=== PATIENT | male | born 1950 | race Caucasian/White ===

== ENCOUNTER → 2018-02-15 11:35 | Outpatient (CLI) | payer OTHER, SELFPAY ==
[2018-02-15 13:37] LABS: Add Manual Diff / Slide Review NO; Basophils Percent Auto 0.6 % (0-2); Eosinophils Percent Auto 1.5 % (2-4); Hematocrit 45.2 % (41-53); Hemoglobin 15.5 g/dL (13.5-17.5); Lymphocytes Percent Auto 31.8 % (25-40); Mean Corpuscular HGB Conc 34.4 % (30-36); Mean Corpuscular Hemoglobin 31.6 PG (26-34); Mean Corpuscular Volume 91.9 fL (80-100); Monocytes Percent Auto 5.5 % (3-14); Neutrophils Absolute Auto 3300 /uL (3000-5900); Neutrophils Percent Auto 60.6 % (50-75); Platelet Count 216 X10^3/uL (150-400); Red Blood Cell Count 4.91 X10^6/uL (4.5-5.9); Red Cell Distribution Width 13.2 % (11.6-14.8); White Blood Cell Count 5.5 X10^3/uL (4.5-11.0)
[2018-02-15 14:01] LABS: Alanine Aminotransferase 32 IU/L (21-72); Albumin 4.6 g/dL (3.5-5.0); Albumin Globulin Ratio 1.4 (1.0-2.8); Alkaline Phosphatase 48 U/L (38-126); Aspartate Aminotransferase 23 IU/L (17-59); Bilirubin Total 0.9 mg/dL (0.2-1.3); Blood Urea Nitrogen 18 mg/dL (9-20); Calcium 9.8 mg/dL (8.4-10.2); Carbon Dioxide 30 mmol/L (22-32); Chloride 104 mmol/L (98-107); Cholesterol 157 mg/dL (140-199); Estimated Glomerular Filt Rate > 60.0 mL/min (>60); Globulin 3.2 g/dL (1.7-4.1); Glucose 117 mg/dL (80-110); HDL Cholesterol 47 mg/dL (40-60); HEMOLYSIS < 15 (0-50); LDL Cholesterol Calculated 98 mg/dL (<100); Potassium 5.3 mmol/L (3.4-5.1); Sodium 145 mmol/L (137-145); Total Protein 7.8 g/dL (6.3-8.2); Triglycerides 61 mg/dL (35-150)
== END ==
PROVIDERS: Family Provider Family Medicine; PCP Family Medicine; Visit Provider Family Medicine
DX: I10 Essential (primary) hypertension (principal); E78.5 Hyperlipidemia, unspecified; N40.0 Benign prostatic hyperplasia without lower urinary tract symptoms
CPT/HCPCS: 36415; 80053; 80061; 84153; 85025

== ENCOUNTER → 2018-08-02 09:55 | Outpatient (CLI) | payer OTHER, SELFPAY ==
--- NOTE | 2018-08-02 09:58 | DI.RAD.S_ITS ---
PROCEDURE: XR THORACIC SPINE 3V INDICATIONS: pain TECHNIQUE: 3 views of the thoracic spine were acquired. COMPARISON: [facility], CT, IVP (ABD & PEL WWO CONTRAST), 03/04/2017, 9:22. FINDINGS: Bones: No fractures or dislocations. No suspicious bony lesions. Chronic T12 fracture with no further height loss. Diffuse endplate spurring and sclerosis. Soft tissues: No paravertebral stripe thickening. IMPRESSION: Diffuse thoracic disc degeneration and unchanged T12 fracture. Dictated by: Marlon Lam M.D. on 08/02/2018 at 12:53 Approved by: Marlon Lam M.D. on 08/02/2018 at 12:59
== END ==
PROVIDERS: Family Provider Family Medicine; PCP Family Medicine; Visit Provider Family Medicine
DX: M51.34 Other intervertebral disc degeneration, thoracic region (principal); S22.089D Unspecified fracture of T11-T12 vertebra, subsequent encounter for fracture with routine healing; N42.9 Disorder of prostate, unspecified
CPT/HCPCS: 36415; 72072; 84153

== ENCOUNTER → 2018-08-14 14:22 | Outpatient (CLI) | payer OTHER, SELFPAY ==
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
== END ==
PROVIDERS: Family Provider Family Medicine; PCP Family Medicine; Visit Provider Family Medicine
DX: M54.6 Pain in thoracic spine (principal)
CPT/HCPCS: 72146

== ENCOUNTER → 2018-12-27 11:31 | Outpatient (CLI) | payer OTHER, SELFPAY ==
[2018-12-27 12:03] LABS: Add Manual Diff / Slide Review NO; Basophils Absolute Auto 0 /uL (0-100); Basophils Percent Auto 0.8 % (0-2); Eosinophils Absolute Auto 100 /uL (0-450); Eosinophils Percent Auto 1.9 % (2-4); Hematocrit 42.4 % (41-53); Hemoglobin 14.7 g/dL (13.5-17.5); Lymphocytes Absolute Auto 1200 /uL (1100-4500); Lymphocytes Percent Auto 29.4 % (25-40); Mean Corpuscular HGB Conc 34.7 % (30-36); Mean Corpuscular Hemoglobin 31.7 PG (26-34); Mean Corpuscular Volume 91.2 fL (80-100); Monocytes Absolute Auto 200 /uL (0-900); Monocytes Percent Auto 5.7 % (3-14); Neutrophils Absolute Auto 2600 /uL (1500-7000); Neutrophils Percent Auto 62.2 % (50-75); Platelet Count 200 X10^3/uL (150-400); Red Blood Cell Count 4.65 X10^6/uL (4.5-5.9); Red Cell Distribution Width 13.6 % (11.6-14.8); White Blood Cell Count 4.2 X10^3/uL (4.5-11.0)
[2018-12-27 12:18] LABS: Alanine Aminotransferase 22 IU/L (21-72); Albumin 4.6 g/dL (3.5-5.0); Albumin Globulin Ratio 1.4 (1.0-2.8); Alkaline Phosphatase 48 U/L (38-126); Aspartate Aminotransferase 23 IU/L (17-59); BUN Creatinine Ratio 26.7 (6-22); Bilirubin Total 0.7 mg/dL (0.2-1.3); Blood Urea Nitrogen 16 mg/dL (9-20); Calcium 9.5 mg/dL (8.4-10.2); Carbon Dioxide 28 mmol/L (22-32); Chloride 105 mmol/L (98-107); Cholesterol 157 mg/dL (140-199); Estimated Glomerular Filt Rate > 60.0 mL/min (>60); Globulin 3.4 g/dL (1.7-4.1); Glucose 130 mg/dL (80-110); HDL Cholesterol 50 mg/dL (40-60); HEMOLYSIS < 15 (0-50); LDL Cholesterol Calculated 98 mg/dL (<100); Potassium 4.9 mmol/L (3.4-5.1); Sodium 141 mmol/L (137-145); Triglycerides 47 mg/dL (35-150)
[2018-12-27 12:19] LABS: C-Reactive Protein Quant < 0.5 mg/dL (<1.0)
[2018-12-27 12:39] LABS: Erythrocyte Sedimentation Rate 16 MM/HR (0-15)
[2018-12-27 12:46] LABS: Prostate Specific Antigen Scrn 1.72 ng/mL (0.1-4.0)
[2018-12-27 13:47] LABS: Thyroid Stimulating Hormone 1.91 uIU/mL (0.47-4.68)
== END ==
PROVIDERS: Family Provider Family Medicine; PCP Family Medicine; Visit Provider Family Medicine
DX: R41.3 Other amnesia (principal); I10 Essential (primary) hypertension; F41.9 Anxiety disorder, unspecified; Z12.5 Encounter for screening for malignant neoplasm of prostate
CPT/HCPCS: 36415; 80053; 80061; 84443; 85025; 85651; 86140; G0103

== ENCOUNTER → 2019-01-10 08:04 | Outpatient (CLI) | payer OTHER, SELFPAY ==
--- NOTE | 2019-01-10 08:05 | DI.MRI.S_ITS ---
PROCEDURE: MR HEAD/BRAIN WO CON INDICATIONS: Memory impairment TECHNIQUE: Noncontrast axial T1 spin echo, axial T2 fast spin echo, sagittal and axial FLAIR, coronal T2 fast spin echo, axial gradient echo, axial diffusion and ADC through the brain. COMPARISON: [facility], MR, BRAIN WITHOUT CONTRAST, 03/11/2015, 15:06. FINDINGS: Image quality: Excellent. CSF Spaces: Basal cisterns are patent. No extra-axial fluid collections. Ventricles are normal in size and shape. Brain: No intracranial masses or hemorrhage. Bolaños/white matter interface is normal. Brainstem appears normal. Diffusion-weighted images demonstrate no acute ischemic insult. No chronic ischemic insults. Normal intravascular flow voids are present. Skull and face: Calvarium has normal marrow signal. Orbits appear normal. Sinuses: Sinuses and mastoids are clear. IMPRESSION: Minimal microvascular atherosclerotic change in the deep white matter of each hemisphere but no source of memory impairment is identified. Dictated by: Ridge Subramanian M.D. on 01/10/2019 at 9:59 Approved by: Ridge Subramanian M.D. on 01/10/2019 at 10:01
== END ==
PROVIDERS: PCP Family Medicine; Visit Provider Family Medicine
DX: R41.3 Other amnesia (principal)
CPT/HCPCS: 70551

== ENCOUNTER → 2019-04-09 10:42 | Outpatient (CLI) | payer OTHER, SELFPAY ==
[2019-04-09 13:15] LABS: Thyroid Stimulating Hormone 2.09 uIU/mL (0.47-4.68)
[2019-04-09 13:39] LABS: Folate > 20.0 ng/mL (2.76-20.0)
[2019-04-14 12:12] LABS: Vit B12 Binding Capacity unsat 605 pg/mL (650-1340)
== END ==
PROVIDERS: PCP Family Medicine; Visit Provider Psychiatry & Neurology Neurology
DX: R41.89 Other symptoms and signs involving cognitive functions and awareness (principal)
CPT/HCPCS: 36415; 82608; 82746; 84443

== ENCOUNTER → 2020-01-23 10:13 | Outpatient (CLI) | payer OTHER, SELFPAY ==
[2020-01-23 10:44] LABS: Add Manual Diff / Slide Review NO; Basophils Absolute Auto 0 /uL (0-100); Basophils Percent Auto 0.6 % (0-2); Eosinophils Absolute Auto 200 /uL (0-450); Eosinophils Percent Auto 3.1 % (2-4); Hematocrit 43.9 % (41-53); Hemoglobin 15.1 g/dL (13.5-17.5); Lymphocytes Absolute Auto 1800 /uL (1100-4500); Lymphocytes Percent Auto 31.7 % (25-40); Mean Corpuscular HGB Conc 34.4 % (30-36); Mean Corpuscular Hemoglobin 31.5 PG (26-34); Mean Corpuscular Volume 91.7 fL (80-100); Monocytes Absolute Auto 300 /uL (0-900); Monocytes Percent Auto 6.1 % (3-14); Neutrophils Absolute Auto 3200 /uL (1500-7000); Neutrophils Percent Auto 58.5 % (50-75); Platelet Count 207 X10^3/uL (150-400); Red Blood Cell Count 4.79 X10^6/uL (4.5-5.9); Red Cell Distribution Width 13.5 % (11.6-14.8); White Blood Cell Count 5.6 X10^3/uL (4.5-11.0)
[2020-01-23 10:53] LABS: Hemoglobin A1C% w Est Avg Glu 5.8 % (4.0-6.0)
[2020-01-23 10:56] LABS: Alanine Aminotransferase 25 IU/L (<50); Albumin 4.6 g/dL (3.5-5.0); Albumin Globulin Ratio 1.3 (1.0-2.8); Alkaline Phosphatase 54 U/L (38-126); Aspartate Aminotransferase 25 IU/L (17-59); BUN Creatinine Ratio 31.6 (6-22); Bilirubin Total 0.4 mg/dL (0.2-1.3); Blood Urea Nitrogen 18 mg/dL (9-20); Calcium 9.7 mg/dL (8.4-10.2); Carbon Dioxide 27 mmol/L (22-32); Chloride 109 mmol/L (98-107); Cholesterol 168 mg/dL (140-199); Estimated Glomerular Filt Rate > 60.0 mL/min (>60); Globulin 3.5 g/dL (1.7-4.1); Glucose 119 mg/dL (80-110); HDL Cholesterol 41 mg/dL (40-60); HEMOLYSIS < 15 (0-50); LDL Cholesterol Calculated 110 mg/dL (<100); Potassium 4.3 mmol/L (3.4-5.1); Sodium 142 mmol/L (137-145); Total Protein 8.1 g/dL (6.3-8.2); Triglycerides 87 mg/dL (35-150)
[2020-01-23 11:26] LABS: Thyroid Stimulating Hormone 2.33 uIU/mL (0.47-4.68)
== END ==
PROVIDERS: PCP Family Medicine; Referring Provider Family Medicine; Visit Provider Family Medicine
DX: I10 Essential (primary) hypertension (principal); Z12.5 Encounter for screening for malignant neoplasm of prostate
CPT/HCPCS: 36415; 80053; 80061; 83036; 84443; 85025; G0103

== ENCOUNTER → 2020-08-20 11:56 | Outpatient (CLI) | payer OTHER, SELFPAY | PROVIDERS: PCP Family Medicine; Visit Provider Physician Assistant | DX: R82.90 Unspecified abnormal findings in urine (principal); R31.9 Hematuria, unspecified | CPT/HCPCS: 87086 ==

== ENCOUNTER → 2020-08-20 12:05 | Outpatient (CLI) | payer OTHER, SELFPAY ==
[2020-08-20 12:47] LABS: Add Manual Diff / Slide Review NO; Basophils Absolute Auto 0 /uL (0-100); Basophils Percent Auto 0.5 % (0-2); Eosinophils Absolute Auto 100 /uL (0-450); Eosinophils Percent Auto 2.4 % (2-4); Hematocrit 45.5 % (41-53); Hemoglobin 15.4 g/dL (13.5-17.5); Lymphocytes Absolute Auto 1900 /uL (1100-4500); Lymphocytes Percent Auto 36.1 % (25-40); Mean Corpuscular HGB Conc 33.9 % (30-36); Mean Corpuscular Hemoglobin 31.1 PG (26-34); Mean Corpuscular Volume 91.5 fL (80-100); Monocytes Absolute Auto 300 /uL (0-900); Monocytes Percent Auto 5.2 % (3-14); Neutrophils Absolute Auto 3000 /uL (1500-7000); Neutrophils Percent Auto 55.8 % (50-75); Platelet Count 205 X10^3/uL (150-400); Red Blood Cell Count 4.97 X10^6/uL (4.5-5.9); Red Cell Distribution Width 13.8 % (11.6-14.8); White Blood Cell Count 5.3 X10^3/uL (4.5-11.0)
[2020-08-20 13:03] LABS: Alanine Aminotransferase 24 IU/L (<50); Albumin 4.7 g/dL (3.5-5.0); Albumin Globulin Ratio 1.3 (1.0-2.8); Alkaline Phosphatase 55 U/L (38-126); Aspartate Aminotransferase 27 IU/L (17-59); BUN Creatinine Ratio 22.4 (6-22); Bilirubin Total 0.7 mg/dL (0.2-1.3); Blood Urea Nitrogen 15 mg/dL (9-20); Calcium 9.7 mg/dL (8.4-10.2); Carbon Dioxide 30 mmol/L (22-32); Chloride 105 mmol/L (98-107); Estimated Glomerular Filt Rate > 60.0 mL/min (>60); Globulin 3.6 g/dL (1.7-4.1); Glucose 123 mg/dL (80-110); HEMOLYSIS < 15 (0-50); Potassium 4.4 mmol/L (3.4-5.1); Sodium 139 mmol/L (137-145); Total Protein 8.3 g/dL (6.3-8.2)
== END ==
PROVIDERS: PCP Family Medicine; Referring Provider Physician Assistant; Visit Provider Physician Assistant
DX: R31.9 Hematuria, unspecified (principal); R82.90 Unspecified abnormal findings in urine
CPT/HCPCS: 36415; 80053; 84153; 85025; 87086

== ENCOUNTER → 2020-09-04 09:44 | Outpatient (CLI) | payer OTHER, SELFPAY ==
[2020-09-04 09:53] LABS: Bacteria Urine None Seen; RBC Urine None Seen (0-5/HPF); WBC Urine None Seen (0-5/HPF)
[2020-09-04 10:15] LABS: Appearance Urine UA CLEAR; Bilirubin Urine UA NEGATIVE (NEGATIVE); Color Urine UA YELLOW; Glucose Urine UA NEGATIVE (Negative); Ketones Urine UA NEGATIVE (NEGATIVE); Leukocyte Esterase Urine UA NEGATIVE (NEGATIVE); Nitrite Urine UA NEGATIVE (Negative); Occult Blood Urine UA NEGATIVE (Negative); Protein Urine UA NEGATIVE (Negative); Specific Gravity Urine UA 1.015 (1.000-1.035); Urobilinogen Urine UA 0.2 E.U./dL (0.2)
[2020-09-04 10:52] LABS: Culture Indicated Urine Cult Not Indicated; Urine Comments Microscopic Normal
== END ==
PROVIDERS: PCP Family Medicine; Referring Provider Family Medicine; Visit Provider Family Medicine
DX: R31.0 Gross hematuria (principal)
CPT/HCPCS: 81001

== ENCOUNTER → 2020-09-12 08:46 | Outpatient (CLI) | payer OTHER, SELFPAY ==
[2020-09-12 09:58] LABS: COVID19 -Nasal RAPID Negative (Negative)
== END ==
PROVIDERS: PCP Family Medicine; Visit Provider Surgery
DX: Z20.822 Contact with and (suspected) exposure to COVID-19 (principal)
CPT/HCPCS: 87635; C9803

== ENCOUNTER 2020-09-15 06:37 | Day surgery (SDC) | payer OTHER, SELFPAY ==
--- NOTE | 2020-09-15 | PATH_ITS ---
[facility] Accession Number: [id number] . 01 Material submitted: . sigmoid colon - SIGMOID COLON POLYP . 02 Diagnosis: Sigmoid Colon Polyp: Serrated lesion, cannot completely exclude sessile serrated adenoma due to tangential tissue orientation. MRV 09/17/2020 1524 Local . 02 Electronically signed: . Leonela Miller MD, Pathologist NPI- [id number] . 01 Gross description: . SIGMOID COLON POLYP: Received in formalin is 1 fragment(s) of huffman, soft tissue measuring 0.1 x 0.1 x 0.1 cm submitted entirely in 1 cassette(s) /MIRNA 09/16/20202000 Local . 02 Pathologist provided ICD-10: K63.5, R19.4 . 02 CPT . 662343 Performed at: 01 [facility] [address] [id number] MD Price Tamez MD Phone: [phone] Performed at: 02 [facility] [address] [place], [place] [id number] MD Dorita Wallace MD Phone: [phone]
[2020-09-15 07:13] VITALS: BP 151/82; PULSE 74; RESP 12; TEMP 36.4; O2SAT 99; BMI 25.8
[2020-09-15] MEDS: LACTATED RINGERS 1,000 ML 200 ML IV (07:25)
--- NOTE | 2020-09-15 07:46 | PM.PREOP ---
Pre-operative Note Interval Note History & Physical reviewed/Exam performed by Physician: Yes Changes to H&P: No
[2020-09-15] MEDS: MIDAZOLAM 5 MG/5 ML VIAL IV (07:53)
[2020-09-15] MEDS: fentaNYL 250 MCG/5 ML INJ IV (07:53)
--- NOTE | 2020-09-15 08:18 | PM.OP.ENDO ---
Operative Date/Time/Diagnoses Date of procedure: 09/15/20 Time of procedure: 08:18 Pre-op diagnosis: change in bowel habits Post-op diagnosis: same Procedure & Clinicians Study performed: colonoscopy Polypectomy Same procedure as scheduled: Yes Indications: 69-year-old man changes in bowel habits recently here for colonoscopy Surgeon: Otis Field Procedure Notes Procedure in detail: Medications: Conscious sedation using 4mg IV midazolam and 100mcg IV of fentanyl The history and physical was performed/updated and the patient is ASA class is 2. The procedure was discussed in detail with the patient. Potential risks complications including infection, bleeding, missed diagnosis, perforation, need for surgery, and were explained. Their questions were answered and informed consent was obtained. Patient was brought to the procedure room and placed standard monitoring equipment. The patient's vital signs were monitored continuously throughout the entire procedure. Prior to starting time-out was performed. The patient was placed in the left lateral recumbent position. Procedural sedation was administered. Examination began with a thorough inspection of the perianal area there was no evidence of fissures, fistulae, external hemorrhoids or cutaneous malignancy. The colonoscopy scope was then placed into the anal canal and was advanced to the cecum, which was identified by the ileocecal valve, the appendiceal orifice and the confluence of the taenia. The scope was then slowly withdrawn examining colon thoroughly in all directions, irrigating it of any residual stool. 3 mm polyp the sigmoid colon at 30 cm from the anal verge removed with Jumbo biopsy forceps The patient tolerated the procedure well. They will be discharged once criteria are met. The prep was of good/excellent quality. The withdrawl time was 7 minutes. The sedation time was 24 minutes. Specimen(s): other (Sigmoid colon) Complications: none Impression: Colonic polyp Post-procedure Recommendations: Colonscopy in 5 years Disposition: same day surgery
[2020-09-15 08:19] VITALS: BP 126/71; PULSE 70; RESP 12; TEMP 36.8; O2SAT 98
[2020-09-15 08:25] VITALS: BP 122/74; PULSE 76; RESP 14; O2SAT 98
[2020-09-15 08:30] VITALS: BP 116/80; PULSE 72; RESP 14; O2SAT 99
[2020-09-15 08:35] VITALS: BP 134/74; PULSE 64; RESP 12; TEMP 36.8; O2SAT 99
[2020-09-15 08:37] VITALS: BP 134/73; PULSE 62; RESP 12; TEMP 36.6; O2SAT 99
== END 2020-09-15 08:50 | disposition home or self-care (01) ==
PROVIDERS: PCP Family Medicine; Referring Provider Family Medicine; Visit Provider Surgery
PROC: 0DJD8ZZ Inspection of Lower Intestinal Tract, Via Natural or Artificial Opening Endoscopic (ICD-10-PCS; CPT 45378; principal; 2020-09-15 07:45)
DX: R19.4 Change in bowel habit (principal); I10 Essential (primary) hypertension; F41.9 Anxiety disorder, unspecified; D12.5 Benign neoplasm of sigmoid colon
CPT/HCPCS: 45380; 99152; J2250; J3010

== ENCOUNTER → 2020-10-09 08:59 | Outpatient (CLI) | payer OTHER, SELFPAY ==
[2020-10-15 04:36] LABS: Percent Free Testosterone 2.15 % (1.50-4.20); Testosterone Free 12.81 ng/dL (5.00-21.00); Testosterone Total 595.9 ng/dL (264.0-916.0)
== END ==
PROVIDERS: PCP Family Medicine; Referring Provider Family Medicine; Visit Provider Family Medicine
DX: R68.82 Decreased libido (principal)
CPT/HCPCS: 36415; 84402; 84403

== ENCOUNTER → 2021-10-05 10:25 | Outpatient (CLI) | payer OTHER, SELFPAY ==
[2021-10-05 12:45] LABS: Add Manual Diff / Slide Review NO; Basophils Absolute Auto 0 /uL (0-100); Basophils Percent Auto 0.9 % (0-2); Eosinophils Absolute Auto 100 /uL (0-450); Eosinophils Percent Auto 2.6 % (2-4); Hematocrit 42.5 % (41-53); Hemoglobin 14.6 g/dL (13.5-17.5); Lymphocytes Absolute Auto 1600 /uL (1100-4500); Lymphocytes Percent Auto 30.7 % (25-40); Mean Corpuscular HGB Conc 34.4 % (30-36); Mean Corpuscular Hemoglobin 31.3 PG (26-34); Mean Corpuscular Volume 90.8 fL (80-100); Monocytes Absolute Auto 300 /uL (0-900); Monocytes Percent Auto 5.6 % (3-14); Neutrophils Absolute Auto 3100 /uL (1500-7000); Neutrophils Percent Auto 60.2 % (50-75); Platelet Count 211 X10^3/uL (150-400); Red Blood Cell Count 4.68 X10^6/uL (4.5-5.9); Red Cell Distribution Width 13.5 % (11.6-14.8); White Blood Cell Count 5.1 X10^3/uL (4.5-11.0)
[2021-10-05 13:06] LABS: Alanine Aminotransferase 20 IU/L (<50); Albumin 4.6 g/dL (3.5-5.0); Albumin Globulin Ratio 1.2 (1.0-2.8); Alkaline Phosphatase 48 U/L (38-126); Aspartate Aminotransferase 25 IU/L (17-59); BUN Creatinine Ratio 21.3 (6-22); Bilirubin Total 0.6 mg/dL (0.2-1.3); Blood Urea Nitrogen 16 mg/dL (9-20); Calcium 9.4 mg/dL (8.4-10.2); Carbon Dioxide 32 mmol/L (22-32); Chloride 104 mmol/L (98-107); Cholesterol 187 mg/dL (140-199); Estimated Glomerular Filt Rate > 60.0 mL/min (>60); Globulin 3.8 g/dL (1.7-4.1); Glucose 114 mg/dL (80-110); HDL Cholesterol 56 mg/dL (40-60); HEMOLYSIS < 15 (0-50); LDL Cholesterol Calculated 118 mg/dL (<100); Potassium 4.5 mmol/L (3.4-5.1); Sodium 141 mmol/L (137-145); Total Protein 8.4 g/dL (6.3-8.2); Triglycerides 66 mg/dL (35-150)
[2021-10-10 16:42] LABS: Testosterone Free 9.05 ng/dL (5.00-21.00); Testosterone Total 603.1 ng/dL (264.0-916.0)
== END ==
PROVIDERS: PCP Family Medicine; Referring Provider Family Medicine; Visit Provider Family Medicine
DX: Z00.00 Encounter for general adult medical examination without abnormal findings (principal); E78.2 Mixed hyperlipidemia; R31.0 Gross hematuria; R73.9 Hyperglycemia, unspecified; I10 Essential (primary) hypertension; R68.82 Decreased libido
CPT/HCPCS: 36415; 80053; 80061; 84402; 84403; 85025

== ENCOUNTER → 2023-03-23 09:22 | Outpatient (CLI) | payer OTHER, SELFPAY ==
[2023-03-23 11:02] LABS: Add Manual Diff / Slide Review NO; Basophils Absolute Auto 0 /uL (0-100); Basophils Percent Auto 0.4 % (0-2); Eosinophils Absolute Auto 100 /uL (0-450); Eosinophils Percent Auto 2.3 % (2-4); Hematocrit 44.9 % (41-53); Hemoglobin 15.4 g/dL (13.5-17.5); Lymphocytes Absolute Auto 1800 /uL (1100-4500); Mean Corpuscular HGB Conc 34.3 % (30-36); Mean Corpuscular Hemoglobin 31.7 PG (26-34); Mean Corpuscular Volume 92.4 fL (80-100); Monocytes Absolute Auto 300 /uL (0-900); Monocytes Percent Auto 5.4 % (3-14); Neutrophils Absolute Auto 3000 /uL (1500-7000); Neutrophils Percent Auto 56.9 % (50-75); Platelet Count 230 X10^3/uL (150-400); Red Blood Cell Count 4.85 X10^6/uL (4.5-5.9); Red Cell Distribution Width 13.8 % (11.6-14.8); White Blood Cell Count 5.2 X10^3/uL (4.5-11.0)
[2023-03-23 11:24] LABS: Alanine Aminotransferase 26 IU/L (<50); Albumin 4.7 g/dL (3.5-5.0); Albumin Globulin Ratio 1.2 (1.0-2.8); Alkaline Phosphatase 44 U/L (38-126); Aspartate Aminotransferase 27 IU/L (17-59); BUN Creatinine Ratio 22.2 (6-22); Bilirubin Total 0.7 mg/dL (0.2-1.3); Blood Urea Nitrogen 14 mg/dL (9-20); Calcium 9.5 mg/dL (8.4-10.2); Carbon Dioxide 27 mmol/L (22-32); Chloride 105 mmol/L (98-107); Cholesterol 194 mg/dL (140-199); Estimated Glomerular Filt Rate > 60 mL/min (>60); Globulin 3.9 g/dL (1.7-4.1); Glucose 127 mg/dL (80-110); HDL Cholesterol 45 mg/dL (40-60); HEMOLYSIS < 15 (0-50); LDL Cholesterol Calculated 131 mg/dL (<100); Potassium 4.6 mmol/L (3.4-5.1); Sodium 141 mmol/L (137-145); Total Protein 8.6 g/dL (6.3-8.2); Triglycerides 91 mg/dL (35-150)
[2023-03-23 11:52] LABS: Microalbumin Urine Random 17.8 mg/dL (0-1.6)
[2023-03-23 11:54] LABS: Creatinine Urine Random 76.6 mg/dL; Microalbumi Creatinin Ratio Ur 232.3 ug/mg CR (<30)
== END ==
PROVIDERS: PCP Family Medicine; Referring Provider Family Medicine; Visit Provider Family Medicine
DX: E78.5 Hyperlipidemia, unspecified (principal); I10 Essential (primary) hypertension; R41.3 Other amnesia; R73.9 Hyperglycemia, unspecified; Z00.00 Encounter for general adult medical examination without abnormal findings
CPT/HCPCS: 36415; 80053; 80061; 82043; 82570; 84443; 85025

== ENCOUNTER → 2023-03-29 13:46 | Outpatient (CLI) | payer OTHER, SELFPAY ==
[2023-03-31 17:30] LABS: Albumin 4.2 g/dL (2.9-4.4); Alpha-1 Globulin, Ur 3.1 % (.); Alpha-1-Globulin 0.2 g/dL (0.0-0.4); Alpha-2-Globulin 0.7 g/dL (0.4-1.0); Beta Globulin, Ur 17.7 % (.); Gamma Globulin 1.4 g/dL (0.4-1.8); Gamma Globulin, Ur 7.9 % (.); Globulin Total 3.4 g/dL (2.2-3.9); M-Spike % 3.8 % (Not Observed); Protein, Total 7.6 g/dL (6.0-8.5); Urine Total Protein 29.9 mg/dL (Not Estab.)
== END ==
PROVIDERS: PCP Family Medicine; Referring Provider Family Medicine; Visit Provider Family Medicine
DX: R73.9 Hyperglycemia, unspecified (principal); R80.9 Proteinuria, unspecified
CPT/HCPCS: 36415; 84155; 84156; 84165; 84166

== ENCOUNTER → 2023-04-14 15:19 | Outpatient (CLI) | payer OTHER, SELFPAY ==
--- NOTE | 2023-04-14 15:20 | DI.RAD.S_ITS ---
PROCEDURE: XR HIP W PEL IF DONE LT 2V INDICATIONS: Left hip pain TECHNIQUE: AP pelvis with lateral view(s) of the left hip(s). COMPARISON: None. FINDINGS: Bones: No fractures or dislocations. Pelvic ring appears intact. No suspicious bony lesions. Moderate left hip osteoarthritis with osseous hypertrophy and joint space narrowing. Soft tissues: The visualized bowel gas pattern is normal. No suspicious soft tissue calcifications. IMPRESSION: Moderate left hip osteoarthritis. Dictated by: Irena Maurer MD, PhD on 04/14/2023 at 16:02 Approved by: Irena Maurer MD, PhD on 04/14/2023 at 16:02
== END ==
PROVIDERS: PCP Family Medicine; Referring Provider Nurse Practitioner Family; Visit Provider Nurse Practitioner Family
DX: M16.12 Unilateral primary osteoarthritis, left hip (principal); M25.552 Pain in left hip
CPT/HCPCS: 73502

== ENCOUNTER 2023-06-22 10:53 | Inpatient (IN) | payer OTHER, SELFPAY ==
[2023-06-22 11:07] VITALS: BP 137/90; PULSE 91; RESP 18; TEMP 36.1; O2SAT 97; BMI 25.8
[2023-06-22] MEDS: ONDANSETRON 4 MG/2 ML INJ IV ×2 (11:22→16:52)
[2023-06-22 11:40] LABS: Add Manual Diff / Slide Review NO; Basophils Absolute Auto 0 /uL (0-100); Basophils Percent Auto 0.2 % (0-2); Eosinophils Absolute Auto 0 /uL (0-450); Eosinophils Percent Auto 0.1 % (2-4); Hematocrit 48.1 % (41-53); Hemoglobin 17.2 g/dL (13.5-17.5); Lymphocytes Absolute Auto 1100 /uL (1100-4500); Lymphocytes Percent Auto 7.6 % (25-40); Mean Corpuscular HGB Conc 35.6 % (30-36); Mean Corpuscular Hemoglobin 32.2 PG (26-34); Mean Corpuscular Volume 90.3 fL (80-100); Monocytes Absolute Auto 600 /uL (0-900); Monocytes Percent Auto 3.7 % (3-14); Neutrophils Absolute Auto 13200 /uL (1500-7000); Neutrophils Percent Auto 88.4 % (50-75); Platelet Count 292 X10^3/uL (150-400); Red Blood Cell Count 5.33 X10^6/uL (4.5-5.9); Red Cell Distribution Width 13.4 % (11.6-14.8); White Blood Cell Count 14.9 X10^3/uL (4.5-11.0)
[2023-06-22 11:44] LABS: Alanine Aminotransferase 32 IU/L (<50); Albumin 5.1 g/dL (3.5-5.0); Albumin Globulin Ratio 1.1 (1.0-2.8); Alkaline Phosphatase 75 U/L (38-126); Aspartate Aminotransferase 31 IU/L (17-59); Bilirubin Total 1.2 mg/dL (0.2-1.3); Blood Urea Nitrogen 18 mg/dL (9-20); Calcium 11.4 mg/dL (8.4-10.2); Carbon Dioxide 27 mmol/L (22-32); Chloride 101 mmol/L (98-107); Estimated Glomerular Filt Rate > 60 mL/min (>60); Globulin 4.6 g/dL (1.7-4.1); Glucose 232 mg/dL (80-110); HEMOLYSIS 20 (0-50); Lipase 41 U/L (23-300); Potassium 4.2 mmol/L (3.4-5.1); Sodium 140 mmol/L (137-145); Total Protein 9.7 g/dL (6.3-8.2)
--- NOTE | 2023-06-22 11:58 | PC.NURSE ---
Pt came to ED today because he woke up and felt diaphoretic and pain in his lower abd. Pt denies any cp, sob, n/v, or fevers. Pt is a&ox4. ANSWERING SERVICE OPERATOR intact.
--- NOTE | 2023-06-22 12:05 | ED_ITS ---
HPI - Abdominal Pain General Chief Complaint: Abdominal Pain Stated Complaint: vomiting, constipation, abd pain Time Seen by Provider: 06/22/23 12:03 Source: patient Mode of arrival: Wheelchair History of Present Illness HPI narrative: 72-year-old male with history of hyperglycemia, prior abdominal surgeries, hypertension presents with his in the chief complaint of abdominal discomfort, bloating and multiple episodes of vomiting today. He states he went to bed in his normal state of health and over the course of the night has developed increasing generalized abdominal pain. He is tried to have a bowel movement but states he has not in the past few days which is not normal for him. He states he is had trouble passing gas. He denies urinary complaints such as dysuria, frequency or urgency. He denies any fever or chills nor chest pain or shortness of breath. He denies any medication change but states maybe he had some bad food a few days ago. 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Route 05/10/23 .COMPLEX #15 tabs Allergies Allergy/AdvReac Type Severity Reaction Status Date / Time No Known Drug Allergies Allergy Unknown Verified 06/22/23 11:11 Review of Systems Review of Systems Narrative: GENERAL: Denies chills, fatigue, malaise, fever, sweats. HEENT: Denies sinus pain, ear pain, sore throat, difficulty swallowing, dizziness. RESPIRATORY: Denies dyspnea, cough, wheezing, hemoptysis, sputum. CARDIOVASCULAR: Denies chest pain, palpitations, orthopnea, edema, GASTROINTESTINAL: See HPI : Denies dysuria, frequency, incontinence, hematuria, urinary retention. MUSCULOSKELETAL: denies weakness, joint pain, or bony pain SKIN: Denies rash, skin lesions, or other NEUROLOGIC: Denies weakness, headache, numbness, change in speech, confusion, seizures, incoordination. PSYCHIATRIC: No concerning psychosocial issues. 12 point review of systems is negative except for those stated above Patient History Medical History Short-term memory loss Hyperglycemia Libido, decreased Change in stool caliber Substance abuse (~1974) Chronic back pain (~1999) Chicken pox (~1955) Hepatitis C (~1994) Cancer (~2008) Low back pain Hyperlipidemia Dry eyes Memory impairment Essential hypertension (10/08/15) Anxiety (10/08/15) Surgical History Anesthesia Pseudomyxoma peritonei (~08/02/08) Family History Father Diabetes mellitus History of heart disease Mental health problem Hypertension Mother Sepsis Hypertension Sister Cancer Hypertension Sister Diabetes mellitus Hypertension Grandfather History of heart disease Grandmother History of heart disease Social History marital status: unmarried,living together household members: significant other occupational status: employed Smoking Status: Former smoker alcohol intake: never Smoking Status: Former smoker Substance Use Type: marijuana Exam Narrative Exam Narrative: GENERAL: [72] year old patient appears stated age. Well-developed patient, in mild distress. HEAD: Atraumatic. Normocephalic. EYES: Pupils equal round and reactive. Extraocular motions intact. No scleral icterus. No injection or drainage. ENT: Nose without bleeding, purulent drainage. Throat without erythema, tonsillar hypertrophy or exudate. Airway patent. NECK: Trachea midline. Non tender CARDIOVASCULAR: Regular rate and rhythm without murmurs, gallops, or rubs. RESPIRATORY: Clear to auscultation. Breath sounds equal bilaterally. No wheezes, rales, or rhonchi. GASTROINTESTINAL: Abdomen soft, non-tender, nondistended. EXTREMITIES: No edema or joint tenderness. BACK: Nontender without deformity or crepitance. No flank tenderness. NEURO: AOx3. SKIN: No rash or erythema of visible areas Initial Vital Signs Initial Vital Signs: Vital Signs Temperature 97.0 F L 06/22/23 11:07 Pulse Rate 91 H 06/22/23 11:07 Respiratory Rate 18 06/22/23 11:07 Blood Pressure 137/90 06/22/23 11:07 Pulse Oximetry 97 06/22/23 11:07 Oxygen Delivery Method Room Air 06/22/23 11:07 Course Orders Ordered: ED Orders 06/22/23 11:11 EKG-12 Lead Stat 06/22/23 11:15 Complete Blood Count AUTO DIFF Stat Comprehensive Metabolic Panel Stat Lactate (Lactic Acid) Stat Lipase Stat 06/22/23 12:10 CT abdomen pelvis w con Stat Diazepam (Diazepam 10 Mg/2 Ml Syringe) 2.5 mg IV Q6HR PRN PRN Reason: Anxiety Hydromorphone HCl (Hydromorphone 0.5 Mg Inj) 0.5 mg IV Q2H PRN PRN Reason: Pain, Severe (7-10) Sodium Chloride (Normal Saline 0.9%) 1,000 mls @ 100 mls/hr IV CONT ELROY Last Admin: 06/22/23 14:44 Dose: 100 mls/hr Documented By: HCW Naloxone HCl (Naloxone 0.4 Mg/Ml Vial) 0.2 mg IV Q2MIN PRN PRN Reason: Opiate Reversal Ondansetron HCl (Ondansetron 4 Mg/2 Ml Inj) 4 mg IV Q4HR PRN PRN Reason: Nausea And Vomiting Discontinued Medications Sodium Chloride (Normal Saline 0.9%) 1,000 mls @ 1,000 mls/hr IV BOLUS ONE Stop: 06/22/23 13:09 Last Infusion: 06/22/23 13:04 Dose: Infused Documented By: Admin: 06/22/23 12:29 Dose: 1,000 mls/hr Documented By: MPO Ondansetron HCl (Ondansetron 4 Mg Odt) 4 mg PO NOW PRN PRN Reason: Nausea And Vomiting Ondansetron HCl (Ondansetron 4 Mg/2 Ml Inj) 4 mg IV NOW PRN PRN Reason: Nausea And Vomiting Last Admin: 06/22/23 11:22 Dose: 4 mg Documented By: ROSALINDA Pantoprazole Sodium (Pantoprazole 40 Mg Vial) 40 mg IV NOW ONE Stop: 06/22/23 12:11 Last Admin: 06/22/23 12:30 Dose: 40 mg Documented By: MPO Consultations Consultation #1: discussed with Dr. Tobin, agrees with admission, requests NG, admission to hospitalist Consultation #2: hospitalist happy to accept Vital Signs Vital signs: Vital Signs - 8 hr 06/22/23 11:07 Temperature 97.0 F L Pulse Rate 91 H Respiratory Rate 18 Blood Pressure 137/90 Pulse Oximetry 97 Oxygen Delivery Method Room Air MDM - Abdominal Pain Lab Data 06/22/23 11:15 06/22/23 11:15 Labs: Lab Results 06/22/23 Range/Units 11:15 WBC 14.9 H (4.5-11.0) X10^3/uL RBC 5.33 (4.5-5.9) X10^6/uL Hgb 17.2 (13.5-17.5) g/dL Hct 48.1 (41-53) % MCV 90.3 (80-100) fL MCH 32.2 (26-34) PG MCHC 35.6 (30-36) % RDW 13.4 (11.6-14.8) % Plt Count 292 (150-400) X10^3/uL Neut % (Auto) 88.4 H (50-75) % Lymph % (Auto) 7.6 L (25-40) % Clay % (Auto) 3.7 (3-14) % Eos % (Auto) 0.1 L (2-4) % Baso % (Auto) 0.2 (0-2) % Neut # (Auto) 15788 H (6275-1971) /uL Lymph # (Auto) 1100 (4839-7654) /uL Clay # (Auto) 600 (0-900) /uL Eos # (Auto) 0 (0-450) /uL Baso # (Auto) 0 (0-100) /uL Sodium 140 (137-145) mmol/L Potassium 4.2 (3.4-5.1) mmol/L Chloride 101 (98-107) mmol/L Carbon Dioxide 27 (22-32) mmol/L BUN 18 (9-20) mg/dL Creatinine 0.90 (0.66-1.25) mg/dL Estimated GFR > 60 (>60) mL/min BUN/Creatinine Ratio 20.0 (6-22) Glucose 232 H (80-110) mg/dL Lactate 2.2 H (0.7-2.1) mmol/L Calcium 11.4 H (8.4-10.2) mg/dL Total Bilirubin 1.2 (0.2-1.3) mg/dL AST 31 (17-59) IU/L ALT 32 (<50) IU/L Alkaline Phosphatase 75 (38-126) U/L Total Protein 9.7 H (6.3-8.2) g/dL Albumin 5.1 H (3.5-5.0) g/dL Globulin 4.6 H (1.7-4.1) g/dL Albumin/Globulin Ratio 1.1 (1.0-2.8) Lipase 41 (23-300) U/L MDM Narrative Medical decision making narrative: [72] year old patient presents with abdominal pain with vomiting and decreased bowel movements Multiple etiologies for patient's symptoms considered including, but not limited to: [Obstruction versus other] Prior Charts reviewed in our EMR Primary Historian: patient Labs reviewed and interpreted by myself: leukocytosis with mild shift Imaging reviewed: evidence of SBO Consultations: discussed with Gen Surg (see above) and hospitalist (see above) patient requires hospitalization for further evaluation and treatment Discharge Plan Departure Patient Disposition: Admitted As Inpatient Clinical Impression: Partial small bowel obstruction Admit Date/Time: 06/22/23 13:10 Admit Provider: Caio Adhikari
--- NOTE | 2023-06-22 12:10 | DI.CT.S_ITS ---
PROCEDURE: CT ABDOMEN PELVIS W CON INDICATIONS: pain, no BM, no flatus, vomiting TECHNIQUE: After the administration of intravenous contrast, axial sections acquired from the lung bases to the pubic symphysis. Coronal and sagittal reformats were performed. For radiation dose reduction, the following was used: automated exposure control, adjustment of mA and/or kV according to patient size. COMPARISON: [facility], CT, ABDOMEN/PELVIS WITH CONTRAST, 08/11/2012, 11:11. FINDINGS: Image quality: Excellent. Lung bases: Unremarkable. Heart: No significant findings. ABDOMEN: Liver: Unremarkable. Gallbladder: Not seen Biliary ducts: Unremarkable. Pancreas: Unremarkable. Spleen: Unremarkable. Adrenal Glands: Unremarkable. Kidneys and Ureters: Left parapelvic renal cysts. No hydronephrosis. Stomach and Bowel: There is moderate distension of the stomach. There are multiple moderately distended loops of small bowel within the abdomen and pelvis. There is thickening of multiple small bowel loops, predominantly within the left hemiabdomen. Distal ileum is decompressed. Colon is decompressed. Peritoneum: No abnormal intraperitoneal fluid. No free air. Ventral Wall: No hernias. Abdominal Nodes: No retroperitoneal or mesenteric adenopathy by size criteria. Vessels: Aorta and inferior vena cava are normal in size. PELVIS: Pelvic Organs: Unremarkable. Bladder: Unremarkable. Pelvic Nodes: No enlarged lymph nodes. Miscellaneous: No hernias are seen. Bones: There is a mild chronic T12 compression fracture. IMPRESSION: 1. Small bowel thickening, consistent with ischemia, infection, or inflammation. 2. Small-bowel obstruction. Dictated by: Donnie Carreon M.D. on 06/22/2023 at 12:33 Approved by: Donnie Carreon M.D. on 06/22/2023 at 12:37
[2023-06-22] MEDS: SODIUM CHLORIDE 0.9% 1,000 ML 1000 ML IV (12:29)
[2023-06-22] MEDS: PANTOPRAZOLE 40 MG VIAL IV (12:30)
[2023-06-22 13:02] LABS: Lactate (Lactic Acid) 2.2 mmol/L (0.7-2.1)
[2023-06-22 14:08] VITALS: BMI 24.7
--- NOTE | 2023-06-22 14:27 | PC.NURSE ---
talked to Rizwan, she said to set NG to low intermittent suction.
[2023-06-22 14:31] VITALS: BP 172/85; PULSE 88; RESP 20; TEMP 36.4; O2SAT 94
[2023-06-22 14:36] LABS: Reflexed Lactate in 2 Hours Y
[2023-06-22] MEDS: SODIUM CHLORIDE 0.9% 1,000 ML 100 ML IV (14:44)
[2023-06-22 14:45] LABS: Lactate 2HR (Lactic Acid Rflx) 1.5 mmol/L (0.7-2.1)
--- NOTE | 2023-06-22 15:20 | P.HP_ITS ---
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 Over the last couple of days he had not had a significant bowel movement and has not been passing gas. He noticed his abdomen was quite hard and distended. He denies any chest pain, shortness of breath, fever, chills. In the emergency room, CT scan showed a small bowel obstruction along with small bowel thickening. Surgery was consulted, recommended NG tube placement and admission to medicine. NT tube was placed and patient currently does feel a bit improved with resolution of nausea after ondansetron and NG placement. Labs do show mild leukocytosis, at 14.9, Hg of 17.2, calcium of 11.4 consistent with dehydration. He was started on NS, and will continue on this for now. [facility] Medical History Short-term memory loss Hyperglycemia Libido, decreased Change in stool caliber Substance abuse (~1974) Chronic back pain (~1999) Chicken pox (~1955) Hepatitis C (~1994) Cancer (~2008) Low back pain Hyperlipidemia Dry eyes Memory impairment Essential hypertension (10/08/15) Anxiety (10/08/15) Surgical History Anesthesia Pseudomyxoma peritonei (~08/02/08) Family History Father Diabetes mellitus History of heart disease Mental health problem Hypertension Mother Sepsis Hypertension Sister Cancer Hypertension Sister Diabetes mellitus Hypertension Grandfather History of heart disease Grandmother History of heart disease Social History marital status: unmarried,living together household members: significant other occupational status: employed Smoking Status: Former smoker alcohol intake: never Meds Home Medications and Allergies Home Medications Medication Instructions Recorded Confirmed Type blood sugar diagnostic ([employer] TechnologiesTouch #10 ea 10/27/20 06/22/23 Rx Ultra Blue Test Strip) amlodipine 5 mg tablet See Rx Instructions .Route 03/10/23 06/22/23 Rx .COMPLEX #270 tabs lisinopril 5 mg tablet 5 mg PO DAILY #90 tabs 03/10/23 06/22/23 Rx citalopram 20 mg tablet See Rx Instructions .Route 04/20/23 06/22/23 Rx .COMPLEX #180 tabs simvastatin 20 mg tablet See Rx Instructions .Route 04/20/23 06/22/23 Rx .COMPLEX #90 tabs lorazepam 0.5 mg tablet See Rx Instructions .Route 05/10/23 06/22/23 Rx .COMPLEX #15 tabs latanoprost 0.005 % eye drops 1 drp EYE-LEFT ONCE PM 06/22/23 06/22/23 History Allergies Allergy/AdvReac Type Severity Reaction Status Date / Time No Known Drug Allergies Allergy Unknown Verified 06/22/23 11:11 Review of Systems Review of Systems Narrative: All other systems reviewed with the patient and are negative unless otherwise stated. Exam Vital Signs (past 8 hours): - 06/22/23 11:07 06/22/23 14:31 Temperature 97.0 F L 97.5 F L Pulse Rate 91 H 88 Respiratory Rate 18 20 Blood Pressure 137/90 172/85 H Pulse Oximetry 97 94 Oxygen Delivery Method Room Air Oxygen Flow Rate 0 Oxygen Delivery Method Room Air Oxygen Flow Rate 0 Narrative Exam Narrative: General:? Patient is well developed and well nourished, slightly lethargic but alert and oriented with NG tube in place HEENT:? Normocephalic, atraumatic, extraocular muscles intact, oral pharynx is clear and mucous membranes are dry. Neck: supple and symmetric, trachea is midline, no cervical adenopathy. Negative for JVD Chest:? Normal AP diameter and contour without kyphoscoliosis, no tachypnea, equal chest rise bilaterally. Lungs:? CTA b/l no wheezing rhonchi or rales. Cardio:?RRR no m/r/g. Abdomen: soft, epigastric distension without tenderness. Musculoskeletal:? Muscle strength and tone are equal within normal limits, no deformity. Extremities: No edema or joint effusions. No cyanosis or clubbing. Skin:? Pale,? Warm to touch,dry and intact without rashes, ulcerations or petechiae.? Neuro:? Alert and orientated x3,? sensation to touch intact in all extremities, no gross deficits noted of cranial nerves. Psych:? Patient has a well-kept appearance, appropriate affect, mental status attitude thought context and judgment are appropriate for age. Objective Labs 06/22/23 11:15 06/22/23 11:15 Labs: Laboratory Results - last 24 hr 06/22/23 06/22/23 11:15 13:29 WBC 14.9 H RBC 5.33 Hgb 17.2 Hct 48.1 MCV 90.3 MCH 32.2 MCHC 35.6 RDW 13.4 Plt Count 292 Neut % (Auto) 88.4 H Lymph % (Auto) 7.6 L Pierce % (Auto) 3.7 Eos % (Auto) 0.1 L Baso % (Auto) 0.2 Neut # (Auto) 92632 H Lymph # (Auto) 1100 Pierce # (Auto) 600 Eos # (Auto) 0 Baso # (Auto) 0 Sodium 140 Potassium 4.2 Chloride 101 Carbon Dioxide 27 BUN 18 Creatinine 0.90 Estimated GFR > 60 BUN/Creatinine Ratio 20.0 Glucose 232 H Lactate 2.2 H 1.5 Calcium 11.4 H Total Bilirubin 1.2 AST 31 ALT 32 Alkaline Phosphatase 75 Total Protein 9.7 H Albumin 5.1 H Globulin 4.6 H Albumin/Globulin Ratio 1.1 Lipase 41 Assessment & Plan Assessment & Plan narrative: 1. Small bowel obstruction due to adhesions - NPO/IVF, continue NG tube - appreciate general surgery consultation - CT scan with small bowel thickening but no obvious ischemia yet, continue to monitor abdominal exams with NG placement. 2. HTN, chronic - will hold home medications for now, work on pain and nausea control as HTN likely reactive. - if persistently hypertensive and still obstructed can start IV enalapril to replace home lisinopril. Use with caution given bowel thickening and risk for sepsis if ischemic. 3. Hypercalcemia - likely due to dehydration given Hg of 17, high calcium and albumin level. continue to reassess with IV fluid administration and BMP tomorrow AM. - if no improvement send for PTH level. He is not on a thiazide. 4. Elevated glucose - - suspect related to stress response - will monitor for now with BMPs, if still elevated tomorrow check A1c and follow fingersticks. 5. Anxiety - continue home lorazepam as needed for anxiety with 0.5 mg IV q6 prn. DVT: SCDs in case of need for possible surgery Code: Full, surrogate is patient's girlfriend Nona Dispo: Admitted inpatient as his stay is expected to exceed two midnights. I have utilized all available immediate resources to obtain, update, or review the patient's current medications. Additional history was obtained via discussion with ER provider to formulate the above history and asssessment and plan. I have personally reviewed presenting labs, documentation of outpatient providers, and imaging. Quality VTE Deep Vein Thrombosis/Pulmonary Embolism Present on Admission: No
[2023-06-22] MEDS: HYDROMORPHONE 0.5 MG INJ IV (16:52)
--- NOTE | 2023-06-22 17:23 | P.CONS_ITS ---
History of Present Illness Consult details Date Patient Seen: 06/22/23 Time Patient Seen: 17:23 Chief complaint: vomiting, constipation, abd pain Narrative: Duy Stephens is a 72-year-old man who presented to the emergency department with abdominal pain nausea and vomiting starting last night. He has not had a bowel movement or passed any flatulence. A CT scan demonstrated a small-bowel obstruction. He had some sort of open abdominal surgery for pseudomyxoma peritonei coming from the appendix in approximately 2011 in [facility]. He has never had a bowel obstruction before. Meds Home Medications and Allergies Home Medications Medication Instructions Recorded Confirmed Type blood sugar diagnostic ([employer]Touch #10 ea 10/27/20 06/22/23 Rx Ultra Blue Test Strip) amlodipine 5 mg tablet See Rx Instructions .Route 03/10/23 06/22/23 Rx .COMPLEX #270 tabs lisinopril 5 mg tablet 5 mg PO DAILY #90 tabs 03/10/23 06/22/23 Rx citalopram 20 mg tablet See Rx Instructions .Route 04/20/23 06/22/23 Rx .COMPLEX #180 tabs simvastatin 20 mg tablet See Rx Instructions .Route 04/20/23 06/22/23 Rx .COMPLEX #90 tabs lorazepam 0.5 mg tablet See Rx Instructions .Route 05/10/23 06/22/23 Rx .COMPLEX #15 tabs latanoprost 0.005 % eye drops 1 drp EYE-LEFT ONCE PM 06/22/23 06/22/23 History Allergies Allergy/AdvReac Type Severity Reaction Status Date / Time No Known Drug Allergies Allergy Unknown Verified 06/22/23 11:11 Exam Vital Signs (past 8 hours): - 06/22/23 11:07 06/22/23 14:31 Temperature 97.0 F L 97.5 F L Pulse Rate 91 H 88 Respiratory Rate 18 20 Blood Pressure 137/90 172/85 H Pulse Oximetry 97 94 Oxygen Delivery Method Room Air Oxygen Flow Rate 0 Oxygen Delivery Method Room Air Oxygen Flow Rate 0 Narrative Exam Narrative: Abdomen is soft, minimally tender without peritonitis Midline laparotomy scar Objective Labs 06/22/23 11:15 06/22/23 11:15 Labs: Laboratory Results - last 24 hr 06/22/23 06/22/23 11:15 13:29 WBC 14.9 H RBC 5.33 Hgb 17.2 Hct 48.1 MCV 90.3 MCH 32.2 MCHC 35.6 RDW 13.4 Plt Count 292 Neut % (Auto) 88.4 H Lymph % (Auto) 7.6 L [place] % (Auto) 3.7 Eos % (Auto) 0.1 L Baso % (Auto) 0.2 Neut # (Auto) 06934 H Lymph # (Auto) 1100 [place] # (Auto) 600 Eos # (Auto) 0 Baso # (Auto) 0 Sodium 140 Potassium 4.2 Chloride 101 Carbon Dioxide 27 BUN 18 Creatinine 0.90 Estimated GFR > 60 BUN/Creatinine Ratio 20.0 Glucose 232 H Lactate 2.2 H 1.5 Calcium 11.4 H Total Bilirubin 1.2 AST 31 ALT 32 Alkaline Phosphatase 75 Total Protein 9.7 H Albumin 5.1 H Globulin 4.6 H Albumin/Globulin Ratio 1.1 Lipase 41 PFSH Medical History Short-term memory loss Hyperglycemia Libido, decreased Change in stool caliber Substance abuse (~1974) Chronic back pain (~1999) Chicken pox (~1955) Hepatitis C (~1994) Cancer (~2008) Low back pain Hyperlipidemia Dry eyes Memory impairment Essential hypertension (10/08/15) Anxiety (10/08/15) Surgical History Anesthesia Pseudomyxoma peritonei (~08/02/08) Family History Father Diabetes mellitus History of heart disease Mental health problem Hypertension Mother Sepsis Hypertension Sister Cancer Hypertension Sister Diabetes mellitus Hypertension Grandfather History of heart disease Grandmother History of heart disease Social History marital status: unmarried,living together household members: significant other occupational status: employed Tobacco & Substance Use Smoking Status: Former smoker alcohol intake: never Assessment & Plan Assessment and plan (1) Partial small bowel obstruction: Status: Acute Plan I recommend NG tube decompression for small bowel obstruction. If there is no progress after few days we would proceed with a Gastrografin challenge. If the Gastrografin challenge fails to resolve the obstruction he would need surgery.
[2023-06-22 18:05] VITALS: O2SAT 96
--- NOTE | 2023-06-22 18:23 | PC.NURSE ---
pt ambulated in hallways with PCT. NG was on low intermittent suction, but provider asked to bump it up a little since it is not suctioning much.
[2023-06-22 18:34] VITALS: BP 171/82; PULSE 92; TEMP 36.8; O2SAT 94
[2023-06-22 20:48] VITALS: BP 178/90; PULSE 91; RESP 17; TEMP 36.4; O2SAT 96
[2023-06-22 22:00] VITALS: O2SAT 96
[2023-06-23] VITALS (12 sets, daily range): BP systolic 151–170; BP diastolic 79–90; PULSE 79–109; RESP 14–20; TEMP 36.3–37; O2SAT 92–96
--- NOTE | 2023-06-23 | DI.RAD.S_ITS ---
PROCEDURE: XR GASTROGRAFIN CHALLENGE COMPARISON: None. INDICATIONS: small bowel obstruction FINDINGS: 4 hours following Gastrografin administration, Gastrografin is seen within the distended small bowel. No intraluminal contrast seen within the large bowel. IMPRESSION: No interval passage of intraluminal contrast into the large bowel. Dictated by: Rodney Coyne M.D. on 06/23/2023 at 17:52 Approved by: Rodney Coyne M.D. on 06/23/2023 at 17:53
[2023-06-23] MEDS: SODIUM CHLORIDE 0.9% 1,000 ML 100 ML IV ×2 (02:57→19:01)
[2023-06-23] MEDS: diazePAM 10 MG/2 ML SYRINGE 2.5 MG IV ×2 (03:10→23:40)
[2023-06-23 05:19] LABS: Add Manual Diff / Slide Review NO; Basophils Absolute Auto 0 /uL (0-100); Basophils Percent Auto 0.5 % (0-2); Eosinophils Absolute Auto 100 /uL (0-450); Eosinophils Percent Auto 0.9 % (2-4); Hematocrit 43.2 % (41-53); Lymphocytes Absolute Auto 1300 /uL (1100-4500); Lymphocytes Percent Auto 18.1 % (25-40); Mean Corpuscular HGB Conc 34.6 % (30-36); Mean Corpuscular Hemoglobin 31.5 PG (26-34); Mean Corpuscular Volume 91.1 fL (80-100); Monocytes Absolute Auto 700 /uL (0-900); Monocytes Percent Auto 9.6 % (3-14); Neutrophils Absolute Auto 5000 /uL (1500-7000); Neutrophils Percent Auto 70.9 % (50-75); Platelet Count 239 X10^3/uL (150-400); Red Blood Cell Count 4.75 X10^6/uL (4.5-5.9); Red Cell Distribution Width 13.2 % (11.6-14.8)
[2023-06-23 05:31] LABS: Alanine Aminotransferase 23 IU/L (<50); Albumin 4.1 g/dL (3.5-5.0); Albumin Globulin Ratio 1.2 (1.0-2.8); Alkaline Phosphatase 52 U/L (38-126); Aspartate Aminotransferase 23 IU/L (17-59); BUN Creatinine Ratio 30.2 (6-22); Bilirubin Total 1.4 mg/dL (0.2-1.3); Blood Urea Nitrogen 19 mg/dL (9-20); Calcium 9.5 mg/dL (8.4-10.2); Carbon Dioxide 25 mmol/L (22-32); Chloride 109 mmol/L (98-107); Estimated Glomerular Filt Rate > 60 mL/min (>60); Globulin 3.4 g/dL (1.7-4.1); Glucose 152 mg/dL (80-110); HEMOLYSIS < 15 (0-50); Magnesium 2.1 mg/dL (1.6-2.3); Sodium 141 mmol/L (137-145); Total Protein 7.5 g/dL (6.3-8.2)
--- NOTE | 2023-06-23 07:21 | P.PN_ITS ---
Subjective Subjective Interval history: Had 2 small farts today. But otherwise not passing much gas. NG with 750cc out thus far. Will do gastrografin today per gen surg. Exam Vital Signs (past 8 hours): - 06/23/23 01:16 06/23/23 02:00 06/23/23 06:00 Temperature 97.4 F L Pulse Rate 89 Respiratory Rate 18 Blood Pressure 162/79 H Pulse Oximetry 96 96 96 Oxygen Delivery Method Room Air Room Air Oxygen Flow Rate 0 06/23/23 06:00 Temperature 97.6 F Pulse Rate 88 Respiratory Rate 14 Blood Pressure 166/90 H Pulse Oximetry 96 Oxygen Delivery Method Oxygen Flow Rate 0 Oxygen Delivery Method Room Air Oxygen Flow Rate 0 Narrative Exam Narrative: General:? Patient is well developed and well nourished, alert and oriented with NG tube in place HEENT:? Normocephalic, atraumatic, extraocular muscles intact, oral pharynx is clear and mucous membranes are dry. Neck: supple and symmetric, trachea is midline, no cervical adenopathy. Negative for JVD Chest:? Normal AP diameter and contour without kyphoscoliosis, no tachypnea, equal chest rise bilaterally. Lungs:? CTA b/l no wheezing rhonchi or rales. Cardio:?RRR no m/r/g. Abdomen: soft, distention improved, mild tenderness. Musculoskeletal:? Muscle strength and tone are equal within normal limits, no deformity. Extremities: No edema or joint effusions. No cyanosis or clubbing. Skin:? Pale,? Warm to touch,dry and intact without rashes, ulcerations or petechiae.? Neuro:? Alert and orientated x3,? sensation to touch intact in all extremities, no gross deficits noted of cranial nerves. Psych:? Patient has a well-kept appearance, appropriate affect, mental status attitude thought context and judgment are appropriate for age. Objective Labs 06/23/23 05:09 06/23/23 05:09 Labs: Laboratory Results - last 24 hr 06/22/23 06/22/23 06/23/23 11:15 13:29 05:09 WBC 14.9 H 7.0 D RBC 5.33 4.75 Hgb 17.2 15.0 Hct 48.1 43.2 MCV 90.3 91.1 MCH 32.2 31.5 MCHC 35.6 34.6 RDW 13.4 13.2 Plt Count 292 239 Neut % (Auto) 88.4 H 70.9 Lymph % (Auto) 7.6 L 18.1 L Stewart % (Auto) 3.7 9.6 Eos % (Auto) 0.1 L 0.9 L Baso % (Auto) 0.2 0.5 Neut # (Auto) 71230 H 5000 Lymph # (Auto) 1100 1300 Stewart # (Auto) 600 700 Eos # (Auto) 0 100 Baso # (Auto) 0 0 Sodium 140 141 Potassium 4.2 4.0 Chloride 101 109 H Carbon Dioxide 27 25 BUN 18 19 Creatinine 0.90 0.63 L Estimated GFR > 60 > 60 BUN/Creatinine Ratio 20.0 30.2 H Glucose 232 H 152 H Lactate 2.2 H 1.5 Calcium 11.4 H 9.5 Magnesium 2.1 Total Bilirubin 1.2 1.4 H AST 31 23 ALT 32 23 Alkaline Phosphatase 75 52 Total Protein 9.7 H 7.5 Albumin 5.1 H 4.1 Globulin 4.6 H 3.4 Albumin/Globulin Ratio 1.1 1.2 Lipase 41 PFSH Medical History Short-term memory loss Hyperglycemia Libido, decreased Change in stool caliber Substance abuse (~1974) Chronic back pain (~1999) Chicken pox (~1955) Hepatitis C (~1994) Cancer (~2008) Low back pain Hyperlipidemia Dry eyes Memory impairment Essential hypertension (10/08/15) Anxiety (10/08/15) Surgical History Anesthesia Pseudomyxoma peritonei (~08/02/08) Family History Father Diabetes mellitus History of heart disease Mental health problem Hypertension Mother Sepsis Hypertension Sister Cancer Hypertension Sister Diabetes mellitus Hypertension Grandfather History of heart disease Grandmother History of heart disease Social History marital status: unmarried,living together household members: significant other occupational status: employed Smoking Status: Former smoker alcohol intake: never Assessment & Plan Assessment & Plan narrative: 1. Small bowel obstruction due to adhesions - NPO/IVF, continue NG tube - appreciate general surgery consultation - CT scan with small bowel thickening but no obvious ischemia yet, continue to monitor abdominal exams with NG placement. - per gen surg, continue NG for now, doing gastrografin and if not improving will need surgery 2. HTN, chronic - will hold home medications for now, work on pain and nausea control as HTN likely reactive. - if persistently hypertensive and still obstructed can start IV enalapril to replace home lisinopril. Use with caution given bowel thickening and risk for sepsis if ischemic. 3. Hypercalcemia, resolved - likely due to dehydration given Hg of 17, high calcium and albumin level - now normal following IVF 4. Elevated glucose - suspect related to stress response - check A1c 5. Anxiety - continue home lorazepam as needed for anxiety with 0.5 mg IV q6 prn. DVT: SCDs in case of need for possible surgery Code: Full, surrogate is patient's girlfriend Nona Dispo: Pending improvement in SBO. May need surgery. 1-2 days. Quality VTE Deep Vein Thrombosis/Pulmonary Embolism Present on Admission: No
[2023-06-23] MEDS: ONDANSETRON 4 MG/2 ML INJ IV ×3 (11:18→18:58)
[2023-06-23] MEDS: ACETAMINOPHEN IV 1,000 MG/100 ML VIAL 400 MG IV (12:16)
--- NOTE | 2023-06-23 14:25 | CM.DANOTE ---
Initial DCP Assessment Note Pt is a 72 yo female, resident of [place], arrives w/SBO, NG tube placed PCP: Tip Blackman Payer: Barry HOFFMAN Reviewed chart, met w/patient, introduced self and role. Patient reports being independent in all aspects, drives. 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 Patient lives w/friend Nona who can assist patient as needed upon discharge. No barriers identified at this time to patient's safe discharge home w/family to assist; close outpatient f/u recommended. CM team will plan to follow closely in case any DC needs or concerns arise. PRINCESS Yu Discharge Planning/Care Management CM Discharge Assessment Start: 06/23/23 14:22 Freq: Status: Active Protocol: Document 06/23/23 14:22 SOFIA (Rec: 06/23/23 14:24 SOFIA [id number]) Discharge Planning Assessment Assigned Water Meter Reader PRINCESS Ham DPOA/Assigned Designee Name Nona Belcherj carlos Contact Information [phone] Advance Directives? No History Provided By Patient,Medical Record Prior Living Arrangements House Household Members significant other Type of transporation used prior to Drives own vehicle admit Independent with ADL's Yes Is patient alert and oriented? Yes Barriers to Discharge No Comment Home w/[place] Discharge Plan Home Transportation Arrangement Friend Referrals Initiated None needed
[2023-06-23 14:43] LABS: Hemoglobin A1C% w Est Avg Glu 5.6 % (4.0-6.0)
[2023-06-23] MEDS: HYDROMORPHONE 0.5 MG INJ IV ×2 (14:52→20:09)
--- NOTE | 2023-06-23 14:52 | PC.NURSE ---
after drinking contrast pt reports feeling nausea and increase abd pain, abd distended.
--- NOTE | 2023-06-23 16:55 | PC.NURSE ---
suction back on, infectious waste technician said ok to turn back on.
--- NOTE | 2023-06-23 18:59 | PM.PN.1 ---
Subjective Subjective Date Patient Seen: 06/23/23 Interval history: Gastrografin challenge initiated today. So far no contrast in the colon. Exam Vital Signs (past 8 hours): - 06/23/23 12:00 06/23/23 12:16 06/23/23 15:00 Temperature 98.4 F Pulse Rate 84 Respiratory Rate 20 Blood Pressure 163/80 H Pulse Oximetry 96 96 96 Oxygen Delivery Method Room Air Room Air Oxygen Flow Rate 0 06/23/23 16:00 Temperature 98.1 F Pulse Rate 82 Respiratory Rate 19 Blood Pressure 151/86 H Pulse Oximetry 92 Oxygen Delivery Method Oxygen Flow Rate 0 Oxygen Delivery Method Room Air Oxygen Flow Rate 0 Narrative Exam Narrative: Abdomen distended no peritonitis Objective Labs 06/23/23 05:09 06/23/23 05:09 Labs: Laboratory Results - last 24 hr 06/23/23 05:09 WBC 7.0 D RBC 4.75 Hgb 15.0 Hct 43.2 MCV 91.1 MCH 31.5 MCHC 34.6 RDW 13.2 Plt Count 239 Neut % (Auto) 70.9 Lymph % (Auto) 18.1 L [place] % (Auto) 9.6 Eos % (Auto) 0.9 L Baso % (Auto) 0.5 Neut # (Auto) 5000 Lymph # (Auto) 1300 [place] # (Auto) 700 Eos # (Auto) 100 Baso # (Auto) 0 Sodium 141 Potassium 4.0 Chloride 109 H Carbon Dioxide 25 BUN 19 Creatinine 0.63 L Estimated GFR > 60 BUN/Creatinine Ratio 30.2 H Glucose 152 H Hemoglobin A1c 5.6 Calcium 9.5 Magnesium 2.1 Total Bilirubin 1.4 H AST 23 ALT 23 Alkaline Phosphatase 52 Total Protein 7.5 Albumin 4.1 Globulin 3.4 Albumin/Globulin Ratio 1.2 [facility] Medical History Short-term memory loss Hyperglycemia Libido, decreased Change in stool caliber Substance abuse (~1974) Chronic back pain (~1999) Chicken pox (~1955) Hepatitis C (~1994) Cancer (~2008) Low back pain Hyperlipidemia Dry eyes Memory impairment Essential hypertension (10/08/15) Anxiety (10/08/15) Surgical History Anesthesia Pseudomyxoma peritonei (~08/02/08) Family History Father Diabetes mellitus History of heart disease Mental health problem Hypertension Mother Sepsis Hypertension Sister Cancer Hypertension Sister Diabetes mellitus Hypertension Grandfather History of heart disease Grandmother History of heart disease Social History marital status: unmarried,living together household members: significant other occupational status: employed Smoking Status: Former smoker alcohol intake: never Assessment & Plan Assessment and plan (1) Small bowel obstruction: Status: Acute Plan If no passage of contrast he will need surgery. Ok to wait longer as long as he does not have peritonitis or tachycardia. Quality VTE Deep Vein Thrombosis/Pulmonary Embolism Present on Admission: No
[2023-06-24] VITALS (7 sets, daily range): BP systolic 155–183; BP diastolic 73–84; PULSE 72–91; RESP 17–20; TEMP 36.6–36.8; O2SAT 93–98
[2023-06-24] MEDS: SODIUM CHLORIDE 0.9% 1,000 ML 100 ML IV (05:05)
[2023-06-24 06:32] LABS: Add Manual Diff / Slide Review NO; Basophils Absolute Auto 0 /uL (0-100); Basophils Percent Auto 0.2 % (0-2); Eosinophils Absolute Auto 0 /uL (0-450); Hematocrit 41.4 % (41-53); Hemoglobin 14.4 g/dL (13.5-17.5); Lymphocytes Absolute Auto 1000 /uL (1100-4500); Lymphocytes Percent Auto 10.9 % (25-40); Mean Corpuscular HGB Conc 34.7 % (30-36); Mean Corpuscular Hemoglobin 31.8 PG (26-34); Mean Corpuscular Volume 91.6 fL (80-100); Monocytes Absolute Auto 600 /uL (0-900); Monocytes Percent Auto 7.2 % (3-14); Neutrophils Absolute Auto 7400 /uL (1500-7000); Neutrophils Percent Auto 81.7 % (50-75); Platelet Count 219 X10^3/uL (150-400); Red Blood Cell Count 4.52 X10^6/uL (4.5-5.9); Red Cell Distribution Width 13.2 % (11.6-14.8); White Blood Cell Count 9.1 X10^3/uL (4.5-11.0)
[2023-06-24 06:49] LABS: Alanine Aminotransferase 21 IU/L (<50); Albumin 4.1 g/dL (3.5-5.0); Albumin Globulin Ratio 1.1 (1.0-2.8); Alkaline Phosphatase 52 U/L (38-126); Aspartate Aminotransferase 22 IU/L (17-59); BUN Creatinine Ratio 35.5 (6-22); Bilirubin Total 1.8 mg/dL (0.2-1.3); Blood Urea Nitrogen 22 mg/dL (9-20); Calcium 9.4 mg/dL (8.4-10.2); Carbon Dioxide 30 mmol/L (22-32); Chloride 107 mmol/L (98-107); Estimated Glomerular Filt Rate > 60 mL/min (>60); Globulin 3.6 g/dL (1.7-4.1); Glucose 155 mg/dL (80-110); HEMOLYSIS < 15 (0-50); Magnesium 2.3 mg/dL (1.6-2.3); Sodium 145 mmol/L (137-145); Total Protein 7.7 g/dL (6.3-8.2)
--- NOTE | 2023-06-24 07:14 | PM.PN.1 ---
Subjective Subjective Interval history: Patient now passing gas and had small BM. NG tube out and advancing diet to liquids. Exam Vital Signs (past 8 hours): - 06/24/23 00:00 06/24/23 03:00 06/24/23 04:00 Temperature 97.9 F 97.9 F Pulse Rate 91 H 89 Respiratory Rate 20 17 Blood Pressure 168/83 H 168/82 H Pulse Oximetry 93 93 93 Oxygen Delivery Method Room Air Oxygen Flow Rate 0 0 Oxygen Delivery Method Room Air Oxygen Flow Rate 0 Narrative Exam Narrative: General:? Patient is well developed and well nourished HEENT:? Normocephalic, atraumatic, extraocular muscles intact, oral pharynx is clear and mucous membranes are dry. Neck: supple and symmetric, trachea is midline, no cervical adenopathy. Negative for JVD Chest:? Normal AP diameter and contour without kyphoscoliosis, no tachypnea, equal chest rise bilaterally. Lungs:? CTA b/l no wheezing rhonchi or rales. Cardio:?RRR no m/r/g. Abdomen: soft, distention improved, no tenderness. Musculoskeletal:? Muscle strength and tone are equal within normal limits, no deformity. Extremities: No edema or joint effusions. No cyanosis or clubbing. Skin:? Pale,? Warm to touch,dry and intact without rashes, ulcerations or petechiae.? Neuro:? Alert and orientated x3,? sensation to touch intact in all extremities, no gross deficits noted of cranial nerves. Psych:? Patient has a well-kept appearance, appropriate affect, mental status attitude thought context and judgment are appropriate for age. Objective Labs 06/24/23 06:15 06/24/23 06:15 Labs: Laboratory Results - last 24 hr 06/23/23 06/24/23 05:09 06:15 WBC 9.1 RBC 4.52 Hgb 14.4 Hct 41.4 MCV 91.6 MCH 31.8 MCHC 34.7 RDW 13.2 Plt Count 219 Neut % (Auto) 81.7 H Lymph % (Auto) 10.9 L Russell % (Auto) 7.2 Eos % (Auto) 0.0 L Baso % (Auto) 0.2 Neut # (Auto) 7400 H Lymph # (Auto) 1000 L Russell # (Auto) 600 Eos # (Auto) 0 Baso # (Auto) 0 Sodium 145 Potassium 4.0 Chloride 107 Carbon Dioxide 30 BUN 22 H Creatinine 0.62 L Estimated GFR > 60 BUN/Creatinine Ratio 35.5 H Glucose 155 H Hemoglobin A1c 5.6 Calcium 9.4 Magnesium 2.3 Total Bilirubin 1.8 H AST 22 ALT 21 Alkaline Phosphatase 52 Total Protein 7.7 Albumin 4.1 Globulin 3.6 Albumin/Globulin Ratio 1.1 PFSH Medical History Short-term memory loss Hyperglycemia Libido, decreased Change in stool caliber Substance abuse (~1974) Chronic back pain (~1999) Chicken pox (~1955) Hepatitis C (~1994) Cancer (~2008) Low back pain Hyperlipidemia Dry eyes Memory impairment Essential hypertension (10/08/15) Anxiety (10/08/15) Surgical History Anesthesia Pseudomyxoma peritonei (~08/02/08) Family History Father Diabetes mellitus History of heart disease Mental health problem Hypertension Mother Sepsis Hypertension Sister Cancer Hypertension Sister Diabetes mellitus Hypertension Grandfather History of heart disease Grandmother History of heart disease Social History marital status: unmarried,living together household members: significant other occupational status: employed Smoking Status: Former smoker alcohol intake: never Assessment & Plan Assessment & Plan narrative: 1. Small bowel obstruction due to adhesions, resolving - NPO/IVF, continue NG tube - appreciate general surgery consultation - CT scan with small bowel thickening but no obvious ischemia yet, continue to monitor abdominal exams with NG placement. - initial gastrografin showed no passage of contrast to colon, but then repeat XR has contrast past obstruction - SBO now resolving, patient passing gas and had small BM - advance diet to liquids, then advance as tolerated 2. HTN, chronic - restart home amlodipine and lisinopril 3. Hypercalcemia, resolved - likely due to dehydration given Hg of 17, high calcium and albumin level - now normal following IVF 4. Elevated glucose - suspect related to stress response - A1c normal 5. Anxiety - restart home ativan PRN 6. Depression - restart home celexa DVT: lovenox Code: Full, surrogate is patient's girlfriend Nona Dispo: Likely home on 06/25. Quality VTE Deep Vein Thrombosis/Pulmonary Embolism Present on Admission: No
--- NOTE | 2023-06-24 07:55 | DI.RAD.S_ITS ---
PROCEDURE: XR ABDOMEN 1V INDICATIONS: f/u gastrografin sbo TECHNIQUE: One view of the abdomen acquired. COMPARISON: [facility], CR, XR GASTROGRAFIN CHALLENGE, 06/23/2023, 15:29. FINDINGS: Surgical changes and devices: Nasogastric tube is present. Bowel: There is persistent appearance of partial small bowel obstruction, although slightly less prominent. Contrast is present within the colon. Contrast is identified to the level of the rectum. Soft tissues: No suspicious abdominal calcifications. Visualized solid organ contours appear normal in size. Bones: No suspicious bony lesions. IMPRESSION: Persistent appearance of partial small-bowel obstruction, slightly less prominent. Dictated by: Lluvia Taveras M.D. on 06/24/2023 at 14:50 Approved by: Lluvia Taveras M.D. on 06/24/2023 at 14:56
--- NOTE | 2023-06-24 08:00 | PC.NURSE ---
Addendum entered by Honey Navarro R.N. 06/24/23 10:06: in earlier this morning and patients NG tube taken out by this RN. He is allowed to have sips of fluids and he is tolerating this well. Patient also tolerated NG tube being removed. He is resting now. Original Note: Patient is alert and oriented x3 today, he is forgetful at times. Resting in bed, NG tube to LIS with some bile contents in container. BT are hypoactive x3 and active in L.upper quadrant. Per report from sports broadcaster RN, patient had an xs bm. He will be getting an abdominal xray this morning. He is resting in bed comfortably.
--- NOTE | 2023-06-24 09:02 | P.PN_ITS ---
Subjective Subjective Date Patient Seen: 06/24/23 Time Patient Seen: 09:02 Interval history: Passing flatus. Small bowel movement overnight. Abdominal x-ray this a.m. shows passage of Gastrografin into the colon. Exam Vital Signs (past 8 hours): - 06/24/23 03:00 06/24/23 04:00 06/24/23 07:47 Temperature 97.9 F Pulse Rate 89 Respiratory Rate 17 Blood Pressure 168/82 H Pulse Oximetry 93 93 Oxygen Delivery Method Room Air Room Air Oxygen Flow Rate 0 06/24/23 08:00 Temperature 98.2 F Pulse Rate 85 Respiratory Rate 19 Blood Pressure 183/81 H Pulse Oximetry 95 Oxygen Delivery Method Oxygen Flow Rate 0 Oxygen Delivery Method Room Air Oxygen Flow Rate 0 Narrative Exam Narrative: General adult man alert oriented no acute distress Abdomen soft minimally distended compressible Objective Labs 06/24/23 06:15 06/24/23 06:15 Labs: Laboratory Results - last 24 hr 06/23/23 06/24/23 05:09 06:15 WBC 9.1 RBC 4.52 Hgb 14.4 Hct 41.4 MCV 91.6 MCH 31.8 MCHC 34.7 RDW 13.2 Plt Count 219 Neut % (Auto) 81.7 H Lymph % (Auto) 10.9 L [place] % (Auto) 7.2 Eos % (Auto) 0.0 L Baso % (Auto) 0.2 Neut # (Auto) 7400 H Lymph # (Auto) 1000 L [place] # (Auto) 600 Eos # (Auto) 0 Baso # (Auto) 0 Sodium 145 Potassium 4.0 Chloride 107 Carbon Dioxide 30 BUN 22 H Creatinine 0.62 L Estimated GFR > 60 BUN/Creatinine Ratio 35.5 H Glucose 155 H Hemoglobin A1c 5.6 Calcium 9.4 Magnesium 2.3 Total Bilirubin 1.8 H AST 22 ALT 21 Alkaline Phosphatase 52 Total Protein 7.7 Albumin 4.1 Globulin 3.6 Albumin/Globulin Ratio 1.1 PFSH Medical History Short-term memory loss Hyperglycemia Libido, decreased Change in stool caliber Substance abuse (~1974) Chronic back pain (~1999) Chicken pox (~1955) Hepatitis C (~1994) Cancer (~2008) Low back pain Hyperlipidemia Dry eyes Memory impairment Essential hypertension (10/08/15) Anxiety (10/08/15) Surgical History Anesthesia Pseudomyxoma peritonei (~08/02/08) Family History Father Diabetes mellitus History of heart disease Mental health problem Hypertension Mother Sepsis Hypertension Sister Cancer Hypertension Sister Diabetes mellitus Hypertension Grandfather History of heart disease Grandmother History of heart disease Social History marital status: unmarried,living together household members: significant other occupational status: employed Smoking Status: Former smoker alcohol intake: never Assessment & Plan Assessment & Plan narrative: Resolving small-bowel obstruction -removed nasogastric tube -trial of sips clears if tolerates advance diet to clears Quality VTE Deep Vein Thrombosis/Pulmonary Embolism Present on Admission: No
[2023-06-24] MEDS: CITALOPRAM 10 MG TABLET 40 MG PO (14:05)
[2023-06-24] MEDS: AMLODIPINE 5 MG TABLET 15 MG PO (14:05)
[2023-06-24] MEDS: lisinopriL 5 MG TABLET PO (14:05)
[2023-06-24] MEDS: ENOXAPARIN 40 MG/0.4 ML SYRINGE SUBCUT (14:06)
--- NOTE | 2023-06-24 15:32 | CM.DPC ---
DCP Continued HOME CARE CONSULTANT reviewed EMR. Per provider, patient had a small BM overnight. Per provider note, likely d/c tomorrow if can tolerate advance diet. No needs from CM team identified. Per surgery note, NG tube removed. Plan: home with spouse when medically stable. No needs identified at this time. CM team will follow as needed. PRINCESS Brothers
[2023-06-25] VITALS (9 sets, daily range): BP systolic 153–168; BP diastolic 68–89; PULSE 70–89; RESP 16–18; TEMP 36–36.6; O2SAT 95–98
[2023-06-25 06:06] LABS: Add Manual Diff / Slide Review NO; Basophils Absolute Auto 0 /uL (0-100); Basophils Percent Auto 0.2 % (0-2); Eosinophils Absolute Auto 0 /uL (0-450); Eosinophils Percent Auto 0.6 % (2-4); Hematocrit 41.3 % (41-53); Hemoglobin 14.6 g/dL (13.5-17.5); Lymphocytes Absolute Auto 1100 /uL (1100-4500); Lymphocytes Percent Auto 20.5 % (25-40); Mean Corpuscular HGB Conc 35.3 % (30-36); Mean Corpuscular Hemoglobin 31.9 PG (26-34); Mean Corpuscular Volume 90.2 fL (80-100); Monocytes Absolute Auto 500 /uL (0-900); Monocytes Percent Auto 9.7 % (3-14); Neutrophils Absolute Auto 3800 /uL (1500-7000); Platelet Count 213 X10^3/uL (150-400); Red Blood Cell Count 4.58 X10^6/uL (4.5-5.9); White Blood Cell Count 5.6 X10^3/uL (4.5-11.0)
[2023-06-25 06:17] LABS: Alanine Aminotransferase 23 IU/L (<50); Albumin Globulin Ratio 1.1 (1.0-2.8); Alkaline Phosphatase 49 U/L (38-126); Aspartate Aminotransferase 25 IU/L (17-59); BUN Creatinine Ratio 34.7 (6-22); Bilirubin Total 1.7 mg/dL (0.2-1.3); Blood Urea Nitrogen 17 mg/dL (9-20); Calcium 9.4 mg/dL (8.4-10.2); Carbon Dioxide 31 mmol/L (22-32); Chloride 100 mmol/L (98-107); Estimated Glomerular Filt Rate > 60 mL/min (>60); Globulin 3.5 g/dL (1.7-4.1); Glucose 147 mg/dL (80-110); HEMOLYSIS < 15 (0-50); Magnesium 2.2 mg/dL (1.6-2.3); Potassium 3.5 mmol/L (3.4-5.1); Sodium 139 mmol/L (137-145); Total Protein 7.5 g/dL (6.3-8.2)
--- NOTE | 2023-06-25 06:24 | PC.NURSE ---
Patient is A & O x 4, forgetful at times, c/o nausea improved after medium sized soft sausage shaped BM. No emesis. Dr Diaz notified of nausea and no IV access, awaiting order for Brian SL.
--- NOTE | 2023-06-25 07:10 | PM.PN.1 ---
Subjective Subjective Interval history: 72 year old male with hypertension comma hyperlipidemia comma anxiety comma remote history of pseudomyxoma peritonei s/p resection Who was admitted on June 22 with small bowel obstruction secondary to adhesions. NGT was placed on admission. by June 23, he did pass some gas. A gastrografin study was performed which showed contrast material down to the colon. NG tube was removed on June 24 after a small bowel movement was achieved.? His diet was advanced to clear liquids, which he tolerated well. He was subsequently advanced to full liquids. He states he is doing well this morning. No nausea or vomiting. He has had several bowel movements, with each 1 increasing in size. He reports they are all formed. He would like to advance his diet and have some diet Pepsi. Exam Vital Signs (past 8 hours): - 06/24/23 12:00 06/24/23 15:00 06/24/23 16:00 Temperature 97.9 F 97.9 F Pulse Rate 81 72 Respiratory Rate 19 20 Blood Pressure 172/84 H 155/73 H Pulse Oximetry 97 98 Oxygen Delivery Method Room Air Oxygen Flow Rate 0 0 Oxygen Delivery Method Room Air Oxygen Flow Rate 0 Narrative Exam Narrative: GEN: Very pleasant middle-aged male, Alert and oriented x 3, NAD HEENT:NC, Face symmetric CHEST: Respiratory excursions symmetric, CTAB CV: RRR, no M/R/G ABD: Soft, NT/ND, BT present in all 4 quadrants, no organomegaly or masses, old vertical midline surgical scar, with 3 areas of darker purple scarring at site of old MAREK drains EXTR: warm, well perfused, no C/C/E SKIN: warm and dry, no rash NEURO: Alert and oriented x 3, nonfocal Objective Labs 06/25/23 05:50 06/25/23 05:50 Labs: Laboratory Results - last 24 hr 06/24/23 06:15 WBC 9.1 RBC 4.52 Hgb 14.4 Hct 41.4 MCV 91.6 MCH 31.8 MCHC 34.7 RDW 13.2 Plt Count 219 Neut % (Auto) 81.7 H Lymph % (Auto) 10.9 L [place] % (Auto) 7.2 Eos % (Auto) 0.0 L Baso % (Auto) 0.2 Neut # (Auto) 7400 H Lymph # (Auto) 1000 L [place] # (Auto) 600 Eos # (Auto) 0 Baso # (Auto) 0 Sodium 145 Potassium 4.0 Chloride 107 Carbon Dioxide 30 BUN 22 H Creatinine 0.62 L Estimated GFR > 60 BUN/Creatinine Ratio 35.5 H Glucose 155 H Calcium 9.4 Magnesium 2.3 Total Bilirubin 1.8 H AST 22 ALT 21 Alkaline Phosphatase 52 Total Protein 7.7 Albumin 4.1 Globulin 3.6 Albumin/Globulin Ratio 1.1 PFSH Medical History Short-term memory loss Hyperglycemia Libido, decreased Change in stool caliber Substance abuse (~1974) Chronic back pain (~1999) Chicken pox (~1955) Hepatitis C (~1994) Cancer (~2008) Low back pain Hyperlipidemia Dry eyes Memory impairment Essential hypertension (10/08/15) Anxiety (10/08/15) Surgical History Anesthesia Pseudomyxoma peritonei (~08/02/08) Family History Father Diabetes mellitus History of heart disease Mental health problem Hypertension Mother Sepsis Hypertension Sister Cancer Hypertension Sister Diabetes mellitus Hypertension Grandfather History of heart disease Grandmother History of heart disease Social History marital status: unmarried,living together household members: significant other occupational status: employed Smoking Status: Former smoker alcohol intake: never Assessment & Plan Assessment & Plan narrative: 1. SBO, partial, resolving Patient is doing quite well this morning. Will advance diet to regular. Encouraged him to take small amounts of diet cola and to let it lose some combination prior to drinking. He agrees. Anticipate he will be able to discharge tomorrow. Discussed the case with Dr. Tobin today. 2. HTN Blood pressures are moderately elevated. He is back on his usual doses of lisinopril and amlodipine. Will monitor. 3. HLD Holding home dose of his statin for now. 4. Depression Continue citalopram. 5. Hyperglycemia Likely stress induced. Hemoglobin A1c was within normal limits. Code status Full Prophy Continue Lovenox. Dispo Home w/spouse at d/c, likely tomorrow Quality VTE Deep Vein Thrombosis/Pulmonary Embolism Present on Admission: No
[2023-06-25] MEDS: ONDANSETRON 4 MG ODT SL (07:52)
[2023-06-25] MEDS: lisinopriL 5 MG TABLET PO (08:21)
[2023-06-25] MEDS: CITALOPRAM 10 MG TABLET 40 MG PO (08:21)
[2023-06-25] MEDS: AMLODIPINE 5 MG TABLET 15 MG PO (08:21)
[2023-06-25] MEDS: LORazepam 0.5 MG TABLET PO (08:22)
[2023-06-25] MEDS: ENOXAPARIN 40 MG/0.4 ML SYRINGE SUBCUT (08:23)
[2023-06-25] MEDS: POTASSIUM CHLORIDE 20 MEQ/15 ML UDC 40 MEQ PO (08:32)
--- NOTE | 2023-06-25 12:07 | P.PN_ITS ---
Subjective Subjective Date Patient Seen: 06/25/23 Time Patient Seen: 12:07 Interval history: NG tube has been removed. Having some bowel movements and passing some flatus. Still with minimal appetite. Exam Vital Signs (past 8 hours): - 06/25/23 05:04 06/25/23 07:54 06/25/23 08:32 Temperature 97.4 F L 97.4 F L Pulse Rate 76 88 Respiratory Rate 18 18 Blood Pressure 164/76 H 153/88 H Pulse Oximetry 96 97 97 Oxygen Delivery Method Room Air 06/25/23 11:46 Temperature Pulse Rate Respiratory Rate Blood Pressure Pulse Oximetry 96 Oxygen Delivery Method Room Air Oxygen Delivery Method Room Air Oxygen Flow Rate 0 Const General: No acute distress Objective Labs 06/25/23 05:50 06/25/23 05:50 Labs: Laboratory Results - last 24 hr 06/25/23 05:50 WBC 5.6 RBC 4.58 Hgb 14.6 Hct 41.3 MCV 90.2 MCH 31.9 MCHC 35.3 RDW 13.0 Plt Count 213 Neut % (Auto) 69.0 Lymph % (Auto) 20.5 L [place] % (Auto) 9.7 Eos % (Auto) 0.6 L Baso % (Auto) 0.2 Neut # (Auto) 3800 Lymph # (Auto) 1100 [place] # (Auto) 500 Eos # (Auto) 0 Baso # (Auto) 0 Sodium 139 Potassium 3.5 Chloride 100 Carbon Dioxide 31 BUN 17 Creatinine 0.49 L Estimated GFR > 60 BUN/Creatinine Ratio 34.7 H Glucose 147 H Calcium 9.4 Magnesium 2.2 Total Bilirubin 1.7 H AST 25 ALT 23 Alkaline Phosphatase 49 Total Protein 7.5 Albumin 4.0 Globulin 3.5 Albumin/Globulin Ratio 1.1 [facility] Medical History Short-term memory loss Hyperglycemia Libido, decreased Change in stool caliber Substance abuse (~1974) Chronic back pain (~1999) Chicken pox (~1955) Hepatitis C (~1994) Cancer (~2008) Low back pain Hyperlipidemia Dry eyes Memory impairment Essential hypertension (10/08/15) Anxiety (10/08/15) Surgical History Anesthesia Pseudomyxoma peritonei (~08/02/08) Family History Father Diabetes mellitus History of heart disease Mental health problem Hypertension Mother Sepsis Hypertension Sister Cancer Hypertension Sister Diabetes mellitus Hypertension Grandfather History of heart disease Grandmother History of heart disease Social History marital status: unmarried,living together household members: significant other occupational status: employed Smoking Status: Former smoker alcohol intake: never Assessment & Plan Assessment and plan (1) Small bowel obstruction: Status: Acute Plan Goal obstruction seems to be resolving. We will advance to regular diet today. Quality VTE Deep Vein Thrombosis/Pulmonary Embolism Present on Admission: No
--- NOTE | 2023-06-25 13:03 | PC.NURSE ---
Day shift: Pt drinking diet Pepsi and had emesis after (approx same amount out as in (the Pepsi). Dr Serra aware.
[2023-06-25] MEDS: LATANOPROST 0.005% OPHTH 2.5 ML 1 DROPS EYE-LEFT (21:43)
[2023-06-26] VITALS (9 sets, daily range): BP systolic 148–177; BP diastolic 79–91; PULSE 64–84; RESP 16–20; TEMP 36.2–37.6; O2SAT 94–98
[2023-06-26] MEDS: ONDANSETRON 4 MG ODT SL ×2 (00:39→08:17)
--- NOTE | 2023-06-26 06:45 | PC.NURSE ---
Patient A & O x 3, does not know month/day. Patient denies abdominal pain, c/o nausea and vomiting. Zofran SL given x 1 with improvement. BMs x 4 all small, soft, and brown. BT x 4 active. BP elevated - see flow sheet.
[2023-06-26 07:49] LABS: Alanine Aminotransferase 52 IU/L (<50); Albumin Globulin Ratio 1.1 (1.0-2.8); Alkaline Phosphatase 57 U/L (38-126); Aspartate Aminotransferase 35 IU/L (17-59); BUN Creatinine Ratio 31.5 (6-22); Bilirubin Total 1.6 mg/dL (0.2-1.3); Blood Urea Nitrogen 17 mg/dL (9-20); Calcium 9.5 mg/dL (8.4-10.2); Carbon Dioxide 32 mmol/L (22-32); Chloride 98 mmol/L (98-107); Estimated Glomerular Filt Rate > 60 mL/min (>60); Globulin 3.6 g/dL (1.7-4.1); Glucose 138 mg/dL (80-110); HEMOLYSIS < 15 (0-50); Potassium 3.6 mmol/L (3.4-5.1); Sodium 138 mmol/L (137-145); Total Protein 7.6 g/dL (6.3-8.2)
[2023-06-26] MEDS: CITALOPRAM 10 MG TABLET 40 MG PO (08:16)
[2023-06-26] MEDS: AMLODIPINE 5 MG TABLET 15 MG PO (08:16)
[2023-06-26] MEDS: LORazepam 0.5 MG TABLET PO ×2 (08:17→11:26)
[2023-06-26] MEDS: lisinopriL 5 MG TABLET PO (08:17)
[2023-06-26] MEDS: ENOXAPARIN 40 MG/0.4 ML SYRINGE SUBCUT (08:19)
--- NOTE | 2023-06-26 11:51 | CM.DPC ---
DCP continued ONLINE MARKETING DIRECTOR reviewed EMR. Per Change RN in rounds, patient did not dc yesterday due to vomiting. POC remains to continue to advance diet as tolerated and d/c home when medically stable. Plan: home with spouse when medically stable. No CM needs identified at this time. CM team will continue to follow as needed. PRINCESS Brothers
--- NOTE | 2023-06-26 12:30 | DI.RAD.S_ITS ---
PROCEDURE: XR CHEST 1V INDICATIONS: NG placement verification TECHNIQUE: One view of the chest was acquired. COMPARISON: [facility], , CHEST 2 VIEW, 06/07/2008, 11:47. FINDINGS: Surgical changes and devices: Enteric tube with side port projecting over the gastric mobile Lungs and pleura: Lungs are clear. No pleural effusions or pneumothorax. Mediastinum: Mediastinal contours appear normal. Heart size is normal. Bones and chest wall: No suspicious bony lesions. Overlying soft tissues appear unremarkable. IMPRESSION: Appropriate positioning of enteric tube. No acute cardiopulmonary abnormality is seen. Dictated by: Duy Price M.D. on 06/26/2023 at 12:07 Approved by: Duy Price M.D. on 06/26/2023 at 12:10
--- NOTE | 2023-06-26 12:56 | DI.CT.S_ITS ---
PROCEDURE: CT ABDOMEN PELVIS W CON INDICATIONS: small bowel obstruction TECHNIQUE: After the administration of oral and intravenous contrast, axial sections were acquired from the lung bases to the pubic symphysis. Coronal and sagittal reformats were performed. For radiation dose reduction, the following was used: automated exposure control, adjustment of mA and/or kV according to patient size. COMPARISON:[facility], CT, CT ABDOMEN PELVIS W CON, 06/22/2023, 12:21. FINDINGS: Image quality: Excellent. Lung bases: Unremarkable. Heart: No significant findings. ABDOMEN: Liver: No solid mass. Gallbladder: Not identified. Biliary ducts: No biliary dilation. Pancreas: No ductal dilation. Spleen: Size is within normal limits. Adrenal Glands: No adrenal nodules. Kidneys and Ureters: No hydronephrosis. No solid mass. No complex renal cystic lesion which requires follow up. Stomach and Bowel: Multiple fluid-filled dilated loops of small bowel with probable transition point seen near the anterior abdominal wall at the level of L4. The distal bowel is decompressed with contrast seen within the colon. Stomach is dilated with fluid. Enteric tube within the stomach. Peritoneum: No abnormal intraperitoneal fluid. No free air. Ventral Wall: No hernia. Abdominal Nodes: No retroperitoneal or mesenteric adenopathy by size criteria. Vessels: Aorta and inferior vena cava are normal in size. PELVIS: Pelvic Organs: Unremarkable. Bladder: Unremarkable. Pelvic Nodes: No enlarged lymph nodes. Miscellaneous: No inguinal hernias are seen. Bones: Unremarkable. Unchanged wedge compression of T12. IMPRESSION: Small-bowel bowel obstruction with transition point along the anterior abdomen near the midline incision. Fluid-filled stomach with enteric tube. Dictated by: Duy Price M.D. on 06/26/2023 at 13:04 Approved by: Duy Price M.D. on 06/26/2023 at 13:12
--- NOTE | 2023-06-26 13:44 | PM.PN.1 ---
Subjective Subjective Date Patient Seen: 06/26/23 Time Patient Seen: 13:44 Interval history: Duy has had more nausea and vomiting since this morning. He reports that he continues to have bowel movments. NG tube was replaced today. Exam Vital Signs (past 8 hours): - 06/26/23 08:00 06/26/23 08:17 06/26/23 11:03 Temperature 97.3 F L Pulse Rate 72 64 Respiratory Rate 16 Blood Pressure 167/86 H 150/86 H Pulse Oximetry 98 98 Oxygen Delivery Method Room Air 06/26/23 12:00 Temperature Pulse Rate Respiratory Rate Blood Pressure Pulse Oximetry 98 Oxygen Delivery Method Oxygen Delivery Method Room Air Oxygen Flow Rate 0 Narrative Exam Narrative: soft, distended Objective Labs 06/25/23 05:50 06/26/23 07:20 Labs: Laboratory Results - last 24 hr 06/26/23 07:20 Sodium 138 Potassium 3.6 Chloride 98 Carbon Dioxide 32 BUN 17 Creatinine 0.54 L Estimated GFR > 60 BUN/Creatinine Ratio 31.5 H Glucose 138 H Calcium 9.5 Total Bilirubin 1.6 H AST 35 ALT 52 H Alkaline Phosphatase 57 Total Protein 7.6 Albumin 4.0 Globulin 3.6 Albumin/Globulin Ratio 1.1 PFSH Medical History Short-term memory loss Hyperglycemia Libido, decreased Change in stool caliber Substance abuse (~1974) Chronic back pain (~1999) Chicken pox (~1955) Hepatitis C (~1994) Cancer (~2008) Low back pain Hyperlipidemia Dry eyes Memory impairment Essential hypertension (10/08/15) Anxiety (10/08/15) Surgical History Anesthesia Pseudomyxoma peritonei (~08/02/08) Family History Father Diabetes mellitus History of heart disease Mental health problem Hypertension Mother Sepsis Hypertension Sister Cancer Hypertension Sister Diabetes mellitus Hypertension Grandfather History of heart disease Grandmother History of heart disease Social History marital status: unmarried,living together household members: significant other occupational status: employed Smoking Status: Former smoker alcohol intake: never Assessment & Plan Assessment and plan (1) Small bowel obstruction: Status: Acute Plan Will repeat CT scan today. If he still appears obstructed tomorrow will need to go to the OR for exploratory laparotomy. Quality VTE Deep Vein Thrombosis/Pulmonary Embolism Present on Admission: No
--- NOTE | 2023-06-26 16:14 | PM.PN.1 ---
Subjective Subjective Interval history: Patient vomited x3 today so NG replaced and output 800cc of dark bile. Plan is to go to OR tomorrow for ex lap. Exam Vital Signs (past 8 hours): - 06/26/23 08:17 06/26/23 11:03 06/26/23 12:00 Temperature 97.3 F L Pulse Rate 72 64 Respiratory Rate 16 Blood Pressure 167/86 H 150/86 H Pulse Oximetry 98 98 Oxygen Delivery Method Room Air Oxygen Flow Rate 0 Narrative Exam Narrative: GEN: Very pleasant middle-aged male, Alert and oriented x 3, NAD HEENT:NC, Face symmetric CHEST: Respiratory excursions symmetric, CTAB CV: RRR, no M/R/G ABD: Soft, distended, BT present in all 4 quadrants, no organomegaly or masses, old vertical midline surgical scar, with 3 areas of darker purple scarring at site of old MAREK drains EXTR: warm, well perfused, no C/C/E SKIN: warm and dry, no rash NEURO: Alert and oriented x 3, nonfocal Objective Labs 06/25/23 05:50 06/26/23 07:20 Labs: Laboratory Results - last 24 hr 06/26/23 07:20 Sodium 138 Potassium 3.6 Chloride 98 Carbon Dioxide 32 BUN 17 Creatinine 0.54 L Estimated GFR > 60 BUN/Creatinine Ratio 31.5 H Glucose 138 H Calcium 9.5 Total Bilirubin 1.6 H AST 35 ALT 52 H Alkaline Phosphatase 57 Total Protein 7.6 Albumin 4.0 Globulin 3.6 Albumin/Globulin Ratio 1.1 PFSH Medical History Short-term memory loss Hyperglycemia Libido, decreased Change in stool caliber Substance abuse (~1974) Chronic back pain (~1999) Chicken pox (~1955) Hepatitis C (~1994) Cancer (~2008) Low back pain Hyperlipidemia Dry eyes Memory impairment Essential hypertension (10/08/15) Anxiety (10/08/15) Surgical History Anesthesia Pseudomyxoma peritonei (~08/02/08) Family History Father Diabetes mellitus History of heart disease Mental health problem Hypertension Mother Sepsis Hypertension Sister Cancer Hypertension Sister Diabetes mellitus Hypertension Grandfather History of heart disease Grandmother History of heart disease Social History marital status: unmarried,living together household members: significant other occupational status: employed Smoking Status: Former smoker alcohol intake: never Assessment & Plan Assessment & Plan narrative: 1. SBO Initially was improving so NG removed and patient had small BM. However then after eating began to worsen and vomited multiple times so NG replaced. CT shows SBO with transition point of anterior abdomen at side of midline incision. Plan for OR on 06/27 for ex-lap. 2. HTN Blood pressures are moderately elevated. He is back on his usual doses of lisinopril and amlodipine. Will monitor. 3. HLD Holding home dose of his statin for now. 4. Depression Continue citalopram. 5. Hyperglycemia Likely stress induced. Hemoglobin A1c was within normal limits. Code status Full Prophy hold Lovenox for surgery Dispo Pending surgery on 06/27. Quality VTE Deep Vein Thrombosis/Pulmonary Embolism Present on Admission: No
[2023-06-26] MEDS: SODIUM CHLORIDE 0.9% 1,000 ML 100 ML IV (16:49)
--- NOTE | 2023-06-26 18:01 | PC.NURSE ---
Addendum entered by Ingrid Jaffe R.N. 06/26/23 18:54: Notified MD Mcgill that bile output from NG tube looks like coffee ground emesis. MD stated he would let MD Tobin know and determine next steps. NG tube at 65cm - marked with sharpie. Original Note: Day shift: Pt reported 3 emesis this AM. This RN saw 2 of them - looks like bile. Notified MD Mcgill who called MD Tobin. Ordered NG to low intermittent suction + NPO. NG tube had 650mL bile out this shift. Likely OR for ex-lap tomorrow. No IV access when this RN came on shift this AM. New IV in L FA prior to CT with contrast. Pt now on NS at 100mL/hour - spoke with MD Mcgill after NPO orders. Pt denies pain. No nausea since NG tube placed. Will continue to monitor.
[2023-06-26 19:37] LABS: Hemoglobin 15.2 g/dL (13.5-17.5)
[2023-06-26] MEDS: PANTOPRAZOLE 40 MG VIAL IV (20:08)
[2023-06-26] MEDS: LATANOPROST 0.005% OPHTH 2.5 ML 1 DROPS EYE-LEFT (20:09)
[2023-06-27] VITALS (15 sets, daily range): BP systolic 139–181; BP diastolic 75–106; PULSE 67–129; RESP 12–25; TEMP 36.2–37.1; O2SAT 92–100; BMI 25.8
--- NOTE | 2023-06-27 | PATH_ITS ---
[facility] Accession Number: [id number] No. of containers..01 Tissue . 01 Material submitted: . small bowel - SMALL BOWEL . 01 Diagnosis: Small Bowel, Segmental Resection: 1. Small bowel segment with serosal fibrous adhesions. Negative for active inflammation, granulomas, dysplasia and malignancy. 2. Skin with scar. MR 07/06/2023 1628 Local . 01 Electronically signed: . Dorita Wallace MD, Pathologist NPI- [id number] . 01 Gross description: . The specimen is received in formalin labeled with the patient's name, , and small bowel, consists of two fragments of tissue. The first is an unoriented portion of bowel measuring 19.6 cm in length by 2.4 cm in diameter. The serosa is huffman to brown with multiple short black sutures on a puckered area possibly consistent with area of previous defect measuring 1.7 cm in length by 0.2 cm in diameter, and located 2.8 cm from the nearest staple line which is inked blue. A roughened firm nodule measuring 3.2 x 2.5 x 2.0 cm is identified located 4.1 cm from the opposite staple line which is inked black, and the roughened area of serosa is inked orange. The mesenteric margin is inked green. Opening the specimen reveals the lumen to contain a small amount of brown fluid with no distinct lesions grossly identified. The mucosa adjacent to the sutures is slightly erythematous while the remaining mucosa is huffman and velvety with normal appearing folds. Sectioning reveals multiple small ill-defined pale huffman areas ranging from 0.2 to 0.3 cm identified within the wall of the orange-inked roughened nodule area and grossly approach the orange-inked surface. The pale huffman areas are confined to the wall with no gross extension toward the mucosa. The sutures are consistent with a previous partial thickness defect. No additional lesions are identified. Palpation of the attached mesentery reveals 11 huffman lymph node candidates ranging from 0.2 to 0.7 cm in greatest dimension. . The second fragment of tissue is an unoriented ellipse of skin measuring 10.2 x 1.2 cm and 2.5 cm thick. The cutaneous surface is huffman and wrinkled with a possible centrally puckered area consistent with scar. However, no discrete lesions are identified. The margins are inked blue, and the specimen is serially sectioned to reveal an unremarkable yellow to huffman soft cut surface. . [employer] sections are submitted as follows: A1: Rep bowel margins en face. A2: Area of sutured defect. A3-A5: [place] [place] Tender orange-inked serosa with white areas. A6: Unremarkable mucosa. A7: Four intact lymph node candidates. A8: Four intact lymph node candidates. A9: Three intact lymph node candidates. A10-A11: Rep fragments of skin. ([id number]) /MRV 06/28/2023 [facility] Local . 01 Pathologist provided ICD-10: K56.609 . 01 CPT . 490972 Specimen Comment: A courtesy copy of this report has been sent to [phone] Performed at: 01 [facility] [address] [place] [address], [place], [place] [id number] MD Priec Tamez MD Phone: [phone]
[2023-06-27] MEDS: SODIUM CHLORIDE 0.9% 1,000 ML 100 ML IV ×2 (02:48→12:51)
--- NOTE | 2023-06-27 06:34 | PC.NURSE ---
Patient A & O x 3, very forgetful, denies any pain or nausea. BT x 4 hypoactive. NGT to LIS with dark brown coffee ground drainage, 950cc for this 12 hr shift. Patient NPO for surgery.
[2023-06-27 06:58] LABS: Add Manual Diff / Slide Review NO; Basophils Absolute Auto 0 /uL (0-100); Basophils Percent Auto 0.3 % (0-2); Eosinophils Absolute Auto 100 /uL (0-450); Eosinophils Percent Auto 1.8 % (2-4); Hematocrit 40.6 % (41-53); Hemoglobin 14.2 g/dL (13.5-17.5); Lymphocytes Absolute Auto 2000 /uL (1100-4500); Lymphocytes Percent Auto 33.9 % (25-40); Mean Corpuscular Hemoglobin 31.4 PG (26-34); Mean Corpuscular Volume 89.8 fL (80-100); Monocytes Absolute Auto 600 /uL (0-900); Monocytes Percent Auto 10.4 % (3-14); Neutrophils Absolute Auto 3100 /uL (1500-7000); Neutrophils Percent Auto 53.6 % (50-75); Platelet Count 229 X10^3/uL (150-400); Red Blood Cell Count 4.52 X10^6/uL (4.5-5.9); Red Cell Distribution Width 12.8 % (11.6-14.8); White Blood Cell Count 5.8 X10^3/uL (4.5-11.0)
[2023-06-27 07:27] LABS: BUN Creatinine Ratio 24.6 (6-22); Blood Urea Nitrogen 17 mg/dL (9-20); Calcium 8.8 mg/dL (8.4-10.2); Carbon Dioxide 30 mmol/L (22-32); Chloride 105 mmol/L (98-107); Estimated Glomerular Filt Rate > 60 mL/min (>60); Glucose 103 mg/dL (80-110); HEMOLYSIS < 15 (0-50); Potassium 3.4 mmol/L (3.4-5.1); Sodium 139 mmol/L (137-145)
--- NOTE | 2023-06-27 10:05 | PM.PN.1 ---
Subjective Subjective Date Patient Seen: 06/27/23 Interval history: No significant increase in flatus or bowel movements. Repeat CT was performed last night and seems to show persistent small-bowel obstruction near the anterior abdominal wall Exam Vital Signs (past 8 hours): - 06/27/23 04:00 06/27/23 04:20 06/27/23 08:00 Temperature 97.2 F L 97.5 F L Pulse Rate 76 70 Respiratory Rate 20 16 Blood Pressure 152/81 H 155/75 H Pulse Oximetry 95 96 96 Oxygen Delivery Method Room Air Oxygen Flow Rate 0 0 Oxygen Delivery Method Room Air Oxygen Flow Rate 0 Narrative Exam Narrative: Abdomen is soft, minimally tender and moderately distended Objective Labs 06/27/23 06:40 06/27/23 06:40 Labs: Laboratory Results - last 24 hr 06/26/23 06/27/23 19:30 06:40 WBC 5.8 RBC 4.52 Hgb 15.2 14.2 Hct 40.6 L MCV 89.8 MCH 31.4 MCHC 35.0 RDW 12.8 Plt Count 229 Neut % (Auto) 53.6 Lymph % (Auto) 33.9 [place] % (Auto) 10.4 Eos % (Auto) 1.8 L Baso % (Auto) 0.3 Neut # (Auto) 3100 Lymph # (Auto) 2000 [place] # (Auto) 600 Eos # (Auto) 100 Baso # (Auto) 0 Sodium 139 Potassium 3.4 Chloride 105 Carbon Dioxide 30 BUN 17 Creatinine 0.69 Estimated GFR > 60 BUN/Creatinine Ratio 24.6 H Glucose 103 Calcium 8.8 PFSH Medical History Short-term memory loss Hyperglycemia Libido, decreased Change in stool caliber Substance abuse (~1974) Chronic back pain (~1999) Chicken pox (~1955) Hepatitis C (~1994) Cancer (~2008) Low back pain Hyperlipidemia Dry eyes Memory impairment Essential hypertension (10/08/15) Anxiety (10/08/15) Surgical History Anesthesia Pseudomyxoma peritonei (~08/02/08) Family History Father Diabetes mellitus History of heart disease Mental health problem Hypertension Mother Sepsis Hypertension Sister Cancer Hypertension Sister Diabetes mellitus Hypertension Grandfather History of heart disease Grandmother History of heart disease Social History marital status: unmarried,living together household members: significant other occupational status: employed Smoking Status: Former smoker alcohol intake: never Assessment & Plan Assessment and plan (1) Small bowel obstruction: Status: Acute Plan We will plan to proceed with exploratory laparotomy and lysis of adhesions for small-bowel obstruction. I reviewed the risks of surgery with Duy including the possibility of needing a small-bowel resection. He would like to proceed with surgery. Quality VTE Deep Vein Thrombosis/Pulmonary Embolism Present on Admission: No
[2023-06-27] MEDS: PANTOPRAZOLE 40 MG VIAL IV ×2 (10:17→21:52)
--- NOTE | 2023-06-27 12:31 | PC.NURSE ---
Patient denies pain, he is resting and waiting to go to surgery for his exploratory lap. Patient has an NG tube to LIS with bile contents in chamber. He sat on the commode to try and have a bm and is resting comfortably now.
--- NOTE | 2023-06-27 13:34 | CM.DPC ---
DCP Cont: Per MD, pt was having bowel tones and still has NGT without much progress and plan is exploratory lap in the OR either tonight or tomorrow pending PACU schedule. Plan: SW to follow closely for progress post surgical intervention to confirm safe d/c home with Sig Other when medically stable and r/o HH. PRINCESS Duarte
--- NOTE | 2023-06-27 13:47 | PM.PN.1 ---
Subjective Subjective Interval history: NG still in place. Plan for OR today. Exam Vital Signs (past 8 hours): - 06/27/23 08:00 06/27/23 08:00 Temperature 97.5 F L Pulse Rate 70 Respiratory Rate 16 Blood Pressure 155/75 H Pulse Oximetry 96 Oxygen Delivery Method Room Air Oxygen Flow Rate 0 Oxygen Delivery Method Room Air Oxygen Flow Rate 0 Narrative Exam Narrative: GEN: Very pleasant middle-aged male, Alert and oriented x 3, NAD HEENT:NC, Face symmetric CHEST: Respiratory excursions symmetric, CTAB CV: RRR, no M/R/G ABD: Soft, distended, BT present in all 4 quadrants, no organomegaly or masses, old vertical midline surgical scar, with 3 areas of darker purple scarring at site of old MAREK drains EXTR: warm, well perfused, no C/C/E SKIN: warm and dry, no rash NEURO: Alert and oriented x 3, nonfocal Objective Labs 06/27/23 06:40 06/27/23 06:40 Labs: Laboratory Results - last 24 hr 06/26/23 06/27/23 19:30 06:40 WBC 5.8 RBC 4.52 Hgb 15.2 14.2 Hct 40.6 L MCV 89.8 MCH 31.4 MCHC 35.0 RDW 12.8 Plt Count 229 Neut % (Auto) 53.6 Lymph % (Auto) 33.9 [place] % (Auto) 10.4 Eos % (Auto) 1.8 L Baso % (Auto) 0.3 Neut # (Auto) 3100 Lymph # (Auto) 2000 [place] # (Auto) 600 Eos # (Auto) 100 Baso # (Auto) 0 Sodium 139 Potassium 3.4 Chloride 105 Carbon Dioxide 30 BUN 17 Creatinine 0.69 Estimated GFR > 60 BUN/Creatinine Ratio 24.6 H Glucose 103 Calcium 8.8 PFSH Medical History Short-term memory loss Hyperglycemia Libido, decreased Change in stool caliber Substance abuse (~1974) Chronic back pain (~1999) Chicken pox (~1955) Hepatitis C (~1994) Cancer (~2008) Low back pain Hyperlipidemia Dry eyes Memory impairment Essential hypertension (10/08/15) Anxiety (10/08/15) Surgical History Anesthesia Pseudomyxoma peritonei (~08/02/08) Family History Father Diabetes mellitus History of heart disease Mental health problem Hypertension Mother Sepsis Hypertension Sister Cancer Hypertension Sister Diabetes mellitus Hypertension Grandfather History of heart disease Grandmother History of heart disease Social History marital status: unmarried,living together household members: significant other occupational status: employed Smoking Status: Former smoker alcohol intake: never Assessment & Plan Assessment & Plan narrative: 1. SBO Initially was improving so NG removed and patient had small BM. However then after eating began to worsen and vomited multiple times so NG replaced. CT shows SBO with transition point of anterior abdomen at side of midline incision. Plan for OR on 06/27 for ex-lap. 2. HTN Blood pressures are moderately elevated. He is back on his usual doses of lisinopril and amlodipine. Will monitor. 3. HLD Holding home dose of his statin for now. 4. Depression Continue citalopram. 5. Hyperglycemia Likely stress induced. Hemoglobin A1c was within normal limits. Code status Full Prophy hold Lovenox for surgery Dispo Pending surgery on 06/27. Quality VTE Deep Vein Thrombosis/Pulmonary Embolism Present on Admission: No
[2023-06-27] MEDS: POTASSIUM CHLORIDE IN WATER 10 MEQ/100 ML PIGGYBACK 100 MEQ IV (13:59)
[2023-06-27] MEDS: PIPERACILLIN/TAZO 3.375 GM in SODIUM CHLORIDE 0.9% 100 ML IV (17:35)
--- NOTE | 2023-06-27 17:48 | SUR.OPER ---
Supine on padded OR bed, head on pillow, arms secured on padded arm boards at <90 degrees abduction, legs uncrossed, safety belt at thigh, tape over blanket over lower legs.
[2023-06-27] MEDS: BUPIVACAINE 0.5% (PF) 30 ML, EPINEPHrine 0.15 MG INJ (17:54)
[2023-06-27] MEDS: ACETAMINOPHEN IV 1,000 MG/100 ML VIAL 400 MG IV (18:00)
[2023-06-27] MEDS: BUPIVACAINE LIPOSOME 266 MG/20 ML VIAL INJ (18:53)
--- NOTE | 2023-06-27 19:10 | P.OP_ITS ---
Operative Date/Time/Diagnoses Date of procedure: 06/27/23 Time of procedure: 19:10 Pre-op diagnosis: Small bowel obstruction Post-op diagnosis: same Procedure & Clinicians Procedure: Exploratory laparotomy Extensive lysis of adhesions Small-bowel resection Same procedure as scheduled: Yes Surgeon: Ronnie Tobin Anesthesia Type: General Operative Notes Procedure in detail: The patient is a 72-year-old man who presented to the hospital with a small- bowel obstruction. He had had an exploratory laparotomy and an ileocecectomy many years ago for pseudomyxoma peritonei. He underwent a Gastrografin challenge which initially seemed to pass but he continued to have intermittent obstructive symptoms for several days. He underwent a repeat CT scan which showed a persistent small-bowel obstruction and he was consented for an exploratory laparotomy. The patient was given Zosyn. The patient was brought to the operating room and placed on table in the supine position and general endotracheal anesthesia was induced. The abdomen was prepped and draped in the usual fashion and a time-out was performed. We made a 6 cm midline incision within the old surgical scar. We carefully dissected down to the fascia with cautery. Once we are at the fascia we started to very slowly and carefully divide the fascia with a 10 blade scalpel. Eventually it was clear that peritoneal cavity had been entered. There was the expected loops of small bowel adherent to the abdominal wall but these were uninjured. Gentle traction allowed these loops to be slowly and carefully dissected off the anterior abdominal wall. Lysis of adhesion ensued for about 90 minutes. Eventually the transition point was found which appeared to be a loop of small bowel that was plastered to the abdominal wall in kinked. Another segment of bowel about 10 cm proximal was freed from the abdominal wall but there was a small serosal tear. Initially this was closed with 4 interrupted 3-0 silk seromuscular sutures in a transverse fashion. Upon further inspection of the transition point a decision was made to perform a small-bowel resection because it was felt that this could continue to cause intermittent obstructive symptoms due to the acute kink in its trajectory. We therefore inco rporated the serosal tear within the small bowel resection. A proximally 12 cm of small bowel was resected. A [id number] functional end-to-end anastomosis was created using 75 mm linear cutting stapler with blue loads. The staple line was imbricated with multiple 3-0 silk Lembert sutures. The mesenteric defect was closed in running manner with a 2-0 Vicryl stitch. Bowel was dropped back into the abdomen. An additional loop of bowel was dissected off the anterior abdominal wall in the inferior portion to allow sutures to be placed that would close the fascia securely. We then closed the fascia with a running 0 PDS and multiple interrupted 0 Vicryl internal retention sutures. The wound was irrigated with saline and then the skin was closed with maria m. A sterile dressing was applied. EBL: 30 mL Specimen: Segment of small bowel involving the transition point Post-operative Condition: stable Disposition: PACU
[2023-06-27] MEDS: METOPROLOL TARTRATE 5 MG/5 ML INJ IV ×2 (19:52→21:53)
[2023-06-27] MEDS: LATANOPROST 0.005% OPHTH 2.5 ML 1 DROPS EYE-LEFT (21:52)
[2023-06-27] MEDS: LORazepam 2 MG/ML INJ 0.5 MG IV (21:53)
[2023-06-28] VITALS (7 sets, daily range): BP systolic 146–192; BP diastolic 77–99; PULSE 84–102; RESP 16–18; TEMP 36.1–36.3; O2SAT 93–97
[2023-06-28] MEDS: HYDROMORPHONE 0.5 MG INJ IV ×2 (01:15→05:38)
[2023-06-28] MEDS: METOPROLOL TARTRATE 5 MG/5 ML INJ IV (03:50)
[2023-06-28] MEDS: LORazepam 2 MG/ML INJ 0.5 MG IV (03:51)
[2023-06-28 06:19] LABS: Add Manual Diff / Slide Review NO; Basophils Absolute Auto 0 /uL (0-100); Basophils Percent Auto 0.3 % (0-2); Eosinophils Absolute Auto 0 /uL (0-450); Hematocrit 39.7 % (41-53); Lymphocytes Absolute Auto 1300 /uL (1100-4500); Lymphocytes Percent Auto 14.4 % (25-40); Mean Corpuscular HGB Conc 35.2 % (30-36); Mean Corpuscular Volume 90.7 fL (80-100); Monocytes Absolute Auto 800 /uL (0-900); Monocytes Percent Auto 8.7 % (3-14); Neutrophils Absolute Auto 6800 /uL (1500-7000); Neutrophils Percent Auto 76.6 % (50-75); Platelet Count 225 X10^3/uL (150-400); Red Blood Cell Count 4.37 X10^6/uL (4.5-5.9); Red Cell Distribution Width 12.7 % (11.6-14.8); White Blood Cell Count 8.8 X10^3/uL (4.5-11.0)
[2023-06-28 06:31] LABS: BUN Creatinine Ratio 24.1 (6-22); Blood Urea Nitrogen 13 mg/dL (9-20); Carbon Dioxide 24 mmol/L (22-32); Chloride 106 mmol/L (98-107); Estimated Glomerular Filt Rate > 60 mL/min (>60); Glucose 134 mg/dL (80-110); HEMOLYSIS < 15 (0-50); Potassium 3.6 mmol/L (3.4-5.1); Sodium 138 mmol/L (137-145)
[2023-06-28] MEDS: CITALOPRAM 10 MG TABLET 40 MG PO (10:56)
[2023-06-28] MEDS: AMLODIPINE 5 MG TABLET 15 MG PO (10:58)
[2023-06-28] MEDS: LORazepam 0.5 MG TABLET PO (10:58)
[2023-06-28] MEDS: PANTOPRAZOLE 40 MG VIAL IV (10:59)
[2023-06-28] MEDS: lisinopriL 5 MG TABLET PO (10:59)
[2023-06-28] MEDS: QUETIAPINE 25 MG TABLET 12.5 MG PO ×2 (12:10→20:38)
--- NOTE | 2023-06-28 13:23 | PM.PN.1 ---
Subjective Subjective Date Patient Seen: 06/28/23 Time Patient Seen: 13:23 Interval history: Duy has been somewhat confused today. Pain is under good control. Exam Vital Signs (past 8 hours): Oxygen Delivery Method Room Air Oxygen Flow Rate 0 Const General: No acute distress Resp Effort & Inspection: normal respiratory effort Objective Labs 06/28/23 06:03 06/28/23 06:03 Labs: Laboratory Results - last 24 hr 06/28/23 06:03 WBC 8.8 D RBC 4.37 L Hgb 14.0 Hct 39.7 L MCV 90.7 MCH 32.0 MCHC 35.2 RDW 12.7 Plt Count 225 Neut % (Auto) 76.6 H D Lymph % (Auto) 14.4 L [place] % (Auto) 8.7 Eos % (Auto) 0.0 L Baso % (Auto) 0.3 Neut # (Auto) 6800 Lymph # (Auto) 1300 [place] # (Auto) 800 Eos # (Auto) 0 Baso # (Auto) 0 Sodium 138 Potassium 3.6 Chloride 106 Carbon Dioxide 24 BUN 13 Creatinine 0.54 L Estimated GFR > 60 BUN/Creatinine Ratio 24.1 H Glucose 134 H Calcium 8.0 L PFSH Medical History Short-term memory loss Hyperglycemia Libido, decreased Change in stool caliber Substance abuse (~1974) Chronic back pain (~1999) Chicken pox (~1955) Hepatitis C (~1994) Cancer (~2008) Low back pain Hyperlipidemia Dry eyes Memory impairment Essential hypertension (10/08/15) Anxiety (10/08/15) Surgical History Anesthesia Pseudomyxoma peritonei (~08/02/08) Family History Father Diabetes mellitus History of heart disease Mental health problem Hypertension Mother Sepsis Hypertension Sister Cancer Hypertension Sister Diabetes mellitus Hypertension Grandfather History of heart disease Grandmother History of heart disease Social History marital status: unmarried,living together household members: significant other occupational status: employed Smoking Status: Former smoker alcohol intake: former Assessment & Plan Assessment and plan (1) Small bowel obstruction: Status: Acute Plan Doing well postop day 1 following exploratory laparotomy with small-bowel resection. He is unfortunately having some delirium. The window shades have been opened all the way. His is at bedside. Rhodes and NG tube have been removed. Quality VTE Deep Vein Thrombosis/Pulmonary Embolism Present on Admission: No
--- NOTE | 2023-06-28 14:22 | CM.DPC ---
DCP Cont. Reviewed EMR and team rounds for status updates. Pt presents as asleep during this [employer] visit, per his RN, he has remained very confused with a marked mental status change post-op. He is receiving some psych meds to reduce his agitation and disorientation in order for him to be able to rest. Will continue to monitor for d/c recommendations once he has mentally cleared.
[2023-06-28] MEDS: HALOPERIDOL 5 MG/ML VIAL 2 MG IV (16:12)
--- NOTE | 2023-06-28 16:48 | PC.NURSE ---
Patient has been confused and trying to get out of bed all day. He was given seroquel 12.5mg, and haldol. This has been helpful for patient as he is more calm but is still taking his gown on and stripping. New aquacel dressing put on patient and he has left this alone. His ml is with maria m and cdi. Patient had a shower and has been moved to room 206 as this room is more viewable for staff.
--- NOTE | 2023-06-28 17:30 | P.PN_ITS ---
Subjective Subjective Interval history: Patient POD 1 after lysis of adhesions and small bowel resection to relieve SBO. He is very delirious today. Dilaudid and IV ativan stopped. Seroquel and IV haldol ordered. Exam Vital Signs (past 8 hours): - 06/28/23 14:00 06/28/23 16:00 Temperature 97 F L Pulse Rate 97 H Respiratory Rate 18 Blood Pressure 184/99 H Pulse Oximetry 94 Oxygen Delivery Method Room Air Oxygen Delivery Method Room Air Oxygen Flow Rate 0 Narrative Exam Narrative: GEN: Disoriented, pale, ill-appearing HEENT:NC, Face symmetric CHEST: Respiratory excursions symmetric, CTAB CV: RRR, no M/R/G ABD: large mindline incision with stable present, non-distended EXTR: warm, well perfused, no C/C/E SKIN: warm and dry, no rash NEURO: confused, nonfocal Objective Labs 06/28/23 06:03 06/28/23 06:03 Labs: Laboratory Results - last 24 hr 06/28/23 06:03 WBC 8.8 D RBC 4.37 L Hgb 14.0 Hct 39.7 L MCV 90.7 MCH 32.0 MCHC 35.2 RDW 12.7 Plt Count 225 Neut % (Auto) 76.6 H D Lymph % (Auto) 14.4 L [place] % (Auto) 8.7 Eos % (Auto) 0.0 L Baso % (Auto) 0.3 Neut # (Auto) 6800 Lymph # (Auto) 1300 [place] # (Auto) 800 Eos # (Auto) 0 Baso # (Auto) 0 Sodium 138 Potassium 3.6 Chloride 106 Carbon Dioxide 24 BUN 13 Creatinine 0.54 L Estimated GFR > 60 BUN/Creatinine Ratio 24.1 H Glucose 134 H Calcium 8.0 L PFSH Medical History Short-term memory loss Hyperglycemia Libido, decreased Change in stool caliber Substance abuse (~1974) Chronic back pain (~1999) Chicken pox (~1955) Hepatitis C (~1994) Cancer (~2008) Low back pain Hyperlipidemia Dry eyes Memory impairment Essential hypertension (10/08/15) Anxiety (10/08/15) Surgical History Anesthesia Pseudomyxoma peritonei (~08/02/08) Family History Father Diabetes mellitus History of heart disease Mental health problem Hypertension Mother Sepsis Hypertension Sister Cancer Hypertension Sister Diabetes mellitus Hypertension Grandfather History of heart disease Grandmother History of heart disease Social History marital status: unmarried,living together household members: significant other occupational status: employed Smoking Status: Former smoker alcohol intake: former Assessment & Plan Assessment & Plan narrative: 1. SBO s/p exlap and small bowel resection POD 1 where large adhesion was found with small bowel adhered to ventral abd wall. NG out and advancing diet. 2. HTN Blood pressures are moderately elevated. He is back on his usual doses of lisinopril and amlodipine. Will monitor. 3. HLD Holding home dose of his statin for now. 4. Depression Hold celexa for now. 5. Hyperglycemia Likely stress induced. Hemoglobin A1c was within normal limits. 6. Post-op delirium Patient disoriented starting POD1 from surgery. Confused and trying to get out of bed. IV ativan and dilaudid dc'd. Seroquel and IV haldol ordered PRN. If continues to worsen may need physical restraints. Code status Full Prophy Lovenox Dispo Pending post-op course and improvement diet and delirium. Quality VTE Deep Vein Thrombosis/Pulmonary Embolism Present on Admission: No
[2023-06-28] MEDS: ENOXAPARIN 40 MG/0.4 ML SYRINGE SUBCUT (20:37)
[2023-06-28] MEDS: LATANOPROST 0.005% OPHTH 2.5 ML 1 DROPS EYE-LEFT (20:37)
[2023-06-29] VITALS (9 sets, daily range): BP systolic 164–180; BP diastolic 82–98; PULSE 72–106; RESP 17–18; TEMP 36.7; O2SAT 96–100
[2023-06-29] MEDS: OXYCODONE IR 5 MG TABLET PO ×2 (00:47→09:28)
[2023-06-29] MEDS: SODIUM CHLORIDE 0.9% 1,000 ML 100 ML IV ×2 (00:52→09:24)
[2023-06-29 07:19] LABS: Add Manual Diff / Slide Review NO; Basophils Absolute Auto 0 /uL (0-100); Basophils Percent Auto 0.1 % (0-2); Eosinophils Absolute Auto 0 /uL (0-450); Hematocrit 43.2 % (41-53); Lymphocytes Absolute Auto 1000 /uL (1100-4500); Lymphocytes Percent Auto 9.6 % (25-40); Mean Corpuscular HGB Conc 34.8 % (30-36); Monocytes Absolute Auto 900 /uL (0-900); Monocytes Percent Auto 9.1 % (3-14); Neutrophils Absolute Auto 8200 /uL (1500-7000); Neutrophils Percent Auto 81.2 % (50-75); Platelet Count 266 X10^3/uL (150-400); Red Blood Cell Count 4.69 X10^6/uL (4.5-5.9); White Blood Cell Count 10.1 X10^3/uL (4.5-11.0)
[2023-06-29 08:22] LABS: BUN Creatinine Ratio 15.4 (6-22); Blood Urea Nitrogen 25 mg/dL (9-20); Calcium 8.4 mg/dL (8.4-10.2); Carbon Dioxide 18 mmol/L (22-32); Chloride 109 mmol/L (98-107); Estimated Glomerular Filt Rate 45 mL/min (>60); Glucose 156 mg/dL (80-110); HEMOLYSIS < 15 (0-50); Potassium 3.3 mmol/L (3.4-5.1); Sodium 142 mmol/L (137-145)
[2023-06-29] MEDS: AMLODIPINE 5 MG TABLET 15 MG PO (09:24)
[2023-06-29] MEDS: ENOXAPARIN 40 MG/0.4 ML SYRINGE SUBCUT (09:24)
[2023-06-29] MEDS: ONDANSETRON 4 MG/2 ML INJ IV (09:24)
[2023-06-29] MEDS: POTASSIUM CHLORIDE 20 MEQ TAB 40 MEQ PO (09:28)
[2023-06-29] MEDS: SODIUM CHLORIDE 0.9% FLUSH 10 ML IV ×2 (09:29→21:18)
--- NOTE | 2023-06-29 11:39 | PC.NURSE ---
straight cath performed by this nurse. Informed by Primary bladder scan showed slightly over 300mL. Straight cath had 1,700mL urine output. Patient's urine started draining dark david colored and then turned bloody. Pt's cath was slightly difficult with passing by prostate. Patient was able to cough and straight cath was passed.
[2023-06-29 12:45] LABS: Appearance Urine UA CLOUDY; Bilirubin Urine UA 1+ (NEGATIVE); Color Urine UA ORANGE; Glucose Urine UA NEGATIVE (Negative); Ketones Urine UA 1+ (NEGATIVE); Leukocyte Esterase Urine UA NEGATIVE (NEGATIVE); Nitrite Urine UA POSITIVE (Negative); Occult Blood Urine UA 3+ (Negative); Protein Urine UA 1+ (Negative); Specific Gravity Urine UA 1.015 (1.000-1.035); pH Urine UA 5.5 (4.5-8.0)
[2023-06-29 12:58] LABS: RBC Urine 10-30/HPF (0-5/HPF)
[2023-06-29 12:59] LABS: Amorphous Sediment Urine 1+; Bacteria Urine Occasional (0-1); Culture Indicated Urine Specimen Cultured; Squamous Epithelial Cell Urine None Seen (0-5/HPF); WBC Urine 1-5/HPF (0-5/HPF)
--- NOTE | 2023-06-29 13:22 | CM.DPC ---
DCP Cont. Reviewed EMR and team rounds for status updates. Pt continues w/confusion, although it's improving. Pt was started on IV fluids, he's reported to have been quite nauseas at times throughout the day. at bedside visiting today, Hospitalist feels most likely 1-2 more days before d/c.
--- NOTE | 2023-06-29 14:24 | PM.PN.1 ---
Subjective Subjective Interval history: Patient less delirious today. However he still asked so when is the surgery? Surgery advancing diet to regular. Abd distended. Straight cath ordered and had 1700cc out. Rhodes ordered and flomax daily. Exam Vital Signs (past 8 hours): - 06/29/23 08:00 06/29/23 08:00 06/29/23 09:00 Temperature 98.0 F Pulse Rate 104 H Respiratory Rate 18 Blood Pressure 180/98 H Pulse Oximetry 100 100 Oxygen Delivery Method Room Air Room Air Oxygen Delivery Method Room Air Oxygen Flow Rate 0 Narrative Exam Narrative: GEN: Less disoriented but still confused some, pale, ill-appearing HEENT:NC, Face symmetric CHEST: Respiratory excursions symmetric, CTAB CV: RRR, no M/R/G ABD: large midline incision with stable present, non-distended EXTR: warm, well perfused, no C/C/E SKIN: warm and dry, no rash NEURO: mildlly confused, nonfocal Objective Labs 06/29/23 06:45 06/29/23 06:45 Labs: Laboratory Results - last 24 hr 06/29/23 06/29/23 06:45 11:30 WBC 10.1 RBC 4.69 Hgb 15.0 Hct 43.2 MCV 92.0 MCH 32.0 MCHC 34.8 RDW 13.0 Plt Count 266 Neut % (Auto) 81.2 H Lymph % (Auto) 9.6 L [place] % (Auto) 9.1 Eos % (Auto) 0.0 L Baso % (Auto) 0.1 Neut # (Auto) 8200 H Lymph # (Auto) 1000 L [place] # (Auto) 900 Eos # (Auto) 0 Baso # (Auto) 0 Sodium 142 Potassium 3.3 L Chloride 109 H Carbon Dioxide 18 L BUN 25 H Creatinine 1.62 H Estimated GFR 45 L BUN/Creatinine Ratio 15.4 Glucose 156 H Calcium 8.4 Urine Color [place] Urine Appearance Cloudy Urine pH 5.5 Ur Specific [place] 1.015 Urine Protein 1+ H Urine Glucose (UA) Negative Urine Ketones 1+ H Urine Occult Blood 3+ H Urine Nitrate Positive H Urine Bilirubin 1+ H Ur Bilirubin Confirm TNP Urine Urobilinogen 1.0 Ur Leukocyte Esterase Negative Urine RBC 10-30/hpf H Urine WBC 1-5/hpf Ur Squamous Epith Cells None seen Amorphous Sediment 1+ Urine Bacteria Occasional (0-1) Ur Culture Indicated? Specimen cultured [facility] Medical History Short-term memory loss Hyperglycemia Libido, decreased Change in stool caliber Substance abuse (~1974) Chronic back pain (~1999) Chicken pox (~1955) Hepatitis C (~1994) Cancer (~2008) Low back pain Hyperlipidemia Dry eyes Memory impairment Essential hypertension (10/08/15) Anxiety (10/08/15) Surgical History Anesthesia Pseudomyxoma peritonei (~08/02/08) Family History Father Diabetes mellitus History of heart disease Mental health problem Hypertension Mother Sepsis Hypertension Sister Cancer Hypertension Sister Diabetes mellitus Hypertension Grandfather History of heart disease Grandmother History of heart disease Social History marital status: unmarried,living together household members: significant other occupational status: employed Smoking Status: Former smoker alcohol intake: former Assessment & Plan Assessment & Plan narrative: 1. SBO s/p exlap and small bowel resection POD 2 where large adhesion was found with small bowel adhered to ventral abd wall. NG out and advancing diet. Now having BM's and diet is regular. 2. HTN Blood pressures are moderately elevated. Holding lisinopril due to THANIA, continue amlodipine. 3. HLD Holding home dose of his statin for now. 4. Depression Hold celexa for now. 5. Hyperglycemia Likely stress induced. Hemoglobin A1c was within normal limits. 6. Post-op delirium, improving Patient disoriented starting POD1 from surgery. Confused and trying to get out of bed. IV ativan and dilaudid dc'd. Seroquel and IV haldol ordered PRN. Seroquel seems to have helped. Delirium improving. 7. THANIA due to post-renal bladder retention Cr increased to 1.67. Bladder scann showed 300cc but when straight cath ordered approx 1700cc evacuated from bladder. Rhodes placed. Possibly from post-op delirium. Monitor Cr as should now improved with obstruction resolved. Flomax started. Code status Full Prophy Lovenox Dispo Pending post-op course and improvement delirium. Will order PT for 06/30. Quality VTE Deep Vein Thrombosis/Pulmonary Embolism Present on Admission: No
--- NOTE | 2023-06-29 14:53 | P.PN_ITS ---
Subjective Subjective Date Patient Seen: 06/29/23 Time Patient Seen: 14:54 Interval history: Continues to have delirium. He has tolerated a clear liquid diet but he feels full and somewhat distended today. Exam Vital Signs (past 8 hours): - 06/29/23 08:00 06/29/23 08:00 06/29/23 09:00 Temperature 98.0 F Pulse Rate 104 H Respiratory Rate 18 Blood Pressure 180/98 H Pulse Oximetry 100 100 Oxygen Delivery Method Room Air Room Air Oxygen Delivery Method Room Air Oxygen Flow Rate 0 Narrative Exam Narrative: Slightly confused Abdomen is soft and moderately distended Objective Labs 06/29/23 06:45 06/29/23 06:45 Labs: Laboratory Results - last 24 hr 06/29/23 06/29/23 06:45 11:30 WBC 10.1 RBC 4.69 Hgb 15.0 Hct 43.2 MCV 92.0 MCH 32.0 MCHC 34.8 RDW 13.0 Plt Count 266 Neut % (Auto) 81.2 H Lymph % (Auto) 9.6 L [place] % (Auto) 9.1 Eos % (Auto) 0.0 L Baso % (Auto) 0.1 Neut # (Auto) 8200 H Lymph # (Auto) 1000 L [place] # (Auto) 900 Eos # (Auto) 0 Baso # (Auto) 0 Sodium 142 Potassium 3.3 L Chloride 109 H Carbon Dioxide 18 L BUN 25 H Creatinine 1.62 H Estimated GFR 45 L BUN/Creatinine Ratio 15.4 Glucose 156 H Calcium 8.4 Urine Color [place] Urine Appearance Cloudy Urine pH 5.5 Ur Specific [place] 1.015 Urine Protein 1+ H Urine Glucose (UA) Negative Urine Ketones 1+ H Urine Occult Blood 3+ H Urine Nitrate Positive H Urine Bilirubin 1+ H Ur Bilirubin Confirm TNP Urine Urobilinogen 1.0 Ur Leukocyte Esterase Negative Urine RBC 10-30/hpf H Urine WBC 1-5/hpf Ur Squamous Epith Cells None seen Amorphous Sediment 1+ Urine Bacteria Occasional (0-1) Ur Culture Indicated? Specimen cultured [facility] Medical History Short-term memory loss Hyperglycemia Libido, decreased Change in stool caliber Substance abuse (~1974) Chronic back pain (~1999) Chicken pox (~1955) Hepatitis C (~1994) Cancer (~2008) Low back pain Hyperlipidemia Dry eyes Memory impairment Essential hypertension (10/08/15) Anxiety (10/08/15) Surgical History Anesthesia Pseudomyxoma peritonei (~08/02/08) Family History Father Diabetes mellitus History of heart disease Mental health problem Hypertension Mother Sepsis Hypertension Sister Cancer Hypertension Sister Diabetes mellitus Hypertension Grandfather History of heart disease Grandmother History of heart disease Social History marital status: unmarried,living together household members: significant other occupational status: employed Smoking Status: Former smoker alcohol intake: former Assessment & Plan Assessment and plan (1) Small bowel obstruction: Status: Acute Plan Continue clear liquid diet Quality VTE Deep Vein Thrombosis/Pulmonary Embolism Present on Admission: No
--- NOTE | 2023-06-29 15:49 | PC.NURSE ---
GI/: Passing lots of flatus, had 1 liquid stool, pt is distended. : Up several times to void. Bladder scanned for 335. See order for I/O cath. Pt was in and out cath by Niels and out put was 1700 very bloody but no clots. made aware. Pt up to void after lunch and then bladder scanned again. PVR was 711mls. Catheter placed to gravity using coude. Output was 400mls uop. Dr. Mcgill made aware.
[2023-06-29] MEDS: QUETIAPINE 25 MG TABLET 12.5 MG PO (21:15)
[2023-06-29] MEDS: TAMSULOSIN 0.4 MG CAPSULE PO (21:18)
[2023-06-30] VITALS (12 sets, daily range): BP systolic 138–171; BP diastolic 72–80; PULSE 86–96; RESP 16–19; TEMP 36.6–37.8; O2SAT 95–98
[2023-06-30] MEDS: OXYCODONE IR 5 MG TABLET PO ×4 (00:32→20:06)
[2023-06-30 06:14] LABS: Add Manual Diff / Slide Review NO; Basophils Absolute Auto 0 /uL (0-100); Basophils Percent Auto 0.1 % (0-2); Eosinophils Absolute Auto 100 /uL (0-450); Eosinophils Percent Auto 1.4 % (2-4); Hematocrit 35.3 % (41-53); Hemoglobin 12.5 g/dL (13.5-17.5); Lymphocytes Absolute Auto 1300 /uL (1100-4500); Lymphocytes Percent Auto 18.6 % (25-40); Mean Corpuscular HGB Conc 35.3 % (30-36); Mean Corpuscular Hemoglobin 31.8 PG (26-34); Mean Corpuscular Volume 90.1 fL (80-100); Monocytes Absolute Auto 600 /uL (0-900); Monocytes Percent Auto 7.7 % (3-14); Neutrophils Absolute Auto 5200 /uL (1500-7000); Neutrophils Percent Auto 72.2 % (50-75); Platelet Count 226 X10^3/uL (150-400); Red Blood Cell Count 3.92 X10^6/uL (4.5-5.9); Red Cell Distribution Width 12.9 % (11.6-14.8); White Blood Cell Count 7.2 X10^3/uL (4.5-11.0)
[2023-06-30 06:18] LABS: BUN Creatinine Ratio 17.5 (6-22); Blood Urea Nitrogen 11 mg/dL (9-20); Calcium 8.4 mg/dL (8.4-10.2); Carbon Dioxide 30 mmol/L (22-32); Chloride 105 mmol/L (98-107); Estimated Glomerular Filt Rate > 60 mL/min (>60); Glucose 146 mg/dL (80-110); HEMOLYSIS < 15 (0-50); Sodium 140 mmol/L (137-145)
[2023-06-30 06:20] LABS: Potassium 2.6 mmol/L (3.4-5.1)
[2023-06-30] MEDS: POTASSIUM CHLORIDE 20 MEQ/15 ML UDC 40 MEQ PO ×2 (06:54→13:49)
[2023-06-30] MEDS: AMLODIPINE 5 MG TABLET 15 MG PO (09:00)
[2023-06-30] MEDS: ENOXAPARIN 40 MG/0.4 ML SYRINGE SUBCUT (09:00)
[2023-06-30] MEDS: SODIUM CHLORIDE 0.9% FLUSH 10 ML IV ×2 (09:01→20:10)
--- NOTE | 2023-06-30 13:28 | PM.PN.1 ---
Subjective Subjective Date Patient Seen: 06/30/23 Time Patient Seen: 13:28 Interval history: Duy has tolerated a soft diet and he is passing some gas. Denies nausea or vomiting. His appetite remains rather minimal. He has some incisional pain. Exam Vital Signs (past 8 hours): - 06/30/23 06:00 06/30/23 09:00 06/30/23 09:00 Temperature 97.8 F Respiratory Rate 18 Blood Pressure 153/77 H Pulse Oximetry 97 98 Oxygen Delivery Method Room Air Room Air 06/30/23 10:00 Temperature Respiratory Rate Blood Pressure Pulse Oximetry 98 Oxygen Delivery Method Room Air Oxygen Delivery Method Room Air Oxygen Flow Rate 0 Narrative Exam Narrative: Abdomen is soft, slightly distended and minimally tender Objective Labs 06/30/23 05:25 06/30/23 05:25 Labs: Laboratory Results - last 24 hr 06/30/23 05:25 WBC 7.2 RBC 3.92 L Hgb 12.5 L Hct 35.3 L MCV 90.1 MCH 31.8 MCHC 35.3 RDW 12.9 Plt Count 226 Neut % (Auto) 72.2 Lymph % (Auto) 18.6 L [place] % (Auto) 7.7 Eos % (Auto) 1.4 L Baso % (Auto) 0.1 Neut # (Auto) 5200 Lymph # (Auto) 1300 [place] # (Auto) 600 Eos # (Auto) 100 Baso # (Auto) 0 Sodium 140 Potassium 2.6 L* Chloride 105 Carbon Dioxide 30 BUN 11 Creatinine 0.63 L Estimated GFR > 60 BUN/Creatinine Ratio 17.5 Glucose 146 H Calcium 8.4 PFSH Medical History Short-term memory loss Hyperglycemia Libido, decreased Change in stool caliber Substance abuse (~1974) Chronic back pain (~1999) Chicken pox (~1955) Hepatitis C (~1994) Cancer (~2008) Low back pain Hyperlipidemia Dry eyes Memory impairment Essential hypertension (10/08/15) Anxiety (10/08/15) Surgical History Anesthesia Pseudomyxoma peritonei (~08/02/08) Family History Father Diabetes mellitus History of heart disease Mental health problem Hypertension Mother Sepsis Hypertension Sister Cancer Hypertension Sister Diabetes mellitus Hypertension Grandfather History of heart disease Grandmother History of heart disease Social History marital status: unmarried,living together household members: significant other occupational status: employed Smoking Status: Former smoker alcohol intake: former Assessment & Plan Assessment and plan (1) Small bowel obstruction: Status: Acute Plan Await full return of bowel function and resolution of delirium before discharge Quality VTE Deep Vein Thrombosis/Pulmonary Embolism Present on Admission: No
--- NOTE | 2023-06-30 14:58 | PT.IIE ---
Current Diagnoses Intestinal adhesions [bands], unspecified as to partial versus complete obstruction (06/22/23) Partial intestinal obstruction, unspecified as to cause (06/22/23) Unspecified intestinal obstruction, unspecified as to partial versus complete obstruction (06/22/23) Surgery Performed Operation Date: 06/27/23 15:30 Actual Procedures p Exploratory Laparotomy GEN,Small Bowel Resection(Not Applicable) - Ronnie Tobin MD Surgical History (Last Reviewed 06/22/23 @ 15:26 by Caio Adhikari DO) Anesthesia Pseudomyxoma peritonei (~08/02/08) Medical History (Last Reviewed 06/22/23 @ 15:26 by Caio Adhikari DO) Anxiety (10/08/15) Cancer (~2008) Change in stool caliber Chicken pox (~1955) Chronic back pain (~1999) Dry eyes Essential hypertension (10/08/15) Hepatitis C (~1994) Hyperglycemia Hyperlipidemia Libido, decreased Low back pain Memory impairment Short-term memory loss Substance abuse (~1974) Physical Therapy Inpatient Evaluation/Re-Eval M1 PT/OT-IP Prior Functional Status Start: 06/30/23 08:21 Freq: NEEDED Status: Active Protocol: Document 06/30/23 14:20 MB (Rec: 06/30/23 14:58 MB [id number]) Medical Review Prior Functional Status Medical History Reviewed Yes Diet/Fluid Consistency Regular Communication Pt with confusion currently but likely communication WNLs at baseline Mobility and Gait I Activities of Daily Living and IADL's I, 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 Additional Social History Comment Pt states that he keeps a RW and cane at the house that he was given in case a client needs them as he is a caregiver M2 PT-IP Current Condition Start: 06/30/23 08:21 Freq: NEEDED Status: Active Protocol: Document 06/30/23 14:20 MB (Rec: 06/30/23 14:58 MB [id number]) Physical Therapy Current Condition Current Condition Evaluation Date 06/30/23 Treatment Diagnosis Exploratory lap and post-op delirium M3 PT-IP Subjective Start: 06/30/23 08:21 Freq: NEEDED Status: Active Protocol: Document 06/30/23 14:20 MB (Rec: 06/30/23 14:58 MB [id number]) Subjective Physical Therapy Visit Type Type Initial Evaluation Visit Start Time 14:20 Visit Stop Time 14:36 Total Visit Minutes 16 Number of AQUATICS DIRECTOR Visits 0 Physical Therapy Visit Comments Patient Comments Sure, I'll do that! Therapy Pain Assessment Pain When Pain Assessed During Mobility Pain Present Pain Present Pain Reported Location Bilateral Lower Abdomen Intensity 4 Scale Used Numeric (0 - 10) Description Acute,Dull Pain Management Techniques Re-positioning M4 PT-IP Mobility and Gait Start: 06/30/23 08:21 Freq: NEEDED Status: Active Protocol: Document 06/30/23 14:20 MB (Rec: 06/30/23 14:58 MB [id number]) PT-Bed Mobility Assessment Rolling Level of Assist Contact Guard Assistance,1 Person Assistance Supine to Sit Supine to Sit Contact Guard Assistance,1 Person Assistance,Head of Bed Elevated,Bedrails Scooting Scooting to Edge of Bed Contact Guard Assistance PT-Transfer Assessment Sit to and From Stand Sit to and from Stand Contact Guard Assistance,1 Person Assistance,Use of Upper Extremities Equipment Transfer Assistive Device Gait Belt Transfer Ability Level of Assist Contact Guard Assistance, Minimal Assistance,1 Person Assistance,Use of Upper Extremities Comments Mobility Comments PT provides CGA supporting at gait belt and then left SOCIAL SCIENCES PROFESSOR and support at gait belt for gait and pt reaching for rail in the hallway Gait Assessment Gait Gait Assistance Required: Minimum Assistance,1 Person Assist Distance (Feet) 60 Able to Maintain Weight Bearing Status Yes During Gait Assistive Devices Assistive Device Gait Belt Gait Deviations General Gait Pattern Decreased Stride Length, Decreased Feet Clearance,Wide Based Gait Factors Limiting Gait Function Factors Limiting Gait Function Pain,Poor Balance,Poor Safety Awareness Comments Gait Comments PT provides left hand hold assist and support at gait belt to assess gait as pt does not typically use an AD. Pt's gait is slow with wide IDANIA, decreased step-length and foot clearance. He occ slows gait pattern and has further decreased step-length and foot clearance. PT keeps pt occupied with talking and pt is able to provide a good history about his place, move to [place] as a kid and previous work. PT-Balance Assessment Sitting Balance and Reactions Static Sitting Balance Ability Fair Dynamic Sitting Balance Ability Fair Standing Balance and Reactions Static Standing Balance Ability Fair Dynamic Standing Balance Ability Fair Device Used L SOCIAL SCIENCES PROFESSOR M5 PT-IP Objective Assessments Start: 06/30/23 08:21 Freq: NEEDED Status: Active Protocol: Document 06/30/23 14:20 MB (Rec: 06/30/23 14:58 MB [id number]) Orientation Orientation/Cognition Level of Alertness Confusional State Orientation Name,Age,Birthday,Month,Year Language Function Ability No Deficits Noted Safety Awareness Decreased Safety Awareness Memory Description Short Term Impaired Comments Given confusion, PT asks pt more about long-term topics and pt does better with this. Tried gait without AD and with SOCIAL SCIENCES PROFESSOR also d/t confusion and pt does not typically use AD at home Gross Range of Motion Upper Extremity ROM Assessment Within Functional Limits Lower Extremity ROM Assessment Within Functional Limits Strength Upper Extremity Strength Assessment Within Functional Limits Lower Extremity Strength Assessment Within Functional Limits M6 PT-IP Treatment Start: 06/30/23 08:21 Freq: NEEDED Status: Active Protocol: Document 06/30/23 14:20 MB (Rec: 06/30/23 14:58 MB [id number]) Physical Therapy Treatment Education Education Provided Safety M7 PT-IP Assessment and Plan Start: 06/30/23 08:21 Freq: NEEDED Status: Active Protocol: Document 06/30/23 14:20 MB (Rec: 06/30/23 14:58 MB [id number]) PT Summary Assessment and Plan Potential Rehabilitation Potential Good Status of Condition at Evaluation Evolving Summary Impairments Pain,Balance,Cognition,Bed Mobility,Transfers,Gait, Activity Tolerance Progress Towards Goals Slow Progress due to Medical Issues Assessment Summary Pt is a pleasantly confused 72 y/o gentleman who underwent exploratory lap and has had some post-op complications including delirium/confusion. He is conversant and does better with long-term topics today. He presents with 4/10 abdominal discomfort and some decreased balance and wide IDANIA with gait. He will benefit from acute and post-acute PT to improve bed mobility, transfers, balance, gait and stair training ability. Goals Bed Mobility Goal Independent Transfer Goal Independent Gait Goal Independent Gait Distance 100 Other Goals Ambulation goals to be set with LRAD or no AD, whichever is best for pt as he progresses Pt will ascend and descend 7 steps with left rail with no more than superv assistance to allow safe home entry. Days to Meet Goals 5 Frequency of Treatment Frequency Of Treatment Once a Day Treatment Plan Physical Therapy Treatment Plan Bed Mobility Training,Transfer Training,Gait Training, Therapeutic Exercise,Balance Retraining,Discharge Planning Weight Bearing Status Weight Bearing Status Weight Bear as Tolerated Recommendations To Nursing Amount of Assist Needed 1 Person Assist Discharge Recommendations PT Discharge Recommendations Home vs SNF Transportation Needs at Discharge Private Vehicle
--- NOTE | 2023-06-30 17:59 | P.PN_ITS ---
Subjective Subjective Date Patient Seen: 06/29/23 Time Patient Seen: 14:54 Interval history: Continues to have delirium, though he is a bit improved today. Tolerating his diet today and reports bowel movements. Exam Vital Signs (past 8 hours): - 06/30/23 10:00 06/30/23 13:40 06/30/23 13:44 Temperature 100.0 F H 98.7 F Pulse Rate 92 H Respiratory Rate 18 Blood Pressure 145/72 H Pulse Oximetry 98 95 Oxygen Delivery Method Room Air 06/30/23 14:00 06/30/23 17:12 Temperature 98.9 F Pulse Rate 96 H Respiratory Rate 18 Blood Pressure 138/72 Pulse Oximetry 95 96 Oxygen Delivery Method Room Air Oxygen Delivery Method Room Air Oxygen Flow Rate 0 Narrative Exam Narrative: GEN: Less disoriented but still confused some, pale, mildly ill appearing HEENT:NC, Face symmetric CHEST: Respiratory excursions symmetric, CTAB CV: RRR, no M/R/G ABD: large midline incision, non-distended, soft EXTR: warm, well perfused, no C/C/E SKIN: warm and dry, no rash NEURO: mildlly confused, nonfocal Objective Labs 06/30/23 05:25 06/30/23 05:25 Labs: Laboratory Results - last 24 hr 06/30/23 05:25 WBC 7.2 RBC 3.92 L Hgb 12.5 L Hct 35.3 L MCV 90.1 MCH 31.8 MCHC 35.3 RDW 12.9 Plt Count 226 Neut % (Auto) 72.2 Lymph % (Auto) 18.6 L [place] % (Auto) 7.7 Eos % (Auto) 1.4 L Baso % (Auto) 0.1 Neut # (Auto) 5200 Lymph # (Auto) 1300 [place] # (Auto) 600 Eos # (Auto) 100 Baso # (Auto) 0 Sodium 140 Potassium 2.6 L* Chloride 105 Carbon Dioxide 30 BUN 11 Creatinine 0.63 L Estimated GFR > 60 BUN/Creatinine Ratio 17.5 Glucose 146 H Calcium 8.4 PFSH Medical History Short-term memory loss Hyperglycemia Libido, decreased Change in stool caliber Substance abuse (~1974) Chronic back pain (~1999) Chicken pox (~1955) Hepatitis C (~1994) Cancer (~2008) Low back pain Hyperlipidemia Dry eyes Memory impairment Essential hypertension (10/08/15) Anxiety (10/08/15) Surgical History Anesthesia Pseudomyxoma peritonei (~08/02/08) Family History Father Diabetes mellitus History of heart disease Mental health problem Hypertension Mother Sepsis Hypertension Sister Cancer Hypertension Sister Diabetes mellitus Hypertension Grandfather History of heart disease Grandmother History of heart disease Social History marital status: unmarried,living together household members: significant other occupational status: employed Smoking Status: Former smoker alcohol intake: former Assessment & Plan Assessment & Plan narrative: 1. SBO s/p exlap and small bowel resection now s/p surgery where large adhesion was found with small bowel adhered to ventral abd wall. NG out. Now having BM's and diet is regular. 2. HTN Blood pressures are upper limits of normal. Continue to hold lisinopril due to THANIA and relative normotension, continue amlodipine. 3. HLD Holding home dose of his statin for now. 4. Depression Hold celexa for now. 5. Hyperglycemia Likely stress induced. Hemoglobin A1c was within normal limits. 6. Post-op delirium, improving Patient disoriented starting POD1 from surgery. Confused and trying to get out of bed. IV ativan and dilaudid dc'd. Seroquel and IV haldol ordered PRN. Seroquel seems to have helped. Delirium improving. 7. THANIA due to post-renal bladder retention Cr increased to 1.67. Bladder scann showed 300cc but when straight cath ordered approx 1700cc evacuated from bladder. Rhodes placed. Possibly from opiates. now improved with obstruction resolved. Flomax started. 8.Hypokalemia K 2.6 today, repleted with oral potassium, continue to monitor. Code status Full Prophy Lovenox Dispo Pending post-op course and improvement delirium. Per PT recommendation is home vs SNF. Quality VTE Deep Vein Thrombosis/Pulmonary Embolism Present on Admission: No
[2023-06-30] MEDS: QUETIAPINE 25 MG TABLET 12.5 MG PO (20:07)
[2023-06-30] MEDS: TAMSULOSIN 0.4 MG CAPSULE PO (20:12)
[2023-06-30] MEDS: LATANOPROST 0.005% OPHTH 2.5 ML 1 DROPS EYE-LEFT (20:41)
[2023-07-01] VITALS (7 sets, daily range): BP systolic 146–161; BP diastolic 77–83; PULSE 82–93; RESP 18–20; TEMP 36.3–36.9; O2SAT 97–98
[2023-07-01 05:53] LABS: Add Manual Diff / Slide Review NO; Basophils Absolute Auto 0 /uL (0-100); Basophils Percent Auto 0.5 % (0-2); Eosinophils Absolute Auto 200 /uL (0-450); Eosinophils Percent Auto 2.3 % (2-4); Hematocrit 36.4 % (41-53); Hemoglobin 12.9 g/dL (13.5-17.5); Lymphocytes Absolute Auto 1700 /uL (1100-4500); Lymphocytes Percent Auto 25.5 % (25-40); Mean Corpuscular HGB Conc 35.3 % (30-36); Mean Corpuscular Hemoglobin 32.2 PG (26-34); Mean Corpuscular Volume 91.5 fL (80-100); Monocytes Absolute Auto 400 /uL (0-900); Monocytes Percent Auto 6.5 % (3-14); Neutrophils Absolute Auto 4300 /uL (1500-7000); Neutrophils Percent Auto 65.2 % (50-75); Platelet Count 245 X10^3/uL (150-400); Red Blood Cell Count 3.99 X10^6/uL (4.5-5.9); Red Cell Distribution Width 12.8 % (11.6-14.8); White Blood Cell Count 6.6 X10^3/uL (4.5-11.0)
[2023-07-01 06:08] LABS: BUN Creatinine Ratio 13.1 (6-22); Blood Urea Nitrogen 8 mg/dL (9-20); Calcium 8.6 mg/dL (8.4-10.2); Carbon Dioxide 32 mmol/L (22-32); Chloride 104 mmol/L (98-107); Estimated Glomerular Filt Rate > 60 mL/min (>60); Glucose 114 mg/dL (80-110); HEMOLYSIS < 15 (0-50); Potassium 3.1 mmol/L (3.4-5.1); Sodium 140 mmol/L (137-145)
[2023-07-01] MEDS: SODIUM CHLORIDE 0.9% FLUSH 10 ML IV (09:24)
[2023-07-01] MEDS: ENOXAPARIN 40 MG/0.4 ML SYRINGE SUBCUT (09:24)
[2023-07-01] MEDS: AMLODIPINE 5 MG TABLET 15 MG PO (09:24)
[2023-07-01] MEDS: ACETAMINOPHEN 325 MG TABLET 650 MG PO (09:24)
[2023-07-01] MEDS: POTASSIUM CHLORIDE 20 MEQ TAB 40 MEQ PO ×2 (09:24→17:01)
--- NOTE | 2023-07-01 10:36 | P.DS_ITS ---
History of Present Illness History of Present Illness Date Patient Seen: 07/01/23 Time Patient Seen: 10:36 Chief complaint: vomiting, constipation, abd pain Narrative: This is a 72 year old male with PMH of HTN, HLD, anxiety and prior abdominal surgery for removal of a pseudomyxoma peritonei approx 15 years ago who presented with nausea and vomiting starting early this morning. Over the last couple of days he had not had a significant bowel movement and has not been passing gas. He noticed his abdomen was quite hard and distended. He denies any chest pain, shortness of breath, fever, chills. In the emergency room, CT scan showed a small bowel obstruction along with small bowel thickening. Surgery was consulted, recommended NG tube placement and admission to medicine. NT tube was placed and patient currently does feel a bit improved with resolution of nausea after ondansetron and NG placement. Labs do show mild leukocytosis, at 14.9, Hg of 17.2, calcium of 11.4 consistent with dehydration. He was started on NS, and will continue on this for now. Discharge Providers Provider Date of admission: 06/22/23 13:10 Discharge Date: 07/01/23 Primary care physician: Tip Blackman MD Consults: 06/22/23 15:32 Consult to General Surgery Routine Comment: Consulting Provider: Ronnie Tobin Reason for consultation: small bowel obstruction Has provider been notified: Yes 06/30/23 00:00 Consult to Physical Therapy Evaluate & Treat Comment: Physician Instructions: Evaluate and Treat Discharge provider: Caio Adhikari DO Summary Hospital Course Discharge Diagnosis: 1. SBO secondary to adhesions s/p exlap and small bowel resection 2. HTN 3. HLD 4. Depression 5. Hyperglycemia, resolved 6. Post-op delirium, improving 7. THANIA due to post-renal bladder retention 8. Hypokalemia Hospital Course: This is a 72 year old male who presented with a small bowel obstruction initially. After a few days of non-resolving symptoms and persistent obstruction he was taken to the OR where a lysis of adhesions was performed along with small bowel resection. His post operative course was unremarkable from a bowel perspective, with quick resumption of bowel function and ability to tolerate a diet. His course was mainly complicated by THANIA secondary to urinary obstruction requiring carlson placement, and post operative delirium. He was started on seroquel for his delirium with improvement and he continued to improve day by day. Carlson removal was attempted prior to discharge but he was still unable to void with retention of >600 cc in his bladder. Carlson was replaced and he was discharged home on flomax. Outpatient urology referral was ordered and he should follow up with PCP and urology for further evaluation of his urinary retnetion a couple of weeks post operatively. No other changes to his home medications were recommended at discharge. Time Spent with Patient Time spent: Greater than 30 minutes Exam Vital Signs (past 8 hours): - 07/01/23 05:29 07/01/23 06:00 Temperature 97.3 F L Pulse Rate 82 Respiratory Rate 18 Blood Pressure 161/83 H Pulse Oximetry 98 98 Oxygen Delivery Method Room Air Oxygen Flow Rate 0 Oxygen Delivery Method Room Air Oxygen Flow Rate 0 Narrative Exam Narrative: GEN: Much improved confusion, no acute distress HEENT:NC, Face symmetric CHEST: Respiratory excursions symmetric, CTAB CV: RRR, no M/R/G ABD: large midline incision, non-distended, soft EXTR: warm, well perfused, no C/C/E SKIN: warm and dry, no rash NEURO: no focal deficits Objective Labs 07/01/23 05:35 07/01/23 05:35 Labs: Laboratory Results - last 24 hr 07/01/23 05:35 WBC 6.6 RBC 3.99 L Hgb 12.9 L Hct 36.4 L MCV 91.5 MCH 32.2 MCHC 35.3 RDW 12.8 Plt Count 245 Neut % (Auto) 65.2 Lymph % (Auto) 25.5 [place] % (Auto) 6.5 Eos % (Auto) 2.3 Baso % (Auto) 0.5 Neut # (Auto) 4300 Lymph # (Auto) 1700 [place] # (Auto) 400 Eos # (Auto) 200 Baso # (Auto) 0 Sodium 140 Potassium 3.1 L Chloride 104 Carbon Dioxide 32 BUN 8 L Creatinine 0.61 L Estimated GFR > 60 BUN/Creatinine Ratio 13.1 Glucose 114 H Calcium 8.6 PFSH Medical History Short-term memory loss Hyperglycemia Libido, decreased Change in stool caliber Substance abuse (~1974) Chronic back pain (~1999) Chicken pox (~1955) Hepatitis C (~1994) Cancer (~2008) Low back pain Hyperlipidemia Dry eyes Memory impairment Essential hypertension (10/08/15) Anxiety (10/08/15) Surgical History Anesthesia Pseudomyxoma peritonei (~08/02/08) Family History Father Diabetes mellitus History of heart disease Mental health problem Hypertension Mother Sepsis Hypertension Sister Cancer Hypertension Sister Diabetes mellitus Hypertension Grandfather History of heart disease Grandmother History of heart disease Social History marital status: unmarried,living together household members: significant other occupational status: employed Smoking Status: Former smoker alcohol intake: former Discharge Plan Discharge Plan Patient Disposition: Home Provider Discharge Comment: You were admitted to the hospital with small bowel obstruction, requiring surgery and bowel resection. You developed confusion after which improved and also needed a urinary catheter which was attempted to be removed but could not be. Please follow up with PCP and urologist ideally after discharge for continued management. Flomax was started. Referral to urology ordered. Discharge orders & Medications Prescriptions: New tamsulosin 0.4 mg capsule 0.4 mg PO BEDTIME 30 Days Qty: 30 0RF Continued citalopram 20 mg tablet See Rx Instructions .ROUTE .COMPLEX Qty: 180 0RF Dose Instruction: take 2 tablets by mouth once daily Rx Instructions: take 2 tablets by mouth once daily simvastatin 20 mg tablet See Rx Instructions .ROUTE .COMPLEX Qty: 90 0RF Dose Instruction: take 1 tablet by mouth at bedtime Rx Instructions: take 1 tablet by mouth at bedtime lorazepam 0.5 mg tablet See Rx Instructions .ROUTE .COMPLEX Qty: 15 5RF Rx Instructions: Take 1 tablet by mouth 3 times daily if needed lisinopril 5 mg tablet 5 mg PO DAILY Qty: 90 3RF amlodipine 5 mg tablet See Rx Instructions .ROUTE .COMPLEX Qty: 270 3RF Dose Instruction: take 3 tablets by mouth once daily Rx Instructions: take 3 tablets by mouth once daily (DME) OneTouch Ultra Blue Test Strip Strip See Rx Instructions .ROUTE .MEDSUPPLY Qty: 10 3RF Rx Instructions: As directed daily latanoprost 0.005 % drops 1 drp EYE-LEFT ONCE PM Follow up/Referrals: Tip Blackman MD [Primary Care Provider] - Other Ambulatory Orders: Referral Urology (Schedule) Timeframe: 2 Weeks Facility: [facility] - Location: [facility] Ordered By: Caio Adhikari Diet/Activity/Treatments Diet: Diet as Tolerated and Regular Activity: As tolerated, no heavy lifting Catheter: 2-way Carlson Catheter comment: Continue catheter, follow up with PCP/urology Visit Report/Discharge Packet Instructions: How to Care for Your Carlson Catheter -- Male Stand Alone Forms: Patient Portal/API, Stroke Signs & Symptoms Discharge Data Primary Care Provider: Tip Blackman Quality VTE Deep Vein Thrombosis/Pulmonary Embolism Present on Admission: No
--- NOTE | 2023-07-01 10:43 | CM.DPC ---
DCP Cont. Reviewed EMR and team rounds for status updates. Met with pt/family bedside to discuss d/c plan for today. Pt presents as slightly forgetful, but otherwise alert, oriented, and ready to go home. and niece will transport. No further DCP needs identified at this time.
--- NOTE | 2023-07-01 13:31 | PM.PNPO.1 ---
Subjective Subjective Date Patient Seen: 07/01/23 Time Patient Seen: 13:32 Interval history: No acute issues. Tolerating a diet minimal pain. Exam Vital Signs (past 8 hours): - 07/01/23 06:00 07/01/23 09:30 07/01/23 10:00 Temperature Pulse Rate Respiratory Rate Blood Pressure Pulse Oximetry 98 97 Oxygen Delivery Method Room Air Room Air Room Air Oxygen Flow Rate 07/01/23 11:00 Temperature 98 F Pulse Rate 89 Respiratory Rate 19 Blood Pressure 155/79 H Pulse Oximetry 97 Oxygen Delivery Method Oxygen Flow Rate 0 Oxygen Delivery Method Room Air Oxygen Flow Rate 0 Narrative Exam Narrative: General adult man alert oriented no acute distress Chest nonlabored respiration Abdomen soft nontender nondistended. Midline incision clean dry intact Extremities warm well perfused Objective Labs 07/01/23 05:35 07/01/23 05:35 Labs: Laboratory Results - last 24 hr 07/01/23 05:35 WBC 6.6 RBC 3.99 L Hgb 12.9 L Hct 36.4 L MCV 91.5 MCH 32.2 MCHC 35.3 RDW 12.8 Plt Count 245 Neut % (Auto) 65.2 Lymph % (Auto) 25.5 [place] % (Auto) 6.5 Eos % (Auto) 2.3 Baso % (Auto) 0.5 Neut # (Auto) 4300 Lymph # (Auto) 1700 [place] # (Auto) 400 Eos # (Auto) 200 Baso # (Auto) 0 Sodium 140 Potassium 3.1 L Chloride 104 Carbon Dioxide 32 BUN 8 L Creatinine 0.61 L Estimated GFR > 60 BUN/Creatinine Ratio 13.1 Glucose 114 H Calcium 8.6 PFSH Medical History Short-term memory loss Hyperglycemia Libido, decreased Change in stool caliber Substance abuse (~1974) Chronic back pain (~1999) Chicken pox (~1955) Hepatitis C (~1994) Cancer (~2008) Low back pain Hyperlipidemia Dry eyes Memory impairment Essential hypertension (10/08/15) Anxiety (10/08/15) Surgical History Anesthesia Pseudomyxoma peritonei (~08/02/08) Family History Father Diabetes mellitus History of heart disease Mental health problem Hypertension Mother Sepsis Hypertension Sister Cancer Hypertension Sister Diabetes mellitus Hypertension Grandfather History of heart disease Grandmother History of heart disease Social History marital status: unmarried,living together household members: significant other occupational status: employed Smoking Status: Former smoker alcohol intake: former Assessment & Plan Post-op Postoperative Procedures: Procedures Operation Date: 06/27/23 15:30 Actual Procedure Side Surgeon p Exploratory Laparotomy GEN,Small Bowel Resection Not Applicable Ronnie Tobin MD Postoperative status narrative: Appropriate for discharge home. Quality VTE Deep Vein Thrombosis/Pulmonary Embolism Present on Admission: No
--- NOTE | 2023-07-01 15:25 | PT.IPTN ---
Current Diagnoses Intestinal adhesions [bands], unspecified as to partial versus complete obstruction (06/22/23) Partial intestinal obstruction, unspecified as to cause (06/22/23) Unspecified intestinal obstruction, unspecified as to partial versus complete obstruction (06/22/23) Retention of urine, unspecified (06/22/23) Surgery Performed Operation Date: 06/27/23 15:30 Actual Procedures p Exploratory Laparotomy GEN,Small Bowel Resection(Not Applicable) - Ronnie Tobin MD Physical Therapy Treatment Note M2 PT-IP Current Condition Start: 06/30/23 08:21 Freq: NEEDED Status: Active Protocol: Document 06/30/23 14:20 MB (Rec: 06/30/23 14:58 MB [id number]) Physical Therapy Current Condition Current Condition Evaluation Date 06/30/23 Treatment Diagnosis Exploratory lap and post-op delirium M3 PT-IP Subjective Start: 06/30/23 08:21 Freq: NEEDED Status: Active Protocol: Document 07/01/23 15:47 TS (Rec: 07/01/23 15:56 TS [id number]) Subjective Physical Therapy Visit Type Type Treatment Note Visit Start Time 15:25 Visit Stop Time 15:43 Total Visit Minutes 18 Number of SUPERINTENDENT LOCAL Visits 1 Physical Therapy Visit Comments Patient Comments Pt found resting in bed, is agreeable to PT. M4 PT-IP Mobility and Gait Start: 06/30/23 08:21 Freq: NEEDED Status: Active Protocol: Document 07/01/23 15:47 TS (Rec: 07/01/23 15:56 TS [id number]) PT-Bed Mobility Assessment Supine to Sit Supine to Sit Standby Assistance Sit to Supine Sit to Supine Standby Assistance Scooting Scooting to Edge of Bed Standby Assistance Scooting Up and Down in Bed Standby Assistance PT-Transfer Assessment Sit to and From Stand Sit to and from Stand Standby Assistance,Use of Upper Extremities Equipment Transfer Assistive Device Gait Belt,Front Wheeled Walker Comments Mobility Comments Supine to sit SBA with HOB slightly elevated and BUE support. Sit to stand with FWW SBA, demonstrates good standing balance with no retrolean. He ambulated ~250' in hallway with FWW, pt slightly unsteady with slow step thru gait. He performed stairs x6 with B handrail assist step over step. Pt was left back in bed all needs met , RN notified. Gait Assessment Gait Gait Assistance Required: Standby Assistance Distance (Feet) 100 Able to Maintain Weight Bearing Status Yes During Gait Assistive Devices Assistive Device Gait Belt,Front Wheeled Walker Gait Deviations General Gait Pattern Decreased Stride Length, Decreased Feet Clearance,Wide Based Gait Factors Limiting Gait Function Factors Limiting Gait Function Pain,Poor Balance,Poor Safety Awareness Comments Gait Comments See mobility comments Stair Climbing Assessment Evaluation Level of Assist On Stairs Standby Assistance Devices Stair Climbing Assistive Devices Left Railing,Right Railing Technique/Endurance Stair Climbing Direction Ascend and Descend Stair Climbing Technique Step Over Step Number of Steps Climbed 6 Comments Stair Climbing Comments See mobility comments PT-Balance Assessment Sitting Balance and Reactions Static Sitting Balance Ability Fair Dynamic Sitting Balance Ability Fair Standing Balance and Reactions Static Standing Balance Ability Fair Dynamic Standing Balance Ability Fair Device Used FWW M5 PT-IP Objective Assessments Start: 06/30/23 08:21 Freq: NEEDED Status: Active Protocol: Document 06/30/23 14:20 MB (Rec: 06/30/23 14:58 MB [id number]) Orientation Orientation/Cognition Level of Alertness Confusional State Orientation Name,Age,Birthday,Month,Year Language Function Ability No Deficits Noted Safety Awareness Decreased Safety Awareness Memory Description Short Term Impaired Comments Given confusion, PT asks pt more about long-term topics and pt does better with this. Tried gait without AD and with NOVELTY DIPPER also d/t confusion and pt does not typically use AD at home Gross Range of Motion Upper Extremity ROM Assessment Within Functional Limits Lower Extremity ROM Assessment Within Functional Limits Strength Upper Extremity Strength Assessment Within Functional Limits Lower Extremity Strength Assessment Within Functional Limits M6 PT-IP Treatment Start: 06/30/23 08:21 Freq: NEEDED Status: Active Protocol: Document 07/01/23 15:47 TS (Rec: 07/01/23 15:56 TS [id number]) Physical Therapy Treatment Education Education Provided Safety M7 PT-IP Assessment and Plan Start: 06/30/23 08:21 Freq: NEEDED Status: Active Protocol: Document 07/01/23 15:47 TS (Rec: 07/01/23 15:56 TS [id number]) PT Summary Assessment and Plan Potential Rehabilitation Potential Good Summary Impairments Pain,Balance,Cognition,Bed Mobility,Transfers,Gait, Activity Tolerance Progress Towards Goals Progressing Toward Goals Assessment Summary Duy is making some progress with his mobility this session . He is SBA for all bed mobility and sit to stand with use of FWW. He progressed his gait to ~250'SBA with FWW. He performed stairs x6 with B handrails, had no buckling or LOB. Recommended pt continue to use an AD at home, pt reports having walking sticks and a walker at home. PT is recommending return home with assist and HHPT. Goals Bed Mobility Goal Independent Transfer Goal Independent Gait Goal Independent Gait Distance 100 Other Goals Ambulation goals to be set with LRAD or no AD, whichever is best for pt as he progresses Pt will ascend and descend 7 steps with left rail with no more than superv assistance to allow safe home entry. Days to Meet Goals 5 Frequency of Treatment Frequency Of Treatment Once a Day Treatment Plan Physical Therapy Treatment Plan Bed Mobility Training,Transfer Training,Gait Training, Therapeutic Exercise,Balance Retraining,Discharge Planning Weight Bearing Status Weight Bearing Status Weight Bear as Tolerated Recommendations To Nursing Amount of Assist Needed 1 Person Assist Discharge Recommendations PT Discharge Recommendations Home with Assistance,Home Health Transportation Needs at Discharge Private Vehicle
--- NOTE | 2023-07-01 18:00 | PC.NURSE ---
Pt discharged home at 1712, escorted off floor in wheelchair accompanied by hospital staff, significant other, and friend. Pt discharged with carlson catheter. IV removed, discharge teaching completed including new medications, follow up appointments, worsening symptoms, and care of carlson catheter. Questions answered and concerns addressed. Patient left the floor with all belongings.
== END 2023-07-01 18:06 | disposition home or self-care (01) | DRG 330 ==
LOC: ED 12:43 → AC 13:11
PROVIDERS: Family Medicine; Student in an Organized Health Care Education/Training Program; Surgery; Admitting Provider Internal Medicine; Emergency Provider Emergency Medicine; PCP Family Medicine; Referring Provider Emergency Medicine; Visit Provider Internal Medicine
PROC: 0DB80ZZ Excision of Small Intestine, Open Approach (ICD-10-PCS; CPT 49000; principal; 2023-06-27 15:30)
DX: K56.51 Intestinal adhesions [bands], with partial obstruction (principal); F05 Delirium due to known physiological condition; N17.8 Other acute kidney failure; I10 Essential (primary) hypertension; E78.5 Hyperlipidemia, unspecified; F32.A Depression, unspecified; R33.8 Other retention of urine; E87.6 Hypokalemia; R73.9 Hyperglycemia, unspecified; F41.9 Anxiety disorder, unspecified; Z83.3 Family history of diabetes mellitus; Z81.8 Family history of other mental and behavioral disorders; Z82.49 Family history of ischemic heart disease and other diseases of the circulatory system; Z87.891 Personal history of nicotine dependence; H04.129 Dry eye syndrome of unspecified lacrimal gland; Z90.49 Acquired absence of other specified parts of digestive tract; E83.52 Hypercalcemia
CPT/HCPCS: 36415; 71045; 74018; 74177; 80048; 80053; 81001; 82962; 83036; 83605; 83690; 83735; 85018; 85025; 87086; 93005; 96361; 96374; 96375; 97161; 97530; 99285; C9113; C9290; J0131; J0171; J0330; J1100; J1170; J1630; J1650; J2060; J2405; J2543; J2704; J3010; J3360; J3490; Q9967

== ENCOUNTER → 2023-07-09 18:59 | Outpatient (CLI) | payer OTHER, SELFPAY ==
[2023-07-04 11:13] VITALS: BMI 24.7
== END ==
PROVIDERS: PCP Family Medicine; Visit Provider Nurse Practitioner Family
DX: L98.9 Disorder of the skin and subcutaneous tissue, unspecified (principal)
CPT/HCPCS: 87070; 87075; 87077; 87147; 87186; 87205

== ENCOUNTER 2023-07-23 14:37 | Emergency (ER) | payer OTHER, SELFPAY ==
[2023-07-04 11:13] VITALS: BMI 24.7
[2023-07-23 14:43] VITALS: BP 142/70; PULSE 116; RESP 16; TEMP 37.2; O2SAT 97; BMI 21.9
--- NOTE | 2023-07-23 15:05 | ED_ITS ---
HPI - General Adult General Chief complaint: Urogenital-Male Stated complaint: catheter 16 days...needs out... Time Seen by Provider: 07/23/23 14:52 Source: patient Mode of arrival: Ambulatory History of Present Illness HPI narrative: Patient is a 72-year-old male. Recently underwent a small-bowel resection. After surgery developed urinary retention so Rhodes catheter was placed. He was discharged home with a catheter in place. He comes in the emergency department today stating that the catheter is causing him quite a bit of irritation. He is producing urine. He was feeling well. He does not have a follow-up with Urology as of yet. He is stating that he would like to take the catheter out. Related Data Home Medications Medication Instructions Recorded Confirmed latanoprost 0.005 % eye drops 1 drp EYE-LEFT ONCE PM 06/22/23 07/20/23 Previous Rx's Medication Instructions Recorded blood sugar diagnostic (OneTouch #10 ea 10/27/20 Ultra Blue Test Strip) amlodipine 5 mg tablet See Rx Instructions .Route 03/10/23 .COMPLEX #270 tabs lisinopril 5 mg tablet 5 mg PO DAILY #90 tabs 03/10/23 citalopram 20 mg tablet See Rx Instructions .Route 04/20/23 .COMPLEX #180 tabs simvastatin 20 mg tablet See Rx Instructions .Route 04/20/23 .COMPLEX #90 tabs lorazepam 0.5 mg tablet See Rx Instructions .Route 05/10/23 .COMPLEX #15 tabs tamsulosin 0.4 mg capsule 0.4 mg PO BEDTIME 30 days #30 caps 07/01/23 mupirocin 2 % topical ointment 1 applic topical TID #15 grams 07/09/23 doxycycline hyclate 100 mg capsule 100 mg PO BID #14 caps 07/12/23 Allergies Allergy/AdvReac Type Severity Reaction Status Date / Time No Known Drug Allergies Allergy Unknown Verified 07/20/23 11:19 Review of Systems Gastrointestinal Gastrointestinal: Reports system reviewed and no additional complaints, except as documented Genitourinary Genitourinary: Reports system reviewed and no additional complaints, except as documented Patient History Medical History Partial small bowel obstruction Short-term memory loss Hyperglycemia Libido, decreased Change in stool caliber Substance abuse (~1974) Chronic back pain (~1999) Chicken pox (~1955) Hepatitis C (~1994) Cancer (~2008) Low back pain Hyperlipidemia Dry eyes Memory impairment Essential hypertension (10/08/15) Anxiety (10/08/15) Surgical History Anesthesia Pseudomyxoma peritonei (~08/02/08) Family History Father Diabetes mellitus History of heart disease Mental health problem Hypertension Mother Sepsis Hypertension Sister Cancer Hypertension Sister Diabetes mellitus Hypertension Grandfather History of heart disease Grandmother History of heart disease Social History marital status: unmarried,living together household members: significant other occupational status: employed Smoking Status: Former smoker alcohol intake: former Smoking Status: Former smoker Substance Use Type: marijuana Exam Initial Vital Signs Initial Vital Signs: Vital Signs Temperature 98.9 F 07/23/23 14:43 Pulse Rate 116 H 07/23/23 14:43 Respiratory Rate 16 07/23/23 14:43 Blood Pressure 142/70 H 07/23/23 14:43 Pulse Oximetry 97 07/23/23 14:43 Oxygen Delivery Method Room Air 07/23/23 14:43 GI Inspection: normal to inspection and non-distended External: normal external exam Skin General: no rashes or lesions noted Course Vital Signs Vital signs: Vital Signs - 8 hr 07/23/23 14:43 Temperature 98.9 F Pulse Rate 116 H Respiratory Rate 16 Blood Pressure 142/70 H Pulse Oximetry 97 Oxygen Delivery Method Room Air Medical Decision Making [facility] Narrative Medical decision making narrative: From the surgical noted did not appear that there was any concern about a bladder injury. The catheter was placed because he would urinary retention after surgery. I discussed the risks and benefits of removing the catheter today. He understands that he potentially could start to retain urine once again which means that we would have to replace the Rhodes catheter. He understands that this potentially could lead to another visit back to the emergency department. He would still like to have the catheter removed. The catheter was removed here in the ER without issue. He was given return precautions. Discharge Plan Departure Patient Disposition: Home Clinical Impression: Encounter for Rhodes catheter removal Activity Restrictions/Additional Instructions: We discussed the risks and benefits of removing the Rhodes catheter and after this discussion you opted to have it removed. Recommend that you stay hydrated. Over the next 8 to 12 hours you should urinate. If you start to have lower abdominal discomfort, the urge to urinate but the inability to do so or fevers you need to return to the emergency department for further evaluation. Prescriptions: No Action mupirocin 2 % ointment 1 applic topical TID Qty: 15 0RF citalopram 20 mg tablet See Rx Instructions .ROUTE .COMPLEX Qty: 180 0RF Dose Instruction: take 2 tablets by mouth once daily Rx Instructions: take 2 tablets by mouth once daily simvastatin 20 mg tablet See Rx Instructions .ROUTE .COMPLEX Qty: 90 0RF Dose Instruction: take 1 tablet by mouth at bedtime Rx Instructions: take 1 tablet by mouth at bedtime lorazepam 0.5 mg tablet See Rx Instructions .ROUTE .COMPLEX Qty: 15 5RF Rx Instructions: Take 1 tablet by mouth 3 times daily if needed doxycycline hyclate 100 mg capsule 100 mg PO BID Qty: 14 0RF lisinopril 5 mg tablet 5 mg PO DAILY Qty: 90 3RF amlodipine 5 mg tablet See Rx Instructions .ROUTE .COMPLEX Qty: 270 3RF Dose Instruction: take 3 tablets by mouth once daily Rx Instructions: take 3 tablets by mouth once daily (DME) OneTouch Ultra Blue Test Strip Strip See Rx Instructions .ROUTE .MEDSUPPLY Qty: 10 3RF Rx Instructions: As directed daily latanoprost 0.005 % drops 1 drp EYE-LEFT ONCE PM tamsulosin 0.4 mg capsule 0.4 mg PO BEDTIME 30 Days Qty: 30 0RF Referrals: Tip Blackman MD [Primary Care Provider] - Stand Alone Forms: Patient Portal/API
--- NOTE | 2023-07-23 15:14 | PC.NURSE ---
carlson catheter removed per order from Dr. Riley, balloon deflated and catheter removed w/o issue. pt reported relief of symptoms. HR 89. denies pain/discomfort.
[2023-07-23 15:15] VITALS: PULSE 89
== END 2023-07-23 15:20 | disposition home or self-care (01) ==
PROVIDERS: Emergency Provider Emergency Medicine; PCP Family Medicine
DX: Z46.6 Encounter for fitting and adjustment of urinary device (principal); T83.84XA Pain due to genitourinary prosthetic devices, implants and grafts, initial encounter; R33.9 Retention of urine, unspecified
CPT/HCPCS: 51702; 99281; 99283; 99284

== ENCOUNTER 2023-07-23 22:56 | Emergency (ER) | payer OTHER, SELFPAY ==
[2023-07-04 11:13] VITALS: BMI 24.7
[2023-07-23 23:03] VITALS: BP 172/89; PULSE 108; RESP 16; TEMP 36.7; O2SAT 99; BMI 25.0
[2023-07-23] MEDS: LIDOCAINE 2% (GLYDO) 6 ML GEL TOP (23:49)
--- NOTE | 2023-07-24 00:11 | ED.MALEGU ---
HPI - Male Genitourinary General Chief complaint: Urogenital-Male Stated complaint: Urinary issues Time Seen by Provider: 07/23/23 23:07 Source: patient and family Mode of arrival: Ambulatory History of Present Illness HPI Narrative: 72-year-old male who presents with acute urinary retention after removal of Rhodes catheter earlier today in this emergency department. Patient had Rhodes catheter placed after surgery 12 days ago. Related Data Home Medications Medication Instructions Recorded Confirmed latanoprost 0.005 % eye drops 1 drp EYE-LEFT ONCE PM 06/22/23 08/17/23 Previous Rx's Medication Instructions Recorded blood sugar diagnostic (OneTouch #10 ea 10/27/20 Ultra Blue Test Strip) amlodipine 5 mg tablet See Rx Instructions .Route 03/10/23 .COMPLEX #270 tabs lisinopril 5 mg tablet 5 mg PO DAILY #90 tabs 03/10/23 citalopram 20 mg tablet See Rx Instructions .Route 04/20/23 .COMPLEX #180 tabs simvastatin 20 mg tablet See Rx Instructions .Route 04/20/23 .COMPLEX #90 tabs lorazepam 0.5 mg tablet See Rx Instructions .Route 05/10/23 .COMPLEX #15 tabs doxycycline hyclate 100 mg capsule 100 mg PO BID #14 caps 07/12/23 tamsulosin 0.4 mg capsule 0.8 mg (2 x 0.4 mg) PO DAILY #60 08/02/23 caps memantine 5 mg tablet See Rx Instructions PO .COMPLEX 08/11/23 #180 tabs Allergies Allergy/AdvReac Type Severity Reaction Status Date / Time No Known Drug Allergies Allergy Unknown Verified 08/11/23 10:24 Review of Systems Review of Systems Narrative: Negative review of systems. See HPI for pertinent positives. Patient History Medical History Nicotine abuse History of tobacco use History of hematuria Benign prostatic hyperplasia Lower urinary tract symptoms Partial small bowel obstruction Short-term memory loss Hyperglycemia Libido, decreased Change in stool caliber Substance abuse (~1974) Chronic back pain (~1999) Chicken pox (~1955) Hepatitis C (~1994) Cancer (~2008) Low back pain Hyperlipidemia Dry eyes Memory impairment Essential hypertension (10/08/15) Anxiety (10/08/15) Surgical History Anesthesia Pseudomyxoma peritonei (~08/02/08) Family History Father Diabetes mellitus History of heart disease Mental health problem Hypertension Mother Sepsis Hypertension Sister Cancer Hypertension Sister Diabetes mellitus Hypertension Grandfather History of heart disease Grandmother History of heart disease Social History marital status: unmarried,living together household members: significant other occupational status: employed Smoking Status: Former smoker alcohol intake: former Smoking Status: Former smoker Substance Use Type: does not use Exam Narrative Exam Narrative: General: Awake, alert, in no apparent distress HEENT: Normocephalic, atraumatic, pupils equal and reactive to light, oropharynx clear, oral mucosa moist Neck: Supple Cardiovascular: 2+ radial bilateral, regular rhythm/rate Pulmonary: Regular respirations, no respiratory distress Abdominal: Soft, nontender, nondistended : Normal external genitalia Back: Nontender, normal motion Skin: Warm, dry, intact, no rashes Neuro: No focal neurological deficits, moving all 4 extremities equally, normal speech Psych: Normal mood, normal affect Initial Vital Signs Initial Vital Signs: Vital Signs Temperature 98.1 F 07/23/23 23:03 Pulse Rate 108 H 07/23/23 23:03 Respiratory Rate 16 07/23/23 23:03 Blood Pressure 172/89 H 07/23/23 23:03 Pulse Oximetry 99 07/23/23 23:03 Oxygen Delivery Method Room Air 07/23/23 23:03 Course Orders Ordered: Discontinued Medications Lidocaine HCl (Lidocaine 2% (Glydo) 6 Ml Gel) 6 ml TOP NOW ONE Stop: 07/23/23 23:20 Last Admin: 07/23/23 23:49 Dose: 6 ml Documented By: HNG Vital Signs Vital signs: Vital Signs - 8 hr 07/23/23 23:03 Temperature 98.1 F Pulse Rate 108 H Respiratory Rate 16 Blood Pressure 172/89 H Pulse Oximetry 99 Oxygen Delivery Method Room Air MDM - Male Genitourinary Differential Diagnosis Differential diagnosis: Likely urinary tract infection and acute retention of urine MDM Narrative Medical decision making narrative: Patient presents with acute urinary retention after request for Rhodes catheter to be removed. Rhodes catheter placed and patient reports feeling better. Urology follow-up recommended. Patient discharged home in stable condition. Discharge Plan Departure Patient Disposition: Home Clinical Impression: Urinary retention Instructions: How to Care for Your Rhodes Catheter -- Male, DI for Urinary Retention in Men Activity Restrictions/Additional Instructions: Follow-up with primary care provider, surgery and Urology as soon as possible for further evaluation and management. Please return to the emergency department immediately if symptoms should change or worsen. Prescriptions: Continued citalopram 20 mg tablet See Rx Instructions .ROUTE .COMPLEX Qty: 180 0RF Dose Instruction: take 2 tablets by mouth once daily Rx Instructions: take 2 tablets by mouth once daily simvastatin 20 mg tablet See Rx Instructions .ROUTE .COMPLEX Qty: 90 0RF Dose Instruction: take 1 tablet by mouth at bedtime Rx Instructions: take 1 tablet by mouth at bedtime lorazepam 0.5 mg tablet See Rx Instructions .ROUTE .COMPLEX Qty: 15 5RF Rx Instructions: Take 1 tablet by mouth 3 times daily if needed doxycycline hyclate 100 mg capsule 100 mg PO BID Qty: 14 0RF lisinopril 5 mg tablet 5 mg PO DAILY Qty: 90 3RF amlodipine 5 mg tablet See Rx Instructions .ROUTE .COMPLEX Qty: 270 3RF Dose Instruction: take 3 tablets by mouth once daily Rx Instructions: take 3 tablets by mouth once daily (DME) OneTouch Ultra Blue Test Strip Strip See Rx Instructions .ROUTE .MEDSUPPLY Qty: 10 3RF Rx Instructions: As directed daily latanoprost 0.005 % drops 1 drp EYE-LEFT ONCE PM No Action memantine 5 mg tablet See Rx Instructions PO .COMPLEX Qty: 180 0RF Rx Instructions: t1 tab po orally daily for 2 weeks, then increase to twice a day thereafter; tamsulosin 0.4 mg capsule 0.8 mg PO DAILY Qty: 60 12RF Referrals: Tip Blackman MD [Primary Care Provider] - As soon as possible Stand Alone Forms: Patient Portal/API
--- NOTE | 2023-07-24 00:13 | PC.NURSE ---
Pt had catheter removed today, was able to urinate at 1530 but hasn't been able to void since. has pressure in lower abdomen and states has not been able to urinate
[2023-07-24 00:24] VITALS: BP 142/84; PULSE 78; RESP 20; O2SAT 97
== END 2023-07-24 00:31 | disposition home or self-care (01) ==
PROVIDERS: Emergency Provider Emergency Medicine; PCP Family Medicine
DX: R33.9 Retention of urine, unspecified (principal)
CPT/HCPCS: 99283

== ENCOUNTER → 2023-08-02 15:29 | Outpatient (CLI) | payer OTHER, SELFPAY ==
[2023-07-04 11:13] VITALS: BMI 24.7
== END ==
PROVIDERS: PCP Family Medicine; Visit Provider Urology
DX: R33.8 Other retention of urine (principal); N40.1 Benign prostatic hyperplasia with lower urinary tract symptoms; R31.9 Hematuria, unspecified; R41.3 Other amnesia; R39.9 Unspecified symptoms and signs involving the genitourinary system; Z87.448 Personal history of other diseases of urinary system; Z46.6 Encounter for fitting and adjustment of urinary device; Z72.0 Tobacco use
CPT/HCPCS: 51798; 87086; 99214

== ENCOUNTER → 2023-08-17 10:35 | Outpatient (CLI) | payer OTHER, SELFPAY ==
[2023-07-04 11:13] VITALS: BMI 24.7
== END ==
PROVIDERS: PCP Family Medicine; Visit Provider Urology
DX: R31.0 Gross hematuria (principal); R33.9 Retention of urine, unspecified; R39.9 Unspecified symptoms and signs involving the genitourinary system; Z87.448 Personal history of other diseases of urinary system
CPT/HCPCS: 51798; 52000; 87086

== ENCOUNTER → 2023-08-20 09:04 | Outpatient (CLI) | payer OTHER, SELFPAY ==
[2023-07-04 11:13] VITALS: BMI 24.7
--- NOTE | 2023-08-20 10:15 | DI.MRI.S_ITS ---
PROCEDURE: MR HEAD/BRAIN WO CON INDICATIONS: Cognitive and behavioral changes TECHNIQUE: Noncontrast axial T1 spin echo, axial T2 fast spin echo, sagittal and axial FLAIR, coronal T2 fast spin echo, axial gradient echo, axial diffusion and ADC through the brain. COMPARISON: [facility], MR, MR HEAD/BRAIN WO CON, 01/10/2019, 8:36. FINDINGS: Image quality: Excellent. CSF Spaces: Basal cisterns are patent. No extra-axial fluid collections. Ventricles are normal in size and shape. Brain: No intracranial masses or hemorrhage. Bola[place]/white matter interface is normal. Brainstem appears normal. Diffusion-weighted sequence is unremarkable without evidence of acute infarct. Normal intravascular flow voids are present. Moderate atrophy and white matter chronic ischemic change noted. Symmetric hippocampal morphology and signal. Skull and face: Calvarium has normal marrow signal. Orbits appear normal. Sinuses: Sinuses and mastoids are clear. IMPRESSION: Moderate atrophy and white matter chronic ischemic change without acute infarct, hemorrhage or mass lesion Approved by: Harrison Del Castillo M.D. on 08/22/2023 at 10:52
== END ==
PROVIDERS: PCP Family Medicine; Referring Provider Family Medicine; Visit Provider Family Medicine
DX: G31.9 Degenerative disease of nervous system, unspecified (principal); R41.89 Other symptoms and signs involving cognitive functions and awareness; R46.89 Other symptoms and signs involving appearance and behavior
CPT/HCPCS: 70551

== ENCOUNTER 2023-09-16 17:34 | Inpatient (IN) | payer OTHER, SELFPAY ==
[2023-07-04 11:13] VITALS: BMI 24.7
[2023-09-16] VITALS (24 sets, daily range): BP systolic 136–196; BP diastolic 65–103; PULSE 109–166; RESP 22–47; TEMP 39.3–40; O2SAT 90–96; BMI 25.0
[2023-09-16] MEDS: SODIUM CHLORIDE 0.9% 1,000 ML 1000 ML IV ×2 (17:32→21:20)
--- NOTE | 2023-09-16 17:48 | ED.GENADULT ---
HPI - General Adult General Chief complaint: Fever Stated complaint: increased confusion Time Seen by Provider: 09/16/23 17:45 History of Present Illness HPI narrative: 72-year-old male with history of smoking, BPH, small-bowel obstruction status post resection, hypertension, hyperlipidemia presents with confusion. History clarify from triage. Spouse at bedside states patient seemed okay earlier today after a urology visit, though she found him a few hours later at home on the ground seeming confused and feverish. Patient is confused, unsure what is going on. He was not complaining of pain or shortness of breath earlier. He had no known fever previously. History limited at this time. Per chart review, he was seen in the office today with small wound at tip of penis cleaned with Hibiclens, with catheter inserted. Related Data Home Medications Medication Instructions Recorded Confirmed latanoprost 0.005 % eye drops 1 drp EYE-LEFT BEDTIME 06/22/23 09/16/23 amlodipine 5 mg tablet 15 mg PO DAILY 09/16/23 09/16/23 citalopram 20 mg tablet 40 mg PO DAILY 09/16/23 09/16/23 lorazepam 0.5 mg tablet 0.5 mg PO TID PRN Anxiety 09/16/23 09/16/23 memantine 5 mg tablet 5 mg PO BID 09/16/23 09/16/23 simvastatin 20 mg tablet 20 mg PO BEDTIME 09/16/23 09/16/23 Previous Rx's Medication Instructions Recorded blood sugar diagnostic (OneTouch #10 ea 10/27/20 Ultra Blue Test Strip) lisinopril 5 mg tablet 5 mg PO DAILY #90 tabs 03/10/23 tamsulosin 0.4 mg capsule 0.8 mg (2 x 0.4 mg) PO DAILY #60 08/02/23 caps Allergies Allergy/AdvReac Type Severity Reaction Status Date / Time No Known Drug Allergies Allergy Unknown Verified 08/11/23 10:24 Review of Systems Review of Systems Narrative: Available review of systems as above. In discussion with , no clear chest or back or abdominal or flank pain, head or neck pain, vomiting or diarrhea, clear dysuria, though Rhodes currently in place. No shortness of breath. No cough, rhinorrhea, sore throat. No rash. Patient History Medical History Nicotine abuse History of tobacco use History of hematuria Benign prostatic hyperplasia Lower urinary tract symptoms Partial small bowel obstruction Short-term memory loss Hyperglycemia Libido, decreased Change in stool caliber Substance abuse (~1974) Chronic back pain (~1999) Chicken pox (~1955) Hepatitis C (~1994) Cancer (~2008) Low back pain Hyperlipidemia Dry eyes Memory impairment Essential hypertension (10/08/15) Anxiety (10/08/15) Surgical History Anesthesia Pseudomyxoma peritonei (~08/02/08) Family History Father Diabetes mellitus History of heart disease Mental health problem Hypertension Mother Sepsis Hypertension Sister Cancer Hypertension Sister Diabetes mellitus Hypertension Grandfather History of heart disease Grandmother History of heart disease Social History marital status: unmarried,living together household members: significant other occupational status: employed Smoking Status: Former smoker alcohol intake: former Smoking Status: Former smoker Substance Use Type: does not use Exam Narrative Exam Narrative: Const: no acute distress, +toxic appearing; calm, conversant, pleasant, though mildly confused Eyes: PERRLA, EOMI ENT: mucous membranes moist Neck: supple, non-tender Resp: no respiratory distress, clear to auscultation bilaterally Card: regular tachycardia, no murmurs Abd: non tender diffusely, no rigidity or rebound or guarding Back: no T or L spine tenderness, no CVA tenderness bilaterally (naphthalene operator is RN): Rhodes in place with yellow urine, non tender penis and scrotum, no erythema, crepitus, dark discoloration, swelling Extrem: no deformities, no swelling bilateral lower extremities Neuro: ANOx4, harnessmaker grossly intact, grossly intact sensation and strength all extremities Skin: no rash, warm and dry Initial Vital Signs Initial Vital Signs: Vital Signs Temperature 104 F H 09/16/23 17:43 Pulse Rate 126 H 09/16/23 17:43 Respiratory Rate 35 H 09/16/23 17:43 Blood Pressure 177/81 H 09/16/23 17:43 Pulse Oximetry 91 09/16/23 17:43 Course Course Course Narrative: This patient's presentation is highly concerning for sepsis, though I have considered broad differential including but not limited to pneumonia, catheter associated urinary infection, pyelonephritis, perinephric abscess, electrolyte derangements, medication side effect, intoxication, hypoxia, hypoglycemia, in addition to traumatic causes for confusion. I am obtaining broad and aggressive septic and traumatic workup, giving fluids, vancomycin and Zosyn. I am also obtaining navarro scan to assess for ICH, skull or C-spine or other spine fractures, intrathoracic trauma such as pulmonary contusion, pneumothorax, rib fractures, intra-abdominal trauma such as solid organ or hollow viscus injuries. Tylenol ordered as well. Workup with no leukocytosis on CBC, though anemia similar to prior is present, no thrombocytopenia. INR within normal limits. CMP with borderline hyponatremia, mildly reduced bicarb, hyperglycemia, elevated bilirubin but no other LFT elevation, with no abdominal pain or tenderness. Troponin reassuring. Lipase reassuring. Procalcitonin within normal limits. Urine appears clearly infected, with fully exchange earlier today. This is also consistent with CT results that are suggestive of infection. Viral swab negative. Lactate initially elevated but has improved. EKG shows sinus tachycardia without acute ischemia or immediately concerning interval prolongation. Radiology review of imaging below, which I agree with on my independent review: CT HEAD: FINDINGS: Image quality: Diagnostic CSF spaces: Basal cisterns are patent. Lateral ventricles are symmetric. Volume: Vascular calcifications. Periventricular white matter disease is commonly seen with chronic microangiopathy. Volume loss is present. These findings are is mild Brain: No acute hemorrhage. No gross loss of field-white differentiation. Craniofacial structures: No significant paranasal sinus opacity. Partially empty sella. IMPRESSION: No acute intracranial abnormality. Dictated by: Pardeep Harman M.D. on 09/16/2023 at 19:19 CT C-SPINE: FINDINGS: Image quality: Diagnostic Bones: [id number] degenerative changes. No acute vertebral body height loss or traumatic subluxation. Soft tissues: No pathologic prevertebral soft tissue swelling. No apical pneumothorax. There are vascular calcifications. Left thyroid nodule measures over 1.5 cm, consider is nonurgent sonographic correlation if not already obtained. IMPRESSION: No displaced fracture or traumatic subluxation. If there is high concern for further derangement, consider MRI evaluation. [id number] degenerative changes. Dictated by: Pardeep Harman M.D. on 09/16/2023 at 19:21 CTA CHEST: FINDINGS: Image quality: Mild motion artifact. Lungs and pleura: No dense consolidation or pleural effusion. Mild basal reticulation/atelectasis/scarring. No pleural effusions. Mediastinum, heart, and esophagus: No acute pulmonary embolism. The distal arteries are mildly obscured by motion. Small hiatal hernia and nonspecific mild esophageal wall thickening. No pathologic lymph nodes by size criteria. Chest wall and thyroid: No actionable thyroid nodule identified. Upper abdomen: Separately dictated Bones: Degenerative changes. Partially seen age-indeterminate T12 height loss. IMPRESSION: No dense airspace disease. No pleural effusions. No acute pulmonary embolism. The distal pulmonary arteries are obscured by motion. Other findings above. Abdominal findings separately dictated. Dictated by: Pardeep Harman M.D. on 09/16/2023 at 19:23 FINDINGS: Image quality: Diagnostic Lower chest: Separately dictated Liver: Unremarkable Gallbladder and biliary system: Gallbladder not seen. No pathologic biliary dilation. Pancreas: Mild parenchymal atrophy. No ductal dilation Spleen: Nonenlarged Adrenals: No discrete nodules Kidneys: Moderate left hydronephrosis and renal edema. Wall thickening extends down the ureter, to the UVJ. Mildly ectatic right collecting system also seen. No discrete calcified obstructing stone however. No solid renal mass is identified. Per proposed 2019 guidelines, no cystic lesion requiring follow-up is identified. Vessels and lymph nodes: Atherosclerotic calcifications. No abdominal aortic aneurysm. No pathologic lymph nodes by size criteria. Bowel and peritoneum: No evidence of small bowel obstruction. There are bowel suture lines. No drainable intra-abdominal abscess. Body wall: Tiny fat containing with left inguinal hernia. Anterior abdominal wall postsurgical changes. Pelvis: Thick-walled urinary bladder with a Rhodes in place. The prostate is not well evaluated on this study. The prostate appears heterogeneous. The Rhodes balloon appears to be low in the bladder, near the neck. Bones: No acute or suspicious findings. There are degenerative changes. IMPRESSION: Presume source of sepsis is ascending genitourinary infection. There is moderate left renal edema and hydronephrosis. Mildly ectatic right collecting system also. No discrete obstructing stone. Wall thickening is seen throughout the urothelium of the left collecting system and ureter. Thick-walled urinary bladder with Rhodes in place, the Rhodes balloon is around the location of the bladder neck. Consider urologic follow-up if indicated. Other findings above. Dictated by: Pardeep Harman M.D. on 09/16/2023 at 19:26 This is most consistent with genitourinary source of infection. Patient given broad-spectrum antibiotics above and appears to be stabilizing, though he remains tachycardic and intermittently with some tachypnea. Note on my evaluations, tachypnea is at most a mid 20s, not 30s or 40s. There has also been some improvement in heart rate. Patient appears stable and perfused clinically to me. In this setting, he appears stable for admission. I spoke with Dr. Herndon who kindly accepted patient for admission. Orders Ordered: ED Orders 09/16/23 17:39 Complete Blood Count AUTO DIFF Stat Comprehensive Metabolic Panel Stat Lactate (Lactic Acid) Stat Lipase Stat PTT Partial Thromboplastin Roger Stat Procalcitonin Stat Prothrombin Time INR Stat Troponin & CK Cardiac Panel Stat RT Consult Eval and Treat NOW 09/16/23 17:40 Covid-19 + FLU A/B + RSV - PCR Stat 09/16/23 17:47 Urinalysis and Microscopic Stat Urine Culture Stat 09/16/23 17:50 Blood Culture Stat 09/16/23 18:00 CT abdomen pelvis w con Stat CT angio chest PE protocol Stat CT cervical spine wo con Stat CT head/brain wo con Stat 09/16/23 18:01 EKG-12 Lead Stat Sodium Chloride (Normal Saline 0.9%) 1,000 mls @ 200 mls/hr IV CONT ELROY Last Admin: 09/16/23 18:21 Dose: 200 mls/hr Documented By: CTS Influenza Virus Vaccine (Influenza Hd Vaccine 0.7 Ml Syringe) 0.7 ml IM .ONCE ONE Stop: 09/17/23 09:01 Ondansetron HCl (Ondansetron 4 Mg/2 Ml Inj) 4 mg IV NOW PRN PRN Reason: Nausea And Vomiting Discontinued Medications Acetaminophen (Acetaminophen 325 Mg Tablet) 975 mg PO NOW ONE Stop: 09/16/23 18:24 Last Admin: 09/16/23 18:51 Dose: 975 mg Documented By: CTS Sodium Chloride (Normal Saline 0.9%) 1,000 mls @ 1,000 mls/hr IV BOLUS ONE Stop: 09/16/23 18:38 Last Infusion: 09/16/23 18:30 Dose: Infused Documented By: Admin: 09/16/23 17:32 Dose: 1,000 mls/hr Documented By: DHARMESH Piperacillin Sod/Tazobactam (Sod 4.5 gm/ Sodium Chloride) 100 mls @ 200 mls/hr IV NOW ONE Stop: 09/16/23 17:58 Last Infusion: 09/16/23 19:09 Dose: Infused Documented By: Admin: 09/16/23 18:11 Dose: 200 mls/hr Documented By: DHARMESH Vancomycin HCl (Vancomycin) 1,000 mg in 200 mls @ 200 mls/hr IV NOW ONE Stop: 09/16/23 18:56 Last Infusion: 09/16/23 20:00 Dose: Infused Documented By: Admin: 09/16/23 18:21 Dose: 200 mls/hr Documented By: DHARMESH Sodium Chloride (Normal Saline 0.9%) 1,000 mls @ 1,000 mls/hr IV BOLUS ONE Stop: 09/16/23 21:23 Vital Signs Vital signs: Vital Signs - 8 hr 09/16/23 17:43 09/16/23 17:43 09/16/23 17:45 Temperature 104 F H Pulse Rate 126 H 124 H Respiratory Rate 35 H 36 H Blood Pressure 177/81 H Pulse Oximetry 91 93 Oxygen Delivery Method 09/16/23 17:55 09/16/23 18:00 09/16/23 18:00 Temperature 104.0 F H Pulse Rate 123 H 116 H Respiratory Rate 22 34 H Blood Pressure 177/81 H 166/74 H Pulse Oximetry 94 93 Oxygen Delivery Method Room Air 09/16/23 18:15 09/16/23 18:27 09/16/23 18:27 Temperature Pulse Rate 115 H 111 H Respiratory Rate 36 H 33 H Blood Pressure 162/77 H Pulse Oximetry 96 94 Oxygen Delivery Method 09/16/23 18:28 09/16/23 18:28 09/16/23 18:29 Temperature Pulse Rate 113 H 116 H Respiratory Rate 32 H 35 H Blood Pressure 161/77 H Pulse Oximetry 95 95 Oxygen Delivery Method 09/16/23 18:29 09/16/23 18:30 09/16/23 18:31 Temperature Pulse Rate Respiratory Rate Blood Pressure 164/83 H 162/76 H 158/74 H Pulse Oximetry Oxygen Delivery Method 09/16/23 18:51 09/16/23 18:52 09/16/23 18:52 Temperature 102.7 F H Pulse Rate 113 H 114 H Respiratory Rate 30 H 30 H Blood Pressure 174/80 H Pulse Oximetry 96 96 Oxygen Delivery Method 09/16/23 19:00 09/16/23 19:00 09/16/23 19:12 Temperature 103.1 F H Pulse Rate 113 H Respiratory Rate 31 H Blood Pressure 165/77 H Pulse Oximetry 95 Oxygen Delivery Method 09/16/23 19:16 09/16/23 19:16 09/16/23 19:30 Temperature Pulse Rate 125 H 166 H Respiratory Rate 39 H 47 H Blood Pressure 196/86 H Pulse Oximetry 94 95 Oxygen Delivery Method 09/16/23 19:30 09/16/23 19:45 09/16/23 19:45 Temperature Pulse Rate 125 H Respiratory Rate 45 H Blood Pressure 194/103 H 172/80 H Pulse Oximetry 93 Oxygen Delivery Method 09/16/23 19:59 09/16/23 20:00 09/16/23 20:00 Temperature 103 F H Pulse Rate 120 H Respiratory Rate 46 H Blood Pressure 155/67 H Pulse Oximetry 93 Oxygen Delivery Method 09/16/23 20:15 09/16/23 20:15 Temperature Pulse Rate 118 H Respiratory Rate 44 H Blood Pressure 154/70 H Pulse Oximetry 93 Oxygen Delivery Method Medical Decision Making Lab Data 09/16/23 17:39 09/16/23 17:39 Labs: Lab Results 09/16/23 09/16/23 09/16/23 Range/Units 17:39 17:40 17:47 WBC 9.2 (4.5-11.0) X10^3/uL RBC 4.23 L (4.5-5.9) X10^6/uL Hgb 13.1 L (13.5-17.5) g/dL Hct 37.5 L (41-53) % MCV 88.6 (80-100) fL MCH 30.9 (26-34) PG MCHC 34.9 (30-36) % RDW 12.7 (11.6-14.8) % Plt Count 230 (150-400) X10^3/uL Neut % (Auto) 80.5 H (50-75) % Lymph % (Auto) 9.3 L (25-40) % [place] % (Auto) 9.7 (3-14) % Eos % (Auto) 0.2 L (2-4) % Baso % (Auto) 0.3 (0-2) % Neut # (Auto) 7400 H (2345-5461) /uL Lymph # (Auto) 900 L (0558-5403) /uL [place] # (Auto) 900 (0-900) /uL Eos # (Auto) 0 (0-450) /uL Baso # (Auto) 0 (0-100) /uL PT 12.9 H (9.4-12.5) SECONDS INR 1.1 (0.9-1.3) APTT 32 (25.1-36.5) SECONDS Sodium 134 L (137-145) mmol/L Potassium 3.7 (3.4-5.1) mmol/L Chloride 103 (98-107) mmol/L Carbon Dioxide 20 L (22-32) mmol/L BUN 19 (9-20) mg/dL Creatinine 0.85 (0.66-1.25) mg/dL Estimated GFR > 60 (>60) mL/min BUN/Creatinine Ratio 22.4 H (6-22) Glucose 283 H (80-110) mg/dL Lactate 2.8 H (0.7-2.1) mmol/L Calcium 9.0 (8.4-10.2) mg/dL Total Bilirubin 1.7 H (0.2-1.3) mg/dL AST 24 (17-59) IU/L ALT 19 (<50) IU/L Alkaline Phosphatase 72 (38-126) U/L Total Creatine Kinase 64 (55-170) U/L Troponin I < 0.012 (0.01-0.034) ng/mL Total Protein 8.0 (6.3-8.2) g/dL Albumin 4.2 (3.5-5.0) g/dL Globulin 3.8 (1.7-4.1) g/dL Albumin/Globulin Ratio 1.1 (1.0-2.8) Lipase 21 L (23-300) U/L Procalcitonin 0.23 (<0.5) ng/mL Urine Color Red Urine Appearance Cloudy Urine pH 6.0 (4.5-8.0) Ur Specific [place] 1.025 (1.000-1.035) Urine Protein 3+ H (Negative) Urine Glucose (UA) Trace H (Negative) g/dL Urine Ketones Trace H (NEGATIVE) Urine Occult Blood 3+ H (Negative) Urine Nitrate Negative (Negative) Urine Bilirubin Negative (NEGATIVE) Urine Urobilinogen 2.0 H (0.2) E.U./dL Ur Leukocyte Esterase 1+ H (NEGATIVE) Urine RBC >100/hpf H (0-5/HPF) Urine WBC 30-100/hpf H (0-5/HPF) Ur Squamous Epith Cells 0-1 /hpf (0-5/HPF) Amorphous Sediment 1+ Urine Bacteria Moderate (10-30) H (None) Ur Culture Indicated? Specimen cultured Vol Urine Centrifuged 10ml (spun) SARS-CoV-2 (PCR) Negative (Negative) Influenza A (RT-PCR) Flu a negative (NEGATIVE) Influenza B (RT-PCR) Flu b negative (NEGATIVE) RSV (PCR) Negative (Negative) 09/16/23 Range/Units 19:45 WBC (4.5-11.0) X10^3/uL RBC (4.5-5.9) X10^6/uL Hgb (13.5-17.5) g/dL Hct (41-53) % MCV (80-100) fL MCH (26-34) PG MCHC (30-36) % RDW (11.6-14.8) % Plt Count (150-400) X10^3/uL Neut % (Auto) (50-75) % Lymph % (Auto) (25-40) % [place] % (Auto) (3-14) % Eos % (Auto) (2-4) % Baso % (Auto) (0-2) % Neut # (Auto) (0575-7952) /uL Lymph # (Auto) (9553-3567) /uL [place] # (Auto) (0-900) /uL Eos # (Auto) (0-450) /uL Baso # (Auto) (0-100) /uL PT (9.4-12.5) SECONDS INR (0.9-1.3) APTT (25.1-36.5) SECONDS Sodium (137-145) mmol/L Potassium (3.4-5.1) mmol/L Chloride (98-107) mmol/L Carbon Dioxide (22-32) mmol/L BUN (9-20) mg/dL Creatinine (0.66-1.25) mg/dL Estimated GFR (>60) mL/min BUN/Creatinine Ratio (6-22) Glucose (80-110) mg/dL Lactate 1.2 (0.7-2.1) mmol/L Calcium (8.4-10.2) mg/dL Total Bilirubin (0.2-1.3) mg/dL AST (17-59) IU/L ALT (<50) IU/L Alkaline Phosphatase (38-126) U/L Total Creatine Kinase (55-170) U/L Troponin I (0.01-0.034) ng/mL Total Protein (6.3-8.2) g/dL Albumin (3.5-5.0) g/dL Globulin (1.7-4.1) g/dL Albumin/Globulin Ratio (1.0-2.8) Lipase (23-300) U/L Procalcitonin (<0.5) ng/mL Urine Color Urine Appearance Urine pH (4.5-8.0) Ur Specific [place] (1.000-1.035) Urine Protein (Negative) Urine Glucose (UA) (Negative) g/dL Urine Ketones (NEGATIVE) Urine Occult Blood (Negative) Urine Nitrate (Negative) Urine Bilirubin (NEGATIVE) Urine Urobilinogen (0.2) E.U./dL Ur Leukocyte Esterase (NEGATIVE) Urine RBC (0-5/HPF) Urine WBC (0-5/HPF) Ur Squamous Epith Cells (0-5/HPF) Amorphous Sediment Urine Bacteria (None) Ur Culture Indicated? Vol Urine Centrifuged SARS-CoV-2 (PCR) (Negative) Influenza A (RT-PCR) (NEGATIVE) Influenza B (RT-PCR) (NEGATIVE) RSV (PCR) (Negative) Discharge Plan Departure Admit Date/Time: 09/16/23 20:26 Admit Provider: Frederick Quintanilla
--- NOTE | 2023-09-16 18:00 | DI.CT.S_ITS ---
PROCEDURE: CT ANGIO CHEST PE PROTOCOL INDICATIONS: sepsis, AMS, tachycardia TECHNIQUE: After the administration of intravenous contrast, 2 mm thick sections acquired from the pulmonary apices to the posterior costophrenic angles. 3-dimensional maximum intensity projection (MIP) coronal and sagittal reformats were then acquired through the thorax. For radiation dose reduction, the following was used: automated exposure control, adjustment of mA and/or kV according to patient size. COMPARISON: None. FINDINGS: Image quality: Mild motion artifact. Lungs and pleura: No dense consolidation or pleural effusion. Mild basal reticulation/atelectasis/scarring. No pleural effusions. Mediastinum, heart, and esophagus: No acute pulmonary embolism. The distal arteries are mildly obscured by motion. Small hiatal hernia and nonspecific mild esophageal wall thickening. No pathologic lymph nodes by size criteria. Chest wall and thyroid: No actionable thyroid nodule identified. Upper abdomen: Separately dictated Bones: Degenerative changes. Partially seen age-indeterminate T12 height loss. IMPRESSION: No dense airspace disease. No pleural effusions. No acute pulmonary embolism. The distal pulmonary arteries are obscured by motion. Other findings above. Abdominal findings separately dictated. Dictated by: Pardeep Harman M.D. on 09/16/2023 at 19:23 Approved by: Pardeep Harman M.D. on 09/16/2023 at 19:26
--- NOTE | 2023-09-16 18:00 | DI.CT.S_ITS ---
PROCEDURE: CT HEAD/BRAIN WO CON INDICATIONS: fall TECHNIQUE: Noncontrast 4.5 mm thick angled axial sections acquired from the foramen magnum to the vertex, with coronal and sagittal reformats. For radiation dose reduction, the following was used: automated exposure control, adjustment of mA and/or kV according to patient size. COMPARISON: [facility], , MR HEAD/BRAIN WO CON, 08/20/2023, 10:11. FINDINGS: Image quality: Diagnostic CSF spaces: Basal cisterns are patent. Lateral ventricles are symmetric. Volume: Vascular calcifications. Periventricular white matter disease is commonly seen with chronic microangiopathy. Volume loss is present. These findings are is mild Brain: No acute hemorrhage. No gross loss of field-white differentiation. Craniofacial structures: No significant paranasal sinus opacity. Partially empty sella. IMPRESSION: No acute intracranial abnormality. Dictated by: Pardeep Harman M.D. on 09/16/2023 at 19:19 Approved by: Pardeep Harman M.D. on 09/16/2023 at 19:21
--- NOTE | 2023-09-16 18:00 | DI.CT.S_ITS ---
PROCEDURE: CT CERVICAL SPINE WO CON INDICATIONS: fall TECHNIQUE: Noncontrast 3 mm thick sections acquired from the skull base to the T4 level. Sagittal and coronal reformats were then constructed. For radiation dose reduction, the following was used: automated exposure control, adjustment of mA and/or kV according to patient size. COMPARISON: None. FINDINGS: Image quality: Diagnostic Bones: Mgdx-oz-fhejagar degenerative changes. No acute vertebral body height loss or traumatic subluxation. Soft tissues: No pathologic prevertebral soft tissue swelling. No apical pneumothorax. There are vascular calcifications. Left thyroid nodule measures over 1.5 cm, consider is nonurgent sonographic correlation if not already obtained. IMPRESSION: No displaced fracture or traumatic subluxation. If there is high concern for further derangement, consider MRI evaluation. Vbui-zo-oopwsbta degenerative changes. Dictated by: Pardeep Harman M.D. on 09/16/2023 at 19:21 Approved by: Pardeep Harman M.D. on 09/16/2023 at 19:23
--- NOTE | 2023-09-16 18:00 | DI.CT.S_ITS ---
PROCEDURE: CT ABDOMEN PELVIS W CON INDICATIONS: sepsis TECHNIQUE: After the administration of intravenous contrast, axial sections acquired from the lung bases to the pubic symphysis. Coronal and sagittal reformats were performed. For radiation dose reduction, the following was used: automated exposure control, adjustment of mA and/or kV according to patient size. COMPARISON: [facility], CT, CT ABDOMEN PELVIS W CON, 06/26/2023, 13:11. FINDINGS: Image quality: Diagnostic Lower chest: Separately dictated Liver: Unremarkable Gallbladder and biliary system: Gallbladder not seen. No pathologic biliary dilation. Pancreas: Mild parenchymal atrophy. No ductal dilation Spleen: Nonenlarged Adrenals: No discrete nodules Kidneys: Moderate left hydronephrosis and renal edema. Wall thickening extends down the ureter, to the UVJ. Mildly ectatic right collecting system also seen. No discrete calcified obstructing stone however. No solid renal mass is identified. Per proposed 2019 guidelines, no cystic lesion requiring follow-up is identified. Vessels and lymph nodes: Atherosclerotic calcifications. No abdominal aortic aneurysm. No pathologic lymph nodes by size criteria. Bowel and peritoneum: No evidence of small bowel obstruction. There are bowel suture lines. No drainable intra-abdominal abscess. Body wall: Tiny fat containing with left inguinal hernia. Anterior abdominal wall postsurgical changes. Pelvis: Thick-walled urinary bladder with a Rhodes in place. The prostate is not well evaluated on this study. The prostate appears heterogeneous. The Rhodes balloon appears to be low in the bladder, near the neck. Bones: No acute or suspicious findings. There are degenerative changes. IMPRESSION: Presume source of sepsis is ascending genitourinary infection. There is moderate left renal edema and hydronephrosis. Mildly ectatic right collecting system also. No discrete obstructing stone. Wall thickening is seen throughout the urothelium of the left collecting system and ureter. Thick-walled urinary bladder with Rhodes in place, the Rhodes balloon is around the location of the bladder neck. Consider urologic follow-up if indicated. Other findings above. Dictated by: Pardeep Haramn M.D. on 09/16/2023 at 19:26 Approved by: Pardeep Harman M.D. on 09/16/2023 at 19:31
[2023-09-16 18:01] LABS: Add Manual Diff / Slide Review NO; Basophils Absolute Auto 0 /uL (0-100); Basophils Percent Auto 0.3 % (0-2); Eosinophils Absolute Auto 0 /uL (0-450); Eosinophils Percent Auto 0.2 % (2-4); Hematocrit 37.5 % (41-53); Hemoglobin 13.1 g/dL (13.5-17.5); Lymphocytes Absolute Auto 900 /uL (1100-4500); Lymphocytes Percent Auto 9.3 % (25-40); Mean Corpuscular HGB Conc 34.9 % (30-36); Mean Corpuscular Hemoglobin 30.9 PG (26-34); Mean Corpuscular Volume 88.6 fL (80-100); Monocytes Absolute Auto 900 /uL (0-900); Monocytes Percent Auto 9.7 % (3-14); Neutrophils Absolute Auto 7400 /uL (1500-7000); Neutrophils Percent Auto 80.5 % (50-75); Platelet Count 230 X10^3/uL (150-400); Red Blood Cell Count 4.23 X10^6/uL (4.5-5.9); Red Cell Distribution Width 12.7 % (11.6-14.8); White Blood Cell Count 9.2 X10^3/uL (4.5-11.0)
[2023-09-16 18:06] LABS: Appearance Urine UA CLOUDY; Bilirubin Urine UA NEGATIVE (NEGATIVE); Color Urine UA RED; Glucose Urine UA TRACE g/dL (Negative); Ketones Urine UA TRACE (NEGATIVE); Leukocyte Esterase Urine UA 1+ (NEGATIVE); Nitrite Urine UA NEGATIVE (Negative); Occult Blood Urine UA 3+ (Negative); Protein Urine UA 3+ (Negative); Specific Gravity Urine UA 1.025 (1.000-1.035)
[2023-09-16 18:08] LABS: Amorphous Sediment Urine 1+; Bacteria Urine Moderate (10-30); Culture Indicated Urine Specimen Cultured; RBC Urine >100/HPF (0-5/HPF); Squamous Epithelial Cell Urine 0-1 /HPF (0-5/HPF); Urine Volume 10mL (spun); WBC Urine 30-100/HPF (0-5/HPF)
[2023-09-16 18:08] LABS: INR 1.1 (0.9-1.3); Prothrombin Time 12.9 SECONDS (9.4-12.5)
[2023-09-16 18:10] LABS: PTT Partial Thromboplastin Tim 32 SECONDS (25.1-36.5)
[2023-09-16] MEDS: PIPERACILLIN/TAZO 4.5 GM in SODIUM CHLORIDE 0.9% 100 ML IV (18:11)
[2023-09-16 18:18] LABS: Alanine Aminotransferase 19 IU/L (<50); Albumin 4.2 g/dL (3.5-5.0); Albumin Globulin Ratio 1.1 (1.0-2.8); Alkaline Phosphatase 72 U/L (38-126); Aspartate Aminotransferase 24 IU/L (17-59); BUN Creatinine Ratio 22.4 (6-22); Bilirubin Total 1.7 mg/dL (0.2-1.3); Blood Urea Nitrogen 19 mg/dL (9-20); Carbon Dioxide 20 mmol/L (22-32); Chloride 103 mmol/L (98-107); Estimated Glomerular Filt Rate > 60 mL/min (>60); Globulin 3.8 g/dL (1.7-4.1); Glucose 283 mg/dL (80-110); HEMOLYSIS < 15 (0-50); Lactate (Lactic Acid) 2.8 mmol/L (0.7-2.1); Lipase 21 U/L (23-300); Potassium 3.7 mmol/L (3.4-5.1); Sodium 134 mmol/L (137-145)
[2023-09-16] MEDS: VANCOMYCIN 1,000 MG/200 ML PIGGYBACK 200 MG IV (18:21)
[2023-09-16] MEDS: SODIUM CHLORIDE 0.9% 1,000 ML 200 ML IV (18:21)
[2023-09-16 18:26] LABS: Creatine Kinase 64 U/L (55-170)
[2023-09-16 18:35] LABS: Procalcitonin 0.23 ng/mL (<0.5)
[2023-09-16 18:36] LABS: Troponin I < 0.012 ng/mL (0.01-0.034)
[2023-09-16 18:50] LABS: Influenza A - CEPHEID Flu A NEGATIVE (NEGATIVE); Influenza B - CEPHEID Flu B NEGATIVE (NEGATIVE); Respiratory Syncytial Virus Negative (Negative)
[2023-09-16] MEDS: ACETAMINOPHEN 325 MG TABLET 975 MG PO (18:51)
[2023-09-16 19:00] LABS: COVID-19 CEPHEID 4-PLEX PCR Negative (Negative)
[2023-09-16 19:30] LABS: Reflexed Lactate in 2 Hours Y
[2023-09-16 20:02] LABS: Lactate 2HR (Lactic Acid Rflx) 1.2 mmol/L (0.7-2.1)
[2023-09-16] MEDS: SODIUM CHLORIDE 0.45% 1,000 ML 100 ML IV (23:33)
[2023-09-17] VITALS (11 sets, daily range): BP systolic 112–152; BP diastolic 58–70; PULSE 74–89; RESP 16–28; TEMP 36.4–38.1; O2SAT 92–99
--- NOTE | 2023-09-17 02:36 | P.HP_ITS ---
History of Present Illness History of Present Illness Date Patient Seen: 09/16/23 Time Patient Seen: 21:45 Chief complaint: increased confusion Narrative: 72 years old male with a past medical history of hypertension, dyslipidemia, small bowel obstruction status post surgery in June 2023, dyslipidemia and other medical issues was brought to the emergency room for altered mental status. Patient had been declining physically and to some degree cognitively since his surgery in June 2023. Earlier in the day, patient had followed up with urology for chronic urinary retention with subsequent Rhodes placement and that was replaced today in the office. Patient was alone at home by himself for a few hours and on return, the spouse found him to be confused which between the bed and the nightstand. He was not aware of the surroundings time or place him. Now he is able to give some answers but for the most part history has been obtained from the spouse at bedside. Apparently, the new Rhodes catheter was inserted after the penis was cleansed with hIBICLENS. There is no recent history of shortness of breath cough wheezing headache. Denies any chest pain or shortness of breath. does report that patient has not been himself since the surgery for bowel obstruction in June. In the ED was noted to have a temp of 103 and tachycardic with a heart rate in the 120s and initially tachypneic. WBC was normal and the lactic acid was 2.8. Urinalysis show 3200 WBCs. Influenza COVID and RSV was negative. CT scan of the chest/chest shows no acute process. CT abdomen shows moderate left renal edema with mild hydronephrosis. Thick-walled urinary bladder with a Rhodes in place. Patient was initiated on IV fluids and IV Zosyn with vancomycin. Admitted for further evaluation [facility] Medical History Nicotine abuse History of tobacco use History of hematuria Benign prostatic hyperplasia Lower urinary tract symptoms Partial small bowel obstruction Short-term memory loss Hyperglycemia Libido, decreased Change in stool caliber Substance abuse (~1974) Chronic back pain (~1999) Chicken pox (~1955) Hepatitis C (~1994) Cancer (~2008) Low back pain Hyperlipidemia Dry eyes Memory impairment Essential hypertension (10/08/15) Anxiety (10/08/15) Surgical History Anesthesia Pseudomyxoma peritonei (~08/02/08) Family History Father Diabetes mellitus History of heart disease Mental health problem Hypertension Mother Sepsis Hypertension Sister Cancer Hypertension Sister Diabetes mellitus Hypertension Grandfather History of heart disease Grandmother History of heart disease Social History marital status: unmarried,living together household members: significant other occupational status: employed Smoking Status: Former smoker alcohol intake: former Meds Home Medications and Allergies Home Medications Medication Instructions Recorded Confirmed Type blood sugar diagnostic (OneTouch #10 ea 10/27/20 09/16/23 Rx Ultra Blue Test Strip) lisinopril 5 mg tablet 5 mg PO DAILY #90 tabs 03/10/23 09/16/23 Rx latanoprost 0.005 % eye drops 1 drp EYE-LEFT BEDTIME 06/22/23 09/16/23 History tamsulosin 0.4 mg capsule 0.8 mg (2 x 0.4 mg) PO DAILY #60 08/02/23 09/16/23 Rx caps amlodipine 5 mg tablet 15 mg PO DAILY 09/16/23 09/16/23 History citalopram 20 mg tablet 40 mg PO DAILY 09/16/23 09/16/23 History lorazepam 0.5 mg tablet 0.5 mg PO TID PRN Anxiety 09/16/23 09/16/23 History memantine 5 mg tablet 5 mg PO BID 09/16/23 09/16/23 History simvastatin 20 mg tablet 20 mg PO BEDTIME 09/16/23 09/16/23 History Allergies Allergy/AdvReac Type Severity Reaction Status Date / Time No Known Drug Allergies Allergy Unknown Verified 08/11/23 10:24 Review of Systems Review of Systems Narrative: A 12 point review of system is negative unless otherwise stated in history of present illness Exam Vital Signs (past 8 hours): - 09/16/23 18:51 09/16/23 18:52 09/16/23 18:52 Temperature 102.7 F H Pulse Rate 113 H 114 H Respiratory Rate 30 H 30 H Blood Pressure 174/80 H Pulse Oximetry 96 96 Oxygen Flow Rate 09/16/23 19:00 09/16/23 19:00 09/16/23 19:12 Temperature 103.1 F H Pulse Rate 113 H Respiratory Rate 31 H Blood Pressure 165/77 H Pulse Oximetry 95 Oxygen Flow Rate 09/16/23 19:16 09/16/23 19:16 09/16/23 19:30 Temperature Pulse Rate 125 H 166 H Respiratory Rate 39 H 47 H Blood Pressure 196/86 H Pulse Oximetry 94 95 Oxygen Flow Rate 09/16/23 19:30 09/16/23 19:45 09/16/23 19:45 Temperature Pulse Rate 125 H Respiratory Rate 45 H Blood Pressure 194/103 H 172/80 H Pulse Oximetry 93 Oxygen Flow Rate 09/16/23 19:59 09/16/23 20:00 09/16/23 20:00 Temperature 103 F H Pulse Rate 120 H Respiratory Rate 46 H Blood Pressure 155/67 H Pulse Oximetry 93 Oxygen Flow Rate 09/16/23 20:15 09/16/23 20:15 09/16/23 20:30 Temperature Pulse Rate 118 H 119 H Respiratory Rate 44 H 43 H Blood Pressure 154/70 H Pulse Oximetry 93 Oxygen Flow Rate 09/16/23 20:30 09/16/23 20:45 09/16/23 20:45 Temperature Pulse Rate 116 H Respiratory Rate 42 H Blood Pressure 151/65 H 147/70 H Pulse Oximetry 91 Oxygen Flow Rate 09/16/23 21:00 09/16/23 21:00 09/16/23 21:55 Temperature 103.5 F H Pulse Rate 114 H 109 H Respiratory Rate 40 H 32 H Blood Pressure 150/70 H 136/66 Pulse Oximetry 90 L 95 Oxygen Flow Rate 0 09/17/23 00:29 Temperature 98.8 F Pulse Rate 82 Respiratory Rate 28 H Blood Pressure 112/62 Pulse Oximetry 95 Oxygen Flow Rate 0 Oxygen Delivery Method Room Air Oxygen Flow Rate 0 Narrative Exam Narrative: Patient awake following commands. no focal neurodeficits. Denies tenderness in the abdomen on palpation Air entry equal bilaterally no wheezes S1-S2 heard no S3 no S4 Objective Labs 09/16/23 17:39 09/16/23 17:39 Labs: Laboratory Results - last 24 hr 09/16/23 09/16/23 09/16/23 17:39 17:40 17:47 WBC 9.2 RBC 4.23 L Hgb 13.1 L Hct 37.5 L MCV 88.6 MCH 30.9 MCHC 34.9 RDW 12.7 Plt Count 230 Neut % (Auto) 80.5 H Lymph % (Auto) 9.3 L [place] % (Auto) 9.7 Eos % (Auto) 0.2 L Baso % (Auto) 0.3 Neut # (Auto) 7400 H Lymph # (Auto) 900 L [place] # (Auto) 900 Eos # (Auto) 0 Baso # (Auto) 0 PT 12.9 H INR 1.1 APTT 32 Sodium 134 L Potassium 3.7 Chloride 103 Carbon Dioxide 20 L BUN 19 Creatinine 0.85 Estimated GFR > 60 BUN/Creatinine Ratio 22.4 H Glucose 283 H Lactate 2.8 H Calcium 9.0 Total Bilirubin 1.7 H AST 24 ALT 19 Alkaline Phosphatase 72 Total Creatine Kinase 64 Troponin I < 0.012 Total Protein 8.0 Albumin 4.2 Globulin 3.8 Albumin/Globulin Ratio 1.1 Lipase 21 L Procalcitonin 0.23 Urine Color Red Urine Appearance Cloudy Urine pH 6.0 Ur Specific [place] 1.025 Urine Protein 3+ H Urine Glucose (UA) Trace H Urine Ketones Trace H Urine Occult Blood 3+ H Urine Nitrate Negative Urine Bilirubin Negative Urine Urobilinogen 2.0 H Ur Leukocyte Esterase 1+ H Urine RBC >100/hpf H Urine WBC 30-100/hpf H Ur Squamous Epith Cells 0-1 /hpf Amorphous Sediment 1+ Urine Bacteria Moderate (10-30) H Ur Culture Indicated? Specimen cultured Vol Urine Centrifuged 10ml (spun) SARS-CoV-2 (PCR) Negative Influenza A (RT-PCR) Flu a negative Influenza B (RT-PCR) Flu b negative RSV (PCR) Negative 09/16/23 19:45 WBC RBC Hgb Hct MCV MCH MCHC RDW Plt Count Neut % (Auto) Lymph % (Auto) [place] % (Auto) Eos % (Auto) Baso % (Auto) Neut # (Auto) Lymph # (Auto) [place] # (Auto) Eos # (Auto) Baso # (Auto) PT INR APTT Sodium Potassium Chloride Carbon Dioxide BUN Creatinine Estimated GFR BUN/Creatinine Ratio Glucose Lactate 1.2 Calcium Total Bilirubin AST ALT Alkaline Phosphatase Total Creatine Kinase Troponin I Total Protein Albumin Globulin Albumin/Globulin Ratio Lipase Procalcitonin Urine Color Urine Appearance Urine pH Ur Specific [place] Urine Protein Urine Glucose (UA) Urine Ketones Urine Occult Blood Urine Nitrate Urine Bilirubin Urine Urobilinogen Ur Leukocyte Esterase Urine RBC Urine WBC Ur Squamous Epith Cells Amorphous Sediment Urine Bacteria Ur Culture Indicated? Vol Urine Centrifuged SARS-CoV-2 (PCR) Influenza A (RT-PCR) Influenza B (RT-PCR) RSV (PCR) Assessment & Plan Assessment & Plan narrative: 72 years old male with a past medical history of hypertension, dyslipidemia, small bowel obstruction status post surgery in June 2023, dyslipidemia and other medical issues was brought to the emergency room for altered mental status. Patient had been declining physically and to some degree cognitively since his surgery in June 2023. Earlier in the day, patient had followed up with urology for chronic urinary retention with subsequent Rhodes placement and that was replaced today in the office. Patient was alone at home by himself for a few hours and on return, the spouse found him to be confused which between the bed and the nightstand. He was not aware of the surroundings time or place him. Now he is able to give some answers but for the most part history has been obtained from the spouse at bedside. Apparently, the new Rhodes catheter was inserted after the penis was cleansed with hIBICLENS. There is no recent history of shortness of breath cough wheezing headache. Denies any chest pain or shortness of breath. does report that patient has not been himself since the surgery for bowel obstruction in June. In the ED was noted to have a temp of 103 and tachycardic with a heart rate in the 120s and initially tachypneic. WBC was normal and the lactic acid was 2.8. Urinalysis show 3200 WBCs. Influenza COVID and RSV was negative. CT scan of the chest/chest shows no acute process. CT abdomen shows moderate left renal edema with mild hydronephrosis. Thick-walled urinary bladder with a Rhodes in place. Patient was initiated on IV fluids and IV Zosyn with vancomycin. Admitted for further evaluation 1. Altered mental status. Appears likely complicated by underlying urinary tract infection with concern for sepsis and further complicated by likely cognitive decline. Treat the reversible factors including infection/electrolyte imbalance and monitor closely 2 urinary tract infection with concerns of pyelonephritis. Continue the IV Zosyn for now but may de-escalate based on culture results 3. Hypertension/tachycardia initially but now blood pressures are soft. On IV fluids and trend closely-Sinus tachycardia. Monitor on the telemetry for now. Hold the home amlodipine/lisinopril due to soft blood pressures 4 cognitive decline. Resume the home Namenda 5 BPH/urine retention. Resume the home Flomax 6. Dyslipidemia resume home statin 7. DVT prophylaxis will be with Lovenox CODE STATUS is full. Reviewed with the spouse at the bedside. Patient is leaning towards DNR but for now has maintained full CODE STATUS Patient will be admitted under inpatient status. Given the urinary tract infection with concern for sepsis in the setting of altered mental status, patient meets criteria for inpatient with expected length of stay greater than 2 midnights Patient was evaluated with the help of video communication device. Provider is located remotely in [facility]. Time spent this 11 minutes
[2023-09-17] MEDS: PIPERACILLIN/TAZO 3.375 GM in SODIUM CHLORIDE 0.9% 100 ML IV ×3 (03:42→20:22)
[2023-09-17] MEDS: HYDROCODONE/ACET 5/325 TABLET 1 TAB PO ×4 (03:46→16:31)
[2023-09-17] MEDS: LORazepam 0.5 MG TABLET PO ×3 (03:46→16:58)
[2023-09-17 06:28] LABS: Add Manual Diff / Slide Review NO; Basophils Absolute Auto 0 /uL (0-100); Basophils Percent Auto 0.3 % (0-2); Eosinophils Absolute Auto 0 /uL (0-450); Eosinophils Percent Auto 0.1 % (2-4); Hematocrit 32.7 % (41-53); Hemoglobin 11.5 g/dL (13.5-17.5); Lymphocytes Absolute Auto 900 /uL (1100-4500); Lymphocytes Percent Auto 8.5 % (25-40); Mean Corpuscular HGB Conc 35.1 % (30-36); Mean Corpuscular Hemoglobin 31.1 PG (26-34); Mean Corpuscular Volume 88.6 fL (80-100); Monocytes Absolute Auto 600 /uL (0-900); Monocytes Percent Auto 5.9 % (3-14); Neutrophils Absolute Auto 9300 /uL (1500-7000); Neutrophils Percent Auto 85.2 % (50-75); Platelet Count 187 X10^3/uL (150-400); Red Blood Cell Count 3.69 X10^6/uL (4.5-5.9); Red Cell Distribution Width 12.8 % (11.6-14.8); White Blood Cell Count 10.9 X10^3/uL (4.5-11.0)
[2023-09-17 06:40] LABS: BUN Creatinine Ratio 19.4 (6-22); Blood Urea Nitrogen 13 mg/dL (9-20); Calcium 8.1 mg/dL (8.4-10.2); Carbon Dioxide 23 mmol/L (22-32); Chloride 109 mmol/L (98-107); Estimated Glomerular Filt Rate > 60 mL/min (>60); Glucose 202 mg/dL (80-110); HEMOLYSIS < 15 (0-50); Potassium 3.3 mmol/L (3.4-5.1); Sodium 138 mmol/L (137-145)
[2023-09-17 06:48] LABS: NT-proBNP (BNP-Adult 18+) 832 pg/mL (<125)
[2023-09-17] MEDS: ENOXAPARIN 40 MG/0.4 ML SYRINGE SUBCUT (08:58)
[2023-09-17] MEDS: POTASSIUM CHLORIDE 20 MEQ TAB 40 MEQ PO (08:59)
[2023-09-17] MEDS: CITALOPRAM 10 MG TABLET 40 MG PO (08:59)
[2023-09-17] MEDS: TAMSULOSIN 0.4 MG CAPSULE 0.8 MG PO (08:59)
[2023-09-17] MEDS: MEMANTINE HCL 5 MG TABLET PO ×2 (09:00→20:23)
[2023-09-17] MEDS: INFLUENZA HD VACCINE 0.7 ML SYRINGE IM (09:03)
--- NOTE | 2023-09-17 10:33 | CM.DANOTE ---
Patient is a 72 yo male who was admitted on 09/16/23 for increased confusion. Pt has [facility] for insurance and his PCP is Dr. Tip Blackman. EMR was reviewed. Per , pt with hx of SBO in Jun 2023 last year and chronic urinary retention with indwelling carlson and currently FUll CODE and admitted with fever of 104 with possible septic UTI and r/o pyelonephritis. Per MD, pt has improved and temp is now normal and awaiting culture results to r/o ESBL and any IV-Abx needs at d/c. SW met bedside with pt and Sig Other Nona and explained role and they confirm they still live in [place] and both are active and independent at baseline. Pt does not use DME for ambulation and still drives. Pt's Urolog[facility] carlson. 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 Pt is hopeful to get his urinary retention resolved so that he can improve and get back to working. Pt denies any hx of HH or SNF and preference is to d/c home when medically stable. SW and discussed if pt's cultures show ESBL+ then would likely need 7 days of IV-Abx and options could be home infusion, possible outpt infusion pending dosing, or SNF. Plan: SW to follow closely for culture results towards determining PO vs IV Abx at d/c and then further discussion with pt and Lion Ayoub. PRINCESS Duarte Discharge Planning/Care Management CM Discharge Assessment Start: 09/17/23 10:30 Freq: Status: Active Protocol: Document 09/17/23 10:31 BF (Rec: 09/17/23 10:33 BF [id number]) Discharge Planning Assessment Assigned Lamp Decorator PRINCESS Roman DPOA/Assigned Designee Name informally sig anitra Fuentes Contact Information [phone] Advance Directives? No Advance Directives on File No History Provided By Patient,Significant Other, Medical Record Has Patient been admitted in last 30 No days? Comment last admit in Jun 2023 a few months ago for SBO and discharged home Prior Living Arrangements House Household Members significant other Type of transporation used prior to Drives own vehicle admit Independent with ADL's Yes Is patient alert and oriented? Yes Caregiver for Another No Comment Has carlson cath at baseline for urinary retention chronic Comment r/o HH or home infusion pending culture results Barriers to Discharge No Comment Home w/SO Discharge Plan Home Transportation Arrangement Sig Other Nona Referrals Initiated None needed Additional Comment Pending cutlure results to r/o IV Abx at d./c Whiteboard Updated in Patient Room with Yes name and ext. # of Lamp Decorator Review Status In Process Please Provide Date Initial DC 09/17/23 Assessment Was Performed Next Review Type Continued Stay Review
[2023-09-17] MEDS: polyethylene glycoL 3350 17 GM POWD.PACK PO (10:56)
--- NOTE | 2023-09-17 11:40 | P.PN_ITS ---
Subjective Subjective Interval history: 72 M admitted with encephalopathy, much improved. Source likely due to UTI after recent catheter change which sounds difficult. Patient doing better today, less confusion per spouse. Febrile overnight as high as 104. No obstructing stone noted on imaging but did have some mild L hydronephrosis. Exam Vital Signs (past 8 hours): - 09/17/23 04:25 09/17/23 07:00 09/17/23 08:00 Temperature 98.7 F 97.5 F L Pulse Rate 85 83 Respiratory Rate 26 H 16 Blood Pressure 138/65 152/68 H Pulse Oximetry 98 96 99 Oxygen Delivery Method Room Air Oxygen Flow Rate 0 0 0 Oxygen Delivery Method Room Air Oxygen Flow Rate 0 Narrative Exam Narrative: GEN: Much improved confusion, no acute distress HEENT:NC, Face symmetric CHEST: Respiratory excursions symmetric, CTAB CV: RRR, no M/R/G ABD: large midline incision, non-distended, soft EXTR: warm, well perfused, no C/C/E SKIN: warm and dry, no rash NEURO: no focal deficits Objective Labs 09/17/23 05:50 09/17/23 05:50 Labs: Laboratory Results - last 24 hr 09/16/23 09/16/23 09/16/23 17:39 17:40 17:47 WBC 9.2 RBC 4.23 L Hgb 13.1 L Hct 37.5 L MCV 88.6 MCH 30.9 MCHC 34.9 RDW 12.7 Plt Count 230 Neut % (Auto) 80.5 H Lymph % (Auto) 9.3 L [place] % (Auto) 9.7 Eos % (Auto) 0.2 L Baso % (Auto) 0.3 Neut # (Auto) 7400 H Lymph # (Auto) 900 L [place] # (Auto) 900 Eos # (Auto) 0 Baso # (Auto) 0 PT 12.9 H INR 1.1 APTT 32 Sodium 134 L Potassium 3.7 Chloride 103 Carbon Dioxide 20 L BUN 19 Creatinine 0.85 Estimated GFR > 60 BUN/Creatinine Ratio 22.4 H Glucose 283 H Lactate 2.8 H Calcium 9.0 Magnesium Total Bilirubin 1.7 H AST 24 ALT 19 Alkaline Phosphatase 72 Total Creatine Kinase 64 Troponin I < 0.012 NT-Pro-B Natriuret Pep Total Protein 8.0 Albumin 4.2 Globulin 3.8 Albumin/Globulin Ratio 1.1 Lipase 21 L Procalcitonin 0.23 Urine Color Red Urine Appearance Cloudy Urine pH 6.0 Ur Specific [place] 1.025 Urine Protein 3+ H Urine Glucose (UA) Trace H Urine Ketones Trace H Urine Occult Blood 3+ H Urine Nitrate Negative Urine Bilirubin Negative Urine Urobilinogen 2.0 H Ur Leukocyte Esterase 1+ H Urine RBC >100/hpf H Urine WBC 30-100/hpf H Ur Squamous Epith Cells 0-1 /hpf Amorphous Sediment 1+ Urine Bacteria Moderate (10-30) H Ur Culture Indicated? Specimen cultured Vol Urine Centrifuged 10ml (spun) SARS-CoV-2 (PCR) Negative Influenza A (RT-PCR) Flu a negative Influenza B (RT-PCR) Flu b negative RSV (PCR) Negative 09/16/23 09/17/23 09/17/23 19:45 05:50 06:38 WBC 10.9 RBC 3.69 L Hgb 11.5 L Hct 32.7 L MCV 88.6 MCH 31.1 MCHC 35.1 RDW 12.8 Plt Count 187 Neut % (Auto) 85.2 H Lymph % (Auto) 8.5 L [place] % (Auto) 5.9 Eos % (Auto) 0.1 L Baso % (Auto) 0.3 Neut # (Auto) 9300 H Lymph # (Auto) 900 L [place] # (Auto) 600 Eos # (Auto) 0 Baso # (Auto) 0 PT INR APTT Sodium 138 Potassium 3.3 L Chloride 109 H Carbon Dioxide 23 BUN 13 Creatinine 0.67 Estimated GFR > 60 BUN/Creatinine Ratio 19.4 Glucose 202 H Lactate 1.2 1.0 Calcium 8.1 L Magnesium 2.0 Total Bilirubin AST ALT Alkaline Phosphatase Total Creatine Kinase Troponin I NT-Pro-B Natriuret Pep 832 H Total Protein Albumin Globulin Albumin/Globulin Ratio Lipase Procalcitonin Urine Color Urine Appearance Urine pH Ur Specific [place] Urine Protein Urine Glucose (UA) Urine Ketones Urine Occult Blood Urine Nitrate Urine Bilirubin Urine Urobilinogen Ur Leukocyte Esterase Urine RBC Urine WBC Ur Squamous Epith Cells Amorphous Sediment Urine Bacteria Ur Culture Indicated? Vol Urine Centrifuged SARS-CoV-2 (PCR) Influenza A (RT-PCR) Influenza B (RT-PCR) RSV (PCR) [facility] Medical History Nicotine abuse History of tobacco use History of hematuria Benign prostatic hyperplasia Lower urinary tract symptoms Partial small bowel obstruction Short-term memory loss Hyperglycemia Libido, decreased Change in stool caliber Substance abuse (~1974) Chronic back pain (~1999) Chicken pox (~1955) Hepatitis C (~1994) Cancer (~2008) Low back pain Hyperlipidemia Dry eyes Memory impairment Essential hypertension (10/08/15) Anxiety (10/08/15) Surgical History Anesthesia Pseudomyxoma peritonei (~08/02/08) Family History Father Diabetes mellitus History of heart disease Mental health problem Hypertension Mother Sepsis Hypertension Sister Cancer Hypertension Sister Diabetes mellitus Hypertension Grandfather History of heart disease Grandmother History of heart disease Social History marital status: unmarried,living together household members: significant other occupational status: employed Smoking Status: Former smoker alcohol intake: former Assessment & Plan Assessment & Plan narrative: 1. Sepsis with acute metabolic encephalopathy, hyperbilirubinemia secondary to acute cystitis associated with chronic carlson - continue zosyn, urine cultures with gram negative bacilli. Narrow once cultures finalize. Still febrile overnight to 104, but improved this afternoon. - carlson changed yesterday at outpatient urology clinic. - stop vancomycin, as cultures with GNB but does have a hx of MRSA in previous wound. - SOFA score of 2 on admission 2. Hypokalemia - K 3.3, will replete today. 3. HTN - - continue to hold home amlodipine. Will resume home lisinopril 5 mg today as patient's BP this AM is 152/68. Proceed with caution in setting of above sepsis. 4 cognitive decline. Continue home Namenda 5 BPH/urine retention. Continue Flomax, carlson replaced as an outpatient with urology on 09/16/23 6. Dyslipidemia continue home statin 7. DVT prophylaxis will be with Lovenox CODE STATUS is full. Surrogate is patient's spouse. Dispo: inpatient, probable discharge home in 1-2 days once cultures finalize and improved from sepsis. Additional history obtained from patient's spouse. Discussed with case management and overnight provider to formulate the above assessment and plan.
[2023-09-17] MEDS: lisinopriL 5 MG TABLET PO (13:47)
[2023-09-17] MEDS: HYDROMORPHONE 1 MG INJ IV (16:58)
[2023-09-17] MEDS: ONDANSETRON 4 MG/2 ML INJ IV (16:58)
[2023-09-17] MEDS: ACETAMINOPHEN 325 MG TABLET 650 MG PO (17:45)
[2023-09-17] MEDS: ATORVASTATIN 20 MG TABLET 10 MG PO (20:22)
[2023-09-17] MEDS: SODIUM CHLORIDE 0.45% 1,000 ML 100 ML IV (20:27)
[2023-09-17] MEDS: LATANOPROST 0.005% OPHTH 2.5 ML 1 DROPS EYE-LEFT (20:47)
[2023-09-18] VITALS (8 sets, daily range): BP systolic 122–172; BP diastolic 60–89; PULSE 82–103; RESP 16–93; TEMP 36.6–38.7; O2SAT 92–96
[2023-09-18 03:54] LABS: Acinetobacter calcoa-baumannii Not Detected (Not Detect); Bacteroides fragilis Not Detected (Not Detect); CTX-M Resistance Not Detected (Not Detect); Candida albicans Not Detected (Not Detect); Candida auris Not Detected (Not Detect); Candida glabrata Not Detected (Not Detect); Candida krusei Not Detected (Not Detect); Candida parapsilosis Not Detected (Not Detect); Candida tropicalis Not Detected (Not Detect); Cryptococcus neoformans/gatti Not Detected (Not Detect); Enterobacter cloacae complex Not Detected (Not Detect); Enterobacterales Detected (Not Detect); Enterococcus faecalis Not Detected (Not Detect); Enterococcus faecium Not Detected (Not Detect); Haemophilus influenzae Not Detected (Not Detect); IMP Resistance Not Detected (Not Detect); KPC Resistance Not Detected (Not Detect); Klebsiella aerogenes Not Detected (Not Detect); Listeria monocytogenes Not Detected (Not Detect); NDM Resistance Not Detected (Not Detect); Neisseria meningitidis Not Detected (Not Detect); OXA-48-like Resistance Not Detected (Not Detect); Proteus species Not Detected (Not Detect); Pseudomonas aeruginosa Not Detected (Not Detect); Salmonella species Not Detected (Not Detect); Serratia marcescens Not Detected (Not Detect); Staphylococcus epidermidis Not Detected (Not Detect); Staphylococcus lugdunensis Not Detected (Not Detect); Staphylococcus species Not Detected (Not Detect); Stenotrophomonas maltophilia Not Detected (Not Detect); Streptococcus agalactiae (Gr B Not Detected (Not Detect); Streptococcus pneumonia Not Detected (Not Detect); Streptococcus pyogenes (Gr A) Not Detected (Not Detect); Streptococcus species Not Detected (Not Detect); VIM Resistance Not Detected (Not Detect); mcr-1 Resistance Not Detected (Not Detect)
[2023-09-18] MEDS: HYDROCODONE/ACET 5/325 TABLET 1 TAB PO (04:17)
[2023-09-18] MEDS: PIPERACILLIN/TAZO 3.375 GM in SODIUM CHLORIDE 0.9% 100 ML IV (04:17)
[2023-09-18] MEDS: LORazepam 0.5 MG TABLET PO ×2 (04:18→23:43)
[2023-09-18] MEDS: SODIUM CHLORIDE 0.45% 1,000 ML 100 ML IV (06:19)
[2023-09-18] MEDS: cefTRIAXone 2,000 MG in SODIUM CHLORIDE 0.9% 100 ML 200 MG IV (09:26)
[2023-09-18] MEDS: CITALOPRAM 10 MG TABLET 40 MG PO (09:27)
[2023-09-18] MEDS: polyethylene glycoL 3350 17 GM POWD.PACK PO (09:27)
[2023-09-18] MEDS: ENOXAPARIN 40 MG/0.4 ML SYRINGE SUBCUT (09:27)
[2023-09-18] MEDS: lisinopriL 5 MG TABLET PO (09:27)
[2023-09-18] MEDS: TAMSULOSIN 0.4 MG CAPSULE 0.8 MG PO (09:30)
[2023-09-18] MEDS: MEMANTINE HCL 5 MG TABLET PO ×2 (09:30→21:12)
--- NOTE | 2023-09-18 12:10 | PM.PN.1 ---
Subjective Subjective Interval history: 72 M admitted with encephalopathy, much improved. Source likely due to UTI after recent catheter change which sounds difficult. Patient doing better today, less confusion per spouse. Febrile overnight as high as 101.7. No obstructing stone noted on imaging but did have some mild L hydronephrosis. Exam Vital Signs (past 8 hours): - 09/18/23 08:00 09/18/23 08:44 09/18/23 08:44 Temperature 99.0 F Pulse Rate 85 Respiratory Rate 18 Blood Pressure 143/75 H Pulse Oximetry 96 92 Oxygen Delivery Method Room Air Room Air Oxygen Flow Rate 0 09/18/23 09:27 Temperature Pulse Rate 85 Respiratory Rate Blood Pressure 143/75 H Pulse Oximetry Oxygen Delivery Method Oxygen Flow Rate Oxygen Delivery Method Room Air Oxygen Flow Rate 0 Narrative Exam Narrative: GEN: Much improved confusion, no acute distress HEENT:NC, Face symmetric CHEST: Respiratory excursions symmetric, CTAB CV: RRR, no M/R/G ABD: large midline incision, non-distended, soft EXTR: warm, well perfused, no C/C/E SKIN: warm and dry, no rash NEURO: no focal deficits Objective Labs 09/17/23 05:50 09/17/23 05:50 Labs: Laboratory Results - last 24 hr 09/18/23 02:40 A.calcoaceticus-baumannii cmplx PCR Not detected Bacteroides fragilis Not detected Mis albicans (PCR) Not detected Mis auris (PCR) Not detected C. glabrata (PCR) Not detected C. krusei (PCR) Not detected C. parapsilosis (PCR) Not detected C. tropicalis (PCR) Not detected C. neoform/gattii (PCR) Not detected Enterobacterales (PCR) Detected E. cloacae complex PCR Not detected Enterococc faecalis PCR Not detected Enterococc faecium PCR Not detected E. coli (PCR) Detected H. influenzae (PCR) Not detected Klebsiella aerogenes (PCR) Not detected Klebsiella oxytoca PCR Not detected Klebsiella pneumoniae Not detected List. monocytogenes PCR Not detected N. meningitidis (PCR) Not detected Proteus species (PCR) Not detected Salmonella spp. (PCR) Not detected Serratia marcescens PCR Not detected Staphylococcus sp PCR Not detected Staph aureus (PCR) Not detected mecA/C & MREJ Resist Gene Not applicable mecA/C-Methicil Resis Gene Not applicable mcr-1 Colistin Res Gene PCR Not detected Staph epidermidis (PCR) Not detected Staph lugdunensis PCR Not detected S. maltophilia (PCR) Not detected Streptococcus sp PCR Not detected Group A Strep (PCR) Not detected Strep agalactiae (PCR) Not detected Strep pneumoniae (PCR) Not detected P. aeruginosa (PCR) Not detected Bridgett/B-Vanco Res Genes Not applicable blaIMP Car res Gene PCR Not detected KPC-Carbap Res Gene PCR Not detected blaNDM Car Res Gene PCR Not detected OXA-48 Carbapenem Resis Gene (PCR) Not detected blaVIM Car Res Gene PCR Not detected CTX-M Gene Resistance (PCR) Not detected PFSH Medical History Nicotine abuse History of tobacco use History of hematuria Benign prostatic hyperplasia Lower urinary tract symptoms Partial small bowel obstruction Short-term memory loss Hyperglycemia Libido, decreased Change in stool caliber Substance abuse (~1974) Chronic back pain (~1999) Chicken pox (~1955) Hepatitis C (~1994) Cancer (~2008) Low back pain Hyperlipidemia Dry eyes Memory impairment Essential hypertension (10/08/15) Anxiety (10/08/15) Surgical History Anesthesia Pseudomyxoma peritonei (~08/02/08) Family History Father Diabetes mellitus History of heart disease Mental health problem Hypertension Mother Sepsis Hypertension Sister Cancer Hypertension Sister Diabetes mellitus Hypertension Grandfather History of heart disease Grandmother History of heart disease Social History marital status: unmarried,living together household members: significant other occupational status: employed Smoking Status: Former smoker alcohol intake: former Assessment & Plan Assessment & Plan narrative: 1. Sepsis with acute metabolic encephalopathy, hyperbilirubinemia secondary to gram negative bacteremia (likely E. coli) associated with chronic carlson - continue zosyn, urine cultures with navarro sensitive E. coli. Blood cultures positive with GNB and GPC. Suspect GPC is contaminant but will see final results. Narrowed from zosyn to ceftriaxone 2g q24 hr today. - carlson changed yesterday at outpatient urology clinic. - stop vancomycin, as cultures with GNB but does have a hx of MRSA in previous wound. - SOFA score of 2 on admission - will stop IV fluids - start PT with eval today. 2. Hypokalemia - K 3.3 on admission, continue to follow. 3. HTN - - Will hold amlodipine today, continue lisinopril. Can resume home amlodipine tomorrow. 4 cognitive decline. Continue home Namenda 5 BPH/urine retention. Continue Flomax, carlson replaced as an outpatient with urology on 09/16/23 6. Dyslipidemia continue home statin 7. DVT prophylaxis will be with Lovenox CODE STATUS is full. Surrogate is patient's spouse. Dispo: inpatient, probable discharge home in 1-2 days once cultures finalize and improved from sepsis. Additional history obtained from bedside staff, discussions with case management and therapy services.
--- NOTE | 2023-09-18 12:57 | CM.DPC ---
DCP Cont. Reviewed EMR and team rounds for status updates. Per Hospitalist, pt will likely need 2-more days due to high fever and O2 weaning. Cont. to monitor for final ABO recommendations-oral vs. IV.
--- NOTE | 2023-09-18 13:46 | PT.IIE ---
Current Diagnoses Sepsis, unspecified organism (09/16/23) Surgical History (Last Reviewed 08/29/23 @ 02:13 by Lalit Shell MD) Anesthesia Pseudomyxoma peritonei (~08/02/08) Medical History (Last Reviewed 08/29/23 @ 02:13 by Lalit Shell MD) Anxiety (10/08/15) Benign prostatic hyperplasia Cancer (~2008) Change in stool caliber Chicken pox (~1955) Chronic back pain (~1999) Dry eyes Essential hypertension (10/08/15) Hepatitis C (~1994) History of hematuria History of tobacco use Hyperglycemia Hyperlipidemia Libido, decreased Low back pain Lower urinary tract symptoms Memory impairment Nicotine abuse Partial small bowel obstruction Short-term memory loss Substance abuse (~1974) Physical Therapy Inpatient Evaluation/Re-Eval M1 PT/OT-IP Prior Functional Status Start: 09/18/23 13:00 Freq: NEEDED Status: Active Protocol: Document 09/18/23 13:21 MB (Rec: 09/18/23 13:45 MB [id number]) Medical Review Prior Functional Status Medical History Reviewed Yes Communication Unsure baseline diet and cognition/mentation Mobility and Gait Unsure baseline mobility as pt cannot report. Activities of Daily Living and IADL's Unsure baseline ADLs as pt cannot report. Social History Household Members significant other Living Arrangements House Number of Stairs To Enter/Railing? Unsure how many floors pt's house has. He states there are some steps maybe 8 and cannot report if there is a rail or not Employment Status Unemployed Additional Social History Comment Pt cannot state home set-up/ DME. There's one in the truck when PT asks pt if he has a cane or walker but he cannot specify which one M2 PT-IP Current Condition Start: 09/18/23 13:00 Freq: NEEDED Status: Active Protocol: Document 09/18/23 13:21 MB (Rec: 09/18/23 13:45 MB [id number]) Physical Therapy Current Condition Current Condition Evaluation Date 09/18/23 Treatment Diagnosis Confusion, UTI, infection M3 PT-IP Subjective Start: 09/18/23 13:00 Freq: NEEDED Status: Active Protocol: Document 09/18/23 13:21 MB (Rec: 09/18/23 13:45 MB [id number]) Subjective Physical Therapy Visit Type Type Initial Evaluation Visit Start Time 13:21 Visit Stop Time 13:36 Number of POLITICAL CARTOONIST Visits 0 Physical Therapy Visit Comments Patient Comments Where in this place called [place] when PT starts asking pt orientation questions Therapy Pain Assessment Pain When Pain Assessed At Rest Pain Present Pain Present Denied Pain M4 PT-IP Mobility and Gait Start: 09/18/23 13:00 Freq: NEEDED Status: Active Protocol: Document 09/18/23 13:21 MB (Rec: 09/18/23 13:45 MB [id number]) PT-Bed Mobility Assessment Sit to Supine Sit to Supine Standby Assistance,1 Person Assistance,Head of Bed Elevated,Bedrails Scooting Scooting to Edge of Bed Standby Assistance PT-Transfer Assessment Sit to and From Stand Sit to and from Stand Contact Guard Assistance,1 Person Assistance,Use of Upper Extremities Equipment Transfer Assistive Device Gait Belt,Front Wheeled Walker Orthotic/Prosthetic Devices or Brace: No Transfers Transfer Destination Toilet Transfer Technique Ambulation Transfer Ability Level of Assist Contact Guard Assistance,1 Person Assistance,Use of Upper Extremities Comments Mobility Comments Pt with confusion and trouble understanding backing up with walker and reaching for rail in BR. He requires dependent assistance for hygiene after toileting on commode and PT must provide cues for hand placement and stepping for transfers and gait. Gait Assessment Gait Gait Assistance Required: Minimum Assistance Distance (Feet) 20 Able to Maintain Weight Bearing Status Yes During Gait Assistive Devices Assistive Device Gait Belt,Front Wheeled Walker Orthotic/Prosthetic Devices or Brace: No Gait Deviations General Gait Pattern Decreased Feet Clearance, Flexed Trunk,Wide Based Gait Factors Limiting Gait Function Factors Limiting Gait Function Decreased Activity Tolerance, Difficulty Following Directions,Incoordination,Poor Balance,Poor Safety Awareness Comments Gait Comments Pt's gait is festinating to magnetic in nature with wide IDANIA and decreased foot clearance and scooting feet occ along the floor. He gait trains 10' and then 20' with RW and assistance from PT PT-Balance Assessment Sitting Balance and Reactions Static Sitting Balance Ability Good Dynamic Sitting Balance Ability Good Standing Balance and Reactions Static Standing Balance Ability Fair Dynamic Standing Balance Ability Fair Device Used RW M5 PT-IP Objective Assessments Start: 09/18/23 13:00 Freq: NEEDED Status: Active Protocol: Document 09/18/23 13:21 MB (Rec: 09/18/23 13:45 MB [id number]) Orientation Orientation/Cognition Level of Alertness Confusional State Orientation Name,Age,Birthday,Month Language Function Ability No Deficits Noted Safety Awareness Decreased Safety Awareness Memory Description Short Term Impaired,Detention Impaired Gross Range of Motion Upper Extremity ROM Assessment Within Functional Limits Lower Extremity ROM Assessment Within Functional Limits Strength Upper Extremity Strength Assessment Within Functional Limits Lower Extremity Strength Assessment Within Functional Limits M6 PT-IP Treatment Start: 09/18/23 13:00 Freq: NEEDED Status: Active Protocol: Document 09/18/23 13:21 MB (Rec: 09/18/23 13:45 MB [id number]) Physical Therapy Treatment Education Education Provided Safety M7 PT-IP Assessment and Plan Start: 09/18/23 13:00 Freq: NEEDED Status: Active Protocol: Document 09/18/23 13:21 MB (Rec: 09/18/23 13:45 MB [id number]) PT Summary Assessment and Plan Potential Rehabilitation Potential Fair Status of Condition at Evaluation Evolving Summary Impairments Balance,Coordination,Cognition ,Bed Mobility,Transfers,Gait, Activity Tolerance Progress Towards Goals Slow Progress - Other Assessment Summary Pt is a 72 y/o male presenting with confusion and trouble word-finding and following commands with transfers, gait, toileting and getting to bed. His gait is magnetic to festinating in nature with wide IDANIA, decreased step- length and foot clearance and pt scooting feet along the floor with gait. He may mobilize better once his cognition improves. Recommend cognitive assessment by OT. Goals Bed Mobility Goal Independent Transfer Goal Independent,Cane,Front Wheeled Walker Gait Goal Independent,Cane,Front Wheel Walker Gait Distance 100 Other Goals Pt will ascend and descend 8 steps with LRAD and/or rail ( whichever he has at home and he cannot report today) and no more than superv assistance. Days to Meet Goals 5 Frequency of Treatment Frequency Of Treatment Once a Day Treatment Plan Physical Therapy Treatment Plan Bed Mobility Training,Transfer Training,Gait Training, Therapeutic Exercise,Balance Retraining,Discharge Planning, Neuromuscular Re-ed Precautions Other Precautions Fall risk and contact for urinary infection Weight Bearing Status Weight Bearing Status Weight Bear as Tolerated Recommendations To Nursing Amount of Assist Needed 1 Person Assist Discharge Recommendations PT Discharge Recommendations Home with 07/02 Assist Available,Home Health,Home vs SNF Transportation Needs at Discharge Private Vehicle
--- NOTE | 2023-09-18 14:03 | PC.NURSE ---
Addendum entered by Lia Jurado R.N. 09/18/23 16:01: [facility] 101.1 @ 1600 Original Note: Day shift note: Alert, and oriented to self and place only. Confusion improving, spouse agrees. Up OOB to chair for all meals, ambulating in room and BR, 1PA FWW. Good PO intake, remain on RA, afebrile this shift. Spouse at bedside providing supportive care, Dr. Adhikari @ bedside. High fall risk precautions, bed alarm active. Inconsistent with call light use for assistance. Multiple BMs this shift. Rhodes catheter in place to gravity. PT for evaluation this afternoon.
[2023-09-18] MEDS: ACETAMINOPHEN 325 MG TABLET 650 MG PO ×2 (16:29→23:43)
[2023-09-18] MEDS: ATORVASTATIN 20 MG TABLET 10 MG PO (21:12)
[2023-09-18] MEDS: LATANOPROST 0.005% OPHTH 2.5 ML 1 DROPS EYE-LEFT (21:13)
[2023-09-19] VITALS: BP 126/80; PULSE 77; RESP 17; TEMP 37; O2SAT 96
[2023-09-19 08:00] VITALS: BP 158/77; PULSE 83; RESP 16; TEMP 36.9; O2SAT 95
[2023-09-19 08:44] LABS: Add Manual Diff / Slide Review NO; Basophils Absolute Auto 0 /uL (0-100); Basophils Percent Auto 0.4 % (0-2); Eosinophils Absolute Auto 100 /uL (0-450); Eosinophils Percent Auto 0.7 % (2-4); Hematocrit 34.4 % (41-53); Hemoglobin 12.1 g/dL (13.5-17.5); Lymphocytes Absolute Auto 800 /uL (1100-4500); Lymphocytes Percent Auto 9.5 % (25-40); Mean Corpuscular HGB Conc 35.2 % (30-36); Mean Corpuscular Volume 88.2 fL (80-100); Monocytes Absolute Auto 500 /uL (0-900); Monocytes Percent Auto 5.5 % (3-14); Neutrophils Absolute Auto 7000 /uL (1500-7000); Neutrophils Percent Auto 83.9 % (50-75); Platelet Count 193 X10^3/uL (150-400); Red Cell Distribution Width 13.1 % (11.6-14.8); White Blood Cell Count 8.3 X10^3/uL (4.5-11.0)
[2023-09-19] MEDS: cefTRIAXone 2,000 MG in SODIUM CHLORIDE 0.9% 100 ML 200 MG IV (08:53)
[2023-09-19 09:10] LABS: BUN Creatinine Ratio 12.7 (6-22); Blood Urea Nitrogen 7 mg/dL (9-20); Calcium 8.8 mg/dL (8.4-10.2); Carbon Dioxide 28 mmol/L (22-32); Chloride 107 mmol/L (98-107); Estimated Glomerular Filt Rate > 60 mL/min (>60); Glucose 147 mg/dL (80-110); HEMOLYSIS < 15 (0-50); Potassium 3.5 mmol/L (3.4-5.1); Sodium 139 mmol/L (137-145)
[2023-09-19] MEDS: ENOXAPARIN 40 MG/0.4 ML SYRINGE SUBCUT (09:23)
[2023-09-19] MEDS: polyethylene glycoL 3350 17 GM POWD.PACK PO (09:23)
[2023-09-19] MEDS: AMLODIPINE 5 MG TABLET 10 MG PO (09:24)
[2023-09-19] MEDS: lisinopriL 5 MG TABLET PO (09:24)
[2023-09-19] MEDS: CITALOPRAM 10 MG TABLET 40 MG PO (09:24)
[2023-09-19] MEDS: MEMANTINE HCL 5 MG TABLET PO ×2 (09:24→21:18)
[2023-09-19] MEDS: TAMSULOSIN 0.4 MG CAPSULE 0.8 MG PO (09:25)
[2023-09-19] MEDS: VANCOMYCIN 1,500 MG/300 ML PIGGYBACK 200 MG IV ×2 (09:33→21:18)
[2023-09-19] MEDS: SODIUM CHLORIDE 0.9% FLUSH 10 ML IV ×2 (09:34→21:19)
[2023-09-19 12:00] VITALS: BP 159/91; PULSE 83; RESP 18; TEMP 37.2; O2SAT 96
--- NOTE | 2023-09-19 12:31 | PT.IPTN ---
Current Diagnoses Sepsis, unspecified organism (09/16/23) Physical Therapy Treatment Note M2 PT-IP Current Condition Start: 09/18/23 13:00 Freq: NEEDED Status: Active Protocol: Document 09/19/23 11:50 LRN (Rec: 09/19/23 12:31 LRN [id number]) Physical Therapy Current Condition Current Condition Evaluation Date 09/18/23 Treatment Diagnosis Confusion, UTI, infection M3 PT-IP Subjective Start: 09/18/23 13:00 Freq: NEEDED Status: Active Protocol: Document 09/19/23 11:50 LRN (Rec: 09/19/23 12:31 LRN [id number]) Subjective Physical Therapy Visit Type Type Treatment Note Visit Start Time 11:50 Visit Stop Time 12:20 Physical Therapy Visit Comments Patient Comments Pt agreeable to eating lunch after physical therapy. States he hasn't walked with a shuffle gait. M4 PT-IP Mobility and Gait Start: 09/18/23 13:00 Freq: NEEDED Status: Active Protocol: Document 09/19/23 11:50 LRN (Rec: 09/19/23 12:31 LRN [id number]) PT-Bed Mobility Assessment Supine to Sit Supine to Sit Independent Sit to Supine Sit to Supine Independent,Standby Assistance Scooting Scooting to Edge of Bed Standby Assistance PT-Transfer Assessment Sit to and From Stand Sit to and from Stand Standby Assistance,1 Person Assistance,Use of Upper Extremities Equipment Transfer Assistive Device Gait Belt,Front Wheeled Walker Transfer Ability Level of Assist Standby Assistance Comments Mobility Comments Pt moves slowly through transfers. Much vcuing needed for backing up to sit in chair after gait. Gait Assessment Gait Gait Assistance Required: Standby Assistance Distance (Feet) 212 Able to Maintain Weight Bearing Status Yes During Gait Assistive Devices Assistive Device Gait Belt,Front Wheeled Walker Gait Deviations General Gait Pattern Decreased Stride Length, Decreased Feet Clearance, Festinating Factors Limiting Gait Function Factors Limiting Gait Function Poor Balance Comments Gait Comments Pt has a Parkinson's-like shuffle gait, but can walk heel toe if cued for 6-7 steps before returning to shuffle gait. Stair Climbing Assessment Evaluation Level of Assist On Stairs Standby Assistance Devices Stair Climbing Assistive Devices Left Railing,Right Railing Technique/Endurance Stair Climbing Direction Ascend and Descend Stair Climbing Technique Step to Step Number of Steps Climbed 3 Stair Climbing Set # Repetitions (reps) 2 Comments Stair Climbing Comments Pt mildly unsteady with descent of stairs with holding onto 1 or 2 railing. Pt ia able to safely ascend stairs with use of 1 or 2 rails. PT-Balance Assessment Sitting Balance and Reactions Static Sitting Balance Ability Good Dynamic Sitting Balance Ability Good M5 PT-IP Objective Assessments Start: 09/18/23 13:00 Freq: NEEDED Status: Active Protocol: Document 09/19/23 11:50 LRN (Rec: 09/19/23 12:31 LRN [id number]) Orientation Orientation/Cognition Level of Alertness Confusional State Orientation Name,Place Language Function Ability No Deficits Noted Safety Awareness Decreased Safety Awareness Memory Description Short Term Impaired,Residential Impaired Comments Pt appears alert and oriented, but indicates he is in hospital after a surgery. M6 PT-IP Treatment Start: 09/18/23 13:00 Freq: NEEDED Status: Active Protocol: Document 09/19/23 11:50 LRN (Rec: 09/19/23 12:31 LRN [id number]) Physical Therapy Treatment Other Treatments Other Treatment Performed Gait and stair training. M7 PT-IP Assessment and Plan Start: 09/18/23 13:00 Freq: NEEDED Status: Active Protocol: Document 09/19/23 11:50 LRN (Rec: 09/19/23 12:31 LRN [id number]) PT Summary Assessment and Plan Potential Rehabilitation Potential Good Status of Condition at Evaluation Evolving Summary Impairments Cognition,Transfers,Gait Progress Towards Goals Progressing Toward Goals Goals Bed Mobility Goal Independent Transfer Goal Independent,Cane,Front Wheeled Walker Gait Goal Independent,Cane,Front Wheel Walker Gait Distance 100 Other Goals Pt will ascend and descend 8 steps with LRAD and/or rail ( whichever he has at home and he cannot report today) and no more than superv assistance. Days to Meet Goals 5 Frequency of Treatment Frequency Of Treatment Once a Day Treatment Plan Physical Therapy Treatment Plan Transfer Training,Gait Training,Therapeutic Exercise, Balance Retraining,Discharge Planning,Neuromuscular Re-ed Weight Bearing Status Weight Bearing Status Weight Bear as Tolerated Recommendations To Nursing Amount of Assist Needed 1 Person Assist Discharge Recommendations PT Discharge Recommendations Home with 07/02 Assist Available,Home Health,Home vs SNF Transportation Needs at Discharge Private Vehicle
--- NOTE | 2023-09-19 13:07 | CM.DPC ---
Addendum entered by PRINCESS Duarte 09/19/23 15:48: ADD: Per OT, SLUMS score 8/30 showing significant cognitive decline. SW met bedside with spouse and she confirms that pt had increased confusion at his last admission that did clear after discharging home and that pt currently seems below baseline with increased confusion. SW inquired about dementia and she states pt currently on cognitive medications prescribed by PCP and they would be agreeable to a referral to Neurology. Pt does not remember SW meeting bedside 2 hours ago with him and discussion about HH. Both pt and spouse agreeable to remain overnight as they do not feel medically stable to discharge tonight. Spouse will get DME from [employer] tomorrow and will be bedside by 1000 tomorrow morning to transport pt home. RN and MD updated. BF Addendum entered by PRINCESS Duarte 09/19/23 13:34: ADD: Per MD, ordered OT for cog eval/SLUMS prior to discharge as pt seemed fairly confused and potentially below baseline cognition. SW updated OT and they kindly will see pt next. VARUN updated RN. BF Original Note: DCP Home with HH Per MD, pt medically stable to d/c home today with PO meds and recommending HH. No identified barriers to discharge. Per PT, home with assist and HH, pt somewhat impulsive. SW met bedside with pt and he confirms his preference is to discharge home today and SW discussed recommendation of HH and discussed services and frequency and pt confirms he is agreeable with HH and after reviewing HH Choice list pt does not have any preference. VARUN helped to get his Sig Other Nona on the room phone and updated her on pt's discharge today and she is agreeable with providing transport around 1500 today and agreeable with [facility]. SW made [facility] referral and completed F2F and HH orders. VARUN updated RN. Plan: Patient to d/c home via [facility] POV and [facility] to follow after discharge. PRINCESS Duarte
--- NOTE | 2023-09-19 14:56 | OT.IP.EVAL ---
Current Diagnoses Sepsis, unspecified organism (09/16/23) Past Medical History (Last Reviewed 08/29/23 @ 02:13 by Lalit Shell MD) Anxiety (10/08/15) Benign prostatic hyperplasia Cancer (~2008) Change in stool caliber Chicken pox (~1955) Chronic back pain (~1999) Dry eyes Essential hypertension (10/08/15) Hepatitis C (~1994) History of hematuria History of tobacco use Hyperglycemia Hyperlipidemia Libido, decreased Low back pain Lower urinary tract symptoms Memory impairment Nicotine abuse Partial small bowel obstruction Short-term memory loss Substance abuse (~1974) Surgical History (Last Reviewed 08/29/23 @ 02:13 by Lalit Shell MD) Anesthesia Pseudomyxoma peritonei (~08/02/08) Occupational Therapy Inpatient Evaluation/Re-Eval M1 PT/OT-IP Prior Functional Status Start: 09/18/23 13:00 Freq: NEEDED Status: Active Protocol: Document 09/19/23 11:50 LRN (Rec: 09/19/23 12:31 LRN [id number]) Medical Review Prior Functional Status Medical History Reviewed Yes Communication Unsure baseline diet and cognition/mentation Mobility and Gait Unsure baseline mobility as pt cannot report. Activities of Daily Living and IADL's Unsure baseline ADLs as pt cannot report. Social History Household Members significant other Living Arrangements House Number of Stairs To Enter/Railing? Unsure how many floors pt's house has. He states there are some steps maybe 8 and cannot report if there is a rail or not Employment Status Unemployed Additional Social History Comment Pt cannot state home set-up/ DME. There's one in the truck when PT asks pt if he has a cane or walker but he cannot specify which one M1 PT/OT-IP Prior Functional Status Start: 09/19/23 14:35 Freq: NEEDED Status: Active Protocol: Document 09/19/23 14:35 TOMAS (Rec: 09/19/23 14:56 TOMAS [id number]) Medical Review Prior Functional Status Medical History Reviewed Yes Diet/Fluid Consistency Regular Communication Unsure baseline diet and cognition/mentation Mobility and Gait pt reports he used something to walk with but he lost them Activities of Daily Living and IADL's pt reports he did not need help with BADL Prior Functional Level (Other details) pt says that 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 Pt says his tools are in the basement. Pt guesses he has 14 steps to the basement. Home Environment Standard Height Toilet,Tub/ Shower Home Equipment Grab Bars Near Toilet,Grab Bars In Shower Employment Status Unemployed M2 OT-IP Current Condition Start: 09/19/23 14:35 Freq: Status: Active Protocol: Document 09/19/23 14:35 TOMAS (Rec: 09/19/23 14:56 PADMAPAZOFIA [id number]) Occupational Therapy Current Condition Current Condition Evaluation Date 09/19/23 Treatment Diagnosis encephalopathy, alterted mental status Diagnosis Onset Date 09/16/23 M3 OT- IP Subjective and Pain Start: 09/19/23 14:35 Freq: Status: Active Protocol: Document 09/19/23 14:35 TOMAS (Rec: 09/19/23 14:56 PADMAPAZOFIA [id number]) OT- Subjective Occupational Therapy Visit Type Type Initial Evaluation Visit Start Time 13:55 Visit Stop Time 14:30 Notes Pt is reclined in bed on entrance of OT. Pt is agreeable to participating in OT eval. Occupational Therapy Visit Comments Patient Comments I think I get to go home tomorrow. OT Pain Assessment Pain When Pain Assessed At Rest Pain Present Pain Present Denied Pain M4 OT- IP ADL's Start: 09/19/23 14:35 Freq: Status: Active Protocol: Document 09/19/23 14:35 TOMAS (Rec: 09/19/23 14:56 TOMAS [id number]) OT [id number] Comments OT Self-Feeding Comments not observed during eval OT ADL-Grooming General Evaluation Grooming Ability Standby Assistance Comments OT Grooming Comments pt performs sink side grooming with SBA. pt is able to gather needed items from around the sink area OT ADL-Oral Care General Eval Oral Care Ability Standby Assistance OT ADL-Dressing General Eval Upper Body Dressing Ability Standby Assistance Lower Body Dressing Ability Standby Assistance Comments OT Dressing Comments UB dressing not observed. Pt is able to manage underwear style pull up without assistance. OT ADL-Toileting General Evaluation Toileting Ability Standby Assistance,Total Assistance Areas Needing Assistance Empty Catheter or Colostomy Devices Toileting Assistive Devices Grab Bars Comments OT Toileting Comments Pt performs toileting for bowel movement with SBA, managing clothing and hygiene. Pt is using a catheter currently. OT ADL-Bathing Comments OT Bathing Comments pt declined at this time, not observed. M5 OT- IP IADL's Start: 09/19/23 14:35 Freq: Status: Active Protocol: Document 09/19/23 14:35 PADMAELYZOFIA (Rec: 09/19/23 14:56 [facility] [id number]) OT-Instrumental Activities of Daily Living Home Safety Awareness Awareness of Need for Assistance at Home Decreased Awareness Ability to Problem Solve Emergency Unable to Problem Solve Situations Home Safety Comments while ambulating throughout pt room, pt requires vcs to safely use walker. Pt is unable to problem solve its position with sink side ADLs requiring vcs. Medication Management Medication Management Comments girlfriend may be needed to assist Money Management Money Management Comments girlfriend may be needed to assist Meal Preparation Meal Preparation Comments girlfriend will likely be needed to assist Glacing Machine Tender Glacing Machine Tender Comments girlfriend will likely be needed to assist Driving Driving Comments girlfriend will likely need to assist M6 OT- IP Functional Cognition Start: 09/19/23 14:35 Freq: Status: Active Protocol: Document 09/19/23 14:35 PADMAELYZOFIA (Rec: 09/19/23 14:56 [facility] [id number]) Cognitive Factors Limiting Selfcare Function Cognitive Ability Level of Alertness Confusional State Patient Orientation Name,Month,Year Attention Span Ability Capable of Focused Attention, Capable of Sustained Attention Ability to Follow Commands Able to Follow One Step Commands with Increased Time Memory Description Immediate Impaired,Short Term Impaired,Longterm Impaired Safety Awareness Underestimates Need for Assistance Problem Solving Ability Needs Assist to Identify Solutions Cognitive Tests SLUMS Pt scores a 8/30, indicative of dementia. Pt accurately answers question #2 (year), #3 (state), #6 states 9 animals, #8 correctly reverses 649, #9 draws the clock numbers correctly but does not correctly identify the time, # 10 correctly benitez x on triangle and identifies the largest shape. Cognitive Comments Cognitive Assessment Comments Pt often trails off when trying to answer a question or recall a word. Occasionally, with extra time, pt is able to recall the word. OT- Vision and Hearing OT- Hearing Assessment OT- Hearing Assessment WFL OT- Vision Assessment Visual Acuity WFL M7 OT- IP Mobility and Balance Start: 09/19/23 14:35 Freq: Status: Active Protocol: Document 09/19/23 14:35 TOMAS (Rec: 09/19/23 14:56 [facility] [id number]) OT- Bed Mobility Assessment Supine to Sit Supine to Sit Assist Minimal Assistance,Bedrails Scooting Scooting to Edge of Bed Standby Assistance Scooting Up and Down in Bed Standby Assistance OT-Transfer Assessment Sit to and From Stand Sit to and from Stand Standby Assistance Transfers Transfer Ability Standby Assistance Technique Transfer Destination Bed,Toilet Transfer Technique Stand Step Pivot Devices Transfer Assistive Devices Gait Belt,Front Wheeled Walker Comments Mobility Comments Pt requires vc for sequencing and safety OT- Gait Assessment Gait Gait Assistance Required: Standby Assistance,Contact Guard Assist Distance (Feet) 40 Assistive Devices Assistive Device Gait Belt,Front Wheeled Walker Comments Gait Ability Comments Pt takes slow shuffling steps and frequently watches his feet while taking steps. Pt needs vc/tc for safe placement and maneuvering of FWW at times. OT- Balance Assessment Sitting Balance and Reactions Static Sitting Balance Ability Good Dynamic Sitting Balance Ability Fair Standing Balance and Reactions Static Standing Balance Ability Good Dynamic Standing Balance Ability Fair M8 OT- IP Objective Assessments Start: 09/19/23 14:35 Freq: Status: Active Protocol: Document 09/19/23 14:35 TOMAS (Rec: 09/19/23 14:56 [facility] [id number]) OT Gross Range of Motion Upper Extremity Range of Motion Assessment Within Functional Limits OT Strength Upper Extremity Strength Assessment Within Functional Limits Hand Phthalic Acid Purifier Strength Hand Dominance Right OT- Coordination Assessment Upper Extremity Finger to Nose Test Within Functional Limits Finger Tapping Test Within Functional Limits M9 OT- IP Assessment and Plan Start: 09/19/23 14:35 Freq: Status: Active Protocol: Document 09/19/23 14:35 TOMAS (Rec: 09/19/23 14:56 [facility] [id number]) OT Summary Assessment and Plan Potential Rehabilitation Potential Good Analytic Complexity at Evaluation Moderate Summary OT Impairments Balance,Functional Cognition, Functional Mobility,Dressing, Toileting,Bathing,Toilet Transfers,Shower Transfers, Activity Tolerance Progress Towards Goals Slow Progress due to Cognition Assessment Summary Pt is a 72 yo M presenting with altered mental status. Per chart review, his girlfriend has noted a decline in his cognition since his SBO sx 06/2023. Pt presents with confusion, trouble word- finding, difficulty following commands, decreased safety awareness, decreased functional t/fs, and decreased BADL. Skilled OT services are appropriate to address pt deficits and promote return to PLOF. Goals Self-Feeding Goal Independent Grooming Goal Independent Dressing Goal Independent Toileting Goal Independent Bathing Goal Independent Toilet Transfer Goal Independent,Grab Bars Shower Transfer Goal Independent,Shower Chair,Grab Bars Frequency of Treatment Frequency Of Treatment Once a Day Treatment Plan OT Treatment Plan ADL Training,Functional Cognition Training,Functional Mobility,Patient/Family Education,Discharge Planning Discharge Recommendations OT Discharge Recommendations Home with Assistance,Home Health
[2023-09-19] MEDS: POTASSIUM CHLORIDE 20 MEQ TAB 40 MEQ PO (15:35)
[2023-09-19 16:00] VITALS: BP 152/70; PULSE 97; RESP 18; TEMP 37.1; O2SAT 97
--- NOTE | 2023-09-19 16:42 | P.PN_ITS ---
Subjective Subjective Interval history: Patient afebrile today. He is quite confused however. SLUMS shows 03/16 indicating dementia. 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 She will take him home and they are working to see a dementia specialist. Exam Vital Signs (past 8 hours): - 09/19/23 12:00 09/19/23 16:00 Temperature 99.0 F 98.8 F Pulse Rate 83 97 H Respiratory Rate 18 18 Blood Pressure 159/91 H 152/70 H Pulse Oximetry 96 97 Oxygen Flow Rate 0 0 Oxygen Delivery Method Room Air Oxygen Flow Rate 0 Narrative Exam Narrative: GEN: intermittently confused, no acute distress HEENT:NC, Face symmetric CHEST: Respiratory excursions symmetric, CTAB CV: RRR, no M/R/G ABD: large midline incision, non-distended, soft EXTR: warm, well perfused, no C/C/E SKIN: warm and dry, no rash NEURO: no focal deficits Objective Labs 09/19/23 08:30 09/19/23 08:30 Labs: Laboratory Results - last 24 hr 09/19/23 08:30 WBC 8.3 RBC 3.90 L Hgb 12.1 L Hct 34.4 L MCV 88.2 MCH 31.0 MCHC 35.2 RDW 13.1 Plt Count 193 Neut % (Auto) 83.9 H Lymph % (Auto) 9.5 L [place] % (Auto) 5.5 Eos % (Auto) 0.7 L Baso % (Auto) 0.4 Neut # (Auto) 7000 Lymph # (Auto) 800 L [place] # (Auto) 500 Eos # (Auto) 100 Baso # (Auto) 0 Sodium 139 Potassium 3.5 Chloride 107 Carbon Dioxide 28 BUN 7 L Creatinine 0.55 L Estimated GFR > 60 BUN/Creatinine Ratio 12.7 Glucose 147 H Calcium 8.8 Magnesium 2.0 PFSH Medical History Nicotine abuse History of tobacco use History of hematuria Benign prostatic hyperplasia Lower urinary tract symptoms Partial small bowel obstruction Short-term memory loss Hyperglycemia Libido, decreased Change in stool caliber Substance abuse (~1974) Chronic back pain (~1999) Chicken pox (~1955) Hepatitis C (~1994) Cancer (~2008) Low back pain Hyperlipidemia Dry eyes Memory impairment Essential hypertension (10/08/15) Anxiety (10/08/15) Surgical History Anesthesia Pseudomyxoma peritonei (~08/02/08) Family History Father Diabetes mellitus History of heart disease Mental health problem Hypertension Mother Sepsis Hypertension Sister Cancer Hypertension Sister Diabetes mellitus Hypertension Grandfather History of heart disease Grandmother History of heart disease Social History marital status: unmarried,living together household members: significant other occupational status: employed Smoking Status: Former smoker alcohol intake: former Assessment & Plan Assessment & Plan narrative: 1. Sepsis with acute metabolic encephalopathy, hyperbilirubinemia secondary to gram negative bacteremia (likely E. coli) associated with chronic carlson - continue zosyn, urine cultures with navarro sensitive E. coli. Blood cultures positive with GNB and GPC. Suspect GPC is contaminant but will see final results. Narrowed from zosyn to ceftriaxone 2g q24 hr. - carlson changed prior to admit at outpatient urology clinic. - continue vanc as has h/o MRSA in previous wound. - SOFA score of 2 on admission - will stop IV fluids - f/up final blood culture results 2. Hypokalemia - K 3.3 on admission, continue to follow. 3. HTN - continue lisinopril and amlodipine 4. Cognitive decline. Continue home Namenda. SLUMS on 08/21 was 03/16. Patient to see dementia specialist as outpatient. 5. BPH/urine retention. Continue Flomax, carlson replaced as an outpatient with urology on 09/16/23 6. Dyslipidemia continue home statin 7. DVT prophylaxis will be with Lovenox CODE STATUS is full. Surrogate is patient's spouse. Dispo: Home with partner on 09/19 with .
[2023-09-19] MEDS: ACETAMINOPHEN 325 MG TABLET 650 MG PO (17:40)
[2023-09-19 20:00] VITALS: BP 135/70; PULSE 89; RESP 17; TEMP 37.3; O2SAT 95
[2023-09-19] MEDS: ATORVASTATIN 20 MG TABLET 10 MG PO (21:17)
[2023-09-19] MEDS: LATANOPROST 0.005% OPHTH 2.5 ML 1 DROPS EYE-LEFT (21:18)
[2023-09-20] VITALS: BP 130/80; PULSE 76; RESP 16; TEMP 37.1; O2SAT 96
[2023-09-20 06:13] VITALS: BP 130/80; PULSE 76; RESP 16; TEMP 37.1; O2SAT 96
[2023-09-20 06:40] LABS: Add Manual Diff / Slide Review NO; Basophils Absolute Auto 0 /uL (0-100); Basophils Percent Auto 0.5 % (0-2); Eosinophils Absolute Auto 100 /uL (0-450); Hematocrit 31.1 % (41-53); Hemoglobin 11.1 g/dL (13.5-17.5); Lymphocytes Absolute Auto 700 /uL (1100-4500); Lymphocytes Percent Auto 12.6 % (25-40); Mean Corpuscular HGB Conc 35.7 % (30-36); Mean Corpuscular Hemoglobin 31.7 PG (26-34); Mean Corpuscular Volume 88.9 fL (80-100); Monocytes Absolute Auto 400 /uL (0-900); Monocytes Percent Auto 6.8 % (3-14); Neutrophils Absolute Auto 4500 /uL (1500-7000); Neutrophils Percent Auto 78.1 % (50-75); Platelet Count 210 X10^3/uL (150-400); Red Cell Distribution Width 13.1 % (11.6-14.8); White Blood Cell Count 5.7 X10^3/uL (4.5-11.0)
[2023-09-20 06:53] LABS: HEMOLYSIS < 15 (0-50); Potassium 3.4 mmol/L (3.4-5.1)
[2023-09-20 06:54] LABS: BUN Creatinine Ratio 12.7 (6-22); Blood Urea Nitrogen 7 mg/dL (9-20); Calcium 8.6 mg/dL (8.4-10.2); Carbon Dioxide 28 mmol/L (22-32); Chloride 107 mmol/L (98-107); Estimated Glomerular Filt Rate > 60 mL/min (>60); Glucose 123 mg/dL (80-110); Magnesium 1.7 mg/dL (1.6-2.3); Sodium 140 mmol/L (137-145)
--- NOTE | 2023-09-20 07:56 | P.DS_ITS ---
History of Present Illness History of Present Illness Chief complaint: increased confusion Narrative: 72 years old male with a past medical history of hypertension, dyslipidemia, small bowel obstruction status post surgery in June 2023, dyslipidemia and other medical issues was brought to the emergency room for altered mental status. Patient had been declining physically and to some degree cognitively since his surgery in June 2023. Earlier in the day, patient had followed up with urology for chronic urinary retention with subsequent Carlson placement and that was replaced today in the office. Patient was alone at home by himself for a few hours and on return, the spouse found him to be confused which between the bed and the nightstand. He was not aware of the surroundings time or place him. Now he is able to give some answers but for the most part history has been obtained from the spouse at bedside. Apparently, the new Carlson catheter was inserted after the penis was cleansed with hIBICLENS. There is no recent history of shortness of breath cough wheezing headache. Denies any chest pain or shortness of breath. does report that patient has not been himself since the surgery for bowel obstruction in June. In the ED was noted to have a temp of 103 and tachycardic with a heart rate in the 120s and initially tachypneic. WBC was normal and the lactic acid was 2.8. Urinalysis show 3200 WBCs. Influenza COVID and RSV was negative. CT scan of the chest/chest shows no acute process. CT abdomen shows moderate left renal edema with mild hydronephrosis. Thick-walled urinary bladder with a Carlson in place. Patient was initiated on IV fluids and IV Zosyn with vancomycin. Admitted for further evaluation Discharge Providers Provider Date of admission: 09/16/23 20:26 Discharge Date: 09/20/23 Primary care physician: Tip Blackman MD Consults: 09/18/23 12:16 Consult to Physical Therapy Evaluate & Treat Comment: Physician Instructions: Evaluate and Treat 09/19/23 12:55 Consult to Occupational Therapy Evaluate & Treat Comment: [facility] [place] Physician Instructions: Evaluate and treat 09/19/23 13:14 Consult to Home Health Routine Comment: UTI, encephalopathy, SOB, Sepsis Reason For Exam: Set up RN/PT for discharge to home. Discharge provider: Zaheer Mcgill DO Summary Hospital Course Discharge Diagnosis: 1. Sepsis with acute metabolic encephalopathy, hyperbilirubinemia secondary to gram negative bacteremia (likely E. coli) associated with chronic carlson - continue zosyn, urine cultures with navarro sensitive E. coli. Blood cultures positive with GNB and GPC. Suspect GPC is contaminant but will see final results. Narrowed from zosyn to ceftriaxone 2g q24 hr. - carlson changed prior to admit at outpatient urology clinic. - continue vanc as has h/o MRSA in previous wound. Stopped on dc. - SOFA score of 2 on admission - will stop IV fluids - blood cultures with E. coli, GPC are likely contaminant 2. Hypokalemia - K 3.3 on admission, continue to follow. 3. HTN - continue lisinopril and amlodipine 4. Cognitive decline. Continue home Namenda. SLUMS on 08/21 was 03/16. Patient to see dementia specialist as outpatient. 5. BPH/urine retention. Continue Flomax, carlson replaced as an outpatient with urology on 09/16/23 6. Dyslipidemia continue home statin Hospital Course: Admitted for pyelo and sepsis and found to be bacteremic with pansensitive E. coli from urinary source. Carlson changed. Placed on zosyn then rocephin. Improved and discharged on po levaquin to finish 2 week course at home with HH. Exam Vital Signs (past 8 hours): - 09/20/23 00:00 09/20/23 06:13 Temperature 98.8 F 98.8 F Pulse Rate 76 76 Respiratory Rate 16 16 Blood Pressure 130/80 130/80 Pulse Oximetry 96 96 Oxygen Flow Rate 0 0 Oxygen Delivery Method Room Air Oxygen Flow Rate 0 Narrative Exam Narrative: GEN: intermittently confused, no acute distress HEENT:NC, Face symmetric CHEST: Respiratory excursions symmetric, CTAB CV: RRR, no M/R/G ABD: large midline incision, non-distended, soft EXTR: warm, well perfused, no C/C/E SKIN: warm and dry, no rash NEURO: no focal deficits Objective Labs 09/20/23 06:00 09/20/23 06:00 Labs: Laboratory Results - last 24 hr 09/19/23 09/20/23 08:30 06:00 WBC 8.3 5.7 RBC 3.90 L 3.50 L Hgb 12.1 L 11.1 L Hct 34.4 L 31.1 L MCV 88.2 88.9 MCH 31.0 31.7 MCHC 35.2 35.7 RDW 13.1 13.1 Plt Count 193 210 Neut % (Auto) 83.9 H 78.1 H Lymph % (Auto) 9.5 L 12.6 L [place] % (Auto) 5.5 6.8 Eos % (Auto) 0.7 L 2.0 Baso % (Auto) 0.4 0.5 Neut # (Auto) 7000 4500 Lymph # (Auto) 800 L 700 L [place] # (Auto) 500 400 Eos # (Auto) 100 100 Baso # (Auto) 0 0 Sodium 139 140 Potassium 3.5 3.4 Chloride 107 107 Carbon Dioxide 28 28 BUN 7 L 7 L Creatinine 0.55 L 0.55 L Estimated GFR > 60 > 60 BUN/Creatinine Ratio 12.7 12.7 Glucose 147 H 123 H Calcium 8.8 8.6 Magnesium 2.0 1.7 PFSH Medical History Nicotine abuse History of tobacco use History of hematuria Benign prostatic hyperplasia Lower urinary tract symptoms Partial small bowel obstruction Short-term memory loss Hyperglycemia Libido, decreased Change in stool caliber Substance abuse (~1974) Chronic back pain (~1999) Chicken pox (~1955) Hepatitis C (~1994) Cancer (~2008) Low back pain Hyperlipidemia Dry eyes Memory impairment Essential hypertension (10/08/15) Anxiety (10/08/15) Surgical History Anesthesia Pseudomyxoma peritonei (~08/02/08) Family History Father Diabetes mellitus History of heart disease Mental health problem Hypertension Mother Sepsis Hypertension Sister Cancer Hypertension Sister Diabetes mellitus Hypertension Grandfather History of heart disease Grandmother History of heart disease Social History marital status: unmarried,living together household members: significant other occupational status: employed Smoking Status: Former smoker alcohol intake: former Discharge Plan Discharge Plan Patient Disposition: Home Health Service Provider Discharge Comment: Please finish 10 days of oral antibiotics for your bloodstream and urinary infection. Discharge orders & Medications Prescriptions: New levofloxacin 750 mg tablet 750 mg PO DAILY 10 Days Qty: 10 0RF Rx Instructions: start on 09/20 Continued lisinopril 5 mg tablet 5 mg PO DAILY Qty: 90 3RF (DME) OneTouch Ultra Blue Test Strip Strip See Rx Instructions .ROUTE .MEDSUPPLY Qty: 10 3RF Rx Instructions: As directed daily amlodipine 5 mg tablet 15 mg PO DAILY Rx Instructions: take 3 tablets by mouth once daily citalopram 20 mg tablet 40 mg PO DAILY Rx Instructions: take 2 tablets by mouth once daily lorazepam 0.5 mg tablet 0.5 mg PO TID PRN (Reason: Anxiety) Rx Instructions: Take 1 tablet by mouth 3 times daily if needed simvastatin 20 mg tablet 20 mg PO BEDTIME Rx Instructions: take 1 tablet by mouth at bedtime memantine 5 mg tablet 5 mg PO BID Rx Instructions: t1 tab po orally daily for 2 weeks, then increase to twice a day thereafter; latanoprost 0.005 % drops 1 drp EYE-LEFT BEDTIME tamsulosin 0.4 mg capsule 0.8 mg PO DAILY Qty: 60 12RF Follow up/Referrals: Tip Blackman MD [Primary Care Provider] - 10/04/23 1:30 pm (Appt:10/03 @ 1:30 with Melissa lee please arrive 15 min prior to scheduled aappointment time) Visit Report/Discharge Packet Instructions: DI for Urinary Tract Infection (UTI), DI for Sepsis -- Adult, Levofloxacin Stand Alone Forms: Patient Portal/API, Stroke Signs & Symptoms Discharge Data Primary Care Provider: Tip Blackman
[2023-09-20 08:00] VITALS: O2SAT 96
[2023-09-20] MEDS: POTASSIUM CHLORIDE 20 MEQ TAB 40 MEQ PO (08:14)
[2023-09-20] MEDS: CITALOPRAM 10 MG TABLET 40 MG PO (08:14)
[2023-09-20] MEDS: cefTRIAXone 2,000 MG in SODIUM CHLORIDE 0.9% 100 ML 200 MG IV (08:14)
[2023-09-20 08:15] VITALS: BP 157/70
[2023-09-20] MEDS: AMLODIPINE 5 MG TABLET 10 MG PO (08:15)
[2023-09-20] MEDS: lisinopriL 5 MG TABLET PO (08:15)
[2023-09-20] MEDS: polyethylene glycoL 3350 17 GM POWD.PACK PO (08:16)
[2023-09-20] MEDS: SODIUM CHLORIDE 0.9% FLUSH 10 ML IV (08:16)
[2023-09-20] MEDS: TAMSULOSIN 0.4 MG CAPSULE 0.8 MG PO (08:17)
[2023-09-20] MEDS: MEMANTINE HCL 5 MG TABLET PO (08:17)
[2023-09-20] MEDS: MAGNESIUM CHLORIDE 64 MG TABLET 128 MG PO (08:24)
[2023-09-20 08:35] VITALS: BP 157/70; PULSE 85; RESP 18; TEMP 37.1; O2SAT 96
--- NOTE | 2023-09-20 09:05 | PT.IPTN ---
Current Diagnoses Sepsis, unspecified organism (09/16/23) Physical Therapy Treatment Note M2 PT-IP Current Condition Start: 09/18/23 13:00 Freq: NEEDED Status: Active Protocol: Document 09/19/23 11:50 LRN (Rec: 09/19/23 12:31 LRN [id number]) Physical Therapy Current Condition Current Condition Evaluation Date 09/18/23 Treatment Diagnosis Confusion, UTI, infection M3 PT-IP Subjective Start: 09/18/23 13:00 Freq: NEEDED Status: Active Protocol: Document 09/20/23 10:11 TS (Rec: 09/20/23 10:19 TS [id number]) Subjective Physical Therapy Visit Type Type Treatment Note Visit Start Time 09:05 Visit Stop Time 09:44 Number of TANK CREWMEMBER Visits 1 Physical Therapy Visit Comments Patient Comments Pt found resting in chair, is agreeable to PT. M4 PT-IP Mobility and Gait Start: 09/18/23 13:00 Freq: NEEDED Status: Active Protocol: Document 09/20/23 10:11 TS (Rec: 09/20/23 10:19 TS [id number]) PT-Transfer Assessment Sit to and From Stand Sit to and from Stand Standby Assistance,1 Person Assistance,Use of Upper Extremities Equipment Transfer Assistive Device Gait Belt,Front Wheeled Walker Orthotic/Prosthetic Devices or Brace: No Comments Mobility Comments STS with no AD SBA with BUE support pushing from arms of hcair. pt stood no AD initially, was unsteady, recommended use of FWW. He amblated to toilet, performed own pericare. He ambulated with FWW ~300'SBA with slow gait and some unsteadiness. Pt ambulated back to room, was left in chair, all needs met. Gait Assessment Gait Gait Assistance Required: Standby Assistance Distance (Feet) 300 Able to Maintain Weight Bearing Status Yes During Gait Assistive Devices Assistive Device Gait Belt,Front Wheeled Walker Orthotic/Prosthetic Devices or Brace: No Gait Deviations General Gait Pattern Decreased Stride Length, Decreased Feet Clearance, Festinating Factors Limiting Gait Function Factors Limiting Gait Function Decreased Activity Tolerance, Decreased Strength,Poor Balance,Poor Safety Awareness M5 PT-IP Objective Assessments Start: 09/18/23 13:00 Freq: NEEDED Status: Active Protocol: Document 09/19/23 11:50 LRN (Rec: 09/19/23 12:31 LRN [id number]) Orientation Orientation/Cognition Level of Alertness Confusional State Orientation Name,Place Language Function Ability No Deficits Noted Safety Awareness Decreased Safety Awareness Memory Description Short Term Impaired,Assistant Director Of Security Impaired Comments Pt appears alert and oriented, but indicates he is in hospital after a surgery. M6 PT-IP Treatment Start: 09/18/23 13:00 Freq: NEEDED Status: Active Protocol: Document 09/19/23 11:50 LRN (Rec: 09/19/23 12:31 LRN [id number]) Physical Therapy Treatment Other Treatments Other Treatment Performed Gait and stair training. M7 PT-IP Assessment and Plan Start: 09/18/23 13:00 Freq: NEEDED Status: Active Protocol: Document 09/20/23 10:11 TS (Rec: 09/20/23 10:19 TS [id number]) PT Summary Assessment and Plan Potential Rehabilitation Potential Good Summary Impairments Cognition,Transfers,Gait Progress Towards Goals Progressing Toward Goals Assessment Summary Duy continues to ambulate long distances with his FWW, he does require cues for safety. He has some unsteadiness with his gait and standing balance, improves with use of FWW. PT continues to recommend home with assist and HHPT. Goals Bed Mobility Goal Independent Transfer Goal Independent,Cane,Front Wheeled Walker Gait Goal Independent,Cane,Front Wheel Walker Gait Distance 100 Other Goals Pt will ascend and descend 8 steps with LRAD and/or rail ( whichever he has at home and he cannot report today) and no more than superv assistance. Days to Meet Goals 5 Frequency of Treatment Frequency Of Treatment Once a Day Treatment Plan Physical Therapy Treatment Plan Transfer Training,Gait Training,Therapeutic Exercise, Balance Retraining,Discharge Planning,Neuromuscular Re-ed Weight Bearing Status Weight Bearing Status Weight Bear as Tolerated Recommendations To Nursing Amount of Assist Needed Standby Assistance Discharge Recommendations PT Discharge Recommendations Home with Assistance,Home Health Transportation Needs at Discharge Private Vehicle
[2023-09-20] MEDS: VANCOMYCIN 1,500 MG/300 ML PIGGYBACK 200 MG IV (09:06)
--- NOTE | 2023-09-20 11:05 | CM.DPC ---
DCP Discharge Home with HH Per MD, pt to have last dose of IV-Abx this morning and medically stable to d/c home on oral abx and script sent to [facility]. SW met bedside with pt and Sig Other Nona and they confirm they are agreeable with d/c to home today and they obtained a FWW for home use and called [facility] to confirm script is being filled. [facility] MARYLU RN set up for carlson management and PT for ongoing strengthening. Nona will provide transport home after IV-Abx and before lunch time. RN updated and will provide discharge instructions soon. [facility] updated and F2F and HH orders previously sent yesterday. Plan: Patient to discharge home today via Sig Other POV and Audie VALERO to follow for RN/PT. PRINCESS Duarte
--- NOTE | 2023-09-20 11:10 | PC.NURSE ---
Pt is dressed and ready for discharge home with S.O. Nona. IV has been removed. Went over d/c instructions with Pt/S.O. - discussed d/c meds, time of last dose, stroke education, taking complete prescription of abx as ordered, drinking plenty of fluids to prevent constipation or dehydration, Home Health PT/RN and follow up. Pt denied further questions and was taken out via w/c by REGIONAL EDUCATION MANAGER to POV with S.O. and all belongings.
== END 2023-09-20 11:12 | disposition home health service (06) | DRG 698 ==
LOC: ED 19:24 → AC 20:26
PROVIDERS: Internal Medicine; Admitting Provider Internal Medicine; Emergency Provider Emergency Medicine; PCP Family Medicine; Referring Provider Emergency Medicine; Visit Provider Internal Medicine
DX: T83.511A Infection and inflammatory reaction due to indwelling urethral catheter, initial encounter (principal); A41.9 Sepsis, unspecified organism; G93.41 Metabolic encephalopathy; N13.6 Pyonephrosis; N40.1 Benign prostatic hyperplasia with lower urinary tract symptoms; R33.8 Other retention of urine; E78.5 Hyperlipidemia, unspecified; E80.6 Other disorders of bilirubin metabolism; E87.6 Hypokalemia; I10 Essential (primary) hypertension; R41.81 Age-related cognitive decline; B96.20 Unspecified Escherichia coli [E. coli] as the cause of diseases classified elsewhere; F41.9 Anxiety disorder, unspecified; Z87.891 Personal history of nicotine dependence; Z23 Encounter for immunization
CPT/HCPCS: 0241U; 36415; 70450; 71275; 72125; 74177; 80048; 80053; 81001; 82550; 83605; 83690; 83735; 83880; 84145; 84484; 85025; 85610; 85730; 87040; 87077; 87086; 87154; 87186; 90471; 90662; 93005; 96365; 96367; 96368; 97116; 97161; 97166; 97530; 99285; J0696; J1170; J1650; J2405; J2543; J7050; Q9967

== ENCOUNTER → 2023-10-11 09:24 | Outpatient (CLI) | payer OTHER, SELFPAY ==
[2023-10-10 13:31] VITALS: BMI 25.0
[2023-10-27 08:02] LABS: Misc. to WA State Lab SEE SCANNED REPORTS
== END ==
PROVIDERS: PCP Family Medicine; Visit Provider Urology
DX: N39.0 Urinary tract infection, site not specified (principal); Z87.440 Personal history of urinary (tract) infections
CPT/HCPCS: 87077; 87086

== ENCOUNTER → 2023-10-12 10:35 | Outpatient (CLI) | payer OTHER, SELFPAY ==
[2023-10-10 13:31] VITALS: BMI 25.0
[2023-10-12 12:20] LABS: Add Manual Diff / Slide Review NO; Basophils Absolute Auto 0 /uL (0-100); Basophils Percent Auto 0.3 % (0-2); Eosinophils Absolute Auto 200 /uL (0-450); Eosinophils Percent Auto 2.5 % (2-4); Hematocrit 39.7 % (41-53); Hemoglobin 13.7 g/dL (13.5-17.5); Lymphocytes Absolute Auto 2400 /uL (1100-4500); Mean Corpuscular HGB Conc 34.5 % (30-36); Mean Corpuscular Hemoglobin 30.8 PG (26-34); Mean Corpuscular Volume 89.3 fL (80-100); Monocytes Absolute Auto 300 /uL (0-900); Monocytes Percent Auto 4.3 % (3-14); Neutrophils Absolute Auto 3100 /uL (1500-7000); Neutrophils Percent Auto 52.9 % (50-75); Platelet Count 184 X10^3/uL (150-400); Red Blood Cell Count 4.45 X10^6/uL (4.5-5.9); Red Cell Distribution Width 13.9 % (11.6-14.8); White Blood Cell Count 5.9 X10^3/uL (4.5-11.0)
[2023-10-12 12:54] LABS: Alanine Aminotransferase 24 IU/L (<50); Albumin 4.4 g/dL (3.5-5.0); Albumin Globulin Ratio 1.3 (1.0-2.8); Alkaline Phosphatase 61 U/L (38-126); Aspartate Aminotransferase 25 IU/L (17-59); BUN Creatinine Ratio 26.7 (6-22); Bilirubin Total 1.1 mg/dL (0.2-1.3); Blood Urea Nitrogen 16 mg/dL (9-20); Calcium 9.8 mg/dL (8.4-10.2); Carbon Dioxide 29 mmol/L (22-32); Chloride 104 mmol/L (98-107); Estimated Glomerular Filt Rate > 60 mL/min (>60); Globulin 3.5 g/dL (1.7-4.1); Glucose 112 mg/dL (80-110); HEMOLYSIS < 15 (0-50); Potassium 4.4 mmol/L (3.4-5.1); Sodium 140 mmol/L (137-145); Total Protein 7.9 g/dL (6.3-8.2)
[2023-10-13 11:11] LABS: Fecal Immunochemical Test Negative (Negative)
== END ==
PROVIDERS: PCP Family Medicine; Referring Provider Physician Assistant; Visit Provider Physician Assistant
DX: D64.9 Anemia, unspecified (principal); F41.9 Anxiety disorder, unspecified
CPT/HCPCS: 36415; 80053; 82274; 85025

== ENCOUNTER → 2023-10-17 13:47 | Outpatient (CLI) | payer OTHER, SELFPAY ==
[2023-10-10 13:31] VITALS: BMI 25.0
== END ==
PROVIDERS: PCP Family Medicine; Visit Provider Urology
DX: N39.0 Urinary tract infection, site not specified (principal); Z87.440 Personal history of urinary (tract) infections
CPT/HCPCS: 51702; 87077; 87086; 87186

== ENCOUNTER → 2023-11-03 09:23 | Outpatient (CLI) | payer OTHER, SELFPAY ==
[2023-10-10 13:31] VITALS: BMI 25.0
[2023-11-03 10:08] LABS: Appearance Urine UA CLEAR; Bilirubin Urine UA NEGATIVE (NEGATIVE); Color Urine UA YELLOW; Glucose Urine UA NEGATIVE (Negative); Ketones Urine UA NEGATIVE (NEGATIVE); Leukocyte Esterase Urine UA 1+ (NEGATIVE); Nitrite Urine UA POSITIVE (Negative); Occult Blood Urine UA 1+ (Negative); Protein Urine UA 1+ (Negative); Specific Gravity Urine UA 1.025 (1.000-1.035); Urobilinogen Urine UA 0.2 E.U./dL (0.2)
[2023-11-03 10:30] LABS: Bacteria Urine Many (>30); RBC Urine 1-5/HPF (0-5/HPF); Squamous Epithelial Cell Urine 0-1 /HPF (0-5/HPF); Urine Volume 10mL (spun); WBC Urine 10-30/HPF (0-5/HPF)
[2023-11-03 10:31] LABS: Culture Indicated Urine Specimen Cultured
== END ==
PROVIDERS: PCP Family Medicine; Visit Provider Urology
DX: R39.9 Unspecified symptoms and signs involving the genitourinary system (principal)
CPT/HCPCS: 81001; 87077; 87086; 87186

== ENCOUNTER 2023-11-06 13:24 | Inpatient (IN) | payer OTHER, SELFPAY ==
[2023-10-10 13:31] VITALS: BMI 25.0
[2023-11-06] VITALS (15 sets, daily range): BP systolic 122–159; BP diastolic 60–92; PULSE 64–106; RESP 16–23; TEMP 36.6–39.6; O2SAT 92–98; BMI 26.9
--- NOTE | 2023-11-06 13:52 | ED.FEVER ---
HPI - Fever General Chief Complaint: Fever Stated Complaint: possible UTI- has a catheter Time Seen by Provider: 11/06/23 13:43 Source: patient and family Mode of arrival: Family Vehicle History of Present Illness HPI Narrative: Patient here with . History of sepsis admission September of 2023. History indwelling Rhodes catheter since June of 2023 for BPH. Has had multiple UTIs in the past. Patient is awake alert oriented self date of however does not recall date month or year. Past urine cultures does show Klebsiella and E coli sensitive to Rocephin. Most recently urine culture November 03, 2023. Showed Klebsiella. Fever medication given at 9:00 a.m. patient seen by Dr. Blackman primary care, as well as Dr. Duffy urology, last week for checkup. Patient gets Rhodes catheter changed every 4 weeks. It has been 4 weeks since the last Rhodes catheter change. Related Data Home Medications Medication Instructions Recorded Confirmed latanoprost 0.005 % eye drops 1 drp EYE-LEFT BEDTIME 06/22/23 11/03/23 citalopram 20 mg tablet 40 mg PO DAILY 09/16/23 11/03/23 lorazepam 0.5 mg tablet 0.5 mg PO TID PRN Anxiety 09/16/23 11/03/23 memantine 5 mg tablet 5 mg PO BID 09/16/23 11/03/23 simvastatin 20 mg tablet 20 mg PO BEDTIME 09/16/23 11/03/23 Previous Rx's Medication Instructions Recorded blood sugar diagnostic (OneTouch #10 ea 10/27/20 Ultra Blue Test Strip) tamsulosin 0.4 mg capsule 0.8 mg (2 x 0.4 mg) PO DAILY #60 08/02/23 caps ferrous sulfate 325 mg (65 mg 325 mg PO DAILY #90 tabs 10/04/23 iron) tablet amlodipine 10 mg tablet 10 mg PO DAILY #90 tabs 11/03/23 lisinopril 20 mg tablet 20 mg PO DAILY #90 tabs 11/03/23 Allergies Allergy/AdvReac Type Severity Reaction Status Date / Time No Known Drug Allergies Allergy Unknown Verified 11/03/23 14:14 Review of Systems Review of Systems Narrative: GENERAL: Positive chills, fatigue, malaise, fever, negative sweats. HEENT: negative sinus pain, ear pain, sore throat RESPIRATORY: negative dyspnea, cough CARDIOVASCULAR: negative chest pain, palpitations GASTROINTESTINAL: negative nausea, vomiting, abdominal pain : negative dysuria, frequency, hematuria MUSCULOSKELETAL: negative muscle or bony pain SKIN: negative rash, skin lesions NEUROLOGIC: negative weakness, numbness Patient History Medical History Benign prostatic hyperplasia with lower urinary tract symptoms History of urinary tract infection History of sepsis Nicotine abuse History of tobacco use History of hematuria Benign prostatic hyperplasia Lower urinary tract symptoms Partial small bowel obstruction Short-term memory loss Hyperglycemia Libido, decreased Change in stool caliber Substance abuse (~1974) Chronic back pain (~1999) Chicken pox (~1955) Hepatitis C (~1994) Cancer (~2008) Low back pain Hyperlipidemia Dry eyes Memory impairment Essential hypertension (10/08/15) Anxiety (10/08/15) Surgical History Anesthesia Pseudomyxoma peritonei (~08/02/08) Family History Father Diabetes mellitus History of heart disease Mental health problem Hypertension Mother Sepsis Hypertension Sister Cancer Hypertension Sister Diabetes mellitus Hypertension Grandfather History of heart disease Grandmother History of heart disease Social History marital status: unmarried,living together household members: significant other occupational status: employed Smoking Status: Former smoker alcohol intake: former Smoking Status: Former smoker Substance Use Type: does not use Exam Narrative Exam Narrative: GENERAL: in no distress, not toxic not dyspneic HEAD: Normocephalic. EYES: Pupils equal round ENT: Mucous membranes moist. NECK: Trachea midline. CARDIOVASCULAR: Regular rate and rhythm RESPIRATORY: Clear to auscultation. Breath sounds equal bilaterally. No wheezes, rales, or rhonchi. GASTROINTESTINAL: Abdomen soft, non-tender EXTREMITIES: No gross deformities. BACK: No flank tenderness. NEURO: Clear speech, awake alert oriented self and date of only. SKIN: Warm and dry PSYCH: Not anxious, is cooperative, not combative Initial Vital Signs Initial Vital Signs: Vital Signs Temperature 103.2 F H 11/06/23 13:37 Pulse Rate 105 H 11/06/23 13:37 Respiratory Rate 20 11/06/23 13:37 Blood Pressure 159/72 H 11/06/23 13:37 Pulse Oximetry 96 11/06/23 13:37 Oxygen Delivery Method Room Air 11/06/23 13:37 Course Orders Ordered: ED Orders 11/06/23 13:47 Blood Culture Stat 11/06/23 14:06 Complete Blood Count AUTO DIFF Stat Comprehensive Metabolic Panel Stat Procalcitonin Stat 11/06/23 14:08 Lactate (Lactic Acid) Stat 11/06/23 14:15 Urinalysis and Microscopic Stat Urine Culture Stat 11/06/23 15:35 Blood Culture Stat Acetaminophen (Acetaminophen 325 Mg Tablet) 975 mg PO Q6HR PRN PRN Reason: Fever/Mild Pain (1-3) Amlodipine Besylate (Amlodipine 5 Mg Tablet) 10 mg PO DAILY [facility] Atorvastatin Calcium (Atorvastatin 20 Mg Tablet) 10 mg PO BEDTIME [facility] Citalopram Hydrobromide (Citalopram 10 Mg Tablet) 40 mg PO DAILY [facility] Enoxaparin Sodium (Enoxaparin 40 Mg/0.4 Ml Syringe) 40 mg SUBCUT DAILY [facility] Ferrous Sulfate (Ferrous Sulfate 325 Mg Tablet) 325 mg PO DAILY [facility] Ciprofloxacin (Cipro) 400 mg in 200 mls @ 200 mls/hr IV NOW ONE Stop: 11/06/23 17:40 Last Admin: 11/06/23 16:52 Dose: 200 mls/hr Documented By: MARIANN Ciprofloxacin (Cipro) 400 mg in 200 mls @ 200 mls/hr IV Q12H [facility] Lisinopril (Lisinopril 20 Mg Tablet) 20 mg PO DAILY [facility] Memantine (Memantine Hcl 5 Mg Tablet) 5 mg PO BID [facility] Naloxone HCl (Naloxone 0.4 Mg/Ml Vial) 0.2 mg IV Q2MIN PRN PRN Reason: Opiate Reversal Ondansetron HCl (Ondansetron 4 Mg/2 Ml Inj) 4 mg IV Q4HR PRN PRN Reason: Nausea And Vomiting Tamsulosin HCl (Tamsulosin 0.4 Mg Capsule) 0.8 mg PO DAILY [facility] Discontinued Medications Ceftriaxone Sodium 2,000 mg/ (Sodium Chloride) 100 mls @ 200 mls/hr IV NOW ONE Stop: 11/06/23 13:51 Last Infusion: 11/06/23 15:24 Dose: Infused Documented By: Admin: 11/06/23 14:21 Dose: 200 mls/hr Documented By: MARIANN Sodium Chloride (Normal Saline 0.9%) 1,000 mls @ 1,000 mls/hr IV BOLUS ONE Stop: 11/06/23 14:51 Last Infusion: 11/06/23 15:25 Dose: Infused Documented By: Admin: 11/06/23 14:21 Dose: 1,000 mls/hr Documented By: MARIANN Ibuprofen (Ibuprofen 400 Mg Tablet) 800 mg PO NOW ONE Stop: 11/06/23 13:53 Last Admin: 11/06/23 14:21 Dose: 800 mg Documented By: MARIANN Vital Signs Vital signs: Vital Signs - 8 hr 11/06/23 13:37 11/06/23 15:24 11/06/23 15:24 Temperature 103.2 F H 100 F H 100 F H Pulse Rate 105 H Respiratory Rate 20 Blood Pressure 159/72 H Pulse Oximetry 96 Oxygen Delivery Method Room Air MDM - Fever Lab Data 11/06/23 14:06 11/06/23 14:06 Labs: Lab Results 11/06/23 11/06/23 11/06/23 Range/Units 14:06 14:08 14:15 WBC 12.2 H (4.5-11.0) X10^3/uL RBC 3.75 L (4.5-5.9) X10^6/uL Hgb 11.5 L (13.5-17.5) g/dL Hct 33.8 L (41-53) % MCV 90.1 (80-100) fL MCH 30.5 (26-34) PG MCHC 33.9 (30-36) % RDW 14.0 (11.6-14.8) % Plt Count 200 (150-400) X10^3/uL Neut % (Auto) 87.5 H (50-75) % Lymph % (Auto) 7.6 L (25-40) % Collin % (Auto) 4.7 (3-14) % Eos % (Auto) 0.1 L (2-4) % Baso % (Auto) 0.1 (0-2) % Neut # (Auto) 25400 H (0708-2923) /uL Lymph # (Auto) 900 L (1392-1473) /uL Collin # (Auto) 600 (0-900) /uL Eos # (Auto) 0 (0-450) /uL Baso # (Auto) 0 (0-100) /uL Sodium 137 (137-145) mmol/L Potassium 3.8 (3.4-5.1) mmol/L Chloride 105 (98-107) mmol/L Carbon Dioxide 27 (22-32) mmol/L BUN 16 (9-20) mg/dL Creatinine 0.63 L (0.66-1.25) mg/dL Estimated GFR > 60 (>60) mL/min BUN/Creatinine Ratio 25.4 H (6-22) Glucose 153 H (80-110) mg/dL Lactate 1.1 (0.7-2.1) mmol/L Calcium 9.0 (8.4-10.2) mg/dL Total Bilirubin 1.4 H (0.2-1.3) mg/dL AST 32 (17-59) IU/L ALT 27 (<50) IU/L Alkaline Phosphatase 59 (38-126) U/L Total Protein 7.5 (6.3-8.2) g/dL Albumin 4.3 (3.5-5.0) g/dL Globulin 3.2 (1.7-4.1) g/dL Albumin/Globulin Ratio 1.3 (1.0-2.8) Procalcitonin < 0.30 (<0.5) ng/mL Urine Color Yellow Urine Appearance Cloudy Urine pH 6.0 (4.5-8.0) Ur Specific [place] 1.020 (1.000-1.035) Urine Protein 2+ H (Negative) Urine Glucose (UA) Negative (Negative) g/dL Urine Ketones Negative (NEGATIVE) Urine Occult Blood 2+ H (Negative) Urine Nitrate Positive H (Negative) Urine Bilirubin Negative (NEGATIVE) Urine Urobilinogen 1.0 (0.2) E.U./dL Ur Leukocyte Esterase 3+ H (NEGATIVE) Urine RBC 1-5/hpf (0-5/HPF) Urine WBC >100/hpf H (0-5/HPF) Ur Squamous Epith Cells 0-1 /hpf (0-5/HPF) Urine Bacteria Moderate (10-30) H (None) Ur Culture Indicated? Specimen cultured Micro UA Comment Vol Urine Centrifuged 10ml (spun) MDM Narrative Medical decision making narrative: Patient here with . History of sepsis admission March of 2024. History indwelling Rhodes catheter since June of 2023 for BPH. Has had multiple UTIs in the past. Patient is awake alert oriented self date of however does not recall date month or year. Past urine cultures does show Klebsiella and E coli sensitive to Rocephin. Most recently urine culture November 03, 2023. Showed Klebsiella. Fever medication given at 9:00 a.m. patient seen by Dr. Blackman primary care, as well as Dr. Duffy urology, last week for checkup. Patient gets Rhodes catheter changed every 4 weeks. It has been 4 weeks since the last Rhodes catheter change. After history and exam CBC CMP procalcitonin lactic acid blood culture urine culture Rocephin, admit, Rhodes catheter change MDM Medical records reviewed: Admission for sepsis last month, urinalysis culture sensitivity from 3 days ago. Differential considered: Includes but not limited to sepsis UTI Lab Test results independently reviewed as above. Pertinent findings: WBC 12.2 BUN 16 creatinine 0.63 urine positive leukocyte esterase positive nitrite greater than 100 WBC Lactic acid 1.1 Consultations: 4:55 p.m.. Spoke with hospitalist, Dr. Mcgill, he will admit patient Treatments: Normal saline Rocephin ibuprofen Cipro Re-evaluations: 3:37 p.m. Reviewed results with patient and . They do agree for admit. Antibiotics have been started. Fever is improved Discussion: Appropriate for admission for IV antibiotics for acute UTI. . Patient has low threshold for sepsis. IV antibiotics have been started. Fever has improved. Vital signs otherwise reassuring Diagnosis: Acute UTI Discharge Plan Departure Patient Disposition: Admitted as Observation Clinical Impression: Acute UTI Admit Date/Time: 11/06/23 16:52 Admit Provider: Zaheer Mcgill
[2023-11-06 14:16] LABS: Add Manual Diff / Slide Review NO; Basophils Absolute Auto 0 /uL (0-100); Basophils Percent Auto 0.1 % (0-2); Eosinophils Absolute Auto 0 /uL (0-450); Eosinophils Percent Auto 0.1 % (2-4); Hematocrit 33.8 % (41-53); Hemoglobin 11.5 g/dL (13.5-17.5); Lymphocytes Absolute Auto 900 /uL (1100-4500); Lymphocytes Percent Auto 7.6 % (25-40); Mean Corpuscular HGB Conc 33.9 % (30-36); Mean Corpuscular Hemoglobin 30.5 PG (26-34); Mean Corpuscular Volume 90.1 fL (80-100); Monocytes Absolute Auto 600 /uL (0-900); Monocytes Percent Auto 4.7 % (3-14); Neutrophils Absolute Auto 10700 /uL (1500-7000); Neutrophils Percent Auto 87.5 % (50-75); Platelet Count 200 X10^3/uL (150-400); Red Blood Cell Count 3.75 X10^6/uL (4.5-5.9); White Blood Cell Count 12.2 X10^3/uL (4.5-11.0)
[2023-11-06] MEDS: SODIUM CHLORIDE 0.9% 1,000 ML 1000 ML IV (14:21)
[2023-11-06] MEDS: cefTRIAXone 2,000 MG in SODIUM CHLORIDE 0.9% 100 ML 200 MG IV (14:21)
[2023-11-06] MEDS: IBUPROFEN 400 MG TABLET 800 MG PO (14:21)
--- NOTE | 2023-11-06 14:30 | PC.NURSE ---
Catheter changed per MD request. UA collected from new catheter.
--- NOTE | 2023-11-06 14:31 | PC.NURSE ---
Pt GCS 14. Confused, rambling. Pt states he started to not make sense today and is due for a catheter changed. Pt scheduled to have aqua-ablation in nine days per .
[2023-11-06 14:33] LABS: Appearance Urine UA CLOUDY; Bilirubin Urine UA NEGATIVE (NEGATIVE); Color Urine UA YELLOW; Glucose Urine UA NEGATIVE (Negative); Ketones Urine UA NEGATIVE (NEGATIVE); Leukocyte Esterase Urine UA 3+ (NEGATIVE); Nitrite Urine UA POSITIVE (Negative); Occult Blood Urine UA 2+ (Negative); Protein Urine UA 2+ (Negative)
[2023-11-06 14:38] LABS: Alanine Aminotransferase 27 IU/L (<50); Albumin 4.3 g/dL (3.5-5.0); Albumin Globulin Ratio 1.3 (1.0-2.8); Alkaline Phosphatase 59 U/L (38-126); Aspartate Aminotransferase 32 IU/L (17-59); BUN Creatinine Ratio 25.4 (6-22); Bilirubin Total 1.4 mg/dL (0.2-1.3); Blood Urea Nitrogen 16 mg/dL (9-20); Carbon Dioxide 27 mmol/L (22-32); Chloride 105 mmol/L (98-107); Estimated Glomerular Filt Rate > 60 mL/min (>60); Globulin 3.2 g/dL (1.7-4.1); Glucose 153 mg/dL (80-110); HEMOLYSIS < 15 (0-50); Potassium 3.8 mmol/L (3.4-5.1); Sodium 137 mmol/L (137-145); Total Protein 7.5 g/dL (6.3-8.2)
[2023-11-06 14:41] LABS: Bacteria Urine Moderate (10-30); RBC Urine 1-5/HPF (0-5/HPF); Squamous Epithelial Cell Urine 0-1 /HPF (0-5/HPF); Urine Volume 10mL (spun); WBC Urine >100/HPF (0-5/HPF)
[2023-11-06 14:42] LABS: Culture Indicated Urine Specimen Cultured
[2023-11-06 15:34] LABS: Procalcitonin < 0.30 ng/mL (<0.5)
[2023-11-06] MEDS: CIPROFLOXACIN 400 MG/200 ML PIGGYBACK 200 MG IV (16:52)
[2023-11-06 16:53] LABS: Lactate (Lactic Acid) 1.1 mmol/L (0.7-2.1)
--- NOTE | 2023-11-06 18:22 | P.HP_ITS ---
History of Present Illness <cameron Cummings - Last Filed: 11/06/23 18:40> History of Present Illness Chief complaint: possible UTI- has a catheter Narrative: Duy Stephens is a 73 YO M with a PMH of recurrent UTIs, BPH, HTN, hyperlipidemia, anemia, anxiety and short term memory loss. He is presenting today with a UTI and altered mental status. He gets cathed every 4 weeks due to his BPH causing urinary obstruction. His last catheter replacement was around 4 weeks ago. His says it is typical for him to get excessively confused when he has a UTI, which is what brought them in. He was admitted here a month ago with sepsis from his UTI. The cultures grew E-coli and Klebsiella then. He is scheduled to get aqua ablation of his prostate gland on November 14 and is hoping to still make that appointment. <Zaheer Mcgill DO - Last Filed: 11/06/23 18:56> History of Present Illness Date Patient Seen: 11/06/23 Narrative: Duy Stephens is a 73 YO M with a PMH of recurrent UTIs, BPH, HTN, hyperlipidemia, anemia, anxiety and short term memory loss. He is presenting today with a UTI and altered mental status. He gets his carlson cath changed every 4 weeks due to his BPH causing urinary obstruction. His last catheter replacement was around 4 weeks ago. His says it is typical for him to get excessively confused when he has a UTI, which is what brought them in. He was admitted here a month ago with sepsis from his UTI. The cultures grew Pseudomonas and Klebsiella then. He is scheduled to get aqua ablation of his prostate gland on November 14 and is hoping to still make that appointment. He says he came to the hospital today for his urology appt, not realizing it was Tuesday. He was sent to the ED due to fevers instead and found to be febrile to 103F. UA with significant pyuria. He currently is sitting up and eating dinner. Is feeling somewhat better. [facility] <Hernando Matthews - Last Filed: 11/06/23 18:40> Medical History Benign prostatic hyperplasia with lower urinary tract symptoms History of urinary tract infection History of sepsis Nicotine abuse History of tobacco use History of hematuria Benign prostatic hyperplasia Lower urinary tract symptoms Partial small bowel obstruction Short-term memory loss Hyperglycemia Libido, decreased Change in stool caliber Substance abuse (~1974) Chronic back pain (~1999) Chicken pox (~1955) Hepatitis C (~1994) Cancer (~2008) Low back pain Hyperlipidemia Dry eyes Memory impairment Essential hypertension (10/08/15) Anxiety (10/08/15) Surgical History Anesthesia Pseudomyxoma peritonei (~08/02/08) Family History Father Diabetes mellitus History of heart disease Mental health problem Hypertension Mother Sepsis Hypertension Sister Cancer Hypertension Sister Diabetes mellitus Hypertension Grandfather History of heart disease Grandmother History of heart disease Social History marital status: unmarried,living together household members: significant other occupational status: employed Smoking Status: Former smoker alcohol intake: former Meds <Hernando Matthews - Last Filed: 11/06/23 18:40> Home Medications and Allergies Home Medications Medication Instructions Recorded Confirmed Type blood sugar diagnostic (OneTouch #10 ea 10/27/20 11/03/23 Rx Ultra Blue Test Strip) latanoprost 0.005 % eye drops 1 drp EYE-LEFT BEDTIME 06/22/23 11/06/23 History tamsulosin 0.4 mg capsule 0.8 mg (2 x 0.4 mg) PO DAILY #60 08/02/23 11/06/23 Rx caps citalopram 20 mg tablet 40 mg PO DAILY 09/16/23 11/03/23 History lorazepam 0.5 mg tablet 0.5 mg PO TID PRN Anxiety 09/16/23 11/06/23 History memantine 5 mg tablet 5 mg PO BID 09/16/23 11/06/23 History simvastatin 20 mg tablet 20 mg PO BEDTIME 09/16/23 11/03/23 History ferrous sulfate 325 mg (65 mg 325 mg PO DAILY #90 tabs 10/04/23 11/06/23 Rx iron) tablet amlodipine 10 mg tablet 10 mg PO DAILY #90 tabs 11/03/23 11/06/23 Rx lisinopril 20 mg tablet 20 mg PO DAILY #90 tabs 11/03/23 11/06/23 Rx Allergies Allergy/AdvReac Type Severity Reaction Status Date / Time No Known Drug Allergies Allergy Unknown Verified 11/03/23 14:14 Review of Systems <Hernando Cummings Last Filed: 11/06/23 18:40> Review of Systems Narrative: Gen: + fever, - weight loss MSK: - flank pain Psych: + anxiety, + memory loss Exam [facility] - Last Filed: 11/06/23 18:40> Vital Signs (past 8 hours): - 11/06/23 13:31 11/06/23 13:31 11/06/23 13:37 Temperature 103.2 F H Pulse Rate 106 H 105 H Respiratory Rate 20 Blood Pressure 159/72 H 159/72 H Pulse Oximetry 94 96 Oxygen Delivery Method Room Air 11/06/23 14:00 11/06/23 14:00 11/06/23 14:30 Temperature Pulse Rate 93 H 85 Respiratory Rate Blood Pressure 136/62 Pulse Oximetry 97 97 Oxygen Delivery Method 11/06/23 14:30 11/06/23 15:00 11/06/23 15:01 Temperature Pulse Rate 79 82 Respiratory Rate 22 Blood Pressure 141/65 H Pulse Oximetry 96 96 Oxygen Delivery Method 11/06/23 15:01 11/06/23 15:24 11/06/23 15:24 Temperature 100 F H 100 F H Pulse Rate Respiratory Rate Blood Pressure 123/92 H Pulse Oximetry Oxygen Delivery Method 11/06/23 15:30 11/06/23 15:30 11/06/23 16:00 Temperature Pulse Rate 79 78 Respiratory Rate 23 Blood Pressure 131/60 Pulse Oximetry 95 95 Oxygen Delivery Method 11/06/23 16:00 11/06/23 16:30 11/06/23 16:30 Temperature Pulse Rate 77 Respiratory Rate Blood Pressure 134/61 132/62 Pulse Oximetry 94 Oxygen Delivery Method 11/06/23 17:00 11/06/23 17:00 11/06/23 17:08 Temperature 98.8 F Pulse Rate 74 73 Respiratory Rate 23 16 Blood Pressure 129/60 129/60 Pulse Oximetry 92 96 Oxygen Delivery Method Room Air 11/06/23 17:30 11/06/23 17:30 Temperature Pulse Rate 75 Respiratory Rate 23 Blood Pressure 147/69 H Pulse Oximetry 96 Oxygen Delivery Method Oxygen Delivery Method Room Air Narrative Exam Narrative: Gen: NAD, sitting up right but not answering questions appropriately Resp: normal respiratory effort, no wheezing CV: Regular rate and rhythm, no murmurs herd Abd: soft and non distended, non tender upon palpation on all 4 quadrants : non tender suprapubic tenderness MSK: no flank pain Neuro: not oriented to place, 2/3 word recall Objective <Hernando Cummingsjosue - Last Filed: 11/06/23 18:40> Labs 11/06/23 14:06 11/06/23 14:06 Labs: Laboratory Results - last 24 hr 11/06/23 11/06/23 11/06/23 14:06 14:08 14:15 WBC 12.2 H RBC 3.75 L Hgb 11.5 L Hct 33.8 L MCV 90.1 MCH 30.5 MCHC 33.9 RDW 14.0 Plt Count 200 Neut % (Auto) 87.5 H Lymph % (Auto) 7.6 L [place] % (Auto) 4.7 Eos % (Auto) 0.1 L Baso % (Auto) 0.1 Neut # (Auto) 13766 H Lymph # (Auto) 900 L [place] # (Auto) 600 Eos # (Auto) 0 Baso # (Auto) 0 Sodium 137 Potassium 3.8 Chloride 105 Carbon Dioxide 27 BUN 16 Creatinine 0.63 L Estimated GFR > 60 BUN/Creatinine Ratio 25.4 H Glucose 153 H Lactate 1.1 Calcium 9.0 Total Bilirubin 1.4 H AST 32 ALT 27 Alkaline Phosphatase 59 Total Protein 7.5 Albumin 4.3 Globulin 3.2 Albumin/Globulin Ratio 1.3 Procalcitonin < 0.30 Urine Color Yellow Urine Appearance Cloudy Urine pH 6.0 Ur Specific [place] 1.020 Urine Protein 2+ H Urine Glucose (UA) Negative Urine Ketones Negative Urine Occult Blood 2+ H Urine Nitrate Positive H Urine Bilirubin Negative Urine Urobilinogen 1.0 Ur Leukocyte Esterase 3+ H Urine RBC 1-5/hpf Urine WBC >100/hpf H Ur Squamous Epith Cells 0-1 /hpf Urine Bacteria Moderate (10-30) H Ur Culture Indicated? Specimen cultured Micro UA Comment Vol Urine Centrifuged 10ml (spun) Assessment & Plan <Hernando Cummingsjosue - Last Filed: 11/06/23 18:40> Assessment & Plan narrative: # Pyelonephritis - secondary to terminal gauger supervisor catheterization - started on Rocephin in the ER, change to Ciprofloxacin for Pseudomonnas coverage - Replace catheter - administer normal saline #Acute Encephalopathy - reassess mental status after eradication of UTI - continue memantine # BPH - scheduled to get aqua ablation in 9 days - continue tamsulosin # HTN - continue amlodapine and lisinopril # Hyperlipidemia - continue simvastatin # Anxiety - continue citalopram #anemia - continue ferrous sulfate <Zaheer Mcgill DO - Last Filed: 11/06/23 18:56> Assessment & Plan narrative: # sepsis 2/2 acute pyelonephritis -febrile to 103F, WBC 12.2, RR 23 - likely secondary to terminal gauger supervisor catheterization - started on Rocephin in the ER, change to Ciprofloxacin for Pseudomonas and enterococcus coverage - carlson catheter replaced in ED - administer normal saline #Acute Encephalopathy, with history of mild dementia - reassess mental status after treatment of UTI - continue memantine # BPH - scheduled to get aqua ablation in 9 days on November 14 - continue tamsulosin # HTN - continue amlodapine and lisinopril # Hyperlipidemia - continue simvastatin # Anxiety - continue citalopram #anemia - continue ferrous sulfate Code status is full code. DVT prophylaxis with Lovenox. Proxy is patient's girlfriend Nona. I have reviewed home meds and used all available resources to reconcile the home meds. Case discussed with ED physician/APC and patient will be admitted to the hospitalist service for further workup and management. This patient will be admitted as inpatient and will require greater than 2 midnights of hospital time to treat pyelonephritis. Quality <Hernando Matthews - Last Filed: 11/06/23 18:40> VTE Deep Vein Thrombosis/Pulmonary Embolism Present on Admission: No
[2023-11-06] MEDS: SODIUM CHLORIDE 0.9% 1,000 ML 100 ML IV (19:39)
[2023-11-06] MEDS: MEMANTINE HCL 5 MG TABLET PO (21:01)
[2023-11-06] MEDS: ATORVASTATIN 20 MG TABLET 10 MG PO (21:01)
[2023-11-06] MEDS: polyethylene glycoL 3350 17 GM POWD.PACK PO (21:18)
--- NOTE | 2023-11-06 23:28 | PC.NURSE ---
lieutenant shift supervisor: Patient is alert & oriented to self & place, requires reorientation on situation and took some time to accurately state month/year. Patient states that he feels like his mentation is beginning to clear. Patient is cooperative with care, oriented to call-light and calls appropriately. Ambulates w/ 1 PA and cane. Rhodes in place, patent and draining. Denies pain, N/V, SOB, chest pain. IVF infusing as ordered. VSS. Plan of care ongoing.
[2023-11-07] MEDS: CIPROFLOXACIN 400 MG/200 ML PIGGYBACK 200 MG IV ×2 (04:04→16:44)
[2023-11-07 04:48] VITALS: BP 141/67; PULSE 78; RESP 17; TEMP 36.4; O2SAT 98
[2023-11-07 06:54] LABS: Add Manual Diff / Slide Review NO; Basophils Absolute Auto 0 /uL (0-100); Basophils Percent Auto 0.3 % (0-2); Eosinophils Absolute Auto 100 /uL (0-450); Eosinophils Percent Auto 1.2 % (2-4); Hematocrit 34.1 % (41-53); Hemoglobin 11.7 g/dL (13.5-17.5); Lymphocytes Absolute Auto 1600 /uL (1100-4500); Lymphocytes Percent Auto 15.5 % (25-40); Mean Corpuscular HGB Conc 34.4 % (30-36); Mean Corpuscular Hemoglobin 30.8 PG (26-34); Mean Corpuscular Volume 89.6 fL (80-100); Monocytes Absolute Auto 500 /uL (0-900); Monocytes Percent Auto 4.9 % (3-14); Neutrophils Absolute Auto 7900 /uL (1500-7000); Neutrophils Percent Auto 78.1 % (50-75); Platelet Count 188 X10^3/uL (150-400); Red Cell Distribution Width 14.2 % (11.6-14.8); White Blood Cell Count 10.1 X10^3/uL (4.5-11.0)
[2023-11-07 07:10] LABS: Blood Urea Nitrogen 9 mg/dL (9-20); Calcium 8.4 mg/dL (8.4-10.2); Carbon Dioxide 26 mmol/L (22-32); Chloride 110 mmol/L (98-107); Estimated Glomerular Filt Rate > 60 mL/min (>60); Glucose 163 mg/dL (80-110); HEMOLYSIS < 15 (0-50); Potassium 3.5 mmol/L (3.4-5.1); Sodium 141 mmol/L (137-145)
--- NOTE | 2023-11-07 07:45 | PM.PN.1 ---
Subjective Subjective Interval history: He has feeling a little bit better, but is still quite weak. He denies any abdominal pain or new diarrhea. No vomiting. His fever has improved. Exam Vital Signs (past 8 hours): - 11/07/23 04:48 Temperature 97.6 F Pulse Rate 78 Respiratory Rate 17 Blood Pressure 141/67 H Pulse Oximetry 98 Oxygen Flow Rate 0 Oxygen Delivery Method Room Air Oxygen Flow Rate 0 Narrative Exam Narrative: NAD, alert and oriented. Fluent speech. Lungs are clear, normal rate and effort. Heart is regular, no murmur gallop or rub. Abdomen is soft, non distended. Extremities are free of edema. Objective Labs 11/07/23 04:50 11/07/23 04:50 Labs: Laboratory Results - last 24 hr 11/06/23 11/06/23 11/06/23 14:06 14:08 14:15 WBC 12.2 H RBC 3.75 L Hgb 11.5 L Hct 33.8 L MCV 90.1 MCH 30.5 MCHC 33.9 RDW 14.0 Plt Count 200 Neut % (Auto) 87.5 H Lymph % (Auto) 7.6 L [place] % (Auto) 4.7 Eos % (Auto) 0.1 L Baso % (Auto) 0.1 Neut # (Auto) 47431 H Lymph # (Auto) 900 L [place] # (Auto) 600 Eos # (Auto) 0 Baso # (Auto) 0 Sodium 137 Potassium 3.8 Chloride 105 Carbon Dioxide 27 BUN 16 Creatinine 0.63 L Estimated GFR > 60 BUN/Creatinine Ratio 25.4 H Glucose 153 H Lactate 1.1 Calcium 9.0 Total Bilirubin 1.4 H AST 32 ALT 27 Alkaline Phosphatase 59 Total Protein 7.5 Albumin 4.3 Globulin 3.2 Albumin/Globulin Ratio 1.3 Procalcitonin < 0.30 Urine Color Yellow Urine Appearance Cloudy Urine pH 6.0 Ur Specific [place] 1.020 Urine Protein 2+ H Urine Glucose (UA) Negative Urine Ketones Negative Urine Occult Blood 2+ H Urine Nitrate Positive H Urine Bilirubin Negative Urine Urobilinogen 1.0 Ur Leukocyte Esterase 3+ H Urine RBC 1-5/hpf Urine WBC >100/hpf H Ur Squamous Epith Cells 0-1 /hpf Urine Bacteria Moderate (10-30) H Ur Culture Indicated? Specimen cultured Micro UA Comment Vol Urine Centrifuged 10ml (spun) 11/07/23 04:50 WBC 10.1 RBC 3.80 L Hgb 11.7 L Hct 34.1 L MCV 89.6 MCH 30.8 MCHC 34.4 RDW 14.2 Plt Count 188 Neut % (Auto) 78.1 H Lymph % (Auto) 15.5 L [place] % (Auto) 4.9 Eos % (Auto) 1.2 L Baso % (Auto) 0.3 Neut # (Auto) 7900 H Lymph # (Auto) 1600 [place] # (Auto) 500 Eos # (Auto) 100 Baso # (Auto) 0 Sodium 141 Potassium 3.5 Chloride 110 H Carbon Dioxide 26 BUN 9 Creatinine 0.45 L Estimated GFR > 60 BUN/Creatinine Ratio 20.0 Glucose 163 H Lactate Calcium 8.4 Total Bilirubin AST ALT Alkaline Phosphatase Total Protein Albumin Globulin Albumin/Globulin Ratio Procalcitonin Urine Color Urine Appearance Urine pH Ur Specific [place] Urine Protein Urine Glucose (UA) Urine Ketones Urine Occult Blood Urine Nitrate Urine Bilirubin Urine Urobilinogen Ur Leukocyte Esterase Urine RBC Urine WBC Ur Squamous Epith Cells Urine Bacteria Ur Culture Indicated? Micro UA Comment Vol Urine Centrifuged [facility] Medical History Benign prostatic hyperplasia with lower urinary tract symptoms History of urinary tract infection History of sepsis Nicotine abuse History of tobacco use History of hematuria Benign prostatic hyperplasia Lower urinary tract symptoms Partial small bowel obstruction Short-term memory loss Hyperglycemia Libido, decreased Change in stool caliber Substance abuse (~1974) Chronic back pain (~1999) Chicken pox (~1955) Hepatitis C (~1994) Cancer (~2008) Low back pain Hyperlipidemia Dry eyes Memory impairment Essential hypertension (10/08/15) Anxiety (10/08/15) Surgical History Anesthesia Pseudomyxoma peritonei (~08/02/08) Family History Father Diabetes mellitus History of heart disease Mental health problem Hypertension Mother Sepsis Hypertension Sister Cancer Hypertension Sister Diabetes mellitus Hypertension Grandfather History of heart disease Grandmother History of heart disease Social History marital status: unmarried,living together household members: significant other occupational status: employed Smoking Status: Former smoker alcohol intake: former Assessment & Plan Assessment & Plan narrative: 1. Sepsis 2/2 acute pyelonephritis (catheter associated), present on admission and active. -febrile to 103F, WBC 12.2, RR 23 - started on Rocephin in the ER, changed to Ciprofloxacin for Pseudomonas and enterococcus coverage - carlson catheter replaced in ED - administer normal saline -urine and blood cultures pending. Klebsiella in urine as preliminary. 2. Acute septic encephalopathy (history of mild dementia), present on admission and resolved. - reassess mental status after treatment of UTI - continue memantine 3. BPH, present on admission and active. - scheduled to get aqua ablation in 9 days on November 14 - continue tamsulosin - will notify Dr. Duffy (Urology). 4. HTN, present on admission and active. - continue amlodapine and lisinopril 5. Hyperlipidemia, present on admission and active. - continue simvastatin 6. Anxiety, present on admission and active. - continue citalopram 7. Anemia, present on admission and active. - continue ferrous sulfate and monitor. The patient requires another night of hospital level care for IV antibiotics and monitoring if his response to antibiotics as well as final culture results. We will notify his urologist of his current admission. Code status is full code. DVT prophylaxis with Lovenox. Proxy is patient's girlfriend Nona. This patient was admitted as inpatient and will require greater than 2 midnights of hospital time to treat pyelonephritis. Quality VTE Deep Vein Thrombosis/Pulmonary Embolism Present on Admission: No
[2023-11-07 07:54] VITALS: BP 138/70; PULSE 71; RESP 20; TEMP 37.2; O2SAT 98
[2023-11-07] MEDS: AMLODIPINE 5 MG TABLET 10 MG PO (09:02)
[2023-11-07 09:03] VITALS: BP 138/70
[2023-11-07] MEDS: CITALOPRAM 10 MG TABLET 40 MG PO (09:03)
[2023-11-07] MEDS: TAMSULOSIN 0.4 MG CAPSULE 0.8 MG PO (09:03)
[2023-11-07] MEDS: FERROUS SULFATE 325 MG TABLET PO (09:03)
[2023-11-07] MEDS: ENOXAPARIN 40 MG/0.4 ML SYRINGE SUBCUT (09:03)
[2023-11-07] MEDS: MEMANTINE HCL 5 MG TABLET PO ×2 (09:03→20:51)
[2023-11-07] MEDS: lisinopriL 20 MG TABLET PO (09:03)
[2023-11-07] MEDS: POTASSIUM CHLORIDE 20 MEQ TAB 40 MEQ PO (10:42)
--- NOTE | 2023-11-07 11:58 | PT.IIE ---
Surgical History (Last Reviewed 11/07/23 @ 07:45 by Michael Mallory MD) Anesthesia Pseudomyxoma peritonei (~08/02/08) Medical History (Last Reviewed 11/07/23 @ 07:45 by Michael Mallory MD) Anxiety (10/08/15) Benign prostatic hyperplasia Benign prostatic hyperplasia with lower urinary tract symptoms Cancer (~2008) Change in stool caliber Chicken pox (~1955) Chronic back pain (~1999) Dry eyes Essential hypertension (10/08/15) Hepatitis C (~1994) History of hematuria History of sepsis History of tobacco use History of urinary tract infection Hyperglycemia Hyperlipidemia Libido, decreased Low back pain Lower urinary tract symptoms Memory impairment Nicotine abuse Partial small bowel obstruction Short-term memory loss Substance abuse (~1974) Physical Therapy Inpatient Evaluation/Re-Eval M1 PT/OT-IP Prior Functional Status Start: 11/07/23 11:16 Freq: NEEDED Status: Active Protocol: Document 11/07/23 11:20 MB (Rec: 11/07/23 11:58 MB [id number]) Medical Review Prior Functional Status Medical History Reviewed Yes Diet/Fluid Consistency Regular Communication Pt has mild stutter and word finding issues as well as cognitive challenges with PT Mobility and Gait I to mod I with SPC Activities of Daily Living and IADL's I to mod I Social History Household Members significant other Living Arrangements House Number of Floors (Floors) One Floor Number of Stairs To Enter/Railing? Steps to enter with right rail Home Equipment Straight Cane Additional Social History Comment Pt has trouble answering all questions and tends to have tangental conversation, does not answer questions directly. Does state that he drove and did most of the chores at home . 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 the steps M2 PT-IP Current Condition Start: 11/07/23 11:16 Freq: NEEDED Status: Active Protocol: Document 11/07/23 11:20 MB (Rec: 11/07/23 11:58 MB [id number]) Physical Therapy Current Condition Current Condition Evaluation Date 11/07/23 Treatment Diagnosis UTI M3 PT-IP Subjective Start: 11/07/23 11:16 Freq: NEEDED Status: Active Protocol: Document 11/07/23 11:20 MB (Rec: 11/07/23 11:58 MB [id number]) Subjective Physical Therapy Visit Type Type Initial Evaluation Visit Start Time 11:20 Visit Stop Time 11:35 Number of STOCK SELECTOR Visits 0 Physical Therapy Visit Comments Patient Comments Pt conversant and with some confusion and challenges answering questions Therapy Pain Assessment Pain When Pain Assessed At Rest Pain Present Pain Present Denied Pain M4 PT-IP Mobility and Gait Start: 11/07/23 11:16 Freq: NEEDED Status: Active Protocol: Document 11/07/23 11:20 MB (Rec: 11/07/23 11:58 MB [id number]) PT-Bed Mobility Assessment Supine to Sit Supine to Sit Independent Sit to Supine Sit to Supine Independent Scooting Scooting to Edge of Bed Independent Scooting Up and Down in Bed Independent PT-Transfer Assessment Sit to and From Stand Sit to and from Stand Independent,Standby Assistance Equipment Transfer Assistive Device Straight Cane Orthotic/Prosthetic Devices or Brace: No Transfers Transfer Technique Stepping Transfer Ability Level of Assist Independent,Standby Assistance Comments Mobility Comments [facility] and he requires cues to manage catheter and SBA and then I for transfers and mobility, some confusion and so he is not totally I in the acute setting but no functional needs Gait Assessment Gait Gait Assistance Required: Independent,Standby Assistance Distance (Feet) 80 Able to Maintain Weight Bearing Status Yes During Gait Assistive Devices Assistive Device Straight Cane Orthotic/Prosthetic Devices or Brace: No Gait Deviations General Gait Pattern Step-to Gait Factors Limiting Gait Function Factors Limiting Gait Function Poor Safety Awareness Comments Gait Comments Pt mobilizes well and has occ mis-stepping self-corrected with SPC in right hand and pt with some cognitive challenges and so not fully I but does not need PT for functional training, recommend cognitive consult by OT or speech Stair Climbing Assessment Evaluation Level of Assist On Stairs Independent,Standby Assistance Devices Stair Climbing Assistive Devices Straight Cane Technique/Endurance Stair Climbing Direction Ascend and Descend Stair Climbing Technique Step Over Step,Step to Step Number of Steps Climbed 3 Query Text: Stair Climbing Set # Repetitions (reps) 1 Comments Stair Climbing Comments Right rail ascend and same rail descend and cane in other hand, step to step and step over step PT-Balance Assessment Sitting Balance and Reactions Static Sitting Balance Ability Normal Dynamic Sitting Balance Ability Normal Standing Balance and Reactions Static Standing Balance Ability Good Dynamic Standing Balance Ability Good Device Used SPC right hand M5 PT-IP Objective Assessments Start: 11/07/23 11:16 Freq: NEEDED Status: Active Protocol: Document 11/07/23 11:20 MB (Rec: 11/07/23 11:58 MB [id number]) Orientation Orientation/Cognition Level of Alertness Confusional State Orientation Name,Age,Birthday,Month,Year Language Function Ability Word Finding Difficulties Safety Awareness Decreased Safety Awareness Memory Description Short Term Impaired,Investigative Analyst Impaired Comments Pt states that he is in [facility] [place] and does not know why he is in the hospital without cueing Gross Range of Motion Upper Extremity ROM Assessment Within Functional Limits Lower Extremity ROM Assessment Within Functional Limits Strength Upper Extremity Strength Assessment Within Functional Limits Lower Extremity Strength Assessment Within Functional Limits M6 PT-IP Treatment Start: 11/07/23 11:16 Freq: NEEDED Status: Active Protocol: Document 11/07/23 11:20 MB (Rec: 11/07/23 11:58 MB [id number]) Physical Therapy Treatment Education Education Provided Safety M7 PT-IP Assessment and Plan Start: 11/07/23 11:16 Freq: NEEDED Status: Active Protocol: Document 11/07/23 11:20 MB (Rec: 11/07/23 11:58 MB [id number]) PT Summary Assessment and Plan Potential Rehabilitation Potential Good Status of Condition at Evaluation Evolving Summary Impairments Cognition Progress Towards Goals Safe For Discharge Assessment Summary Pt mobilizes well and has no acute PT needs. Recommend nsg clearance and or superv when up and cognitive consult by OT or OCEAN LIFEGUARD SPECIALIST. Frequency of Treatment Frequency Of Treatment Discharge Recommendations To Nursing Amount of Assist Needed Standby Assistance,1 Person Assist Discharge Recommendations PT Discharge Recommendations Home with Assistance Transportation Needs at Discharge Private Vehicle
[2023-11-07 12:05] VITALS: BP 137/78; PULSE 93; RESP 18; TEMP 36.6; O2SAT 98
--- NOTE | 2023-11-07 12:12 | CM.DANOTE ---
DCP Assessment Note Pt is a 73yo M here following sepsis/UTI. pt has chronic catheter. Pt was scheduled for aqua ablatoin of his prostate November [address] Hiral Reddy of [facility] and self pay [employer] reviewed EMR. Per hospitalist in morning rounds, pt could dc tomorrow or the following day. Cultures pending. PT rec home with assistance. [employer] met with pt and friend Mateusz in room. Pt pleasant and chatty. Pt reports he lives in [place] with sig other Nona ([phone]). Pt has a cane he uses at baseline. Pt reports being hopeful for urology procedure end of October. Pt described in detail what the procedure entails. Pt reports he was confused last time he was in the hospital and he now knows what that is like, and he feels clear now. pt reports he would be open to resuming [facility] if needed but wasn't sure he would need it. Pt denies other CM needs at this time. [employer] spoke with Rad[facility] at [facility] Reports able to accept him back if needed. Plan: anticipate home with sig other in day or two. [facility] for RN if needed for carlson management. CM team will continue to follow as needed. PRINCESS Brothers Discharge Planning/Care Management CM Discharge Assessment Start: 11/07/23 12:07 Freq: Status: Active Protocol: Document 11/07/23 12:07 (Rec: 11/07/23 12:10 [id number]) Discharge Planning Assessment Assigned Furniture Arranger PRINCESS Greer DPOA/Assigned Designee Name Informally sig other Nona Paddok Contact Information [phone] Advance Directives? No Advance Directives on File No History Provided By Patient,Significant Other, Medical Record Prior Living Arrangements House Household Members significant other Willing to Return to Facility? No Independent with ADL's Yes Is patient alert and oriented? Yes Comment has carlson at baseline. DME Already Rented / Owned Cane Comment Hx of [facility]. Barriers to Discharge No Comment Home w/SO Discharge Plan Home Transportation Arrangement Sig Other Nona SNF/HH Preference resume [facility] Whiteboard Updated in Patient Room with Yes name and ext. # of Furniture Arranger Review Status In Process Please Provide Date Initial DC 11/07/23 Assessment Was Performed Next Review Type Continued Stay Review
[2023-11-07] MEDS: SODIUM CHLORIDE 0.9% FLUSH 10 ML IV ×2 (16:45→20:53)
[2023-11-07 20:23] VITALS: BP 145/75; PULSE 64; RESP 19; TEMP 36.6; O2SAT 98
[2023-11-07] MEDS: ATORVASTATIN 20 MG TABLET 10 MG PO (20:51)
[2023-11-07] MEDS: ACETAMINOPHEN 325 MG TABLET 975 MG PO (20:54)
[2023-11-07] MEDS: NICOTINE 21 MG PATCH TOP (23:47)
[2023-11-07] MEDS: TRAZODONE 50 MG TABLET PO (23:48)
--- NOTE | 2023-11-08 00:41 | PC.NURSE ---
manager of case: Patient is AxOx3, forgetful. VSS. Pt appears restless, stating that he would like to get some sleep but unable to. Requires frequent reorientation of call-light, impulsively getting OOB throughout the evening. Patient requested nicotine patch & a medication to help him sleep. Notified MD Hall, new orders placed. Nicotine patch placed on R arm, PO trazodone given. Fall precautions in place, plan of care ongoing.
[2023-11-08 01:00] VITALS: BP 146/73; PULSE 79; RESP 19; TEMP 36.4; O2SAT 96
[2023-11-08 05:57] LABS: Add Manual Diff / Slide Review NO; Basophils Absolute Auto 0 /uL (0-100); Basophils Percent Auto 0.4 % (0-2); Eosinophils Absolute Auto 200 /uL (0-450); Eosinophils Percent Auto 2.6 % (2-4); Hematocrit 35.8 % (41-53); Hemoglobin 12.1 g/dL (13.5-17.5); Lymphocytes Absolute Auto 2100 /uL (1100-4500); Lymphocytes Percent Auto 25.9 % (25-40); Mean Corpuscular HGB Conc 33.8 % (30-36); Mean Corpuscular Hemoglobin 30.6 PG (26-34); Mean Corpuscular Volume 90.5 fL (80-100); Monocytes Absolute Auto 500 /uL (0-900); Monocytes Percent Auto 5.7 % (3-14); Neutrophils Absolute Auto 5200 /uL (1500-7000); Neutrophils Percent Auto 65.4 % (50-75); Platelet Count 220 X10^3/uL (150-400); Red Blood Cell Count 3.95 X10^6/uL (4.5-5.9); Red Cell Distribution Width 13.9 % (11.6-14.8)
[2023-11-08] MEDS: CIPROFLOXACIN 400 MG/200 ML PIGGYBACK 200 MG IV (06:00)
[2023-11-08 06:05] LABS: BUN Creatinine Ratio 22.6 (6-22); Blood Urea Nitrogen 14 mg/dL (9-20); Calcium 9.3 mg/dL (8.4-10.2); Carbon Dioxide 28 mmol/L (22-32); Chloride 109 mmol/L (98-107); Estimated Glomerular Filt Rate > 60 mL/min (>60); Glucose 107 mg/dL (80-110); HEMOLYSIS < 15 (0-50); Sodium 141 mmol/L (137-145)
[2023-11-08 08:00] VITALS: BP 140/77; PULSE 87; RESP 16; TEMP 36.1; O2SAT 98
[2023-11-08] MEDS: AMLODIPINE 5 MG TABLET 10 MG PO (10:17)
[2023-11-08] MEDS: CITALOPRAM 10 MG TABLET 40 MG PO (10:18)
[2023-11-08] MEDS: ENOXAPARIN 40 MG/0.4 ML SYRINGE SUBCUT (10:18)
[2023-11-08] MEDS: FERROUS SULFATE 325 MG TABLET PO (10:19)
[2023-11-08 10:20] VITALS: BP 143/62; PULSE 82
[2023-11-08] MEDS: lisinopriL 20 MG TABLET PO (10:20)
[2023-11-08] MEDS: MEMANTINE HCL 5 MG TABLET PO (10:20)
[2023-11-08] MEDS: TAMSULOSIN 0.4 MG CAPSULE 0.8 MG PO (10:20)
--- NOTE | 2023-11-08 10:30 | P.DS_ITS ---
History of Present Illness History of Present Illness Chief complaint: possible UTI- has a catheter Narrative: From H&P: Duy Stephens is a 73 YO M with a PMH of recurrent UTIs, BPH, HTN, hyperlipidemia, anemia, anxiety and short term memory loss. He is presenting today with a UTI and altered mental status. He gets cathed every 4 weeks due to his BPH causing urinary obstruction. His last catheter replacement was around 4 weeks ago. His says it is typical for him to get excessively confused when he has a UTI, which is what brought them in. He was admitted here a month ago with sepsis from his UTI. The cultures grew E-coli and Klebsiella then. He is scheduled to get aqua ablation of his prostate gland on November 14 and is hoping to still make that appointment. Discharge Providers Provider Date of admission: 11/06/23 16:52 Discharge Date: 11/08/23 Primary care physician: Tip Blackman MD Consults: 11/07/23 10:07 Consult to Physical Therapy Evaluate & Treat Comment: Physician Instructions: Evaluate and Treat 11/07/23 10:08 Consult to Physical Therapy Evaluate & Treat Comment: Physician Instructions: Evaluate and Treat Consult to Physical Therapy Evaluate & Treat Comment: Physician Instructions: Evaluate and Treat Discharge provider: Michael Mallory MD Summary Hospital Course Discharge Diagnosis: 1. Sepsis secondary to pyelonephritis which was catheter associated, present on admission and improved. 2. Pyelonephritis associated with indwelling catheter, present on admission and improved. 3. Acute septic encephalopathy, present on admission and resolved. 4. BPH, present on admission and active. He currently has a catheter in place until his procedure with Urology. 5. Cognitive impairment, present on admission and active. 6. Hypertension, present on admission and stable. 7. Hyperlipidemia, present on admission and stable. 8. Anxiety, present on admission and stable. 9. Chronic anemia, present on admission and stable. Hospital Course: He was admitted with encephalopathy and found to have evidence of urinary tract infection. He was treated with IV antibiotics, initially ceftriaxone and then Cipro. The patient had good clinical improvement and resolved his initial fever which was 103.2, tachypnea of 20 at admission, as well as improving his initial white count of 12.2. The patient's mental status cleared up. The patient did have sensitivities pending of the time of discharge but appeared to be consistent with his previous urine culture. He will be discharged on Cipro 500 b.i.d. and a message was left with Dr. Duffy his urologist. He will call his urologist to find out about adjustments to the timing of his upcoming prostate procedure. Status at Discharge Cognitive/behavioral status at discharge: oriented Functional status at discharge: independent ambulation Overall status at discharge: patient is back to baseline Time Spent with Patient Time spent: Greater than 30 minutes Exam Vital Signs (past 8 hours): - 11/08/23 08:00 Temperature 97 F L Pulse Rate 87 Respiratory Rate 16 Blood Pressure 140/77 Pulse Oximetry 98 Oxygen Flow Rate 0 Oxygen Delivery Method Room Air Oxygen Flow Rate 0 Narrative Exam Narrative: NAD, alert and oriented. Fluent speech. Lungs are clear, normal rate and effort. Heart is regular, no murmur gallop or rub. Abdomen is soft, non distended. Extremities are free of edema. Objective Imaging CT scan - head: Radiologist's impression: No acute intracranial abnormality. CT scan - chest: Radiologist's impression: No dense airspace disease. No pleural effusions. No acute pulmonary embolism. The distal pulmonary arteries are obscured by motion. CT scan - abdomen: Radiologist's impression: IMPRESSION: Presume source of sepsis is ascending genitourinary infection. There is moderate left renal edema and hydronephrosis. Mildly ectatic right collecting system also. No discrete obstructing stone. Wall thickening is seen throughout the urothelium of the left collecting system and ureter. Thick-walled urinary bladder with Rhodes in place, the Rhodes balloon is around the location of the bladder neck. Consider urologic follow-up if indicated. Cervical Spine CT: Radiologist's impression: No displaced fracture or traumatic subluxation. If there is high concern for further derangement, consider MRI evaluation. [id number] degenerative changes. Labs 11/08/23 05:07 11/08/23 05:07 Labs: Laboratory Results - last 24 hr 11/06/23 11/08/23 14:15 05:07 WBC 8.0 RBC 3.95 L Hgb 12.1 L Hct 35.8 L MCV 90.5 MCH 30.6 MCHC 33.8 RDW 13.9 Plt Count 220 Neut % (Auto) 65.4 Lymph % (Auto) 25.9 [place] % (Auto) 5.7 Eos % (Auto) 2.6 Baso % (Auto) 0.4 Neut # (Auto) 5200 Lymph # (Auto) 2100 [place] # (Auto) 500 Eos # (Auto) 200 Baso # (Auto) 0 Sodium 141 Potassium 4.0 Chloride 109 H Carbon Dioxide 28 BUN 14 Creatinine 0.62 L Estimated GFR > 60 BUN/Creatinine Ratio 22.6 H Glucose 107 Calcium 9.3 Urine Color Yellow Urine Appearance Cloudy Urine pH 6.0 Ur Specific [place] 1.020 Urine Protein 2+ H Urine Glucose (UA) Negative Urine Ketones Negative Urine Occult Blood 2+ H Urine Nitrate Positive H Urine Bilirubin Negative Urine Urobilinogen 1.0 Ur Leukocyte Esterase 3+ H Urine RBC 1-5/hpf Urine WBC >100/hpf H Ur Squamous Epith Cells 0-1 /hpf Urine Bacteria Moderate (10-30) H Ur Culture Indicated? Specimen cultured Micro UA Comment Vol Urine Centrifuged 10ml (spun) [facility] Medical History Benign prostatic hyperplasia with lower urinary tract symptoms History of urinary tract infection History of sepsis Nicotine abuse History of tobacco use History of hematuria Benign prostatic hyperplasia Lower urinary tract symptoms Partial small bowel obstruction Short-term memory loss Hyperglycemia Libido, decreased Change in stool caliber Substance abuse (~1974) Chronic back pain (~1999) Chicken pox (~1955) Hepatitis C (~1994) Cancer (~2008) Low back pain Hyperlipidemia Dry eyes Memory impairment Essential hypertension (10/08/15) Anxiety (10/08/15) Surgical History Anesthesia Pseudomyxoma peritonei (~08/02/08) Family History Father Diabetes mellitus History of heart disease Mental health problem Hypertension Mother Sepsis Hypertension Sister Cancer Hypertension Sister Diabetes mellitus Hypertension Grandfather History of heart disease Grandmother History of heart disease Social History marital status: unmarried,living together household members: significant other occupational status: employed Smoking Status: Former smoker alcohol intake: former Discharge Assessment & Plan Assessment and Plan Assessment: 1. Sepsis secondary to pyelonephritis which was catheter associated, present on admission and improved. 2. Pyelonephritis associated with indwelling catheter, present on admission and improved. 3. Acute septic encephalopathy, present on admission and resolved. 4. BPH, present on admission and active. He currently has a catheter in place until his procedure with Urology. 5. Cognitive impairment, present on admission and active. 6. Hypertension, present on admission and stable. 7. Hyperlipidemia, present on admission and stable. 8. Anxiety, present on admission and stable. 9. Chronic anemia, present on admission and stable. Plan of Treatment: Discharge home to the care of his . Cipro 500 b.i.d. for 7 additional days. They are asked to call Dr. Duffy, urology, within the next 1-2 days to set up a follow up appointment with him within the next week. Discharge Plan Discharge Plan Patient Disposition: Home Provider Discharge Comment: Patient was stable for discharge home on oral Cipro b.i.d. for an additional 7 days. Close follow up with Urology within the next 7 days. Discharge orders & Medications Prescriptions: New ciprofloxacin HCl [Cipro] 500 mg tablet 500 mg PO BID Qty: 14 0RF Continued memantine 5 mg tablet 5 mg PO BID Qty: 180 3RF ferrous sulfate 325 mg (65 mg iron) tablet 325 mg PO DAILY Qty: 90 0RF Rx Instructions: Take with vitamin C (DME) OneTouch Ultra Blue Test Strip Strip See Rx Instructions .ROUTE .MEDSUPPLY Qty: 10 3RF Rx Instructions: As directed daily amlodipine 10 mg tablet 10 mg PO DAILY Qty: 90 3RF lisinopril 20 mg tablet 20 mg PO DAILY Qty: 90 3RF citalopram 20 mg tablet 40 mg PO DAILY Rx Instructions: take 2 tablets by mouth once daily lorazepam 0.5 mg tablet 0.5 mg PO TID PRN (Reason: Anxiety) Rx Instructions: Take 1 tablet by mouth 3 times daily if needed simvastatin 20 mg tablet 20 mg PO BEDTIME Rx Instructions: take 1 tablet by mouth at bedtime latanoprost 0.005 % drops 1 drp EYE-BOTH BEDTIME meloxicam 15 mg tablet 7.5 mg PO DAILY tamsulosin 0.4 mg capsule 0.8 mg PO DAILY Qty: 60 12RF Medication counseling provided by Pharmacist: No Follow up/Referrals: Tip Blackman MD [Primary Care Provider] - Discharge Health Status Multidrug resistant organism: No MDRO Diet/Activity/Treatments Diet: Regular Activity: As tolerated. Skin/Wound/Dressing Care Report to your healthcare provider any signs of infection, such as:: chills, fever Visit Report/Discharge Packet Instructions: DI for Urinary Tract Infection (UTI) Stand Alone Forms: Patient Portal/API Discharge Data Primary Care Provider: Tip Blackman VTE Deep Vein Thrombosis/Pulmonary Embolism Present on Admission: No MIPS - DC The patient has a history of heart transplant or Left Ventricular Assist Device (LVAD). If yes, STOP here.: No The patient has current or prior documentation of left ventricular ejection fraction (LVEF) less than or equal to 40%, or moderate or severely depressed left ventricular systolic function.: No
--- NOTE | 2023-11-08 10:36 | CM.DPNOTE ---
DCP Note SALES MANAGER reviewed EMR. Per hospitalist in morning rounds, anticipate dc later this afternoon. Partner can p/u at 1pm. SALES MANAGER met with pt in room. SALES MANAGER gave pt IMM- waived right to 4 hour dc notice. Pt deny need for [facility] to resume. Pt denied other CM needs. SALES MANAGER notified Radha at [facility] to cancel referral. Plan: dc home today with partner. Deny other CM needs. CM team will follow as needed. PRINCESS Brothers
[2023-11-08 12:00] VITALS: BP 137/77; PULSE 79; RESP 16; TEMP 36.3
--- NOTE | 2023-11-08 14:23 | PC.NURSE ---
Pt is dressed and ready for discharge home with S.O. Nona. IV has been removed. Pt has showered. Pharmacy has been in to perform new med teaching. Went over d/c instructions with Pt and S.O. - discussed d/c meds, time of last dose, reviewed stroke education, encouraged Pt to drink plenty of fluids to prevent constipation or dehydration and to help clear out his UTI. Pt is already familiar with his Rhodes catheter care. Pt has a follow up appointment with his PCP on and will be calling Dr. Duffy for an appointment to be seen within 7 days. Pt denied further questions and was taken out via w/c by RN to POV with S.O. and all belongings.
== END 2023-11-08 14:26 | disposition home or self-care (01) | DRG 698 ==
LOC: ED 15:37 → AC 11-07 07:48
PROVIDERS: Admitting Provider Student in an Organized Health Care Education/Training Program; Emergency Provider Emergency Medicine; PCP Family Medicine; Referring Provider Emergency Medicine; Visit Provider Student in an Organized Health Care Education/Training Program
DX: T83.511A Infection and inflammatory reaction due to indwelling urethral catheter, initial encounter (principal); A41.9 Sepsis, unspecified organism; G93.41 Metabolic encephalopathy; N10 Acute pyelonephritis; N40.0 Benign prostatic hyperplasia without lower urinary tract symptoms; I10 Essential (primary) hypertension; E78.5 Hyperlipidemia, unspecified; F41.9 Anxiety disorder, unspecified; D64.9 Anemia, unspecified; F03.A0 Unspecified dementia, mild, without behavioral disturbance, psychotic disturbance, mood disturbance, and anxiety; B96.1 Klebsiella pneumoniae [K. pneumoniae] as the cause of diseases classified elsewhere; Z87.891 Personal history of nicotine dependence; R39.9 Unspecified symptoms and signs involving the genitourinary system
CPT/HCPCS: 36415; 80048; 80053; 81001; 83605; 84145; 85025; 87040; 87077; 87086; 87186; 96365; 96375; 97161; 99284; J0696; J0744; J1650

== ENCOUNTER → 2023-11-24 10:51 | Outpatient (CLI) | payer OTHER, SELFPAY ==
[2023-11-06 17:04] VITALS: BMI 26.9
== END ==
PROVIDERS: PCP Family Medicine; Visit Provider Urology
DX: N39.0 Urinary tract infection, site not specified (principal)
CPT/HCPCS: 87086

== ENCOUNTER 2023-12-04 17:43 | Emergency (ER) | payer OTHER, SELFPAY ==
[2023-11-06 17:04] VITALS: BMI 26.9
[2023-12-04 18:05] VITALS: BP 182/98; PULSE 75; RESP 18; TEMP 37.1; O2SAT 98; BMI 27.6
--- NOTE | 2023-12-05 02:41 | ED.MALEGU ---
HPI - Male Genitourinary General Chief complaint: Urogenital-Male Stated complaint: blood in urinary catheter and at entrance to jonel Source: patient Mode of arrival: Ambulatory History of Present Illness HPI Narrative: (left without seeing provider) Related Data Home Medications Medication Instructions Recorded Confirmed latanoprost 0.005 % eye drops 1 drp EYE-BOTH BEDTIME 06/22/23 11/24/23 citalopram 20 mg tablet 40 mg PO DAILY 09/16/23 11/24/23 simvastatin 20 mg tablet 20 mg PO BEDTIME 09/16/23 11/24/23 meloxicam 15 mg tablet 7.5 mg PO DAILY 11/07/23 11/24/23 Previous Rx's Medication Instructions Recorded blood sugar diagnostic (OneTouch #10 ea 10/27/20 Ultra Blue Test Strip) tamsulosin 0.4 mg capsule 0.8 mg (2 x 0.4 mg) PO DAILY #60 08/02/23 caps ferrous sulfate 325 mg (65 mg 325 mg PO DAILY #90 tabs 10/04/23 iron) tablet amlodipine 10 mg tablet 10 mg PO DAILY #90 tabs 11/03/23 lisinopril 20 mg tablet 20 mg PO DAILY #90 tabs 11/03/23 memantine 5 mg tablet 5 mg PO BID #180 tabs 11/07/23 Allergies Allergy/AdvReac Type Severity Reaction Status Date / Time No Known Drug Allergies Allergy Unknown Verified 11/10/23 10:32 Patient History Medical History Benign prostatic hyperplasia with lower urinary tract symptoms History of urinary tract infection History of sepsis Nicotine abuse History of tobacco use History of hematuria Benign prostatic hyperplasia Lower urinary tract symptoms Partial small bowel obstruction Short-term memory loss Hyperglycemia Libido, decreased Change in stool caliber Substance abuse (~1974) Chronic back pain (~1999) Chicken pox (~1955) Hepatitis C (~1994) Cancer (~2008) Low back pain Hyperlipidemia Dry eyes Memory impairment Essential hypertension (10/08/15) Anxiety (10/08/15) Surgical History Anesthesia Pseudomyxoma peritonei (~08/02/08) Family History Father Diabetes mellitus History of heart disease Mental health problem Hypertension Mother Sepsis Hypertension Sister Cancer Hypertension Sister Diabetes mellitus Hypertension Grandfather History of heart disease Grandmother History of heart disease Social History marital status: unmarried,living together household members: significant other occupational status: employed Smoking Status: Former smoker alcohol intake: former Smoking Status: Former smoker Substance Use Type: does not use Exam Initial Vital Signs Initial Vital Signs: Vital Signs Temperature 98.8 F 12/04/23 18:05 Pulse Rate 75 12/04/23 18:05 Respiratory Rate 18 12/04/23 18:05 Blood Pressure 182/98 H 12/04/23 18:05 Pulse Oximetry 98 12/04/23 18:05 Oxygen Delivery Method Room Air 12/04/23 18:05 Discharge Plan Departure Patient Disposition: Left Without Being Seen Clinical Impression: Patient left without being seen Prescriptions: No Action memantine 5 mg tablet 5 mg PO BID Qty: 180 3RF ferrous sulfate 325 mg (65 mg iron) tablet 325 mg PO DAILY Qty: 90 0RF Rx Instructions: Take with vitamin C (DME) OneTouch Ultra Blue Test Strip Strip See Rx Instructions .ROUTE .MEDSUPPLY Qty: 10 3RF Rx Instructions: As directed daily amlodipine 10 mg tablet 10 mg PO DAILY Qty: 90 3RF lisinopril 20 mg tablet 20 mg PO DAILY Qty: 90 3RF citalopram 20 mg tablet 40 mg PO DAILY Rx Instructions: take 2 tablets by mouth once daily simvastatin 20 mg tablet 20 mg PO BEDTIME Rx Instructions: take 1 tablet by mouth at bedtime latanoprost 0.005 % drops 1 drp EYE-BOTH BEDTIME meloxicam 15 mg tablet 7.5 mg PO DAILY tamsulosin 0.4 mg capsule 0.8 mg PO DAILY Qty: 60 12RF
== END 2023-12-04 20:32 | disposition left against medical advice (07) ==
PROVIDERS: Emergency Provider Emergency Medicine; PCP Family Medicine
CPT/HCPCS: 99281

== ENCOUNTER → 2023-12-06 09:46 | Outpatient (CLI) | payer OTHER, SELFPAY ==
[2023-11-06 17:04] VITALS: BMI 26.9
== END ==
PROVIDERS: PCP Family Medicine; Visit Provider Urology
DX: N39.0 Urinary tract infection, site not specified (principal)
CPT/HCPCS: 87086

== ENCOUNTER → 2024-01-06 11:05 | Outpatient (CLI) | payer OTHER, SELFPAY ==
[2023-11-06 17:04] VITALS: BMI 26.9
== END ==
PROVIDERS: PCP Family Medicine; Visit Provider Urology
DX: N39.0 Urinary tract infection, site not specified (principal)
CPT/HCPCS: 87077; 87086; 87147; 87186

== ENCOUNTER 2024-02-06 12:41 | Day surgery (SDC) | payer OTHER, SELFPAY ==
[2023-11-06 17:04] VITALS: BMI 26.9
--- NOTE | 2024-02-06 | PATH_ITS ---
[facility] Accession Number: [id number] No. of containers..01 Tissue . 01 Material submitted: . colon - SIGMOID POLYP . 01 Diagnosis: SIGMOID POLYP: Hyperplastic polyp. [facility] 02/09/2024 1112 Local . 01 Electronically signed: . Price Tamez MD, Pathologist NPI- [id number] . 01 Gross description: . SIGMOID POLYP: Received in formalin is 1 fragment(s) of huffman, soft tissue measuring 1.0 x 0.5 x 0.3 cm submitted entirely in 1 cassette(s) /[facility] 02/09/2024 1112 Local . 01 Pathologist provided ICD-10: K63.5 . 01 CPT . 587803 Specimen Comment: A courtesy copy of this report has been sent to [phone] Performed at: [address] [facility] [id number] MD Price Tamez MD Phone: [phone]
[2024-02-06 13:07] VITALS: BP 158/82; PULSE 62; RESP 17; TEMP 36.1; O2SAT 99
[2024-02-06] MEDS: LACTATED RINGERS 1,000 ML 42 ML IV (13:08)
--- NOTE | 2024-02-06 13:45 | P.HP_ITS ---
History of Present Illness History of Present Illness Date Patient Seen: 02/06/24 Time Patient Seen: 13:45 Chief complaint: [facility] Narrative: Duy is a 73-year-old man who is here for a colonoscopy. His last 1 was in 2020 and a tubular adenoma was removed. [facility] Medical History (Updated 02/06/24 @ 13:06 by Niels Ruff RN) Rhodes catheter in place Benign prostatic hyperplasia with lower urinary tract symptoms History of urinary tract infection History of sepsis Nicotine abuse History of tobacco use History of hematuria Benign prostatic hyperplasia Lower urinary tract symptoms Partial small bowel obstruction Short-term memory loss Hyperglycemia Libido, decreased Change in stool caliber Substance abuse (~1974) Chronic back pain (~1999) Chicken pox (~1955) Hepatitis C (~1994) Cancer (~2008) Low back pain Hyperlipidemia Dry eyes Memory impairment Essential hypertension (10/08/15) Anxiety (10/08/15) Surgical History Anesthesia Pseudomyxoma peritonei (~08/02/08) Family History Father Diabetes mellitus History of heart disease Mental health problem Hypertension Mother Sepsis Hypertension Sister Cancer Hypertension Sister Diabetes mellitus Hypertension Grandfather History of heart disease Grandmother History of heart disease Social History marital status: unmarried,living together household members: significant other occupational status: employed Smoking Status: Former smoker alcohol intake: former Meds Home Medications and Allergies Home Medications Medication Instructions Recorded Confirmed Type blood sugar diagnostic (OneTouch #10 ea 10/27/20 12/26/23 Rx Ultra Blue Test Strip) latanoprost 0.005 % eye drops 1 drp EYE-BOTH BEDTIME 06/22/23 12/26/23 History simvastatin 20 mg tablet 20 mg PO BEDTIME 09/16/23 02/06/24 History amlodipine 10 mg tablet 10 mg PO DAILY #90 tabs 11/03/23 02/06/24 Rx lisinopril 20 mg tablet 20 mg PO DAILY #90 tabs 11/03/23 02/06/24 Rx memantine 5 mg tablet 5 mg PO BID #180 tabs 11/07/23 02/06/24 Rx tamsulosin 0.4 mg capsule 0.8 mg (2 x 0.4 mg) PO DAILY #60 01/06/24 02/06/24 Rx caps doxycycline hyclate 100 mg capsule 100 mg PO BID #30 caps 01/09/24 02/06/24 Rx nitrofurantoin 100 mg PO BID #30 caps 01/09/24 02/06/24 Rx monohydrate/macrocrystals 100 mg capsule Allergies Allergy/AdvReac Type Severity Reaction Status Date / Time No Known Drug Allergies Allergy Unknown Verified 02/06/24 12:59 Exam Vital Signs (past 8 hours): - 02/06/24 13:07 Temperature 96.9 F L Pulse Rate 62 Respiratory Rate 17 Blood Pressure 158/82 H Pulse Oximetry 99 Oxygen Delivery Method Room Air Oxygen Delivery Method Room Air Const General: healthy appearing Resp Effort & Inspection: normal respiratory effort Assessment & Plan Assessment and plan (1) Change in bowel habits: Status: Acute Plan We reviewed the risks and benefits of colonoscopy and he would like to proceed Time-Based Coding :: [TOTAL MINUTES] spent with patient and on the chart (including review of chart, obtaining history, exam, reviewing outside data, placing orders, documenting exam and treatment plan, and counseling patient) on [DATE].
[2024-02-06 14:21] VITALS: BP 120/66; PULSE 61; RESP 12; TEMP 36.1; O2SAT 96
--- NOTE | 2024-02-06 14:24 | PM.OP.COLON ---
Operative Date/Time/Diagnoses Date of procedure: 02/06/24 Time of procedure: 14:24 Pre-op diagnosis: History of GI malignancy Post-op diagnosis: same Procedure & Clinicians Study performed: Colonoscopy Same procedure as scheduled: Yes Surgeon: Ronnie Tobin Procedure Notes Procedure in detail: Surgeon: Ronnie Tobin MD Anesthesia: Chiquita Stevens MD Procedure: The patient was brought to the endoscopy suite, placed in left lateral decubitus position. The patient was connected to monitoring devices. A time-out was performed. Sedation was administered. Once the patient was adequately sedated, a digital rectal exam was performed and was normal. The scope was then inserted and advanced to the cecum where the appendiceal orifice was identified and photographed. The scope was then slowly withdrawn over greater than 6 minutes. The mucosa was thoroughly inspected. There was a 5 mm polyp in the sigmoid colon removed with a cold snare. The scope was retroflexed in the rectum. No other abnormalities were seen. The scope was straightened and removed. The patient was awakened and brought to recovery. Scope withdrawal time: 10 minutes Sedation time: 22 minutes EBL: 5 mL Findings: Small sigmoid polyp Post-procedure Disposition: PACU
[2024-02-06 14:25] VITALS: BP 123/79; PULSE 65; RESP 16; O2SAT 96
[2024-02-06 14:30] VITALS: BP 147/76; PULSE 60; RESP 15; O2SAT 97
[2024-02-06 14:35] VITALS: BP 150/70; PULSE 62; RESP 15; O2SAT 97
== END 2024-02-06 14:45 | disposition home or self-care (01) ==
PROVIDERS: PCP Family Medicine; Referring Provider Surgery; Visit Provider Surgery
PROC: 0DJD8ZZ Inspection of Lower Intestinal Tract, Via Natural or Artificial Opening Endoscopic (ICD-10-PCS; CPT 45378; principal; 2024-02-06 13:30)
DX: Z12.11 Encounter for screening for malignant neoplasm of colon (principal); Z08 Encounter for follow-up examination after completed treatment for malignant neoplasm; Z86.010 Personal history of colon polyps; Z85.89 Personal history of malignant neoplasm of other organs and systems; K63.5 Polyp of colon
CPT/HCPCS: 45385; J2704

== ENCOUNTER → 2024-02-20 09:36 | Outpatient (CLI) | payer OTHER, SELFPAY ==
[2023-11-06 17:04] VITALS: BMI 26.9
== END ==
PROVIDERS: PCP Family Medicine; Visit Provider Urology
DX: N39.0 Urinary tract infection, site not specified (principal)
CPT/HCPCS: 87077; 87086; 87147

== ENCOUNTER → 2024-03-05 11:36 | Outpatient (CLI) | payer OTHER, SELFPAY ==
[2023-11-06 17:04] VITALS: BMI 26.9
[2024-03-05 12:30] LABS: Add Manual Diff / Slide Review NO; Basophils Absolute Auto 0 /uL (0-100); Basophils Percent Auto 0.7 % (0-2); Eosinophils Absolute Auto 200 /uL (0-450); Eosinophils Percent Auto 2.7 % (2-4); Hematocrit 39.4 % (41-53); Hemoglobin 13.7 g/dL (13.5-17.5); Lymphocytes Absolute Auto 1900 /uL (1100-4500); Lymphocytes Percent Auto 30.4 % (25-40); Mean Corpuscular HGB Conc 34.8 % (30-36); Mean Corpuscular Hemoglobin 31.4 PG (26-34); Monocytes Absolute Auto 300 /uL (0-900); Monocytes Percent Auto 5.7 % (3-14); Neutrophils Absolute Auto 3700 /uL (1500-7000); Neutrophils Percent Auto 60.5 % (50-75); Platelet Count 228 X10^3/uL (150-400); Red Blood Cell Count 4.37 X10^6/uL (4.5-5.9); Red Cell Distribution Width 13.9 % (11.6-14.8); White Blood Cell Count 6.1 X10^3/uL (4.5-11.0)
[2024-03-05 12:44] LABS: HEMOLYSIS < 15 (0-50); Iron 94 ug/dL (49-181)
[2024-03-05 12:46] LABS: Alanine Aminotransferase 19 IU/L (<50); Albumin 4.7 g/dL (3.5-5.0); Albumin Globulin Ratio 1.5 (1.0-2.8); Alkaline Phosphatase 54 U/L (38-126); Aspartate Aminotransferase 22 IU/L (17-59); BUN Creatinine Ratio 27.3 (6-22); Bilirubin Total 0.8 mg/dL (0.2-1.3); Blood Urea Nitrogen 21 mg/dL (9-20); Calcium 9.5 mg/dL (8.4-10.2); Carbon Dioxide 24 mmol/L (22-32); Chloride 105 mmol/L (98-107); Cholesterol 163 mg/dL (140-199); Estimated Glomerular Filt Rate > 60 mL/min (>60); Globulin 3.2 g/dL (1.7-4.1); Glucose 128 mg/dL (80-110); HDL Cholesterol 54 mg/dL (40-60); HEMOLYSIS < 15 (0-50); LDL Cholesterol Calculated 95 mg/dL (<100); Potassium 4.3 mmol/L (3.4-5.1); Sodium 139 mmol/L (137-145); Total Protein 7.9 g/dL (6.3-8.2); Triglycerides 71 mg/dL (35-150)
[2024-03-05 12:58] LABS: Percent Iron Saturation 32 % (20-50); Total Iron Binding Capacity 298 ug/dL (261-462); Transferrin 234 mg/dL (206-381)
[2024-03-05 13:17] LABS: TSH w/ Reflex to FT4 2.91 uIU/mL (0.47-4.68)
[2024-03-05 13:18] LABS: Ferritin 70 ng/mL (18-464)
[2024-03-05 13:38] LABS: Vitamin B12 506 pg/mL (239-931)
[2024-03-05 15:03] LABS: Creatinine Urine Random 93.65 mg/dL
[2024-03-05 15:07] LABS: Microalbumin Urine Random 6.2 mg/dL (0-1.6)
[2024-03-06 04:10] LABS: Apolipoprotein B 73 mg/dL (<90)
== END ==
PROVIDERS: PCP Family Medicine; Referring Provider Family Medicine; Visit Provider Family Medicine
DX: D64.9 Anemia, unspecified (principal); I10 Essential (primary) hypertension; N39.0 Urinary tract infection, site not specified; E78.5 Hyperlipidemia, unspecified
CPT/HCPCS: 36415; 80053; 80061; 82043; 82172; 82570; 82607; 82728; 83540; 83550; 84443; 85025

== ENCOUNTER → 2024-03-22 09:45 | Outpatient (CLI) | payer OTHER, SELFPAY ==
[2023-11-06 17:04] VITALS: BMI 26.9
== END ==
PROVIDERS: PCP Family Medicine; Visit Provider Urology
DX: N39.0 Urinary tract infection, site not specified (principal); Z22.322 Carrier or suspected carrier of Methicillin resistant Staphylococcus aureus; Z68.25 Body mass index [BMI] 25.0-25.9, adult
CPT/HCPCS: 51702; 87077; 87086; 87147; 87186

== ENCOUNTER → 2024-04-17 09:35 | Outpatient (CLI) | payer OTHER, SELFPAY ==
[2023-11-06 17:04] VITALS: BMI 26.9
== END ==
PROVIDERS: PCP Family Medicine; Visit Provider Urology
DX: N39.0 Urinary tract infection, site not specified (principal)
CPT/HCPCS: 87086

== ENCOUNTER → 2024-05-15 10:53 | Outpatient (CLI) | payer OTHER, SELFPAY ==
[2023-11-06 17:04] VITALS: BMI 26.9
[2024-06-20 10:24] LABS: Misc. to WA State Lab SCANNED
== END ==
PROVIDERS: PCP Family Medicine; Visit Provider Urology
DX: N39.0 Urinary tract infection, site not specified (principal)
CPT/HCPCS: 87077; 87086

== ENCOUNTER → 2024-06-12 10:44 | Outpatient (CLI) | payer OTHER, SELFPAY ==
[2023-11-06 17:04] VITALS: BMI 26.9
== END ==
PROVIDERS: PCP Family Medicine; Referring Provider Urology; Visit Provider Urology
DX: N39.0 Urinary tract infection, site not specified (principal)
CPT/HCPCS: 87077; 87086

== ENCOUNTER → 2024-07-10 11:01 | Outpatient (CLI) | payer OTHER, SELFPAY ==
[2023-11-06 17:04] VITALS: BMI 26.9
== END ==
PROVIDERS: PCP Family Medicine; Visit Provider Urology
DX: N39.0 Urinary tract infection, site not specified (principal)
CPT/HCPCS: 87086

== ENCOUNTER → 2024-08-10 10:58 | Outpatient (CLI) | payer OTHER, SELFPAY ==
[2024-07-16 11:11] VITALS: BMI 26.9
[2024-08-27 12:54] LABS: Misc. to WA State Lab SEE SCANNED REPORTS
== END ==
PROVIDERS: PCP Family Medicine; Visit Provider Urology
DX: N39.0 Urinary tract infection, site not specified (principal)
CPT/HCPCS: 51702; 87077; 87086; 87186

== ENCOUNTER 2024-09-04 17:53 | Emergency (ER) | payer OTHER, SELFPAY ==
[2024-07-16 11:11] VITALS: BMI 26.9
[2024-09-04] VITALS (15 sets, daily range): BP systolic 139–179; BP diastolic 66–116; PULSE 64–81; RESP 16–32; TEMP 37; O2SAT 93–99; BMI 26.6
--- NOTE | 2024-09-04 19:30 | PC.NURSE ---
Introduced self to patient
--- NOTE | 2024-09-04 22:07 | DI.RAD.S_ITS ---
PROCEDURE: XR RIBS LT MIN 3V W CXR1V INDICATIONS: fall TECHNIQUE: 3 views of the ribs were acquired, along with a single view chest. COMPARISON: None. FINDINGS: Surgical changes and devices: None. Bones and chest wall: No fractures or dislocations. No suspicious bony lesions. Overlying soft tissues appear unremarkable. Lungs and pleura: No pleural effusions or pneumothorax. Lungs appear clear. Mediastinum: Aortic arch calcifications. Mediastinal contours appear normal. Heart size is normal. IMPRESSION: No acute, displaced rib fractures or pneumothorax. Dictated by: Anthony Olmos M.D. on 09/04/2024 at 23:24 Approved by: Anthony Olmos M.D. on 09/04/2024 at 23:25
--- NOTE | 2024-09-04 23:48 | ED.FALL ---
HPI - Fall General Chief Complaint: Fall Stated Complaint: GLF back px Time Seen by Provider: 09/04/24 23:48 Mode of arrival: EMS History of Present Illness HPI Narrative: 73-year-old male had ground level fall while carrying a flower pot from outside to get inside of his home about 4:00 p.m. today, lost his balance walking through the kitchen while carrying the pot, fell to the side, struck left chest on a piece of furniture as he fell, has persisting left lateral posterior chest pain. Pain with deep breathing or truncal movements. Related Data Home Medications Medication Instructions Recorded Confirmed latanoprost 0.005 % eye drops 1 drp EYE-BOTH BEDTIME 06/22/23 07/10/24 doxycycline hyclate 100 mg capsule 100 mg PO BID 04/17/24 07/10/24 fosfomycin tromethamine 3 gram 3 g PO ONCE 3g po once every 10 04/17/24 07/10/24 oral packet days [id number]. solifenacin 5 mg tablet 10 mg PO DAILY 08/09/24 Previous Rx's Medication Instructions Recorded blood sugar diagnostic (OneTouch #10 ea 10/27/20 Ultra Blue Test Strip) amlodipine 10 mg tablet 10 mg PO DAILY #90 tabs 11/03/23 lisinopril 20 mg tablet 20 mg PO DAILY #90 tabs 11/03/23 memantine 5 mg tablet 5 mg PO BID #180 tabs 11/07/23 citalopram 20 mg tablet See Rx Instructions .Route 02/28/24 .COMPLEX #180 tabs tamsulosin 0.4 mg capsule 0.8 mg (2 x 0.4 mg) PO DAILY #180 02/29/24 caps simvastatin 20 mg tablet 20 mg PO BEDTIME #90 tabs 05/15/24 Allergies Allergy/AdvReac Type Severity Reaction Status Date / Time No Known Drug Allergies Allergy Unknown Verified 09/04/24 18:00 Patient History Medical History (Updated 09/05/24 @ 00:05 by Ashkan Chavez MD) Mild cognitive impairment Rhodes catheter in place Benign prostatic hyperplasia with lower urinary tract symptoms History of urinary tract infection History of sepsis Nicotine abuse History of tobacco use History of hematuria Benign prostatic hyperplasia Lower urinary tract symptoms Partial small bowel obstruction Short-term memory loss Hyperglycemia Libido, decreased Change in stool caliber Substance abuse (~1974) Chronic back pain (~1999) Chicken pox (~1955) Hepatitis C (~1994) Cancer (~2008) Low back pain Hyperlipidemia Dry eyes Memory impairment Essential hypertension (10/08/15) Anxiety (10/08/15) Surgical History Anesthesia Pseudomyxoma peritonei (~08/02/08) Family History Father Diabetes mellitus History of heart disease Mental health problem Hypertension Mother Sepsis Hypertension Sister Cancer Hypertension Sister Diabetes mellitus Hypertension Grandfather History of heart disease Grandmother History of heart disease Social History marital status: unmarried,living together household members: significant other occupational status: employed Smoking Status: Former smoker alcohol intake: former Smoking Status: Former smoker Exam Narrative Exam Narrative: GENERAL: Well-developed patient, in mild distress. HEAD: Atraumatic. Normocephalic. EYES: Pupils equal round and reactive. Extraocular motions intact. No scleral icterus. No injection or drainage. ENT: Nose without bleeding, purulent drainage. Throat without erythema, tonsillar hypertrophy or exudate. Airway patent. NECK: Trachea midline. Non tender CARDIOVASCULAR: Regular rate and rhythm without murmurs, gallops, or rubs. RESPIRATORY: Clear to auscultation. Breath sounds equal bilaterally. No wheezes, rales, or rhonchi. Left chest wall linear abrasion, no crepitance or subcutaneous air emphysema. No flail segments or paradoxical chest wall movements. Intermittent splinting in pain left chest with deep breathing or truncal movements. GASTROINTESTINAL: Abdomen soft, non-tender, nondistended. EXTREMITIES: No edema or joint tenderness. BACK: Nontender without deformity or crepitance. No flank tenderness. NEURO: AOx3. Motor functions grossly nonfocal SKIN: No rash or erythema of visible areas Initial Vital Signs Initial Vital Signs: Vital Signs Temperature 98.6 F 09/04/24 17:55 Pulse Rate 81 09/04/24 17:55 Respiratory Rate 16 09/04/24 17:55 Blood Pressure 178/93 H 09/04/24 17:55 Pulse Oximetry 98 09/04/24 17:55 Oxygen Delivery Method Room Air 09/04/24 17:55 Course Orders Ordered: Discontinued Medications Hydrocodone Bitart/Acetaminophen (Hydrocodone/Acet 5/325 Prepack) 1 bottle MISC DIRECTED ONE Stop: 09/05/24 00:43 Last Admin: 09/05/24 01:17 Dose: 1 bottle Documented By: Albuterol (Albuterol Hfa Prepack) 1 box MISC DIRECTED ONE Stop: 09/05/24 00:43 Last Admin: 09/05/24 01:11 Dose: 1 box Documented By: MR(2) Hydromorphone HCl (Hydromorphone 1 Mg Inj) 1 mg IM NOW ONE Stop: 09/05/24 00:02 Last Admin: 09/05/24 00:10 Dose: 1 mg Documented By: Ketorolac Tromethamine (Ketorolac 30 Mg/Ml Vial) 30 mg IM NOW ONE Stop: 09/05/24 00:07 Last Admin: 09/05/24 00:09 Dose: 30 mg Documented By: Vital Signs Vital signs: Vital Signs - 8 hr 09/04/24 17:55 09/04/24 17:58 09/04/24 18:00 Temperature 98.6 F Pulse Rate 81 78 76 Respiratory Rate 16 25 H Blood Pressure 178/93 H Pulse Oximetry 98 99 99 Oxygen Delivery Method Room Air 09/04/24 18:11 09/04/24 18:11 09/04/24 18:30 Temperature Pulse Rate 69 Respiratory Rate 25 H Blood Pressure 179/73 H 150/72 H Pulse Oximetry 99 Oxygen Delivery Method 09/04/24 18:30 09/04/24 19:00 09/04/24 19:00 Temperature Pulse Rate 66 65 Respiratory Rate 20 19 Blood Pressure 140/67 Pulse Oximetry 98 97 Oxygen Delivery Method 09/04/24 19:30 09/04/24 19:30 09/04/24 20:00 Temperature Pulse Rate 64 Respiratory Rate 32 H Blood Pressure 142/70 H 162/77 H Pulse Oximetry 96 Oxygen Delivery Method 09/04/24 20:00 09/04/24 20:30 09/04/24 20:30 Temperature Pulse Rate 68 65 Respiratory Rate 22 24 Blood Pressure 139/66 Pulse Oximetry 95 93 Oxygen Delivery Method 09/04/24 21:00 09/04/24 21:00 09/04/24 21:30 Temperature Pulse Rate 77 Respiratory Rate 23 Blood Pressure 159/74 H 166/76 H Pulse Oximetry 96 Oxygen Delivery Method 09/04/24 21:30 09/04/24 22:00 09/04/24 22:00 Temperature Pulse Rate 75 73 Respiratory Rate 22 25 H Blood Pressure 153/116 H Pulse Oximetry 95 95 Oxygen Delivery Method 09/04/24 22:30 09/04/24 23:00 Temperature Pulse Rate 74 71 Respiratory Rate 28 H 30 H Blood Pressure Pulse Oximetry 97 97 Oxygen Delivery Method MDM - Fall Imaging Data Chest x-ray: Radiologist's Impression: [address] [address] XRay Report Signed Patient: Duy Stephens MR#: [id number] : 1950 Acct:[id number] Age/Sex: 73 / M Date of Service: 09/04/24 Loc: ED Accession Number: [id number] Procedure: XR ribs LT min 3V w CXR1V Ordering Provider: Ashkan Chavez MD PROCEDURE: XR RIBS LT MIN 3V W CXR1V INDICATIONS: fall TECHNIQUE: 3 views of the ribs were acquired, along with a single view chest. COMPARISON: None. FINDINGS: Surgical changes and devices: None. Bones and chest wall: No fractures or dislocations. No suspicious bony lesions. Overlying soft tissues appear unremarkable. Lungs and pleura: No pleural effusions or pneumothorax. Lungs appear clear. Mediastinum: Aortic arch calcifications. Mediastinal contours appear normal. Heart size is normal. IMPRESSION: No acute, displaced rib fractures or pneumothorax. Dictated by: Anthony Olmos M.D. on 09/04/2024 at 23:24 Approved by: Anthony Olmos M.D. on 09/04/2024 at 23:25 [facility] Narrative Medical decision making narrative: 33-year-old male had ground level fall striking left chest on piece of furniture at home, left chest wall contusion, worse with deep breathing and truncal movements. Bruise on examination left mid chest, no respiratory distress, breath sounds equal. Chest x-ray with left rib series ordered from triage, showed no acute changes. IM Toradol, IM Dilaudid. Improved, no longer splinting. PO hydrocodone/APAP. Incentive sprirometer, Albuterol MDI with spacer, home with family, recheck lungs and symptoms advised with PCP next 2-3 days. Discussed importance of pulmonary toilet to prevent post chest wall injury pneumonia. Return precautions discussed. Home with . Discharge Plan Departure Patient Disposition: Home Clinical Impression: Fall from ground level, Contusion of left chest wall Activity Restrictions/Additional Instructions: Mr. Stephens, You had fall with impact to your left mid chest lateral aspect, bruising noted on examination there. Chest x-ray with left rib series showed no definite fracture, also more importantly no underlying lung injury, no lung contusion, no collapsed lung, no bleeding into the lung at least by x-ray criteria. You had injection of pain medications and felt some improvement. It is important that you breathe deeply so that you do not develop pneumonia as a result of your chest wall contusion and shallow breathing due to pain. Take pain control medications as directed. Use inhaler/spacer 2 puffs 4 times daily for the next few days to help keep your lungs well aerated. Use incentive spirometer to help keep your lungs well aerated. Consider repeat lung exam with your regular doctor in next couple of days to make sure not developing signs and symptoms of pneumonia. Return earlier to this/nearest emergency department for any change worsening symptoms or any concerns prior. Thank you for allowing our team to assess you today. Prescriptions: No Action memantine 5 mg tablet 5 mg PO BID Qty: 180 3RF tamsulosin 0.4 mg capsule 0.8 mg PO DAILY Qty: 180 3RF simvastatin 20 mg tablet 20 mg PO BEDTIME Qty: 90 1RF Rx Instructions: take 1 tablet by mouth at bedtime citalopram 20 mg tablet See Rx Instructions .ROUTE .COMPLEX Qty: 180 3RF Dose Instruction: take 2 tablets by mouth once daily Rx Instructions: take 2 tablets by mouth once daily (DME) OneTouch Ultra Blue Test Strip Strip See Rx Instructions .ROUTE .MEDSUPPLY Qty: 10 3RF Rx Instructions: As directed daily amlodipine 10 mg tablet 10 mg PO DAILY Qty: 90 3RF lisinopril 20 mg tablet 20 mg PO DAILY Qty: 90 3RF latanoprost 0.005 % drops 1 drp EYE-BOTH BEDTIME solifenacin 5 mg tablet 10 mg PO DAILY doxycycline hyclate 100 mg capsule 100 mg PO BID fosfomycin tromethamine 3 gram packet 3 g PO ONCE Referrals: Tip Blackman MD [Primary Care Provider] - Stand Alone Forms: Patient Portal/API/Survey
[2024-09-05] VITALS: PULSE 76; RESP 30; O2SAT 98
[2024-09-05] MEDS: KETOROLAC 30 MG/ML VIAL IM (00:09)
[2024-09-05] MEDS: HYDROMORPHONE 1 MG INJ IM (00:10)
[2024-09-05 00:30] VITALS: PULSE 68; RESP 24; O2SAT 97
[2024-09-05 00:37] VITALS: BP 155/71; PULSE 70; RESP 24; O2SAT 98
[2024-09-05 01:00] VITALS: BP 147/67; PULSE 65; RESP 22; O2SAT 97
[2024-09-05] MEDS: ALBUTEROL HFA PREPACK 1 BOX MISC (01:11)
[2024-09-05] MEDS: HYDROCODONE/ACET 5/325 PREPACK 1 BOTTLE MISC (01:17)
== END 2024-09-05 01:30 | disposition home or self-care (01) ==
PROVIDERS: Emergency Provider Emergency Medicine; PCP Family Medicine
DX: S20.212A Contusion of left front wall of thorax, initial encounter (principal); W18.39XA Other fall on same level, initial encounter; Y93.01 Activity, walking, marching and hiking; Y92.89 Other specified places as the place of occurrence of the external cause; Z87.891 Personal history of nicotine dependence
CPT/HCPCS: 71101; 96372; 99283; 99284; J1171; J1885

== ENCOUNTER 2024-09-09 12:00 | Emergency (ER) | payer OTHER, SELFPAY ==
[2024-07-16 11:11] VITALS: BMI 26.9
[2024-09-09 13:00] VITALS: BP 133/88; PULSE 112; RESP 16; TEMP 36.8; O2SAT 98; BMI 26.6
--- NOTE | 2024-09-09 14:44 | ED_ITS ---
<Statement entered by Caio Naranjo, - 09/09/24 20:04> Dr. Naranjo: I was immediately available in the department for consultation. I did not actually see the patient. HPI - Back Pain/Injury General Chief Complaint: Back Pain/Injury Stated Complaint: fall on back t-2 Time Seen by Provider: 09/09/24 14:23 Source: patient and family History of Present Illness HPI Narrative: Mr. Stephens is a pleasant 73-year-old gentleman with a past medical history of BPH, urinary retention with chronic Rhodes catheter, mild cognitive impairment, history of bowel obstruction, short-term memory loss, chronic back pain who presents to the emergency department for left-sided chest wall/rib pain after a fall 09/04/2024. His spouse Nona contributes to the history. On 09/04/2024 patient was carrying a flower pot in his home when he reports that his feet got ?caught up? and he fell landing with his left ribcage directly onto a rocking chair. He did not fall hit his head lose consciousness or sustain any pain or injuries to the arms or legs. Did however have immediate pain of the left side chest wall. He came to the emergency department via EMS and had a normal chest and rib x-ray series revealing no acute displaced rib fractures. Reports that he was provided with 4 vicodin after being discharged from the emergency department for left chest wall contusion however he has since run out of medication and is still having severe, worsening pain of the left lateral chest wall with bruising. States that he was provided with incentive spirometer but it hurts really bad to use and that the most significant pain is when he goes from a sitting to standing position, requiring muscle use, he is in 10/10 pain. Denies any headache, neck pain, midline back pain, fevers, chills, blood thinner use. No pain medications prior to arrival. Related Data Home Medications Medication Instructions Recorded Confirmed latanoprost 0.005 % eye drops 1 drp EYE-BOTH BEDTIME 06/22/23 09/09/24 doxycycline hyclate 100 mg capsule 100 mg PO BID 04/17/24 09/09/24 fosfomycin tromethamine 3 gram 3 g PO ONCE 3g po once every 10 04/17/24 09/09/24 oral packet days [id number]. citalopram 20 mg tablet 40 mg PO DAILY 09/09/24 09/09/24 ketorolac 10 mg tablet 10 mg PO Q8H PRN pain 09/09/24 09/09/24 solifenacin 5 mg tablet 5 mg PO DAILY 09/09/24 09/09/24 tamsulosin 0.4 mg capsule 0.8 mg PO DAILY 09/09/24 09/09/24 Previous Rx's Medication Instructions Recorded blood sugar diagnostic (OneTouch #10 ea 10/27/20 Ultra Blue Test Strip) amlodipine 10 mg tablet 10 mg PO DAILY #90 tabs 11/03/23 lisinopril 20 mg tablet 20 mg PO DAILY #90 tabs 11/03/23 memantine 5 mg tablet 5 mg PO BID #180 tabs 11/07/23 tamsulosin 0.4 mg capsule 0.8 mg (2 x 0.4 mg) PO DAILY #180 02/29/24 caps simvastatin 20 mg tablet 20 mg PO BEDTIME #90 tabs 05/15/24 cyclobenzaprine 5 mg tablet 5 mg PO TID PRN muscle spasm #20 09/06/24 tabs hydrocodone 5 mg-acetaminophen 325 1 tab PO Q6H PRN pain #15 tabs 09/09/24 mg tablet lidocaine 5 % topical patch 1 patch topical DAILY #15 ea 09/09/24 (Lidoderm) Allergies Allergy/AdvReac Type Severity Reaction Status Date / Time No Known Drug Allergies Allergy Unknown Verified 09/09/24 13:00 Review of Systems Review of Systems ROS Unobtainable: All systems reviewed & are unremarkable except as noted in HPI and below Patient History Medical History Mild cognitive impairment Rhodes catheter in place Benign prostatic hyperplasia with lower urinary tract symptoms History of urinary tract infection History of sepsis Nicotine abuse History of tobacco use History of hematuria Benign prostatic hyperplasia Lower urinary tract symptoms Partial small bowel obstruction Short-term memory loss Hyperglycemia Libido, decreased Change in stool caliber Substance abuse (~1974) Chronic back pain (~1999) Chicken pox (~1955) Hepatitis C (~1994) Cancer (~2008) Low back pain Hyperlipidemia Dry eyes Memory impairment Essential hypertension (10/08/15) Anxiety (10/08/15) Surgical History Anesthesia Pseudomyxoma peritonei (~08/02/08) Family History Father Diabetes mellitus History of heart disease Mental health problem Hypertension Mother Sepsis Hypertension Sister Cancer Hypertension Sister Diabetes mellitus Hypertension Grandfather History of heart disease Grandmother History of heart disease Social History marital status: unmarried,living together household members: significant other occupational status: employed Smoking Status: Former smoker alcohol intake: former Smoking Status: Former smoker Exam Narrative Exam Narrative: GENERAL: 73 year old patient appears stated age. Well-developed patient, in no acute distress. HEAD: Atraumatic. Normocephalic. EYES: PERRL. Extraocular motions intact. No scleral icterus. No injection or drainage. NECK: Trachea midline. Cervical ROM intact. CARDIOVASCULAR: Regular rate and rhythm. RESPIRATORY: ?Nonlabored respirations. ?Speaking in clear, full sentences. ?Clear to auscultation GASTROINTESTINAL: Abdomen soft, non-tender, nondistended. EXTREMITIES: No edema or joint tenderness. BACK: No midline spinal tenderness or deformities. He does have approximately 5 cm area of ecchymosis on the left lateral chest wall/back, no tenderness to palpation of this area however he reports subjective pain when he goes from sitting to standing position this area. NEURO: Alert and oriented. ?Clear speech. ?Moves all 4 extremities appropriately. Ambulates independently. Initial Vital Signs Initial Vital Signs: Vital Signs Temperature 98.2 F 09/09/24 13:00 Pulse Rate 112 H 09/09/24 13:00 Respiratory Rate 16 09/09/24 13:00 Blood Pressure 133/88 09/09/24 13:00 Pulse Oximetry 98 09/09/24 13:00 Oxygen Delivery Method Room Air 09/09/24 13:00 Course Orders Ordered: ED Orders 09/09/24 15:14 CT chest w con Stat 09/09/24 15:33 CBC Auto Diff [Complete Blood Count AUTO DIFF] Stat CMP [Comprehensive Metabolic Panel] Stat Lipase Stat Discontinued Medications Hydrocodone Bitart/Acetaminophen (Hydrocodone/Acet 5/325 Prepack) 1 bottle MISC DIRECTED ONE Stop: 09/09/24 18:26 Last Admin: 09/09/24 18:37 Dose: 1 bottle Documented By: MARIANN Ketorolac Tromethamine (Ketorolac 30 Mg/Ml Vial) 15 mg IV NOW ONE Stop: 09/09/24 15:15 Last Admin: 09/09/24 16:02 Dose: 15 mg Documented By: CE Lidocaine (Lidocaine 5% Patch) 1 each TOP NOW ONE Stop: 09/09/24 18:30 Last Admin: 09/09/24 18:37 Dose: 1 each Documented By: MARIANN Morphine Sulfate (Morphine 4 Mg/Ml Inj) 4 mg IV NOW ONE Stop: 09/09/24 15:15 Last Admin: 09/09/24 16:03 Dose: 4 mg Documented By: CE Vital Signs Vital signs: Vital Signs - 8 hr 09/09/24 13:00 09/09/24 14:50 09/09/24 18:44 Temperature 98.2 F Pulse Rate 112 H 88 96 H Respiratory Rate 16 18 16 Blood Pressure 133/88 165/77 H 167/90 H Pulse Oximetry 98 99 96 Oxygen Delivery Method Room Air Room Air MDM - Back Pain/Injury Medical Records Attestation: I reviewed the patient's medical records. Medical records narrative: [address] [address] XRay Report Signed Patient: Duy Stephens MR#: [id number] : 1950 Acct:[id number] Age/Sex: 73 / M Date of Service: 09/04/24 Loc: ED Accession Number: [id number] Procedure: XR ribs LT min 3V w CXR1V Ordering Provider: Ashkan Chavez MD PROCEDURE: XR RIBS LT MIN 3V W CXR1V INDICATIONS: fall TECHNIQUE: 3 views of the ribs were acquired, along with a single view chest. COMPARISON: None. FINDINGS: Surgical changes and devices: None. Bones and chest wall: No fractures or dislocations. No suspicious bony lesions. Overlying soft tissues appear unremarkable. Lungs and pleura: No pleural effusions or pneumothorax. Lungs appear clear. Mediastinum: Aortic arch calcifications. Mediastinal contours appear normal. Heart size is normal. IMPRESSION: No acute, displaced rib fractures or pneumothorax. Dictated by: Anthony Olmos M.D. on 09/04/2024 at 23:24 Approved by: Anthony Olmos M.D. on 09/04/2024 at 23:25 Lab Data 09/09/24 15:33 09/09/24 15:33 Labs: Lab Results 09/09/24 Range/Units 15:33 WBC 5.9 (4.5-11.0) X10^3/uL RBC 4.38 L (4.5-5.9) X10^6/uL Hgb 13.8 (13.5-17.5) g/dL Hct 39.7 L (41-53) % MCV 90.6 (80-100) fL MCH 31.5 (26-34) PG MCHC 34.8 (30-36) % RDW 13.3 (11.6-14.8) % Plt Count 213 (150-400) X10^3/uL Neut % (Auto) 68.7 (50-75) % Lymph % (Auto) 24.1 L (25-40) % [place] % (Auto) 5.3 (3-14) % Eos % (Auto) 1.6 L (2-4) % Baso % (Auto) 0.3 (0-2) % Neut # (Auto) 4100 (2914-8927) /uL Lymph # (Auto) 1400 (8702-8134) /uL [place] # (Auto) 300 (0-900) /uL Eos # (Auto) 100 (0-450) /uL Baso # (Auto) 0 (0-100) /uL Sodium 140 (137-145) mmol/L Potassium 4.1 (3.4-5.1) mmol/L Chloride 105 (98-107) mmol/L Carbon Dioxide 28 (22-32) mmol/L BUN 18 (9-20) mg/dL Creatinine 0.70 (0.66-1.25) mg/dL Estimated GFR > 60 (>60) mL/min BUN/Creatinine Ratio 25.7 H (6-22) Glucose 107 (80-110) mg/dL Calcium 9.4 (8.4-10.2) mg/dL Total Bilirubin 0.6 (0.2-1.3) mg/dL AST 33 (17-59) IU/L ALT 55 H (<50) IU/L Alkaline Phosphatase 60 (38-126) U/L Total Protein 7.8 (6.3-8.2) g/dL Albumin 4.3 (3.5-5.0) g/dL Globulin 3.5 (1.7-4.1) g/dL Albumin/Globulin Ratio 1.2 (1.0-2.8) Lipase 26 (23-300) U/L Imaging Data CT scan - chest: Radiologist's Impression: PROCEDURE: CT CHEST W CON INDICATIONS: fall 09/04/24; worsening left lateral chest/rib pain TECHNIQUE: After the administration of intravenous contrast, 5 mm thick sections acquired from the pulmonary apices to the posterior costophrenic angles. 1 mm axial lung, 5 mm thick coronal and sagittal reformats and 7 mm axial MIP were acquired. For radiation dose reduction, the following was used: automated exposure control, adjustment of mA and/or kV according to patient size. COMPARISON: [facility], CT, CT ABDOMEN PELVIS W CON, 06/26/2023, 13:11. [facility], CR, XR RIBS LT MIN 3V W CXR1V, 09/04/2024, 22:06. [facility], CT, CT ANGIO CHEST PE PROTOCOL, 09/16/2023, 18:48. FINDINGS: Image quality: Diagnostic. Lower Neck: No enlarged lymph nodes. Thyroid: No thyroid nodules which require sonographic follow up, per consensus guidelines. Axillae: No enlarged lymph nodes. Chest Wall: Unremarkable. Bones: Mildly displaced rib fractures can be seen involving the left posterolateral 8th through 10th ribs. Lungs and Pleura: No pneumothorax is seen. There is a small left-sided pleural effusion. Heart: Heart size is normal. No pericardial effusion. Mild coronary artery calcification is seen. Thoracic Vessels: The aorta and pulmonary arteries demonstrate normal size. Mediastinum and [place]: No enlarged lymph nodes. Esophagus: No wall thickening. No hiatal hernia. Upper Abdomen: There is left-sided hydronephrosis, with mild left-sided perinephric fat stranding. A stable hyperdense cysts can be seen along the posterior aspect of the right kidney. The visualized portions of the upper abdominal structures are otherwise unremarkable for imaging technique. IMPRESSION: Left posterolateral rib fractures. No associated pneumothorax. Small left-sided pleural effusion. Abnormal left kidney, with hydronephrosis and mild perinephric fat stranding. The degree of hydronephrosis is improved compared to the 06/26/2023 CT, however. Please correlate with symptoms. Additional findings: Mild coronary artery calcification Stable right kidney hyperdense cyst MDM Narrative Medical decision making narrative: 73-year-old gentleman with a past medical history of BPH, urinary retention with chronic Rhodes catheter, mild cognitive impairment, history of bowel obstruction, short-term memory loss, chronic back pain who presents to the emergency department for left-sided chest wall/rib pain after a fall 09/04/2024. Differential diagnosis includes but is not limited to rib fracture, lung contusion, compression fracture,, muscle strain, etc. On exam patient is in no acute distress, nontoxic appearing, vital signs reveal a heart rate of 88, respiratory rate 18, O2 sat 99%, BP 165/77. Patient has bruising and pain of his left chest wall/upper back region, negative x-ray was performed immediately after the fall on Tuesday however he continues to have severe pain. No fevers no abdominal pain, he does have chronic Rhodes catheter. He did not hit his head and has no neck or mid back pain. We will proceed with CT chest with contrast for further evaluation of possible traumatic injury in addition to basic labs prior to CT. We will treat pain with morphine and Toradol at this time. Labs reveal normal WBC count 5.9, hemoglobin 13.8, hematocrit 39.7. Normal BUN 18, creatinine 0.70. ALT slightly elevated 55. CT reveals left posterolateral rib fractures, 8 9 and 10. No associated pneumothorax. Small left-sided pleural effusion. Abnormal left kidney with hydronephrosis and mild perinephric fat stranding. The degree of hydronephrosis improved compared to the 06/26/2023 CT. Rib fractures consistent with the patient's history of fall and pain and bruising over this area. He already has incentive spirometer and has been using a 10 times a day. His pain improved significantly during his ED stay and he was walking around the emergency room department, very happy with his improvement. We will treat with hydrocodone-acetaminophen for severe broken rib pain, he also has prescription for Toradol that he can take and I sent Lidoderm. We did discuss the risks of narcotics. Did inform patient and his spouse of the abnormal left kidney, at this time he denies any flank pain, any fevers, any abdominal pain any bloody or abnormal output in his Rhodes catheter. He has a appointment on 09/11/2024 with his urologist for his monthly cath change in UA, he has not interested in any additional urinary workup at this time and I do not believe it is warranted. Discussed follow up with PCP, strict ED return precautions. Patient verbalized understanding of all information is agreeable to the plan. He is stable for discharge home. Discharge Plan Departure Patient Disposition: Home Clinical Impression: Ground-level fall Multiple fractures of ribs of left side Qualifiers: Encounter type: initial encounter Fracture type: closed Qualified Code(s): S 22.42XA - Multiple fractures of ribs, left side, initial encounter for closed fracture Instructions: DI for Rib Fracture Activity Restrictions/Additional Instructions: Thank you for coming to the emergency department. Today you were evaluated for left-sided pain after a fall a few days ago and found to have fractures of your left 8th 9th and 10th ribs. Rib fractures or extremely painful and it is extremely important to take deep breaths using your incentive spirometer at home to prevent the development of pneumonia. I have prescribed hydrocodone- acetaminophen which is a strong opiate pain medication. This medication may make you drowsy so it is very important to not drive a car or walk alone while taking this medication. Do not take this medication with your muscle relaxer, cyclobenzaprine. Please return to the emergency department for any new or worsening symptoms, uncontrolled pain, difficulty breathing, fevers, etc. You have been prescribed a short course of narcotic medications. These are potentially dangerous and addictive medications that should be used carefully. While on these medications you cannot drive or operate heavy machinery. Additionally, you cannot sign legal documents or perform any duties such as this. Many people get constipated on narcotic medications so it would be advisable to discuss stool softeners with the pharmacist when you pickle maker your prescription. Please understand that we cannot provide further refills of narcotics or controlled substances through the ED and your pain management will need to be through your Primary Care Provider Please follow up with your primary care doctor within the next 2-3 days for ER follow-up. (If you do not have a PCP you can call [phone]. ?to schedule an appointment with an [facility] Primary Care Provider) IF YOU DEVELOP ANY NEW OR WORSENING SYMPTOMS, RETURN TO THE ER! Please read the attached instructions, they highlight more specific treatments and interventions for you at home. Thank you for letting me participate in your care, Reba Vazquez PA-C Prescriptions: New hydrocodone-acetaminophen 5-325 mg tablet 1 tab PO Q6H PRN (Reason: pain) Qty: 15 0RF lidocaine [Lidoderm] 5 % adhesive patch,medicated 1 patch topical DAILY Qty: 15 0RF Rx Instructions: leave on most painful area for up to 12 hrs No Action memantine 5 mg tablet 5 mg PO BID Qty: 180 3RF tamsulosin 0.4 mg capsule 0.8 mg PO DAILY Qty: 180 3RF simvastatin 20 mg tablet 20 mg PO BEDTIME Qty: 90 1RF Rx Instructions: take 1 tablet by mouth at bedtime cyclobenzaprine 5 mg tablet 5 mg PO TID PRN (Reason: muscle spasm) Qty: 20 0RF (DME) OneTouch Ultra Blue Test Strip Strip See Rx Instructions .ROUTE .MEDSUPPLY Qty: 10 3RF Rx Instructions: As directed daily amlodipine 10 mg tablet 10 mg PO DAILY Qty: 90 3RF lisinopril 20 mg tablet 20 mg PO DAILY Qty: 90 3RF latanoprost 0.005 % drops 1 drp EYE-BOTH BEDTIME ketorolac 10 mg tablet 10 mg PO Q8H PRN (Reason: pain) citalopram 20 mg tablet 40 mg PO DAILY tamsulosin 0.4 mg capsule 0.8 mg PO DAILY solifenacin 5 mg tablet 5 mg PO DAILY doxycycline hyclate 100 mg capsule 100 mg PO BID fosfomycin tromethamine 3 gram packet 3 g PO ONCE Referrals: Tip Blackman MD [Primary Care Provider] - Stand Alone Forms: Patient Portal/API/Survey
[2024-09-09 14:50] VITALS: BP 165/77; PULSE 88; RESP 18; O2SAT 99
--- NOTE | 2024-09-09 15:14 | DI.CT.S_ITS ---
PROCEDURE: CT CHEST W CON INDICATIONS: fall 09/04/24; worsening left lateral chest/rib pain TECHNIQUE: After the administration of intravenous contrast, 5 mm thick sections acquired from the pulmonary apices to the posterior costophrenic angles. 1 mm axial lung, 5 mm thick coronal and sagittal reformats and 7 mm axial MIP were acquired. For radiation dose reduction, the following was used: automated exposure control, adjustment of mA and/or kV according to patient size. COMPARISON: [facility], CT, CT ABDOMEN PELVIS W CON, 06/26/2023, 13:11. [facility], CR, XR RIBS LT MIN 3V W CXR1V, 09/04/2024, 22:06. [facility], CT, CT ANGIO CHEST PE PROTOCOL, 09/16/2023, 18:48. FINDINGS: Image quality: Diagnostic. Lower Neck: No enlarged lymph nodes. Thyroid: No thyroid nodules which require sonographic follow up, per consensus guidelines. Axillae: No enlarged lymph nodes. Chest Wall: Unremarkable. Bones: Mildly displaced rib fractures can be seen involving the left posterolateral 8th through 10th ribs. Lungs and Pleura: No pneumothorax is seen. There is a small left-sided pleural effusion. Heart: Heart size is normal. No pericardial effusion. Mild coronary artery calcification is seen. Thoracic Vessels: The aorta and pulmonary arteries demonstrate normal size. Mediastinum and [place]: No enlarged lymph nodes. Esophagus: No wall thickening. No hiatal hernia. Upper Abdomen: There is left-sided hydronephrosis, with mild left-sided perinephric fat stranding. A stable hyperdense cysts can be seen along the posterior aspect of the right kidney. The visualized portions of the upper abdominal structures are otherwise unremarkable for imaging technique. IMPRESSION: Left posterolateral rib fractures. No associated pneumothorax. Small left-sided pleural effusion. Abnormal left kidney, with hydronephrosis and mild perinephric fat stranding. The degree of hydronephrosis is improved compared to the 06/26/2023 CT, however. Please correlate with symptoms. Additional findings: Mild coronary artery calcification Stable right kidney hyperdense cyst Dictated by: Jay Milligan M.D. on 09/09/2024 at 16:45 Approved by: Jay Milligan M.D. on 09/09/2024 at 16:49
[2024-09-09] MEDS: KETOROLAC 30 MG/ML VIAL 15 MG IV (16:02)
[2024-09-09] MEDS: MORPHINE 4 MG/ML INJ IV (16:03)
[2024-09-09 16:21] LABS: Add Manual Diff / Slide Review NO; Basophils Absolute Auto 0 /uL (0-100); Basophils Percent Auto 0.3 % (0-2); Eosinophils Absolute Auto 100 /uL (0-450); Eosinophils Percent Auto 1.6 % (2-4); Hematocrit 39.7 % (41-53); Hemoglobin 13.8 g/dL (13.5-17.5); Lymphocytes Absolute Auto 1400 /uL (1100-4500); Lymphocytes Percent Auto 24.1 % (25-40); Mean Corpuscular HGB Conc 34.8 % (30-36); Mean Corpuscular Hemoglobin 31.5 PG (26-34); Mean Corpuscular Volume 90.6 fL (80-100); Monocytes Absolute Auto 300 /uL (0-900); Monocytes Percent Auto 5.3 % (3-14); Neutrophils Absolute Auto 4100 /uL (1500-7000); Neutrophils Percent Auto 68.7 % (50-75); Platelet Count 213 X10^3/uL (150-400); Red Blood Cell Count 4.38 X10^6/uL (4.5-5.9); Red Cell Distribution Width 13.3 % (11.6-14.8); White Blood Cell Count 5.9 X10^3/uL (4.5-11.0)
[2024-09-09 16:33] LABS: Alanine Aminotransferase 55 IU/L (<50); Albumin 4.3 g/dL (3.5-5.0); Albumin Globulin Ratio 1.2 (1.0-2.8); Alkaline Phosphatase 60 U/L (38-126); Aspartate Aminotransferase 33 IU/L (17-59); BUN Creatinine Ratio 25.7 (6-22); Bilirubin Total 0.6 mg/dL (0.2-1.3); Blood Urea Nitrogen 18 mg/dL (9-20); Calcium 9.4 mg/dL (8.4-10.2); Carbon Dioxide 28 mmol/L (22-32); Chloride 105 mmol/L (98-107); Estimated Glomerular Filt Rate > 60 mL/min (>60); Globulin 3.5 g/dL (1.7-4.1); Glucose 107 mg/dL (80-110); HEMOLYSIS < 15 (0-50); Lipase 26 U/L (23-300); Potassium 4.1 mmol/L (3.4-5.1); Sodium 140 mmol/L (137-145); Total Protein 7.8 g/dL (6.3-8.2)
[2024-09-09] MEDS: LIDOCAINE 5% PATCH 1 EACH TOP (18:37)
[2024-09-09] MEDS: HYDROCODONE/ACET 5/325 PREPACK 1 BOTTLE MISC (18:37)
[2024-09-09 18:44] VITALS: BP 167/90; PULSE 96; RESP 16; O2SAT 96
== END 2024-09-09 18:47 | disposition home or self-care (01) ==
PROVIDERS: Emergency Provider Physician Assistant; PCP Family Medicine
DX: S22.42XA Multiple fractures of ribs, left side, initial encounter for closed fracture (principal); R93.422 Abnormal radiologic findings on diagnostic imaging of left kidney; N13.30 Unspecified hydronephrosis; W01.190A Fall on same level from slipping, tripping and stumbling with subsequent striking against furniture, initial encounter
CPT/HCPCS: 36415; 71260; 80053; 83690; 85025; 96374; 96375; 99284; J1885; J2270; Q9967

== ENCOUNTER → 2024-09-17 10:12 | Outpatient (CLI) | payer OTHER, SELFPAY ==
[2024-07-16 11:11] VITALS: BMI 26.9
== END ==
PROVIDERS: PCP Family Medicine; Visit Provider Urology
DX: N39.0 Urinary tract infection, site not specified (principal)
CPT/HCPCS: 51702; 87077; 87086; 87186

== ENCOUNTER → 2024-10-18 09:32 | Outpatient (CLI) | payer OTHER, SELFPAY ==
[2024-07-16 11:11] VITALS: BMI 26.9
--- NOTE | 2024-10-18 09:34 | DI.CT.S_ITS ---
PROCEDURE: CT ABDOMEN PELVIS WO/W CON INDICATIONS: Enlarged Kidney TECHNIQUE: After the administration of oral contrast, 5 mm thick sections acquired from the diaphragms to the iliac crests. After the administration of intravenous contrast, 5 mm thick sections acquired from the diaphragms to the symphysis. 5 mm thick coronal and sagittal reformats were acquired. For radiation dose reduction, the following was used: automated exposure control, adjustment of mA and/or kV according to patient size. COMPARISON: [facility], CT, CT ABDOMEN PELVIS W CON, 09/16/2023, 18:48. [facility], CT, CT ABDOMEN PELVIS W CON, 06/26/2023, 13:11. [facility], CT, CT CHEST W CON, 09/09/2024, 16:30. FINDINGS: Image quality: Diagnostic. Lower Chest: No significant findings. ABDOMEN: Liver: No solid mass. Gallbladder: Absent. Biliary ducts: No biliary dilation. Pancreas: No ductal dilation. Spleen: Size is within normal limits. Adrenal Glands: No adrenal nodules. Kidneys and Ureters: No hydronephrosis. Small peripelvic cysts which account for the appearance on the prior noncontrast CT. Right kidney inferior pole cyst measuring 2 cm, (), previously 1.9 cm in 2022. Measures 28 Hounsfield units, minimally complex. Stomach and Bowel: Normal colonic caliber, without significant wall thickening. The appendix is absent. Small cyst or diverticulum anterior to the stomach measuring 1.4 cm, (4/20), Peritoneum: No abnormal intraperitoneal fluid. No free air. Ventral Wall: No significant ventral hernia. Ventral abdominal wall scar. Abdominal Nodes: No retroperitoneal or mesenteric adenopathy by size criteria. Vessels: Aorta and inferior vena cava are normal in size. Circumferential calcified atherosclerotic plaque. PELVIS: Pelvic Organs: Prostatomegaly. Bladder: Decompressed with Rhodes catheter. Pelvic Nodes: No enlarged lymph nodes. Miscellaneous: Small lymph node lateral to the left bladder measuring 0.6 cm, (4/114), unchanged. Bones: No aggressive osseous abnormality. T12 height loss is unchanged. IMPRESSION: 1. No hydronephrosis. Bilateral peripelvic cysts are suspected. Less likely renal sinus edema. 2. Right kidney inferior pole minimally complicated cyst measuring 2 cm is unchanged since 2022. 3. Small cyst or diverticulum anterior to the stomach measuring 1.4 cm. Dictated by: Isaiah Sharma M.D. on 10/18/2024 at 11:45 Approved by: Isaiah Sharma M.D. on 10/18/2024 at 12:00
[2024-10-18 10:10] LABS: Estimated Glomerular Filt Rate > 60 mL/min (>60)
== END ==
PROVIDERS: PCP Family Medicine; Referring Provider Urology; Visit Provider Urology
DX: N13.30 Unspecified hydronephrosis (principal); N28.1 Cyst of kidney, acquired; N40.0 Benign prostatic hyperplasia without lower urinary tract symptoms; R33.9 Retention of urine, unspecified; Z90.49 Acquired absence of other specified parts of digestive tract
CPT/HCPCS: 36415; 74178; 82565; 87086; Q9967

== ENCOUNTER → 2024-10-18 15:59 | Outpatient (CLI) | payer OTHER, SELFPAY ==
[2024-07-16 11:11] VITALS: BMI 26.9
== END ==
LOC: LAB 16:00
PROVIDERS: PCP Family Medicine; Visit Provider Urology
DX: R33.9 Retention of urine, unspecified (principal)
CPT/HCPCS: 87086

== ENCOUNTER → 2024-11-12 10:36 | Outpatient (CLI) | payer OTHER, SELFPAY ==
[2024-07-16 11:11] VITALS: BMI 26.9
== END ==
PROVIDERS: PCP Family Medicine; Visit Provider Urology
DX: Z09 Encounter for follow-up examination after completed treatment for conditions other than malignant neoplasm (principal); Z87.440 Personal history of urinary (tract) infections; Z86.19 Personal history of other infectious and parasitic diseases
CPT/HCPCS: 51702; 87077; 87086; 87186

== ENCOUNTER → 2024-12-11 10:36 | Outpatient (CLI) | payer OTHER, SELFPAY ==
[2024-07-16 11:11] VITALS: BMI 26.9
== END ==
PROVIDERS: PCP Family Medicine; Visit Provider Urology
DX: R33.9 Retention of urine, unspecified (principal); Z87.440 Personal history of urinary (tract) infections
CPT/HCPCS: 51702; 87077; 87086; 87186

== ENCOUNTER → 2025-01-08 10:52 | Outpatient (CLI) | payer OTHER, SELFPAY ==
[2024-07-16 11:11] VITALS: BMI 26.9
== END ==
PROVIDERS: PCP Family Medicine; Visit Provider Urology
DX: R33.9 Retention of urine, unspecified (principal); Z87.440 Personal history of urinary (tract) infections
CPT/HCPCS: 87086

== ENCOUNTER 2025-01-27 15:13 | Emergency (ER) | payer OTHER, SELFPAY ==
[2024-07-16 11:11] VITALS: BMI 26.9
[2025-01-27 15:17] VITALS: BP 222/109; PULSE 83; RESP 17; TEMP 36.8; O2SAT 97; BMI 27.2
--- NOTE | 2025-01-27 16:28 | PC.NURSE ---
Patient told registration that he would go to urology tomorrow and left out the ED doors under his own power.
== END 2025-01-27 16:29 | disposition left against medical advice (07) ==
PROVIDERS: Emergency Provider Emergency Medicine; PCP Family Medicine
DX: Z53.21 Procedure and treatment not carried out due to patient leaving prior to being seen by health care provider (principal)
CPT/HCPCS: 99281

== ENCOUNTER → 2025-01-29 09:39 | Outpatient (CLI) | payer OTHER, SELFPAY ==
[2024-07-16 11:11] VITALS: BMI 26.9
== END ==
PROVIDERS: PCP Family Medicine; Visit Provider Urology
DX: Z87.440 Personal history of urinary (tract) infections (principal)
CPT/HCPCS: 87077; 87086; 87186

== ENCOUNTER → 2025-02-06 10:36 | Outpatient (CLI) | payer OTHER, SELFPAY ==
[2024-07-16 11:11] VITALS: BMI 26.9
== END ==
PROVIDERS: PCP Family Medicine; Visit Provider Urology
DX: Z87.440 Personal history of urinary (tract) infections (principal)
CPT/HCPCS: 87077; 87086; 87186

== ENCOUNTER → 2025-02-14 12:59 | Outpatient (CLI) | payer OTHER, SELFPAY ==
[2024-07-16 11:11] VITALS: BMI 26.9
[2025-02-14 13:28] LABS: Add Manual Diff / Slide Review NO; Hematocrit 42.0 % (41-53); Hemoglobin 14.6 g/dL (13.5-17.5); Lymphocytes Absolute Auto 1800 /uL (1100-4500); Mean Corpuscular HGB Conc 34.9 % (30-36); Mean Corpuscular Hemoglobin 31.3 PG (26-34); Mean Corpuscular Volume 89.8 fL (80-100); Platelet Count 242 X10^3/uL (150-400)
[2025-02-14 13:53] LABS: Alanine Aminotransferase 18 IU/L (<50); Albumin 4.6 g/dL (3.5-5.0); Albumin Globulin Ratio 1.4 (1.0-2.8); Alkaline Phosphatase 58 U/L (38-126); Blood Urea Nitrogen 12 mg/dL (9-20); Calcium 9.2 mg/dL (8.4-10.2); Carbon Dioxide 24 mmol/L (22-32); Chloride 106 mmol/L (98-107); Cholesterol 197 mg/dL (140-199); Estimated Glomerular Filt Rate > 60 mL/min (>60); Globulin 3.4 g/dL (1.7-4.1); Glucose 115 mg/dL (70-99); HDL Cholesterol 47 mg/dL (40-60); HEMOLYSIS < 15 (0-50); Potassium 4.0 mmol/L (3.4-5.1); Sodium 139 mmol/L (137-145); Total Protein 8.0 g/dL (6.3-8.2); Triglycerides 76 mg/dL (35-150)
[2025-02-14 14:24] LABS: TSH w/ Reflex to FT4 2.11 uIU/mL (0.47-4.68)
[2025-02-14 14:43] LABS: Vitamin B12 429 pg/mL (239-931)
[2025-02-14 17:00] LABS: Microalbumi Creatinin Ratio Ur 111.0 ug/mg CR (<30)
== END ==
PROVIDERS: PCP Family Medicine; Referring Provider Family Medicine; Visit Provider Family Medicine
DX: G31.84 Mild cognitive impairment of uncertain or unknown etiology (principal); E78.2 Mixed hyperlipidemia; I10 Essential (primary) hypertension
CPT/HCPCS: 80053; 80061; 82043; 82570; 82607; 84443; 85025

== ENCOUNTER → 2025-02-19 08:43 | Outpatient (CLI) | payer OTHER, SELFPAY ==
[2024-07-16 11:11] VITALS: BMI 26.9
--- NOTE | 2025-02-19 08:44 | DI.MRI.S_ITS ---
PROCEDURE: MR HEAD/BRAIN WO CON INDICATIONS: memory loss TECHNIQUE: Non-contrast axial T1 spin echo, axial T2 fast spin echo, sagittal and axial FLAIR, coronal T2 fast spin echo, axial gradient echo, axial diffusion and ADC through the brain. COMPARISON: [facility], CT, CT HEAD/BRAIN WO CON, 09/16/2023, 18:44. [facility], MR, MR HEAD/BRAIN WO CON, 08/20/2023, 10:11. [facility], MR, BRAIN WITHOUT CONTRAST, 03/11/2015, 15:06. [facility], MR, MR HEAD/BRAIN WO CON, 01/10/2019, 8:36. FINDINGS: Image quality: Excellent. CSF spaces: Ventricles appear symmetric in size and shape. Basal cisterns are patent. No extra-axial fluid collections. Brain: No intracranial bleeds or mass effects. There is cerebral volume loss for age. There are periventricular and deep white matter chronic small vessel ischemic changes. Brainstem appears normal. Diffusion-weighted images show no acute infarct. No chronic ischemic insults. Normal intravascular flow voids are present. Skull and face: Calvarial bone marrow is normal in signal. Orbits are normal. Note is made of bilateral lens replacements. Sinuses: Sinuses and mastoids are clear. IMPRESSION: Noncontrast brain MRI within normal limits for age, with generalized brain parenchymal volume loss and chronic small vessel ischemic change. No significant change from the prior. Dictated by: Jay Milligan M.D. on 02/19/2025 at 13:54 Approved by: Jay Milligan M.D. on 02/19/2025 at 13:55
== END ==
PROVIDERS: PCP Family Medicine; Referring Provider Family Medicine; Visit Provider Family Medicine
DX: G31.84 Mild cognitive impairment of uncertain or unknown etiology (principal); R41.3 Other amnesia; E78.2 Mixed hyperlipidemia; I10 Essential (primary) hypertension
CPT/HCPCS: 70551

== ENCOUNTER → 2025-03-25 13:47 | Outpatient (CLI) | payer OTHER, SELFPAY ==
[2024-07-16 11:11] VITALS: BMI 26.9
== END ==
PROVIDERS: PCP Family Medicine; Visit Provider Urology
DX: Z87.440 Personal history of urinary (tract) infections (principal); R33.9 Retention of urine, unspecified; Z68.26 Body mass index [BMI] 26.0-26.9, adult
CPT/HCPCS: 51702; 87077; 87086; 87186

== ENCOUNTER → 2025-05-13 11:06 | Outpatient (CLI) | payer OTHER, SELFPAY ==
[2025-04-22 13:47] VITALS: BMI 26.9
== END ==
PROVIDERS: PCP Family Medicine; Visit Provider Urology
DX: R33.9 Retention of urine, unspecified (principal)
CPT/HCPCS: 87077; 87086

== ENCOUNTER 2025-07-06 14:51 | Emergency (ER) | payer OTHER, SELFPAY ==
[2025-05-13 11:46] VITALS: BMI 26.9
--- OUTSIDE RECORDS SUMMARY | 2025-07-06 14:53 | XMS_ITS | Clinical Summary ---
Author Organization Merged with [facility] Address [facility] [address] Care Team Providers Care Mac Operator Name Role Phone Tip Blackman MD Primary Care Provider [phone] Allergies No known active allergies Medications memantine (NAMENDA) 5 MG tablet Take 5 mg by mouth Twice a day Active atorvastatin (LIPITOR) 40 MG tablet Take 40 mg by mouth daily Active lisinopriL (PRINIVIL,ZESTRI L) 20 MG tablet Take 20 mg by mouth daily Active tamsulosin (FLOMAX) 0.4 mg Capsule 24 hr capsule Take 0.8 mg by mouth daily Active mirabegron (MYRBETRIQ) 50 mg Tablet Extended Release 24 hr Take 1 tablet by mouth Daily at 7:00 PM 03/14/2025 Active solifenacin (VESICARE) 5 MG tablet Take 1 tablet by mouth Daily at 7:00 PM 03/14/2025 Active amLODIPine (NORVASC) 10 MG tablet Take 1 tablet by mouth Daily at 7:00 PM 03/06/2025 Active Active Problems No known active problems Immunizations Immunization Administration Dates Next Due HepA 08/18/1999,10/28/1998 Influenza quad (PF) 03/26/2020 Influenza trivalent (PF) (3 years and up) 05/30/2017,05/25/2016,05/18/2015,2013 Influenza trivalent HIGH-DOS E (PF) (65 years and up) 09/17/2023,05/13/2022,06/29/2021 Influenza trivalent adjuvant ed (PF) (65 years and up) 04/09/2024 Moderna SARS-CoV-2 Vaccination 09/08/2020,2020 Pfizer SARS-CoV-2 Vaccinatio n (Purple Cap) 06/29/2021 Pneumococcal Conjugate 13-Valent 02/01/2018 Tdap 02/28/2012 Zoster 05/07/2014 Family History Medical History Relation Comments Dementia Father Parkinsonism Neg Hx Seizures Neg Hx Stroke / Cerebrovascular accident (CVA) Neg Hx Relation Status Comments Father Social History Tobacco Use Types Packs/Day Years Used Date Smoking Tobacco: Never Smokeless Tobacco: Never Tobacco Cessation:Counseling Given: Not Answered Alcohol Use Standard Drinks/Week Comments Not Currently 0 (1 standard drink = 0.6 oz pure alcohol) hx of alcohol abuse 40+ years ago. Sex and Gender Information Value Date Recorded Sex Assigned at Not on file Legal Sex Male 10:19 AM PDT Gender Identity Not on file Sexual Orientation Not on file Last Filed Vital Signs Vital Sign Reading Time Taken Comments Blood Pressure 150/70 04/04/2025 11:15 AM PDT Pulse 74 04/04/2025 11:15 AM PDT Temperature - - Respiratory Rate - - Oxygen Saturation 99% 04/04/2025 11:15 AM PDT Inhaled Oxygen Concentration - - Weight 35 kg (77 lb 3.2 oz) 04/04/2025 11:15 AM PDT Height - - Body Mass Index - - Plan of Treatment Health Maintenance Due Date Last Done Comments CT Colonography 1952 Colonoscopy 1952 Colorectal Cancer Screening 1952 Disability Screening 1952 FIT-DNA (COLOGUARD) 1952 Hepatitis C Screening 1952 Sigmoidoscopy 1952 Lipid Panel (Cholesterol Screening) 1970 FIT (FOBT) 1997 Zoster (2 of 3) 07/02/2014 05/07/2014 Medicare Initial Annual Well ness Visit [id number] 09/15/2017 Pneumococcal 50+ Years (2 of 2 - PCV20 or PCV21) 02/01/2019 02/01/2018 DTaP/Tdap/Td Vaccine (2 - Td or Tdap) 02/27/2022 02/28/2012 Drug, Alcohol, and Depressio n Screening 07/18/2024 SOGIE 07/18/2024 Covid-19 Vaccine (4 - 2024-2 6 season) 2025 06/29/2021, 09/08/2020, 08/06/2020 Influenza Vaccine (#1) 2025 , 09/17/2023, 05/13/2022, Additional history exists RSV Vaccines (1 - 1-dose 75+ series) 09/25/2027 Insurance [employer] [place] [employer] Care Teams Mac Operator Relationship Specialty Start Date End Date Tip Blackman MD [address] [phone] PCP - General Family Medicine 02/26/25
== END 2025-07-06 15:04 | disposition left against medical advice (07) ==
PROVIDERS: Emergency Provider Student in an Organized Health Care Education/Training Program; PCP Family Medicine
DX: Z53.21 Procedure and treatment not carried out due to patient leaving prior to being seen by health care provider (principal)

== ENCOUNTER → 2025-07-09 08:46 | Outpatient (CLI) | payer OTHER, SELFPAY ==
[2025-05-13 11:46] VITALS: BMI 26.9
[2025-07-09 11:53] LABS: Appearance Urine UA CLOUDY; Bilirubin Urine UA 1+ (NEGATIVE); Color Urine UA YELLOW; Glucose Urine UA NEGATIVE (Negative); Ketones Urine UA TRACE (NEGATIVE); Leukocyte Esterase Urine UA 2+ (NEGATIVE); Nitrite Urine UA POSITIVE (Negative); Occult Blood Urine UA 3+ (Negative); Protein Urine UA 2+ (Negative); Specific Gravity Urine UA 1.025 (1.000-1.035); Urobilinogen Urine UA 0.2 E.U./dL (0.2); pH Urine UA 5.5 (4.5-8.0)
[2025-07-09 12:02] LABS: Culture Indicated Urine Specimen Cultured; Ictotest Urine Negative (Negative)
== END ==
PROVIDERS: PCP Family Medicine; Referring Provider Urology; Visit Provider Urology
DX: R33.9 Retention of urine, unspecified (principal); R39.9 Unspecified symptoms and signs involving the genitourinary system
CPT/HCPCS: 81001; 87077; 87086

== ENCOUNTER 2025-07-14 12:48 | Emergency (ER) | payer OTHER, SELFPAY ==
[2025-05-13 11:46] VITALS: BMI 26.9
[2025-07-14] VITALS (15 sets, daily range): BP systolic 152–187; BP diastolic 75–97; PULSE 69–115; RESP 16–18; TEMP 36.9; O2SAT 96–99; BMI 23.4
--- OUTSIDE RECORDS SUMMARY | 2025-07-14 12:52 | XMS_ITS | Clinical Summary ---
Author Organization [facility] Address [facility] [address] Care Team Providers Care Distribution Sales Manager Name Role Phone Tip Blackman MD Primary Care Provider Allergies No known active allergies Medications memantine [...] Insurance [employer] [place] [employer] Care Teams Distribution Sales Manager Relationship Specialty Start Date End Date Tip Blackman MD [address] [phone] PCP - General Family Medicine 02/26/25
--- NOTE | 2025-07-14 13:07 | ED.MALEGU ---
HPI - Male Genitourinary General Chief complaint: Urogenital-Male Stated complaint: catheter issue, needs new one Time Seen by Provider: 07/14/25 13:06 History of Present Illness HPI Narrative: Patient is a 74-year-old man who presents to the ED today for leaking Rhodes catheter bag. He states that he was taking out the trash today when his leg bag leaked into his shoe. Past medical history significant for hypertension, hyperlipidemia, dementia He has a chronic 16 Somali coude Rhodes catheter that gets monthly exchanges. Last exchange was 06/10/2025. He has failed multiple voiding trials and has chronic indwelling Rhodes and being managed by infectious disease for your recurrent UTIs. On EMR review, he presented to ED 07/09/2025 for catheter leaking but left without being seen. I reviewed prior documentation inpatient seems to always be alert but not oriented to time, place or events. Related Data Home Medications ?Medication ?Instructions ?Recorded ?Confirmed latanoprost 0.005 % eye drops 1 drp EYE-BOTH BEDTIME 06/22/23 07/12/25 citalopram 20 mg tablet 40 mg PO DAILY 09/09/24 07/12/25 tamsulosin 0.4 mg capsule 0.8 mg PO DAILY 09/09/24 07/12/25 d-mannose ea PO 11/12/24 07/12/25 polyethylene glycol 3350 17 17 g PO DAILY 11/12/24 07/12/25 gram/dose oral powder (Miralax) solifenacin 10 mg tablet 10 mg PO DAILY 06/11/25 07/12/25 Previous Rx's ?Medication ?Instructions ?Recorded blood sugar diagnostic (OneTouch #10 ea 10/27/20 Ultra Blue Test Strip) mirabegron 50 mg tablet,extended 50 mg PO DAILY #90 tabs 02/06/25 release 24 hr simvastatin 20 mg tablet 20 mg PO BEDTIME #90 tabs 02/11/25 memantine 5 mg tablet 5 mg PO BID #180 tabs 03/14/25 amlodipine 10 mg tablet 10 mg PO DAILY #90 tabs 06/11/25 lisinopril 20 mg tablet 20 mg PO DAILY #90 tabs 06/11/25 spironolactone 25 mg tablet 25 mg PO DAILY 90 days #90 tabs 06/21/25 ciprofloxacin HCl 500 mg tablet 500 mg PO BID #14 tabs 07/14/25 Allergies Allergy/AdvReac Type Severity Reaction Status Date / Time No Known Drug Allergies Allergy Unknown Verified 07/14/25 13:05 Review of Systems Review of Systems Narrative: See HPI. Patient History Medical History Dementia Parapelvic renal cyst Sepsis Small bowel obstruction Mild cognitive impairment Rhodes catheter in place Benign prostatic hyperplasia with lower urinary tract symptoms History of urinary tract infection History of sepsis Nicotine abuse History of tobacco use History of hematuria Benign prostatic hyperplasia Lower urinary tract symptoms Partial small bowel obstruction Short-term memory loss Hyperglycemia Libido, decreased Change in stool caliber Substance abuse (~1974) Chronic back pain (~1999) Chicken pox (~1955) Hepatitis C (~1994) Cancer (~2008) Low back pain Hyperlipidemia Dry eyes Memory impairment Essential hypertension (10/08/15) Anxiety (10/08/15) Surgical History Anesthesia Pseudomyxoma peritonei (~08/02/08) Family History Father Diabetes mellitus History of heart disease Mental health problem Hypertension Mother Sepsis Hypertension Sister Cancer Hypertension Sister Diabetes mellitus Hypertension Grandfather History of heart disease Grandmother History of heart disease Social History marital status: unmarried,living together household members: significant other occupational status: employed Smoking Status: Former smoker alcohol intake: former Exam Narrative Exam Narrative: Vitals: Afebrile, hypertensive, all vitals are within normal range Gen: ?Well-developed, well-nourished, no acute distress Skin: ?No rashes Cards: ?Regular, no murmurs, rubs, gallops Pulm: ?No increased work of breathing, clear to auscultation all lung lim Abd:? Soft, nondistended, nontender to palpation Ext: ?No peripheral edema in bilateral lower extremities Neuro: ?A&O to self and location, he does not know the year who is the president, cranial nerves grossly intact, moving all 4 extremities spontaneously Psych: ?Patient does not appear to be aware that he has dementia. Does not appear intoxicated, not responding to internal stimuli. Dressed appropriately. He answers appropriately however will get angry. Initial Vital Signs Initial Vital Signs: Vital Signs Temperature 98.4 F 07/14/25 13:06 Pulse Rate 78 07/14/25 13:06 Respiratory Rate 18 07/14/25 13:06 Blood Pressure 169/88 H 07/14/25 13:06 Pulse Oximetry 99 07/14/25 13:06 Oxygen Delivery Method Room Air 07/14/25 13:06 Course Orders Ordered: Discontinued Medications Ciprofloxacin (Ciprofloxacin 250 Mg Tablet) 500 mg PO NOW ONE Stop: 07/14/25 15:32 Last Admin: 07/14/25 15:46 Dose: 500 mg Documented By: RLC Lidocaine HCl (Lidocaine 2% (Glydo) 6 Ml Gel) 6 ml TOP NOW ONE Stop: 07/14/25 13:39 Last Admin: 07/14/25 13:41 Dose: 6 ml Documented By: RLC Vital Signs Vital signs: Vital Signs - 8 hr 07/14/25 16:00 07/14/25 16:00 07/14/25 16:00 Pulse Rate 81 Respiratory Rate Blood Pressure 155/83 H 155/83 H Pulse Oximetry 97 Oxygen Delivery Method 07/14/25 16:05 07/14/25 16:05 07/14/25 16:30 Pulse Rate 77 Respiratory Rate Blood Pressure 157/90 H 166/82 H Pulse Oximetry 98 Oxygen Delivery Method 07/14/25 16:30 07/14/25 16:36 07/14/25 17:00 Pulse Rate 86 104 H Respiratory Rate Blood Pressure 153/75 H Pulse Oximetry 98 97 Oxygen Delivery Method 07/14/25 18:39 07/14/25 19:18 Pulse Rate 115 H 85 Respiratory Rate 18 18 Blood Pressure 187/97 H 167/85 H Pulse Oximetry 97 99 Oxygen Delivery Method Room Air Room Air MDM - Male Genitourinary Lab Data 07/14/25 13:30 07/14/25 13:30 Labs: Lab Results 07/14/25 07/14/25 Range/Units 13:30 13:54 WBC 4.6 (4.5-11.0) X10^3/uL RBC 4.88 (4.5-5.9) X10^6/uL Hgb 15.1 (13.5-17.5) g/dL Hct 42.8 (41-53) % MCV 87.7 (80-100) fL MCH 30.9 (26-34) PG MCHC 35.2 (30-36) % RDW 13.3 (11.6-14.8) % Plt Count 206 (150-400) X10^3/uL Neut % (Auto) 64.9 (50-75) % Lymph % (Auto) 28.9 (25-40) % [place] % (Auto) 4.7 (3-14) % Eos % (Auto) 1.0 L (2-4) % Baso % (Auto) 0.5 (0-2) % Neut # (Auto) 3000 (0310-2533) /uL Lymph # (Auto) 1300 (1208-5429) /uL [place] # (Auto) 200 (0-900) /uL Eos # (Auto) 0 (0-450) /uL Baso # (Auto) 0 (0-100) /uL Sodium 139 (137-145) mmol/L Potassium 4.1 (3.4-5.1) mmol/L Chloride 105 (98-107) mmol/L Carbon Dioxide 24 (22-32) mmol/L BUN 12 (9-20) mg/dL Creatinine 0.64 L (0.66-1.25) mg/dL Estimated GFR > 60 (>60) mL/min BUN/Creatinine Ratio 18.8 (6-22) Glucose 128 H (70-99) mg/dL Calcium 9.4 (8.4-10.2) mg/dL Total Bilirubin 1.2 (0.2-1.3) mg/dL AST 25 (17-59) IU/L ALT 20 (<50) IU/L Alkaline Phosphatase 61 (38-126) U/L Troponin I < 0.012 (0.01-0.034) ng/mL Total Protein 8.7 H (6.3-8.2) g/dL Albumin 4.9 (3.5-5.0) g/dL Globulin 3.8 (1.7-4.1) g/dL Albumin/Globulin Ratio 1.3 (1.0-2.8) Urine Color Yellow Urine Appearance Cloudy Urine pH 6.5 (4.5-8.0) Ur Specific [place] <=1.005 (1.000-1.035) Urine Protein Trace H (Negative) Urine Glucose (UA) Negative (Negative) g/dL Urine Ketones Negative (NEGATIVE) Urine Occult Blood 1+ H (Negative) Urine Nitrate Positive H (Negative) Urine Bilirubin Negative (NEGATIVE) Urine Urobilinogen 0.2 (0.2) E.U./dL Ur Leukocyte Esterase 3+ H (NEGATIVE) Urine RBC 1-5/hpf D (0-5/HPF) Urine WBC >100/hpf H (0-5/HPF) Ur Squamous Epith Cells 1-5 /hpf (0-5/HPF) Urine Bacteria Many (>30) H (None) Ur Culture Indicated? Specimen cultured Micro UA Comment Vol Urine Centrifuged 10ml (spun) Imaging Data Chest x-ray: Radiologist's Impression: PROCEDURE: XR CHEST 1V INDICATIONS: confusion TECHNIQUE: One view of the chest was acquired. COMPARISON: [facility], , XR CHEST 1V, 06/26/2023, 12:41. FINDINGS: Surgical changes and devices: None. Lungs and pleura: Lungs are clear. No pleural effusions or pneumothorax. Mediastinum: Mediastinal contours appear normal. Heart size is normal. Bones and chest wall: No suspicious bony lesions. Overlying soft tissues appear unremarkable. IMPRESSION: No acute cardiopulmonary abnormality is seen. MDM Narrative Medical decision making narrative: Patient is a 74-year-old man with a history of dementia, BPH and indwelling Rhodes, brought in by self for Rhodes bag leakage. EMR Review: MRI: Noncontrast brain MRI within normal limits for age, with generalized brain parenchymal volume loss and chronic small vessel ischemic change. Reviewed prior urine cultures, we will send home on fluoroquinolone that is sensitive to Klebsiella pneumoniae and Enterococcus faecalis Reviewed prior neural note he has cognitive impairment with declined Labs: CBC without leukocytosis, no left shift, no anemia, normal platelets. Chem panel largely unremarkable. LFTs normal. Serial troponins normal. Urinalysis positive for nitrites, leuk esterase, and pyuria. Images: Chest x-ray without any acute cardiopulmonary abnormality. EKG: None. ED Course: 1500 ID consulted. Message left. 1556 Dr. Paige consulted. Will require 48 hours holding an ER prior to admit. We do not have social work today. Ciprofloxacin ordered based on prior urine culture. 1755 Informed by nursing staff that patient eloped was seen in security camera leaving the building. 1858 Patient arrived to the ED accompanied by his significant other. During the encounter, concerns were discussed regarding the patient?s continued driving in the context of his known cognitive impairment. Review of a neurology consult dated 04/04/2025 noted a diagnosis of cognitive impairment with progressive decline, with neurology documenting that they were ?worried that he has dementia and it will continue to decline? and that ?his insight into deficits isn?t great.? When these findings and associated safety concerns were reviewed with the patient and his significant other, both appeared largely indifferent. The patient?s significant other was advised that, given the patient?s cognitive decline, he may pose a risk to himself and others if driving. She was encouraged to secure the car keys to prevent the patient from driving. The stated she did not feel concerned and believed the patient was safe to drive. She does not appear to have great insight to his deficits either. Discharge Plan Departure Patient Disposition: Home Clinical Impression: Chronic indwelling Rhodes catheter, UTI (urinary tract infection) Instructions: DI for Urinary Tract Infection (UTI) Activity Restrictions/Additional Instructions: Jatin was seen in the emergency department for concerns of Rhodes catheter leakage. In the ER: -- His Rhodes was changed. -- Urine was consistent with a urinary tract infection and he was given his 1st dose of antibiotics. Plan: -- Please keep keys away from him as he has significant dementia and should not be driving -- Complete 7 day course of antibiotics. This has been sent to [facility] -- Follow up with urology at the end of July 2025 for Rhodes exchange Prescriptions: New ciprofloxacin HCl 500 mg tablet 500 mg PO BID Qty: 14 0RF No Action simvastatin 20 mg tablet 20 mg PO BEDTIME Qty: 90 3RF Rx Instructions: take 1 tablet by mouth at bedtime (DME) OneTouch Ultra Blue Test Strip Strip See Rx Instructions .ROUTE .MEDSUPPLY Qty: 10 3RF Rx Instructions: As directed daily memantine 5 mg tablet 5 mg PO BID Qty: 180 3RF spironolactone 25 mg tablet 25 mg PO DAILY 90 Days Qty: 90 3RF solifenacin 10 mg tablet 10 mg PO DAILY amlodipine 10 mg tablet 10 mg PO DAILY Qty: 90 3RF lisinopril 20 mg tablet 20 mg PO DAILY Qty: 90 3RF latanoprost 0.005 % drops 1 drp EYE-BOTH BEDTIME citalopram 20 mg tablet 40 mg PO DAILY tamsulosin 0.4 mg capsule 0.8 mg PO DAILY polyethylene glycol 3350 [Miralax] 17 gram/dose powder 17 g PO DAILY d-mannose Powder PO mirabegron 50 mg tablet extended release 24 hr 50 mg PO DAILY Qty: 90 3RF Referrals: Tip Blackman MD [Primary Care Provider, Family Practice] Stand Alone Forms: Patient Portal/API
--- NOTE | 2025-07-14 13:25 | DI.RAD.S_ITS ---
PROCEDURE: XR CHEST 1V INDICATIONS: confusion TECHNIQUE: One view of the chest was acquired. COMPARISON: [facility], CR, XR CHEST 1V, 06/26/2023, 12:41. FINDINGS: Surgical changes and devices: None. Lungs and pleura: Lungs are clear. No pleural effusions or pneumothorax. Mediastinum: Mediastinal contours appear normal. Heart size is normal. Bones and chest wall: No suspicious bony lesions. Overlying soft tissues appear unremarkable. IMPRESSION: No acute cardiopulmonary abnormality is seen. Dictated by: Rodney Coyne M.D. on 07/14/2025 at 12:48 Approved by: Rodney Coyne M.D. on 07/14/2025 at 12:48
[2025-07-14] MEDS: LIDOCAINE 2% (GLYDO) 6 ML GEL TOP (13:41)
[2025-07-14 13:59] LABS: Add Manual Diff / Slide Review NO; Hematocrit 42.8 % (41-53); Hemoglobin 15.1 g/dL (13.5-17.5); Lymphocytes Absolute Auto 1300 /uL (1100-4500); Mean Corpuscular HGB Conc 35.2 % (30-36); Mean Corpuscular Hemoglobin 30.9 PG (26-34); Mean Corpuscular Volume 87.7 fL (80-100); Platelet Count 206 X10^3/uL (150-400)
[2025-07-14 13:59] LABS: Appearance Urine UA CLOUDY; Bilirubin Urine UA NEGATIVE (NEGATIVE); Color Urine UA YELLOW; Glucose Urine UA NEGATIVE (Negative); Ketones Urine UA NEGATIVE (NEGATIVE); Leukocyte Esterase Urine UA 3+ (NEGATIVE); Nitrite Urine UA POSITIVE (Negative); Occult Blood Urine UA 1+ (Negative); Protein Urine UA TRACE (Negative); Specific Gravity Urine UA <=1.005 (1.000-1.035); Urobilinogen Urine UA 0.2 E.U./dL (0.2); pH Urine UA 6.5 (4.5-8.0)
[2025-07-14 14:00] LABS: Alanine Aminotransferase 20 IU/L (<50); Albumin 4.9 g/dL (3.5-5.0); Albumin Globulin Ratio 1.3 (1.0-2.8); Alkaline Phosphatase 61 U/L (38-126); Blood Urea Nitrogen 12 mg/dL (9-20); Calcium 9.4 mg/dL (8.4-10.2); Carbon Dioxide 24 mmol/L (22-32); Chloride 105 mmol/L (98-107); Estimated Glomerular Filt Rate > 60 mL/min (>60); Globulin 3.8 g/dL (1.7-4.1); Glucose 128 mg/dL (70-99); HEMOLYSIS < 15 (0-50); Potassium 4.1 mmol/L (3.4-5.1); Sodium 139 mmol/L (137-145); Total Protein 8.7 g/dL (6.3-8.2)
[2025-07-14 14:12] LABS: Culture Indicated Urine Specimen Cultured
[2025-07-14 14:12] LABS: Troponin I < 0.012 ng/mL (0.01-0.034)
[2025-07-14] MEDS: CIPROFLOXACIN 250 MG TABLET 500 MG PO (15:46)
--- NOTE | 2025-07-14 18:21 | PC.NURSE ---
Patient eloped from ED, was visualized leaving at 1719 on security cameras. Called person to notify in chart, Nona, and was able to speak to her. Requested that she brings patient back to ED to speak to provider and to have PIV removed. Spoke to patient as well and also asked him to return for results and PIV removal. At time of conversation is under impression that they will return. Provider made aware of elopement at time of noticing it and that patient should be returning to ED.
--- NOTE | 2025-07-14 18:21 | PC.NURSE ---
Assessed the pt at 1700. This RN noticed that the pt was not in his room at 1730, checked both bathrooms in the department, checked the waiting room. Informed the charge nurse at 1745 after charge completed triage of new patient. From security video footage, pt left AMA at 1719. Pt left the department with IV in his arm. The had varying levels of orientation from one moment being alert to that he was in the hospital and that he was here for his carlson cath. Then when the pt was reassessed the pt was confused and didn't know where he was at, the year, who the current president is or why he was here.
== END 2025-07-14 19:19 | disposition home or self-care (01) ==
PROVIDERS: Emergency Provider Student in an Organized Health Care Education/Training Program; PCP Family Medicine
DX: N39.0 Urinary tract infection, site not specified (principal); T83.031A Leakage of indwelling urethral catheter, initial encounter
CPT/HCPCS: 36415; 51702; 71045; 80053; 81001; 84484; 85025; 87077; 87086; 87186; 99284